=== PATIENT | female | born 1960 | race Caucasian/White ===

== ENCOUNTER → 2022-02-25 | Outpatient (CLI) | payer BC, OTHER, SELFPAY ==
[2022-02-25 15:12] LABS: Absolute Lymphocyte Count 2.38 X10^3/uL (0.83-4.51); Absolute Neutrophil Count 3.9 X10^3/uL (2.0-7.7); Basophil# 0.03 X10^3/uL; Basophil% 0.4 % (0-1); Eosinophil# 0.16 X10^3/uL; Eosinophils% 2.3 % (0-5); Hematocrit 43.4 % (37-47); Hemoglobin 14.1 g/dL (12.0-15.0); Lymphocyte # 2.38 X10^3/ul (0.83-4.51); Lymphocyte % 33.9 % (19-41); Mean Corp Hgb Conc 32.5 g/dL (32-36); Mean Corpuscular Hgb 29.4 pg (27.0-32.0); Mean Corpuscular Volume 90.6 fL (81-99); Mean Platelet Vol. 11.5 fl (6.2-12.0); Monocyte# 0.53 X10^3/uL; Monocyte% 7.5 % (0-10); NRBC Flagged by Analyzer 0 % (0-5); Neutrophil # 3.92 X10^3/uL (2.7-7.7); Neutrophil % 55.8 % (47-70); Platelet Count 231 K/mm3 (150-450); RBC Distribution Width CV 12.1 % (11.6-14.6); RBC Distribution Width SD 40.3 fl (35.1-43.9); Red Blood Count 4.79 M/mm3 (4.2-5.4)
[2022-02-25 16:02] LABS: AST(SGOT) 13 U/L (15-37); Alanine Aminotransfer ALT/SGPT 25 U/L (13-56); Albumin, Serum 3.8 g/dL (3.2-5.0); Alkaline Phosphatase 72 U/L (45-117); Anion Gap 4 (5-15); BUN 16 mg/dL (7-18); BUN/Creat Ratio 21.4 RATIO (10-20); Calcium,Total 9.4 mg/dL (8.5-10.1); Chloride 107 mmol/L (98-107); Cholesterol 254 mg/dL (200); Creatinine, Serum 0.75 mg/dL (0.55-1.02); EST Glomerular Filtration Rate 83 mL/min (>60); Est Glom Filt Rate - Afr Amer 101 mL/min (>60); Globulin 3.8 g/dL (2.2-4.2); Glucose 104 mg/dL (74-106); High Density Lipoprotein 54 mg/dL; Potassium 4.5 mmol/L (3.5-5.1); Protein, Total 7.6 g/dL (6.4-8.2); Sodium Level 138 mmol/L (136-145); Triglycerides 189 mg/dL; Very Low Density Lipoprotein 38 mg/dL (5-40)
== END | disposition home or self-care (01) ==
LOC: BIMLAB 12:13
PROVIDERS: PCP Internal Medicine; Referring Provider Internal Medicine; Visit Provider Internal Medicine
DX: E78.5 Hyperlipidemia, unspecified (principal)
CPT/HCPCS: 36415; 80053; 80061; 85025

== ENCOUNTER → 2022-04-12 | Outpatient (CLI) | payer OTHER, SELFPAY ==
[2022-04-12 12:52] LABS: ALB/GLOB Ratio 1.1 RATIO (0.9-2.4); AST(SGOT) 14 U/L (15-37); Alanine Aminotransfer ALT/SGPT 25 U/L (13-56); Alkaline Phosphatase 66 U/L (45-117); Anion Gap 4 (5-15); BUN 18 mg/dL (7-18); Calcium,Total 9.8 mg/dL (8.5-10.1); Chloride 109 mmol/L (98-107); Creatinine, Serum 0.72 mg/dL (0.55-1.02); EST Glomerular Filtration Rate 87 mL/min (>60); Est Glom Filt Rate - Afr Amer 105 mL/min (>60); Globulin 3.5 g/dL (2.2-4.2); Glucose 90 mg/dL (74-106); Potassium 4.1 mmol/L (3.5-5.1); Protein, Total 7.5 g/dL (6.4-8.2); Sodium Level 140 mmol/L (136-145)
== END | disposition home or self-care (01) ==
LOC: BIMLAB 11:20
PROVIDERS: PCP Internal Medicine; Referring Provider Internal Medicine; Visit Provider Internal Medicine
DX: E78.5 Hyperlipidemia, unspecified (principal); E66.9 Obesity, unspecified
CPT/HCPCS: 36415; 80053; 83036

== ENCOUNTER → 2022-07-12 | Outpatient (CLI) | payer OTHER, SELFPAY ==
[2022-07-12 12:37] LABS: ALB/GLOB Ratio 1.1 RATIO (0.9-2.4); AST(SGOT) 18 U/L (15-37); Alanine Aminotransfer ALT/SGPT 33 U/L (13-56); Alkaline Phosphatase 69 U/L (45-117); Anion Gap 7 (5-15); BUN 16 mg/dL (7-18); BUN/Creat Ratio 21.6 RATIO (10-20); CPK Total, Creatine Kinase 59 U/L (26-192); Calcium,Total 10.1 mg/dL (8.5-10.1); Chloride 109 mmol/L (98-107); Cholesterol 155 mg/dL (200); Creatinine, Serum 0.74 mg/dL (0.55-1.02); EST Glomerular Filtration Rate 84 mL/min (>60); Est Glom Filt Rate - Afr Amer 102 mL/min (>60); Globulin 3.6 g/dL (2.2-4.2); Glucose 100 mg/dL (74-106); High Density Lipoprotein 52 mg/dL; Potassium 4.4 mmol/L (3.5-5.1); Protein, Total 7.6 g/dL (6.4-8.2); Sodium Level 142 mmol/L (136-145); Triglycerides 101 mg/dL; Very Low Density Lipoprotein 20 mg/dL (5-40)
== END | disposition home or self-care (01) ==
LOC: BIMLAB 10:36
PROVIDERS: PCP Internal Medicine; Visit Provider Internal Medicine
DX: E78.5 Hyperlipidemia, unspecified (principal)
CPT/HCPCS: 36415; 80053; 80061; 82550

== ENCOUNTER → 2022-07-16 | Outpatient (CLI) | payer OTHER, SELFPAY ==
--- NOTE | 2022-07-16 14:27 | US_ITS ---
ACR Level 3 findings have been noted. An addendum which confirms receipt of the report will follow. INDICATION: Thyroid Nodule EXAMINATION: Ultrasound US Thyroid (eg thyroid, parathyroid, parotid) TECHNIQUE: Swanson scale and color doppler imaging was performed of the thyroid gland. COMPARISON: None. FINDINGS: RIGHT THYROID LOBE: 4.2 x 1.6 x 1.1 cm. Homogeneous echotexture with normal vascularity. 5 mm lower pole solid nodule with regular margins. LEFT THYROID LOBE: 4.8 x 1.9 x 1.3 cm. Homogeneous echotexture with normal vascularity. 2.2 x 1.5 x 1.6 cm heterogeneously hypoechoic solid nodule with regular margins. ISTHMUS: 4 mm. No thyroid nodules are present. US/Thyroid IMPRESSION: 2.2 cm left thyroid TI-RADS 4 nodule meets criteria for FNA. 5 mm right thyroid nodule does not meet criteria for follow-up. Electronically Signed: Sabas Yin MD at 16:46 EDT ,
== END | disposition home or self-care (01) ==
PROVIDERS: PCP Internal Medicine; Referring Provider Internal Medicine; Visit Provider Internal Medicine
DX: E04.1 Nontoxic single thyroid nodule (principal)
CPT/HCPCS: 10021; 76536

== ENCOUNTER → 2022-07-24 | Outpatient (CLI) | payer OTHER, SELFPAY ==
--- NOTE | 2022-07-24 13:10 | FLU_PTH ---
PATIENT: MONISHA MCMANUS LOC: [facility]#:[id number] AGE/SX: 61/F ROOM: RE07/24/[address]: Dr. Eduin Alvarez MD : 1960 BED: DIS: 07/24/2022 SPEC #: [id number] RECD: 07/24/22 15:11 STATUS: LANNY MIGNON #: [id number] HECTOR: 07/24/22 13:[address]: Eduin Alvarez DEPT: CYTOLOGY RECD BY: Kristen Thomas ENTERED: 07/25/22 10:39 SP TYPE: Fluid OTHR DR: Dr. Isaac Felix MD Tissues: A - Thyroid gland, NOS B - Thyroid gland, NOS Procedures: Special Stain Group II Surgery Specimen Level IV Cytospin Fluid Cytology Other HEADER OPERATION: Ultrasound-guided fine needle aspiration left thyroid PRE-OP DIAGNOSIS: Thyroid nodule TISSUE SUBMITTED: A ? Left thyroid nodule fluid, B - Left thyroid nodule x4 slides DIAGNOSIS CYTOLOGY A. Left thyroid nodule fluid, fine needle aspiration (cytospin and cell block): Consistent with benign follicular/colloid nodule ([place] Category II). Adequate for evaluation. See comment. B. Left thyroid nodule, fine needle aspiration (smears): Non-diagnostic specimen. ([place] Category I). Negative for malignant cells. See comment. SJ:rg 07/26/2022 COMMENT A. 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 B. The specimen is nondiagnostic due to lack of adequate number of follicular cells. Rare cluster of follicular cells are noted. Correlation with clinical, radiologic findings and appropriate follow up are necessary. Case has been reviewed in consultation with Dr. Miller who concurs with the above diagnosis. IDC:AM CYTOLOGY STUDY Slides are reviewed. CYTOLOGY GROSS A - Received is 40 ml of red cloudy fluid labeled with the patient's name and and designated per the requisition as left thyroid nodule. Submitted for cytology preparation including cell block. B - Received are four smears labeled with the patient's name and designated per the requisition as left thyroid nodule. Submitted for staining. / salvador 07/25/2022 TC:5 CPT: 95817 x2, 16091
[2022-07-24 14:41] LABS: Free T3 2.5 pg/mL (2.18-3.98); T4 Total, Thyroxin 10.6 ug/dL (4.8-13.9); Thyroid Stim Hormone (TSH) 1.75 uIU/mL (0.358-3.74)
== END | disposition home or self-care (01) ==
PROVIDERS: PCP Internal Medicine; Referring Provider Surgery; Visit Provider Surgery
DX: E04.1 Nontoxic single thyroid nodule (principal); E04.2 Nontoxic multinodular goiter
CPT/HCPCS: 36415; 84436; 84443; 84481; 88108; 88161; 88305; 88313

== ENCOUNTER → 2022-11-19 | Outpatient (CLI) | payer OTHER, SELFPAY ==
--- NOTE | 2022-11-19 12:22 | ECHOD_ITS ---
Reason For Study: Arrhythmia Procedure This was a 2D Doppler, Color Flow transthoracic echocardiogram. Exam performed in department. Left Ventricle Normal LV size. Left ventricular systolic function is normal. The estimated ejection fraction is 60 %. Diastolic function is indeterminate. No regional wall motion abnormalities noted. Right Ventricle Normal RV size. Normal systolic function. Atria The left atrium is moderately enlarged. Normal right atrium. Mitral Valve The mitral valve is structurally normal. No prolapse or stenosis seen. Trivial mitral valve insufficiency. Tricuspid Valve Normal tricuspid valve. Mild (1+) tricuspid valve insufficiency. Right ventricular systolic pressure estimated to be 34 mmHg. Aortic Valve Trisinus/trileaflet aortic valve. There is no aortic stenosis. Pulmonic Valve Normal pulmonic valve. Trivial pulmonic valve insufficiency. Great Vessels Normal aortic root. Pericardium/Pleural No pericardial effusion. MMode/2D Measurements & Calculations LVIDd: 4.9 cm IVSd: 1.0 cm Ao root diam: 3.2 cm LVIDs: 2.7 cm LVPWd: 0.66 cm LA dimension: 4.0 cm RVDd: 3.6 cm FS: 43.9 % LAV(MOD-bp): 43.9 ml LVAd ap4: 30.9 cm2 SV(MOD-sp4): 59.3 ml LAV(MOD-bp) Indexed: 21.4 ml/m2 LVLd ap4: 7.7 cm LAV(MOD-sp2): 41.0 ml EDV(MOD-sp4): 99.4 ml LAV(MOD-sp4): 41.4 ml EDV(sp4-el): 105.3 ml LVAs ap4: 17.3 cm2 LVLs ap4: 6.3 cm ESV(MOD-sp4): 40.1 ml ESV(sp4-el): 40.2 ml EF(MOD-sp4): 59.7 % EF(sp4-el): 61.8 % SV(sp4-el): 65.0 ml LA A4 area: 16.1 cm2 RA A4 area: 14.1 cm2 TAPSE: 1.8 cm Time Measurements MV dec time: 0.23 sec Doppler Measurements & Calculations MV E max masood: 78.5 cm/sec Lat Peak E' Masood: 11.8 cm/sec Med Peak E' Masood: 6.0 cm/sec MV A max masood: 84.3 cm/sec E/E' lat: 6.6 E/E' med: 13.0 MV E/A: 0.93 MV V2 max: 100.5 cm/sec MV P1/2t max masood: 87.7 cm/sec Ao V2 max: 177.5 cm/sec MV max P.0 mmHg MV P1/2t: 76.3 msec Ao max P.6 mmHg MV V2 mean: 52.2 cm/sec MV dec slope: 336.8 cm/sec2 Ao V2 mean: 117.9 cm/sec MV mean P.3 mmHg Ao mean P.4 mmHg MV V2 VTI: 30.2 cm MVA(P1/2t): 2.9 cm2 Ao V2 VTI: 39.0 cm AV (velocity ratio): 0.63 LV V1 max: 117.0 cm/sec PA V2 max: 151.8 cm/sec TR max masood: 303.2 cm/sec LV V1 max P.5 mmHg PA V2 mean: 100.9 cm/sec TR max P.9 mmHg LV V1 mean P.0 mmHg LV V1 mean: 79.8 cm/sec LV V1 VTI: 24.5 cm ECHO/Echo Complete Interpretation Summary The estimated ejection fraction is 60 %. Mild (1+) tricuspid valve insufficiency. Right ventricular systolic pressure estimated to be 34 mmHg. Diastolic function is indeterminate. The left atrium is moderately enlarged. Ordering Physician: Rasheed Putnam Referring Physician: Rasheed Putnam Performed By: Ammon Warner RCS
--- NOTE | 2022-11-19 17:06 | STRESSREP ---
Stress Test Report Exercise stress test. 51-year-old lady with a history of cardiac dysrhythmias Stress protocol: Resting EKG demonstrates sinus bradycardia with a rate of 48 bpm resting blood pressure is 148/84 mmHg. The patient exercised according to the regular Steve protocol for a total duration of 9 minutes and 37 seconds attaining a maximum heart rate of 153 bpm which was 97% of maximum predicted heart rate; the maximum workload was 12 metabolic equivalents. At rest there were no ST or T wave changes noted to suggest ischemia and at peak exercise upsloping ST changes only were noted which did not meet the criteria for ischemia. Upsloping ST changes only noted for approximately 1.2 mm. During recovery there was less than [address] depression noted which did not meet the criteria for ischemia. No clinical angina was noted the test was terminated due to the target heart rate being achieved/fatigue. The peak blood pressure was 190/84 mmHg. Rate-pressure product was 26,900. Conclusion: Exercise stress test with no definitive EKG criteria for ischemia at a high workload. Excellent functional aerobic capacity. No arrhythmias noted. No angina present. This is a low risk treadmill stress test.
== END | disposition home or self-care (01) ==
LOC: CVS 12:20
PROVIDERS: PCP Internal Medicine; Referring Provider Internal Medicine Cardiovascular Disease; Visit Provider Internal Medicine Cardiovascular Disease
DX: E78.5 Hyperlipidemia, unspecified (principal); R94.31 Abnormal electrocardiogram [ECG] [EKG]; E66.9 Obesity, unspecified
CPT/HCPCS: 93017; 93306

== ENCOUNTER → 2023-01-17 | Outpatient (CLI) | payer OTHER, SELFPAY ==
[2023-01-17 09:12] LABS: Mucous, Urine 0 SEEN /hpf (<or=2+)
[2023-01-17 12:20] LABS: Color, Urine Yellow (Yellow); Glucose, Dipstick Normal (Normal); Ketone-Dipstick 5 mg/dl (Negative); Leukocyte Esterase-Dipstick 500 /ul (Negative); Nitrite-Dipstick Negative (Negative); Occult Blood-Urine 250 /ul (Negative); Protein-Dipstick 30 mg/dl (Negative); Specific Gravity, Urine 1.025 (1.002-1.030); Urine Bilirubin Dipstick Negative (Negative); Urine Clarity Sl. Cloudy (Clear); Urine Urobilinogen 1 mg/dl (Normal)
[2023-01-17 12:40] LABS: Bacteria 1+ /hpf (None Seen); Calcium Oxalate Crystals Ur 1+ /hpf (<or=2+); Red Blood Cells-Urine 25-50 SEEN /hpf (0-5); Squamous Epithelial Cells - UA 0-5 SEEN /hpf (5-10); White Blood Cells 25-50 SEEN /hpf (0-5)
[2023-01-17 13:26] LABS: Hepatitis C Antibody Non-Reactive (Nonreactive)
== END | disposition home or self-care (01) ==
LOC: BIMLAB 09:03
PROVIDERS: PCP Internal Medicine; Referring Provider Internal Medicine; Visit Provider Internal Medicine
DX: R35.0 Frequency of micturition (principal); Z11.59 Encounter for screening for other viral diseases
CPT/HCPCS: 36415; 81001; 86803; 87086; 87088

== ENCOUNTER 2023-02-03 09:16 | Emergency (ER) | payer OTHER, SELFPAY ==
[2023-02-03 09:17] VITALS: BP 112/54; PULSE 56; RESP 18; TEMP 36.2; O2SAT 100; BMI 35.9
--- NOTE | 2023-02-03 09:27 | CT_ITS ---
STUDY: CTA CHEST WITH CONTRAST REASON FOR EXAM: Female, 62 years old. Syncope. RADIATION DOSAGE (If Supplied By Facility): CTDIvol = ( 13.23 ) mGy, DLP = ( 536.79 ) mGycm TECHNIQUE: Transaxial imaging was performed following intravenous administration of 100 ml of Isovue-370 contrast material. Coronal and sagittal reformatted images were created. 3D post processed images were created. Individualized dose optimization techniques were used for this CT. COMPARISON: No relevant prior comparison study available FINDINGS: LUNGS: There are no pulmonary infiltrates. There are no pulmonary nodules or masses. PLEURAL SPACE: There are no pleural effusions. There is no pneumothorax. MEDIASTINUM: The heart and pericardium are within normal limits. There is no pneumomediastinum. There is no thoracic lymphadenopathy. VESSELS There is no pulmonary embolus. The pulmonary artery is normal in caliber. There is no thoracic aortic aneurysm or dissection. UPPER ABDOMEN: Images through the upper abdomen demonstrate no significant abnormality. BONES: There are no destructive osseous lesions. SOFT TISSUES: The visualized soft tissues are unremarkable. CT/CTA Chest W/WO Contrast IMPRESSION: No pulmonary embolus. No thoracic aortic aneurysm or dissection. No pulmonary infiltrates or pleural effusions. Electronically Signed: Jonnie Hoskins MD at 11:11 EDT ,
--- NOTE | 2023-02-03 09:27 | EKG12_ITS ---
Test Reason : SYNCOPE Blood Pressure : / mmHG Vent. Rate : 052 BPM Atrial Rate : 052 BPM P-R Int : 148 ms QRS Dur : 084 ms QT Int : 422 ms P-R-T Axes : 052 -04 011 degrees QTc Int : 392 ms Sinus bradycardia Nonspecific ST abnormality Abnormal ECG Confirmed by TEE MORAN, ERICK ([id number]), social media editor NILES MA ([id number]) on 02/05/2023 10:40:13 AM Referred By: Confirmed By:ERICK OLIVEIRA MD
--- NOTE | 2023-02-03 09:29 | EX.ED.DYSGE1 ---
HPI History of Present Illness Chief Complaint: Syncope Narrative Narrative: Patient presents after syncopal episode. She had a total knee replacement last week, she was in physical therapy sitting down and had a brief loss of consciousness with rapid full recovery. She had another episode while she was at home 2 days ago. No fevers or chills. Patient is denying any chest pain palpitations or shortness of breath. No pleuritic component. No increased lower extremity edema. She does not have significant pain she did take pain medications this morning prior to her appointment. [facility] Medical History (Updated 02/03/23 @ 11:[address] Sabas Mcclure MD) Anemia Arrhythmia Arthritis Rooney cyst Borderline type 2 diabetes mellitus Chronic knee pain Family history of lung cancer Heart murmur History of blood clots HPV (human papilloma virus) anogenital infection Hyperlipemia Hyperlipidemia Hypertension Need for hepatitis C screening test Nonrheumatic tricuspid (valve) insufficiency Obesity (BMI 30-39.9) Obstructive sleep apnea Osteoarthritis Palpitations Postmenopausal Preoperative evaluation to rule out surgical contraindication Psoriasis Scoliosis Seasonal allergies Thyroid nodule Urinary frequency Home Medications biotin 5,000 mcg disintegrating tablet 10,000 mcg PO DAILY 11/05/21 [History Last Taken Unknown] calcium carbonate 600 mg calcium (1,500 mg) tablet (Calcium) 600 mg PO DAILY 11/05/21 [History Last Taken Unknown] cholecalciferol (vitamin D3) 25 mcg (1,000 unit) capsule 25 mcg PO DAILY 11/05/21 [History Last Taken Unknown] clobetasol 0.05 % topical cream 1 applic topical DAILY PRN 11/05/21 [History Last Taken Unknown] lactobacillus combination no.9 4 billion cell capsule (Adult 50 Plus Probiotic) 4,000 mmu cells PO DAILY 11/05/21 [History Last Taken Unknown] psyllium husk 0.4 gram capsule (Metamucil) 0.4 g PO DAILY 11/05/21 [History Last Taken Unknown] turmeric root extract 1,053 mg tablet 1,076 mg PO DAILY 11/05/21 [History Last Taken Unknown] magnesium oxide 400 mg PO DAILY PRN 04/12/22 [History Last Taken Unknown] rosuvastatin 10 mg tablet 10 mg PO DAILY #90 tabs 09/30/22 [Rx Last Taken Unknown] krill oil 500 mg capsule 500 mg PO DAILY 11/06/22 [History Last Taken Unknown] AMBREN PO DAILY NIGHT SWEATS 12/05/22 [History Last Taken Unknown] tirzepatide 10 mg/0.5 mL subcutaneous pen injector 10 mg (0.5 mL) subcut QWEEK 3 months #6.5 mL 12/05/22 [Rx Last Taken Unknown] cephalexin 500 mg tablet 500 mg PO TID #15 tabs 01/17/23 [Rx Last Taken Unknown] hydrocortisone 2.5 % topical solution 1 applic topical .TWICE WEEKLY 01/17/23 [History Last Taken Unknown] Allergy/AdvReac Type Severity Reaction Status Date / Time amoxicillin Allergy Mild Rash Verified 02/03/23 09:21 azithromycin Allergy Mild Rash Verified 02/03/23 09:21 chlorhexidine Allergy Mild Rash Verified 02/03/23 09:21 [From ChloraPrep Clear] iodine Allergy Mild Rash Verified 02/03/23 09:21 isopropyl alcohol Allergy Mild Rash Verified 02/03/23 09:21 [From ChloraPrep Clear] Penicillins Allergy Mild Rash Verified 02/03/23 09:21 nickel [chandra] Allergy Rash Verified 02/03/23 09:21 Family History Mother Cancer lung Arthritis Sister Arthritis Osteoporosis Brother Arthritis Heart disease Hypertension Hyperlipemia Father Diabetes Heart disease Hypertension Hyperlipemia Kidney disease CVA (cerebral vascular accident) Grandmother Pacemaker Other Family history of lung cancer Surgical History History of bunionectomy History of carpal tunnel release History of removal of cyst Social History Smoking Status: Never smoker alcohol intake: current alcohol intake frequency: a few times a week substance use type: does not use caffeine: Yes Type: coffee Number of servings: 2 what type of physical activity do you participate in: weight training and other details: cardio frequency: 1-2 times per week ROS ROS ED ROS Narrative Past medical history: Reviewed Medications: Reviewed Social history: Noncontributory Review of systems: All systems negative except as indicated General: No fever Eyes: No visual changes ENT: No upper airway congestion, normal voice Neck: No neck pain Cardiovascular: No chest pain syncope as in HPI Respiratory: No shortness of breath or cough Gastrointestinal: No abdominal pain, nausea vomiting or diarrhea Genitourinary: No dysuria Musculoskeletal: Status post knee replacement Skin: No rash Neurological: No memory loss, confusion or any focal weakness. No seizure-like activity Hematologic: No easy bleeding or easy bruising EXAM Physical Exam Narrative Exam Narrative: Physical exam General: Well nourished, Well developed, No Acute Distress Head: Normocephalic, Atraumatic Eyes: Conjunctiva not pale ENT: Moist mucous membranes Neck: Supple, Nontender, No lymphadenopathy Cardiovascular: Regular rate, Regular rhythm Respiratory: No distress, CTA bilaterally Abdomen: Soft, Nontender, Nondistended Back: Nontender, Normal Inspection. Negative for: CVA tenderness Extremities: No edema. Right knee shows a Band-Aid there is no erythema or calor or any signs of infection over the incision site. Skin: Normal color, No rash Neurological: Alert, Normal Strength, Normal Sensation Psychological: Normal affect Const Vital Signs: 02/03/23 09:17 02/03/23 09:21 Temperature 97.1 F L Temperature Source Oral Pulse Rate 56 L Respiratory Rate 18 Respiratory Pattern Normal Blood Pressure 112/54 L Blood Pressure Mean 73 Pulse Ox 100 Oxygen Delivery Method Room Air MDM MDM MDM Narrative Medical decision making narrative: EKG: Sinus rhythm with a rate of 52. Normal UT and QTc intervals. He had nonspecific ST changes. No acute ischemic changes. Interpreted by emergency doctor. MDM: Patient recently had stress test and echo which were unremarkable this was all prior to her knee surgery. Reviewed these results from October of this year read by Dr. Thurman, stress test is normal and echocardiogram is essentially unremarkable. I thought about pulmonary embolism especially with multiple syncope episodes after surgery, this is unfounded on testing. There is no evidence of cardiac etiology, this may be vasovagal or dehydration. She is given fluids. She appears well. I believe she can be safely discharged no further treatment is needed. She does not meet admission criteria at this time. Lab Data Labs: Laboratory Results - last 24 hr 02/03/23 09:42 WBC 10.8 RBC 3.98 L Hgb 11.9 L Hct 38.0 MCV 95.5 MCH 29.9 MCHC 31.3 L RDW Std Deviation 42.5 RDW Coeff of Alissa 12.1 Plt Count 252 MPV 11.2 Immature Gran % (Auto) 0.600 Neut % (Auto) 69.1 Lymph % (Auto) 21.1 Kaufman % (Auto) 6.6 Eos % (Auto) 2.3 Baso % (Auto) 0.3 Absolute Neuts (auto) 7.5 Absolute Lymphs (auto) 2.29 Nucleated RBC % 0 Sodium 137 Potassium 3.6 Chloride 105 Carbon Dioxide 25.0 Anion Gap 7 BUN 17 Creatinine 0.80 Estim Creat Clear Calc 64.77 Est GFR (MDRD) Af Amer 93 Est GFR (MDRD) Non-Af 77 BUN/Creatinine Ratio 21.2 H Glucose 171 H Calcium 9.6 Total Bilirubin 0.60 AST 25 ALT 51 Alkaline Phosphatase 63 Troponin I High Sens 4 Total Protein 6.8 Albumin 3.3 Globulin 3.5 Albumin/Globulin Ratio 0.9 Radiography Diagnostic Testing: Clinical Impression(s) from Imaging Studies Chest CTA 02/03/23 09:27 IMPRESSION: No pulmonary embolus. No thoracic aortic aneurysm or dissection. No pulmonary infiltrates or pleural effusions. Electronically Signed: Jonnie Hoskins MD at 11:11 EDT Reading Location ID and State: [facility] / [place] Tel , Service support , Discharge Plan Triage Chief Complaint: Syncope ED Provider: Sabas Mcclure Dx/Rx/DC Orders Clinical Impression: Syncope, Post-operative pain Instructions: Causes of Syncope Prescriptions: No Action biotin 5,000 mcg tablet,disintegrating 10,000 mcg PO DAILY psyllium husk [Metamucil] 0.4 gram capsule 0.4 g PO DAILY calcium carbonate [Calcium 600] 600 mg calcium (1,500 mg) tablet 600 mg PO DAILY turmeric root extract 1,053 mg tablet 1,076 mg PO DAILY cholecalciferol (vitamin D3) 25 mcg (1,000 unit) capsule 25 mcg PO DAILY Adult 50 Plus Probiotic 4 billion cell capsule 4,000 mmu cells PO DAILY Rx Instructions: administer with a meal clobetasol 0.05 % cream 1 applic topical DAILY PRN magnesium oxide 400 mg magnesium capsule 400 mg PO DAILY PRN krill oil 500 mg capsule 500 mg PO DAILY rosuvastatin 10 mg tablet 10 mg PO DAILY Qty: 90 2RF hydrocortisone 2.5 % solution 1 applic topical .TWICE WEEKLY AMBREN PO DAILY Rx Instructions: 2 CAPSULES DAILY tirzepatide 10 mg/0.5 mL pen injector 10 mg subcut QWEEK 90 Days Qty: 6.5 3RF cephalexin 500 mg tablet 500 mg PO TID Qty: 15 0RF Primary Care Provider: Isaac Felix Referrals: Isaac Felix MD [Primary Care Provider] - 3-5 Days
[2023-02-03] MEDS: 0.9% Normal Saline (1000mL) 1,000 ML 1000 ML IV (09:48)
[2023-02-03] MEDS: MethylPREDNISolone 125 MG/2 ML Vial IV (09:48)
[2023-02-03] MEDS: DiphenhydrAMINE 50 MG/ML Syringe 25 MG IV (09:49)
[2023-02-03] MEDS: Famotidine 200 MG/20 ML MDV 20 MG in 0.9% Normal Saline (Pres. free 8 ML 300 MG IV (09:49)
[2023-02-03 09:53] LABS: Absolute Lymphocyte Count 2.29 X10^3/uL (0.83-4.51); Absolute Neutrophil Count 7.5 X10^3/uL (2.0-7.7); Basophil# 0.03 X10^3/uL; Basophil% 0.3 % (0-1); Eosinophil# 0.25 X10^3/uL; Eosinophils% 2.3 % (0-5); Hemoglobin 11.9 g/dL (12.0-15.0); Lymphocyte # 2.29 X10^3/ul (0.83-4.51); Lymphocyte % 21.1 % (19-41); Mean Corp Hgb Conc 31.3 g/dL (32-36); Mean Corpuscular Hgb 29.9 pg (27.0-32.0); Mean Corpuscular Volume 95.5 fL (81-99); Mean Platelet Vol. 11.2 fl (6.2-12.0); Monocyte# 0.72 X10^3/uL; Monocyte% 6.6 % (0-10); NRBC Flagged by Analyzer 0 % (0-5); Neutrophil # 7.47 X10^3/uL (2.7-7.7); Neutrophil % 69.1 % (47-70); Platelet Count 252 K/mm3 (150-450); RBC Distribution Width CV 12.1 % (11.6-14.6); RBC Distribution Width SD 42.5 fl (35.1-43.9); Red Blood Count 3.98 M/mm3 (4.2-5.4); White Blood Count 10.8 K/mm3 (4.4-11.0)
[2023-02-03 10:18] LABS: ALB/GLOB Ratio 0.9 RATIO (0.9-2.4); AST(SGOT) 25 U/L (15-37); Alanine Aminotransfer ALT/SGPT 51 U/L (13-56); Albumin, Serum 3.3 g/dL (3.2-5.0); Alkaline Phosphatase 63 U/L (45-117); Anion Gap 7 (5-15); BUN 17 mg/dL (7-18); BUN/Creat Ratio 21.2 RATIO (10-20); Calcium,Total 9.6 mg/dL (8.5-10.1); Chloride 105 mmol/L (98-107); EST Glomerular Filtration Rate 77 mL/min (>60); Est Glom Filt Rate - Afr Amer 93 mL/min (>60); Estimated Creatinine Clearance 64.77 ml/min; Globulin 3.5 g/dL (2.2-4.2); Glucose 171 mg/dL (74-106); Potassium 3.6 mmol/L (3.5-5.1); Protein, Total 6.8 g/dL (6.4-8.2); Sodium Level 137 mmol/L (136-145); Troponin-I HS 4 pg/mL (3.0-54.0)
--- NOTE | 2023-02-03 10:58 | ED.RN ---
Patient up and ambulatory to bathroom with walker. Gait steady and denies dizziness, lightheadedness. Urine obtained and patient returned to bed.
[2023-02-03 11:27] VITALS: BP 123/61; PULSE 62; RESP 16; O2SAT 98
== END 2023-02-03 11:30 | disposition home or self-care (01) ==
LOC: ED 10:10
PROVIDERS: Emergency Provider Emergency Medicine; PCP Internal Medicine; Visit Provider Emergency Medicine
DX: R55 Syncope and collapse (principal); E78.5 Hyperlipidemia, unspecified; G89.18 Other acute postprocedural pain; I10 Essential (primary) hypertension; Z96.659 Presence of unspecified artificial knee joint; Z79.899 Other long term (current) drug therapy
CPT/HCPCS: 71275; 80053; 84484; 85025; 93005; 96365; 96366; 96375; 99284; J7030; Q9967; J3490

== ENCOUNTER → 2023-02-03 | Outpatient (CLI) | payer OTHER, SELFPAY | END | disposition home or self-care (01) | PROVIDERS: PCP Internal Medicine; Visit Provider Emergency Medicine | DX: R55 Syncope and collapse (principal) | CPT/HCPCS: 93225; 93226 ==

== ENCOUNTER 2023-04-25 10:30 | Outpatient (RCR) | payer OTHER, SELFPAY ==
--- NOTE | 2023-02-06 09:24 | HP.PTEVAL ---
Patient's Visit Information Visit Information Visit Information: MONISHA MCMANUS is a 62 year old F referred to Physical Therapy by VALENTINE VALDEZ with a diagnosis of Right TKR 01/29/23. Date of Evaluation: 02/03/23 Physical Therapist: Maria R Wiley DPT Visit Plan Frequency: 3x /Week Duration: 4 Weeks Plan: Right TKR 01/29/23 Focus on Functional Mobility, ROM, and LE strength/stabilization Pt taken to hospital on IE- due to passing out- followed up by PT same day- went home same day with heart monitor for 24 hours- will return to PT in 2 days. Subjective Subjective: Right TKR 01/29/[address] Charlton- she stayed overnight one night- then headed home- two story home but first floor set up- lives with her who can help as needed- two stairs to enter with a single hand rail on the right side no problems navigating. Fully I prior to surgery. 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 She is doing okay- this is the the stiffest she has been. She is still taking pain medication. Worst: 5/10 Agg: bending. Eases: pain medication, propping it up, ice. Best: 0/10. The pain is located in the knee- does not radiate. Describes the pain as stiff and more dull and achy. No N/T in the toes. Sleep: in the bed- side sleeper- back sleeper- not disturbed. Exercises: ankle ROM, gluts sets, quad sets, SLR. She is getting up every couple of hours. She has a bandage on so they want her to leave it on until they see MD on Friday. PMHx: no changes since saw MD Objective Objective: Posture: forward head, rounded shoulder- can correct with verbal cues but does not maintain Gait: FWW- slightly antalgic- decreased heel/toe pattern Stairs: asc- recip with 2 HR- desc non recip 2 HR HR/TR: able with UE A SLS: weight shift Observation: incision healing well no s/s of infection ROM: 0-80 degrees Strength: Hip: SLR: able without UE A, all other motions: 4/5 throughout, Knee: Flexion: 14.4 Extn: 10.3 Ankle: 5/5 Core:fair minus Girth: Patella: 46 cm Flex: HS: moderate, Gastroc: moderate Balance/Special Test Scores TUG Test Time Seconds: 20 WOMAC Total Score: 47 WOMAC Percentatge: 51.0500 Goals Goal 1:: Patient will report participation in home exercise program activities a minimum of 5 days per week, as adjunct to skilled physical therapy intervention in preparation for independent home management upon discharge. Goal Time Frame: 4-6 Weeks Goal 2:: Patient will report an increase of 9 points on the LEFS to show minimal clinical significant difference on patients functional outcome measure. Goal Time Frame: 4-6 Weeks Goal 3:: Patient will descend 4+ stairs reciprocally with a single handrail to demonstrate increased LE functional strength and ease community mobility Goal Time Frame: 4-6 Weeks Goal 4:: Patient will ambulate >300 feet with a normalized gait pattern without AD to ease ADL's. Goal Time Frame: 6-8 Weeks Rehabilitation Potential Physical Therapy Diagnosis: Patient presents with hypomobility s/p Right TKR 01/29/23- she has decreased ROM, LE and core strength/stabilization, proprioception, Rehabilitation Potential: Good Anticipated Interventions Patient/Client Instruction: Educate patient on: Benefits of Fitness Program Therapeutic Exercise to Include: Strength training, Endurance training, Balance training, Coordination, Agility training, Body mechanics, Postural training, Flexibilty training, Gait and locomotor training, Neuromotor development, In an aquatic setting , Dynamic Lumbar Stabilization and Scapular Strength/Stabilization Cryotherapy (ice pack, ice massage): Yes Thermo therapy (hot pack): Yes Text: Thank you for the opportunity to evaluate your patient. For Medicare and Medicare HMO plans, please review the plan of care and approve it. It will need to be FAXED BACK to us at [phone] for Medicare purposes. For Medicare only, by signing this I certify the plan of care. Please let me know if there are questions or concerns regarding this plan of care. Physician Signature: Date:
--- NOTE | 2023-04-25 10:58 | HP.PTDCSUM ---
Discharge Summary D/C summary: It has been my pleasure to treat MONISHA MCMANUS referred by VALENTINE VALDEZ, with the diagnosis of Right TKR 01/29/23 for a total of 32 visit(s). Discharge Date: Please see the following information for a summary of their discharge status. Subjective Subjective: Pt reports she feels really good at this time. Ready for discharge Pain R knee: Pain Intensity (Out of 10): 0 Overall Improvement % Improvement: 90 Objective Objective/Function: R knee pain ranges from 0-2/10 R knee MMT: flex= 31, ext= 67 #F R knee ROM: 0-122 degrees TU.75 sec Pt is able to negotiate 10 stairs without difficulty using 2 HR Goals Goal 1:: Patient will report participation in home exercise program activities a minimum of 5 days per week, as adjunct to skilled physical therapy intervention in preparation for independent home management upon discharge. Goal Progress: Goal Met Goal 2:: Patient will report an increase of 9 points on the LEFS to show minimal clinical significant difference on patients functional outcome measure. Goal Progress: Goal Met Goal 3:: Patient will descend 4+ stairs reciprocally with a single handrail to demonstrate increased LE functional strength and ease community mobility Goal Progress: Progressing Goal 4:: Patient will ambulate >300 feet with a normalized gait pattern without AD to ease ADL's. Goal Progress: Goal Met Goal 5:: Increase R knee strength x 5#F to aid with stair negotiatrion Goal Progress: New goal Plan Plan: Discharge to [facility] D/C Information d/c sentence: If there are questions or concerns regarding this patient's physical therapy, please feel free to call me at [phone]. Thank you for the referral of this patient. Sincerely, Mukesh Mcconnell, PT, ATC Balance/Gait/Functional tests Balance/Special Test Scores Lower Extremity Functional Score: 76 TUG Test Time Seconds: 20 Tug Test: 20-30sec.=variable mobility WOMAC Total Score: 47 WOMAC Percentage: 51.0500 Improvement % Improvement: 90
== END 2023-04-25 19:00 | disposition home or self-care (01) ==
LOC: PT 10:30
PROVIDERS: PCP Internal Medicine
DX: M17.11 Unilateral primary osteoarthritis, right knee (principal)
CPT/HCPCS: 97016; 97110; 97162; 97164

== ENCOUNTER → 2023-04-25 | Outpatient (CLI) | payer OTHER, SELFPAY ==
--- OUTSIDE RECORDS SUMMARY | 2023-04-25 09:27 | XMS RPT_ITS | CCD ---
Author Name Unknown Address [id number] [place] [address] Organization [facility] Care Team Providers Care Agricultural Equipment Test Engineer Name Role Phone Sakshi Castillo DO Unavailable [phone] Viki Mg LPN Unavailable Unavailable Unavailable Primary Care Provider Isaac De La Rosa MD Primary Care Provider ISAAC DEVI Primary Care Unavailable STEVE SIMEON Attending Unavailable Allergies Allergy Classification Reported Allergen(s) Allergy Type Date of Onset Reaction(s) Facility (5 sources) Azithromycin; Translations: [AZITHROMYCIN] Drug Allergy 09-21-2020 [facility] Work Phone: (5 sources) Chlorhexidine; Translations: [CHLORHEXIDINE] Drug Allergy 10-12-2020 [facility] (5 sources) nickel; Translations: [NICKEL] Drug Allergy 04-13-2001 [facility] Work Phone: (2 sources) Iodine; Translations: [IODINE] Drug Allergy 01-17-2023 [facility] (2 sources) Isopropyl Alcohol; Translations: [ISOPROPYL ALCOHOL] Drug Allergy 09-30-2022 [facility] (2 sources) oxyCODONE; Translations: [OXYCODONE] Drug Allergy 02-28-2023 Other: See Comments [facility] Medications Completed/Discontinued Medications Medication Drug Class(es) Dates Sig (Normalized) Sig (Original) Aspirin (4 sources) Platelet Aggregation Inhibitor, Nonsteroidal Anti-inflammatory Drug End: 03-13-2023 ASPIRIN (ASPIR-81 ORAL) Take by mouth. 0 03/13/2023 Discontinued (Course of therapy completed) Problems Active Problems Problem Classification Problem Date Documented Da te Episodic/Chronic Acquired foot deformities (4 sources) Bunion; Translations: [Bunion of unspecified foot] 02-22-2005 Episodic Administrative/social admission (6 sources) Patient encounter status; Translations: [Nutritional counseling] 01-02-2022 Episodic Disorders of lipid metabolism (4 sources) Hyperlipidemia; Translations: [Hyperlipidemia, unspecified] 08-22-2003 Chronic Essential hypertension (4 sources) Essential hypertension; Translations: [Essential (primary) hypertension] Onset: 03-04-2016 03-04-2016 Chronic Heart valve disorders (4 sources) Tricuspid incompetence, non-rheumatic ; Translations: [Nonrheumatic tricuspid (valve) insufficiency] Onset: 03-04-2016 03-04-2016 Chronic Other and unspecified benign neoplasm (6 sources) Polyp of colon; Translations: [Colon polyps] 01-02-2022 Episodic Past or Other Problems Problem Classification Problem Date Documented Da te Episodic/Chronic Heart valve disorders (4 sources) Heart murmur; Translations: [Cardiac murmur, unspecified] Onset: 04-04-2003 08-22-2003 Episodic Other connective tissue disease (4 sources) Partial thickness rotator cuff tear; Translations: [Incomplete rotator cuff tear or rupture of left shoulder, not specified as traumatic] Onset: 08-08-2015 08-08-2015 Episodic Other connective tissue disease (4 sources) Impingement syndrome of left shoulder region; Translations: [Impingement syndrome of left shoulder] Onset: 08-08-2015 08-08-2015 Episodic Unclassified (3 sources) Papilloma virus DNA assay; Translations: [HPV Comprehensive] 01-02-2022 Results Test Name Value Interpretation Reference Range Facil ity Vital Signs Date Time Vital Sign Value Performing Clinician Facility 03-13-2023 14:34-0500 Body height 167.6 cm Steve Simeon MD Work Phone: [facility] 03-13-2023 14:34-0500 Body weight 93.44 kg Steve Simeon MD Work Phone: [facility] 03-13-2023 14:34-0500 Diastolic blood pressure 81 mm[Hg] Steve Simeon MD Work Phone: [facility] 03-13-2023 14:34-0500 Heart rate 66 /min Steve Simeon MD Work Phone: [facility] 03-13-2023 14:34-0500 Systolic blood pressure 120 mm[Hg] Steve Simeon MD Work Phone: [facility] 01-02-2022 11:56-0400 Body height 167.64 cm Viki Mg LPN [facility] Work Phone: 01-02-2022 11:56-0400 Body mass index (BMI) [Ratio] 39.54 kg/m2 Viki Mg LPN [facility] Work Phone: 01-02-2022 11:56-0400 Body surface area Derived from formula 2.18 m2 Viki Mg LPN [facility] Work Phone: 01-02-2022 11:56-0400 Body temperature 97.1 [degF] Viki Mg LPN [facility] Work Phone: 01-02-2022 11:56-0400 Body weight 111.13 kg Viki Mg LPN [facility] Work Phone: 01-02-2022 11:56-0400 Diastolic blood pressure 86 mm[Hg] Viki Mg LPN [facility] Work Phone: Encounters Encounter Date Encounter Type Care Provider Facility Start: 03-13-2023 End: 03-13-2023 ambulatory ISAAC DEVI Facility:[facility] Start: 03-13-2023 End: 03-13-2023 Patient encounter procedure Steve Simeon MD Work Phone: [facility] [place] [facility] Procedures Date Procedure Procedure Detail Performing Clinician Start: 06-13-2022 Mammography Mammograph y Coordinator Start: 06-11-2021 Mammography Screen Bat h Start: 06-22-2020 Lipid 1995 panel - S fartun or Plasma Steve Simeon MD Work Phone: Start: 02-22-2005 Lipid 1996 panel - S fartun or Plasma Bone Bath Bunion L foot Viki Mg LPN Plan of Treatment Date Care Activity Detail Author Start: 06-22-2025 Lipid 1996 panel - Serum or Plasma Lipid Screening [facility] Start: 09-02-2023 Urine microalbumin profile [facility] Start: 06-22-2023 DIABETES SCREEN DIABETES SCREEN [facility] Start: 06-22-2023 Diabetes Screening Diabetes Screening [facility] Start: 06-13-2023 Mammography [facility] Start: 12-27-2022 Covid-19 Vaccine () Covid-19 Vaccine () [facility] Start: 12-27-2022 Influenza [facility] Start: 06-11-2022 Mammography MAMMOGRAM [facility] Start: 04-28-2022 DEPRESSION ASSESSMENT DEPRESSION ASSESSMENT [facility] Start: 01-02-2022 Procedure Education Eprescribed prescriptions (G8553) [facility] Work Phone: Start: 12-27-2021 Influenza vaccination INFLUENZA (#1) [facility] Start: 09-25-2020 COVID-19 VACCINE (3 - Booster for Moderna series) COVID-19 VACCINE (3 - Booster for Moderna series) [facility] Start: 09-25-2020 Covid-19 Vaccine (3 - Moderna series) Covid-19 Vaccine (3 - Moderna series) [facility] Start: 2019 RSV Vaccine (1 - 1-dose 60+ series) RSV Vaccine (1 - 1-dose 60+ series) [facility] Start: 02-22-2010 Lipid 1996 panel - Serum or Plasma Lipid Screening [facility] Start: 02-22-2010 LIPID SCREEN LIPID SCREEN [facility] Start: 04-13-2006 PAP TESTING PAP TESTING [facility] Start: 11-19-2004 COLOGUARD (FIT-DNA) COLOGUARD (FIT-DNA) [facility] Start: 11-19-2004 Colonoscopy COLONOSCOPY [facility] Start: 11-19-2004 COLORECTAL CANCER SCREENING COLORECTAL CANCER SCREENING [facility] Start: 11-19-[address] COLONOGRAPHY [facility] Start: 11-19-2004 FECAL OCCULT BLOOD FECAL OCCULT BLOOD [facility] Start: 11-19-2004 SIGMOIDOSCOPY SIGMOIDOSCOPY [facility] Start: 11-19-1989 HPV TESTING HPV TESTING [facility] Start: 11-19-1977 ANNUAL PCP TEAM CHRONIC DISEASE VISIT ANNUAL PCP TEAM CHRONIC DISEASE VISIT [facility] Start: 11-19-1977 BP CONTROLLED (<130/80) BP CONTROLLED (<130/80) [facility] Start: 11-19-1977 HEPATITIS C SCREENING HEPATITIS C SCREENING [facility] Start: 11-19-1977 HIV SCREENING HIV SCREENING [facility] Immunizations Immunization Date Immunization Notes Care Provider Tito kay 07-31-2020 COVID-19 original vaccine, full dose, monovalent (MODERNA) Screen [facility] 01-12-2020 influenza, injectabl e, quadrivalent, preservative free Screen [facility] 01-12-2020 influenza virus vaccine, unspecified formulation Bone [facility] 01-14-2019 influenza, injectabl e, quadrivalent, preservative free Screen [facility] 11-26-2018 zoster vaccine recombinant Screen [facility] 09-23-2018 zoster vaccine recombinant Screen [facility] 02-11-2018 Influenza, injectabl e, Madin Dalila Canine Kidney, preservative free, quadrivalent Screen [facility] 01-13-2017 influenza, injectabl e, quadrivalent, preservative free Screen [facility] 01-09-2016 influenza, injectabl e, quadrivalent, preservative free Screen [facility] 02-10-2015 influenza, injectabl e, quadrivalent, preservative free Screen [facility] 01-28-2014 influenza, seasonal, injectable, preservative free Screen [facility] 09-01-2013 tetanus toxoid, redu franko diphtheria toxoid, and acellular pertussis vaccine, adsorbed Screen [facility] 01-18-2013 influenza, seasonal, injectable, preservative free Screen [facility] 03-24-2012 influenza, seasonal, injectable, preservative free Screen [facility] 01-30-2011 influenza, seasonal, injectable, preservative free Screen [facility] 12-25-2007 hepatitis A and hepatitis B vaccine Screen [facility] 12-25-2007 typhoid capsular polysaccharide vaccine Screen [facility] 11-27-2007 hepatitis A and hepatitis B vaccine Sakshi Castillo DO Work Phone: [facility] Work Phone: 10-28-2007 typhoid capsular polysaccharide vaccine Screen [facility] 07-16-2007 hepatitis A and hepatitis B vaccine Screen [facility] 06-18-2007 hepatitis A and hepatitis B vaccine Screen [facility] 02-22-2005 influenza virus vaccine, unspecified formulation Screen [facility] Work Phone: 02-22-2005 tetanus and diphther ia toxoids, not adsorbed, for adult use Screen [facility] Work Phone: Payers Date Payer Category Payer Private Health Insurance [id number] 2022 Private Health Insurance [id number] Unknown Rachel KRUSE/BS Social History Date Type Detail Facility Alcohol Use: Alcohol Use: [facility] Work Phone: Start: 10-31-2020 End: 01-24-2023 Caffeine Use Caffeine Use [facility] Work Phone: Clinical Notes 09-21-2020 to 03-24-2023 Steve Simeon MD - 03/24/2023 5:10 PM ESTPatient Rain Coats, RT(R) - 01/24/2023 3:30 PM [facility] Coordinator - 06/14/2022 2:02 PM EST Note Date & Type Note Facility 03-24-2023 Note HNO ID: [id number] Author: Steve Simeon MD Service: ? Author Type: Physician Type: Progress Notes Filed: 03/24/2023 5:13 PM Note Text: [facility]: Shavon Schaeffer is a 62 year old, White, female who returns, I am here about my nose . The last 6 months she has a sore area inside the nose along the right septum. She tried Vaseline which did not help. Her ears are doing fine. SUBJECTIVE: I reviewed the allergies, medications, problem list, PMH/PSH, FmHx and SocHx as documented in Epic chart. PHYSICAL EXAM: VS: BP 120/81 Pulse 66 Ht 167.6 cm (5' 6 ) Wt 93.4 kg (206 lb) BMI 33.25 kg/m? H/F/N: The facial strength is normal. There are no palpable salivary gland, thyroid or neck masses. Ears: The external ears and canals are without lesions, there is slight cerumen in each canal. Each TM is intact and mobile on pneumatic otoscopy. Nose: The external nose is without lesions. Inside the right nostril, the inferior medial crura is prominent with some erythema of the skin over it. The erythema may be from rubbing along the skin area. The nasal mucosa appears healthy on nasal speculum exam. The septum has some deviation. The IT are not hypertrophic. ASSESSMENT AND PLAN: I counseled the patient about the differential diagnosis, natural course, treatment options and answered their questions for 1. Nasal vestibulitis - ICD9: 478.19, ICD10: J34.89 (primary diagnosis) 2. Ceruminosis, bilateral - ICD9: 380.4, ICD10: H61.23 She was counseled not to rub at the nasal area. A prescription for Kenalog 0.1% cream, 15 g, NRF was sent. She was counseled to use a small amount of this on the area twice a day without rubbing hard. She was given earwax patient instructions. She was counseled to do this monthly. Return if symptoms worsen or fail to improve. Steve Simeon MD 25 minutes Total time including preparation, obtaining/reviewing history, exam, interpreting results, ordering, counseling/education, referring/communicating and documentation. Created using voice recognition software, some errors may have occurred. Corrections may be performed at a later date. [facility] 03-24-2023 History of Presen t illness Narrative [facility]: Shavon cShaeffer is a 62 year old, White, female who returns, I am here about my nose . The last 6 months she has a sore area inside the nose along the right septum. She tried Vaseline which did not help. Her ears are doing fine. SUBJECTIVE: I reviewed the allergies, medications, problem list, PMH/PSH, FmHx and SocHx as documented in Epic chart. PHYSICAL EXAM: VS: BP 120/81 Pulse 66 Ht 167.6 cm (5' 6 ) Wt 93.4 kg (206 lb) BMI 33.25 kg/m H/F/N: The facial strength is normal. There are no palpable salivary gland, thyroid or neck masses. Ears: The external ears and canals are without lesions, there is slight cerumen in each canal. Each TM is intact and mobile on pneumatic otoscopy. Nose: The external nose is without lesions. Inside the right nostril, the inferior medial crura is prominent with some erythema of the skin over it. The erythema may be from rubbing along the skin area. The nasal mucosa appears healthy on nasal speculum exam. The septum has some deviation. The IT are not hypertrophic. ASSESSMENT & PLAN: I counseled the patient about the differential diagnosis, natural course, treatment options and answered their questions for 1. Nasal vestibulitis - ICD9: 478.19, ICD10: J34.89 (primary diagnosis) 2. Ceruminosis, bilateral - ICD9: 380.4, ICD10: H61.23 She was counseled not to rub at the nasal area. A prescription for Kenalog 0.1% cream, 15 g, NRF was sent. She was counseled to use a small amount of this on the area twice a day without rubbing hard. She was given earwax patient instructions. She was counseled to do this monthly. Return if symptoms worsen or fail to improve. Steve Simeon MD 25 minutes Total time including preparation, obtaining/reviewing history, exam, interpreting results, ordering, counseling/education, referring/communicating and documentation. Created using voice recognition software, some errors may have occurred. Corrections may be performed at a later date. documented in this encounter [facility] 03-13-2023 Instructions Steve Simeon MD - 03/13/2023 2:56 PM EST Use a small amount of the triamcinolone/Kenalog cream on the sore area twice a day. EARWAX Earwax, also called cerumen, is a natural product of small skin glands in the outer third of the ear canal. It serves to protect and moisturize the thin skin of the ear canal. Most of the time the ears are self cleaning, with the wax slowly moving to the outside where it dries and falls out. Most people do not need to clean their ears. For most patients, doing this monthly is often enough. Never put anything smaller than your elbow in your ear, is an old saying to help protect your ears. Small objects like cotton tip applicators, mone pins or twisted corners of tissues are likely to push the wax further in. They may also injure the skin of the ear canal or even puncture the eardrum, leading to hearing loss. CLEANING YOUR EARS You need to know that your eardrums (tympanic membranes) do not have a hole (perforation) before putting any eardrops in them. Your doctor can confirm this. Over the counter drops such as Debrox, Murine ear drops or carbamide peroxide (generic), and even Hydrogen Peroxide, may be used to clean out excess wax. Gentle flushing with a small bulb syringe or dropper is usually enough. Allow a few drops to bubble and foam for a minute with the ear turned upward, then let it run out. More difficult cases may respond to repeated gentle flushing with the head turned to the side. If you have had a problem with earwax buildup, try cleaning for several days and once the problem is resolved clean weekly for maintenance. If this does not work, use the drops for several days before you see the doctor to help soften the earwax. documented in this encounter [facility] 01-24-2023 Note HNO ID: [id number] Author: Rain Brewer RT(R) Service: ? Author Type: Room Service Waiter/Waitress Type: Progress Notes Filed: 01/24/2023 3:44 PM Note Text: Radiology Service Progress Note PATIENT NAME: Shavon Schaeffer DATE OF SERVICE: January 24, 2023 TIME: 3:44 PM PATIENT IDENTITY VERIFICATION COMPLETED USING TWO (2) IDENTIFIERS: Name and Date of confirmed by patient verbally. FALL SCREENING: Has the patient had 2 falls in the last year or 1 fall with injury or currently using an Ambulatory Assistive Device (Walker, Cane, Wheelchair, Crutches, etc.)? No PATIENT GENDER DATA: Female. status: : No status: NO. PATIENT RELEVANT IMPLANT DATA REVIEWED: Not Applicable RADIOLOGY DEPARTMENT: Bone Density PERIPHERAL IV DATA: Not applicable SIGNED BY: RT Thu(R) January 24, 2023 3:44 PM [facility] 01-24-2023 History of Presen t illness Narrative Radiology Service Progress Note PATIENT NAME: Shavon Schaeffer DATE OF SERVICE: January 24, 2023 TIME: 3:44 PM PATIENT IDENTITY VERIFICATION COMPLETED USING TWO (2) IDENTIFIERS: Name and Date of confirmed by patient verbally. FALL SCREENING: Has the patient had 2 falls in the last year or 1 fall with injury or currently using an Ambulatory Assistive Device (Walker, Cane, Wheelchair, Crutches, etc.)? No PATIENT GENDER DATA: Female. status: : No status: NO. PATIENT RELEVANT IMPLANT DATA REVIEWED: Not Applicable RADIOLOGY DEPARTMENT: Bone Density PERIPHERAL IV DATA: Not applicable SIGNED BY: RT Thu(R) January 24, 2023 3:44 PM documented in this encounter [facility] 06-14-2022 Miscellaneous Notes [facility] [address] [place] [address] June 14, 2022 PID: [id number] Shavon Schaeffer [address] [place] [address] Dear Ms. Schaeffer, We are pleased to inform you that the results of your recent breast imaging exam on 06/13/2022 are normal. Early detection of cancer is very important. We also understand recommendations regarding breast cancer screening are controversial. Please discuss with your primary care provider which strategy is best for you and whether a mammogram is right for you. Your imaging studies and report will be kept on file at [facility] as part of your permanent medical record and are available for your continuing care. Thank you for allowing us to help in meeting your health care needs. Sincerely, Dr. Westfall Interpreting Radiologist [facility] (Normal over 40) documented in this encounter [facility] 06-13-2022 Note HNO ID: [id number] Author: MINISTERIO Morgan) Service: ? Author Type: Technologist Type: Progress Notes Filed: 06/13/2022 9:42 AM Note Text: Radiology Service Progress Note PATIENT NAME: Shavon Schaeffer DATE OF SERVICE: June 13, 2022 TIME: 9:41 AM PATIENT IDENTITY VERIFICATION COMPLETED USING TWO (2) IDENTIFIERS: Name and Date of confirmed by patient verbally. FALL SCREENING: Has the patient had 2 falls in the last year or 1 fall with injury or currently using an Ambulatory Assistive Device (Walker, Cane, Wheelchair, Crutches, etc.)? No PATIENT GENDER DATA: Female. status: : No status: NO. PATIENT RELEVANT IMPLANT DATA REVIEWED: Yes RADIOLOGY DEPARTMENT: Mammography PERIPHERAL IV DATA: Not applicable SIGNED BY: RT Cathy(R) June 13, 2022 9:41 AM [facility] 06-13-2022 History of Presen t illness Narrative Radiology Service Progress Note PATIENT NAME: Shavon Schaeffer DATE OF SERVICE: June 13, 2022 TIME: 9:41 AM PATIENT IDENTITY VERIFICATION COMPLETED USING TWO (2) IDENTIFIERS: Name and Date of confirmed by patient verbally. FALL SCREENING: Has the patient had 2 falls in the last year or 1 fall with injury or currently using an Ambulatory Assistive Device (Walker, Cane, Wheelchair, Crutches, etc.)? No PATIENT GENDER DATA: Female. status: : No status: NO. PATIENT RELEVANT IMPLANT DATA REVIEWED: Yes RADIOLOGY DEPARTMENT: Mammography PERIPHERAL IV DATA: Not applicable SIGNED BY: RT Cathy(R) June 13, 2022 9:41 AM documented in this encounter [facility] 09-21-2020 Note HNO ID: [id number] Author: Concha Robledo MD Service: ? Author Type: Physician Type: Progress Notes Filed: 09/21/2020 3:40 PM Note Text: . Pulmonary Clinic CONSULT Note Patient Name: Shavon Schaeffer PRIMARY CARE PHYSICIAN: Janell Ventura MD Date of visit: September 21, 2020 Reason for consult: Family history of lung cancer COMMUNICATION WILL BE SENT VIA SHARED MEDICAL RECORDS OR US MAIL. HISTORY OF PRESENT ILLNESS: Shavon Schaeffer is a 59 year old female, both her mother and her maternal grandmother of carcinoid of the lung. Her mother was diagnosed age 61 yo. Both of them of carcinoid. She denies any cough. No unexpected weight loss. Denies any diarrhea. On very rare occasion she can feel chest pain/discomfort in her upper right chest when she is laying down. She did get a CT chest for coronary artery scoring to screen for CAD. She had that at [facility] [place]. She brought the report. Lung images mention mild left basilar atelectasis. I explained her what atelectasis was. I reassured her this is not a concerning finding representing possible malignancy based on the report. ROS: GENERAL: no c/o fevers, chills, night sweats, nausea/vomiting, change in appetite or weight changes. HEENT: no c/o headache, visual changes, runny nose, sore throat. NECK: no c/o swelling in neck noted RESPIRATORY: SEE HPI CARDIOVASCULAR: no c/o palpitations, orthopnea, PND, LE edema. GI: no diarrhea : No c/o dysuria, hematuria, frequency or incontinence MUSCULOSKELETAL: No c/o joint pain or swelling, back pain or muscle pain. SKIN: Negative for lesions, rash, and itching. HEMATOLOGY/LYMPHOLOGY No complaints ENDOCRINE: No complaints NEURO: No c/o lightheadedness, syncope, numbness/tingling inextremities, seizures or tremors PAST MEDICAL HISTORY Diagnosis Date - Bunion - Hirsutism - Other and unspecified hyperlipidemia - Plantar fasciitis - Undiagnosed cardiac murmurs 2002 trivial MR and TR by echo PAST SURGICAL HISTORY Procedure Laterality Date - 24 HR HOLTER 02/23/16 - ECHOCARDIOGRAM 02/23/16 LVEF 50-55% - NUCLEAR STRESS LEXISCAN (CARD) 02/15/11 - STRESS TEST (EXERCISE) TREADMILL 02/23/16 NORMAL Family History Problem Relation Age of Onset - Cancer Mother carcinoid of lung, age 61 - Cancer Maternal Grandmother carcinoid of lung - Stroke Father late 60s - Ischemic Heart Disease Father CABG age 72, age 73 of CHF - other (Gout [Other]) Father - other (Peptic ulcer disease [Other]) Father - other (Chronic bronchitis [Other]) Sister nonsmoker - Hypertension Brother - Lipids Brother - Diabetes Paternal Aunt and cousins - other (Glaucoma [Other]) Paternal Aunt Social History Tobacco Use - Smoking status: Never Smoker - Smokeless tobacco: Never Used Substance Use Topics - Alcohol use: Yes Alcohol/week: 6.7 standard drinks Comment: 1-2 x wk - Drug use: No Just retired from [employer]. She worked in [employer]. MEDICATIONS: BIPAP daily at bedtime. cholecalciferol (VITAMIN D) 1,000 unit tab tablet Take 1,000 Units by mouth once daily. cyanocobalamin (VITAMIN B-12) 1,000 mcg tab Take 1,000 mcg by mouth once daily. krill oil 500 mg cap Take 1 capsule by mouth once daily. turmeric root extract 500 mg cap Take 500 mg by mouth once daily. Chlorhexidine Gluconate (PERIDEX) 0.12 % solution Use 15 mL as instructed twice daily. ASPIRIN (ASPIR-81 ORAL) Take by mouth. CALCIUM CITRATE TABLET 200MG PO two tablets twice per day Allergies: Amoxicillin, Nickel, and Z-Hipolito [Azithromycin] PHYSICAL EXAM: BP 147/73 (BP Site: Left Arm, BP Position: Sitting, BP Cuff Size: Regular Adult) Pulse 71 Temp 36.5 ?C (97.7 ?F) (Temporal) Resp 18 Ht 167.6 cm (5' 6 ) Wt 116.4 kg (256 lb 11.2 oz) SpO2 97% BMI 41.43 kg/m? General- nad, comfortable. Pleasant spirits. Eyes- eomi, perrl ENT- mmm, oropharynx clear Neck- supple, no JVD CV- RRR Resp- clear to auscultation bilaterally, no wheezes or crackles, breathing nonlabored Abd- +bs, soft, nt, nd Ext- no clubbing, cyanosis, or edema Neuro- normal gait, no focal deficits Lymphatics - no supraclavicular or cervical lymphadenopathy Derm- no lesions/rashes Psych- appropriate mood and affect Labs / Imaging / Diagnostic Studies: Immunizations/Injections? COVID-19 vaccine (MODERNA)07/31/2020, 07/03/2020 Tdap (Age 7+)09/01/2013 ASSESSMENT/PLAN: 1. Family history of carcinoid tumor - ICD9: V16.9, ICD10: Z80.9 -Long talk with patient and explained to her there are no blood test, genetic tests, or radiographic tests to screen for carcinoid. Her primary care doctor did give her a requisition for chest x-ray. I told her chest x-ray is not a good screening tool but there is negligible risk of getting a chest x-ray. She is going to get a chest x-ray at the [facility]. I told her she should give me a MyChart messag (more content not included)... [facility] documented in this encounter [facility]* Name Dates Details Patient Instructions Indication:BMI 39.0-39.9,adult Start:02-Jan-2022 Instruction Type:Provider Instructions for Treatment How to Access Health Informa tion Online using Patient Portal and [employer] Apps Indication:BMI 39.0-39.9,adult Start:02-Jan-2022 Instruction Type:Patient Edu cation [facility]; [facility] Work Phone: Instructions* Name Dates Details Patient Instructions Indication:BMI 39.0-39.9,adult Start:02-Jan-2022 Instruction Type:Provider Instructions for Treatment How to Access Health Informa tion Online using Patient Portal and [employer] Apps Indication:BMI 39.0-39.9,adult Start:02-Jan-2022 Instruction Type:Patient Edu cation [facility]; [facility] Work Phone: Summary Purpose Family History No Family History Records FoundUnknown Family Member Name Dates Details Heart Disease Comments:Father. Brother. br others x 2 Status:Active Hypercholesterolemia Comments:Father. Brother. Status:Active Hypertension Comments:Father. Brother. Status:Active Lung Cancer Comments:Mother. Maternal Gr andmother. Status:Active Unknown Family Member Name Dates Details Heart Disease Comments:Father. Brother. br others x 2 Status:Active Hypercholesterolemia Comments:Father. Brother. Status:Active Hypertension Comments:Father. Brother. Status:Active Lung Cancer Comments:Mother. Maternal Gr andmother. Status:Active Advance Directives No Advanced Directives Records FoundNo Advanced Directives Records FoundNo Advanced Directives Records FoundNo Advanced Directives Records Found Additional Source Comments INFORMATION SOURCE (unrecogn ized section and content) DATE CREATED AUTHOR AUTHOR'S ORGANIZ ATION 11/07/2020 [facility] DATE CREATED AUTHOR AUTHOR'S ORGANIZ ATION 07/19/2021 [facility] DATE CREATED AUTHOR AUTHOR'S ORGANIZ ATION 03/26/2023 [facility] Source Comments (unrecognize d section and content) In the event this informatio n is protected by the Federal Confidentiality of Alcohol and Drug Abuse Patient Records regulations: The Federal rules restrict any use of the information to criminally investigate or prosecute any alcohol or drug abuse patient.[facility] the event this information is protected by the Federal Confidentiality of Alcohol and Drug Abuse Patient Records regulations: The Federal rules restrict any use of the information to criminally investigate or prosecute any alcohol or drug abuse patient.[facility] the event this information is protected by the Federal Confidentiality of Alcohol and Drug Abuse Patient Records regulations: The Federal rules restrict any use of the information to criminally investigate or prosecute any alcohol or drug abuse patient.[facility] the event this information is protected by the Federal Confidentiality of Alcohol and Drug Abuse Patient Records regulations: The Federal rules restrict any use of the information to criminally investigate or prosecute any alcohol or drug abuse patient.[facility] Reason for Visit (unrecogniz ed section and content) Reason Comments Mass Lump on right nasal. Care Teams (unrecognized sec tion and content) FOR RECORDS PERTAINING TO PATIENTS WHO ARE OR HAVE BEEN ENROLLED IN A CHEMICAL DEPENDENCY/SUBSTANCEABUSE PROGRAM, SOME INFORMATION MAY BE OMITTED. This clinical summary was aggregated from multiple sources. Caution should be exercised in using it in the provision of clinical care. This summary normalizes information from multiple sources, and as a consequence, information in this document may materially change the coding, format and clinical context of patient data. In addition, data may be omitted in some cases. CLINICAL DECISIONS SHOULD BE BASED ON THE PRIMARY CLINICAL RECORDS. [facility] [employer] [facility]. provides no warranty or guarantee of the accuracy or completeness of information in this document.
[2023-04-25 12:29] LABS: Absolute Lymphocyte Count 2.48 X10^3/uL (0.83-4.51); Absolute Neutrophil Count 3.9 X10^3/uL (2.0-7.7); Basophil# 0.04 X10^3/uL; Basophil% 0.6 % (0-1); Eosinophil# 0.23 X10^3/uL; Eosinophils% 3.2 % (0-5); Hematocrit 41.5 % (37-47); Hemoglobin 13.4 g/dL (12.0-15.0); Lymphocyte # 2.48 X10^3/ul (0.83-4.51); Lymphocyte % 34.4 % (19-41); Mean Corp Hgb Conc 32.3 g/dL (32-36); Mean Corpuscular Volume 89.8 fL (81-99); Mean Platelet Vol. 11.2 fl (6.2-12.0); Monocyte# 0.58 X10^3/uL; NRBC Flagged by Analyzer 0 % (0-5); Neutrophil # 3.86 X10^3/uL (2.7-7.7); Neutrophil % 53.5 % (47-70); Platelet Count 219 K/mm3 (150-450); RBC Distribution Width CV 12.3 % (11.6-14.6); RBC Distribution Width SD 40.5 fl (35.1-43.9); Red Blood Count 4.62 M/mm3 (4.2-5.4); White Blood Count 7.2 K/mm3 (4.4-11.0)
[2023-04-25 12:52] LABS: AST(SGOT) 16 U/L (15-37); Alanine Aminotransfer ALT/SGPT 28 U/L (13-56); Albumin, Serum 3.7 g/dL (3.2-5.0); Alkaline Phosphatase 76 U/L (45-117); Anion Gap 5 (5-15); BUN 15 mg/dL (7-18); BUN/Creat Ratio 20.9 RATIO (10-20); Calcium,Total 9.4 mg/dL (8.5-10.1); Chloride 110 mmol/L (98-107); Cholesterol 151 mg/dL (200); Creatinine, Serum 0.72 mg/dL (0.55-1.02); EST Glomerular Filtration Rate 87 mL/min (>60); Est Glom Filt Rate - Afr Amer 106 mL/min (>60); Globulin 3.6 g/dL (2.2-4.2); Glucose 102 mg/dL (74-106); High Density Lipoprotein 64 mg/dL; Potassium 4.5 mmol/L (3.5-5.1); Protein, Total 7.3 g/dL (6.4-8.2); Sodium Level 141 mmol/L (136-145); Triglycerides 68 mg/dL; Very Low Density Lipoprotein 14 mg/dL (5-40)
== END | disposition home or self-care (01) ==
LOC: BIMLAB 09:00
PROVIDERS: PCP Internal Medicine; Referring Provider Internal Medicine; Visit Provider Internal Medicine
DX: E78.5 Hyperlipidemia, unspecified (principal)
CPT/HCPCS: 36415; 80053; 80061; 85025

== ENCOUNTER → 2023-08-15 | Outpatient (CLI) | payer OTHER, SELFPAY ==
[2023-08-15 12:31] LABS: Hemoglobin A1c 5.4 % (3.8-5.6)
[2023-08-15 12:35] LABS: ALB/GLOB Ratio 1.1 RATIO (0.9-2.4); AST(SGOT) 16 U/L (15-37); Alanine Aminotransfer ALT/SGPT 29 U/L (13-56); Albumin, Serum 3.9 g/dL (3.2-5.0); Alkaline Phosphatase 67 U/L (45-117); Anion Gap 1 (5-15); BUN 17 mg/dL (7-18); BUN/Creat Ratio 24.4 RATIO (10-20); Calcium,Total 10.7 mg/dL (8.5-10.1); Chloride 111 mmol/L (98-107); EST Glomerular Filtration Rate 90 mL/min (>60); Est Glom Filt Rate - Afr Amer 109 mL/min (>60); Globulin 3.6 g/dL (2.2-4.2); Glucose 104 mg/dL (74-106); Potassium 5.1 mmol/L (3.5-5.1); Protein, Total 7.5 g/dL (6.4-8.2); Sodium Level 139 mmol/L (136-145)
[2023-08-15 13:41] LABS: PTHIN 119.4 pg/mL (18.4-80.1)
[2023-08-15 13:42] LABS: Vitamin D,25 Hydroxy 31.1 ng/mL
== END | disposition home or self-care (01) ==
LOC: BIMLAB 09:25
PROVIDERS: PCP Internal Medicine; Visit Provider Internal Medicine
DX: R73.03 Prediabetes (principal); E83.52 Hypercalcemia; I10 Essential (primary) hypertension
CPT/HCPCS: 36415; 80053; 82306; 83036; 83970

== ENCOUNTER → 2023-08-25 | Outpatient (CLI) | payer OTHER, SELFPAY ==
--- NOTE | 2023-08-25 12:53 | US_ITS ---
INDICATION: Thyroid Nodules EXAMINATION: Ultrasound US Thyroid (eg thyroid, parathyroid, parotid) TECHNIQUE: Swanson scale and color doppler imaging was performed of the thyroid gland. COMPARISON: No relevant prior comparison study available FINDINGS: RIGHT THYROID LOBE: 4.6 x 2 x 1.1 cm, volume 5 mL. Previously 4.2 x 1.1 x 1.6 cm, volume 3.8 mL. Parenchyma: The gland echotexture is homogenous. Thyroid vascularity is normal. LEFT THYROID LOBE: 4.8 x 1.8 x 1.8 cm, volume 8.3 mL. Previously 4.8 x 1.8 x 1.9 cm, volume 8.6 mL. Parenchyma: The gland echotexture is homogenous. Thyroid vascularity is normal. ISTHMUS: 0.2 cm in maximum AP dimension. Previously 0.4 cm. Estimated total number of nodules greater than equal to 1 cm: 1. [employer] nodules are described as follows: 1. Location: Left mid Size: 2.3 x 1.3 x 1.5 cm, volume 2.4 mL. Previously: 2.2 x 1.6 x 1.5 cm, volume 2.6 mL. Nodule characteristics: Composition: Solid or almost completely solid (2). Echogenicity: Hypoechoic (2). Shape: Wider than tall (0). Margins: Smooth (0). Echogenic Foci: None (0). ACR TI-RADS total points: 4. Previous 4. ACR TI-RADS category: 4. Previous 4 LYMPH NODES: No lymphadenopathy is seen in the tissue surrounding the thyroid gland. US/Thyroid IMPRESSION: The TI-RADS category 4 left thyroid lobe nodule is again noted, similar in appearance to prior. This would be appropriate for fine-needle aspiration if not performed previously. ACR TI-RADS RECOMMENDATION REFERENCE: Ultrasound-guided fine-needle aspiration, follow-up ultrasound, no further follow-up. *TR 1 (0 points) and TR 2 (2 points): No FNA or follow-up. *TR 3 (3 points): FNA if more than or equal to 2.5 cm in maximum dimension. Follow-up ultrasound in 1, 3, and 5 years if 1.5 to 2.4 cm in maximum dimension. *TR 4 (4-6 points): FNA if more than or equal to 1.5 cm in maximum dimension. Follow-up ultrasound in 1, 2, 3, and 5 years if 1 to 1.4 cm in maximum dimension. *TR 5 (more than or equal to 7 points): FNA if more than or equal to 1 cm in maximum dimension. Follow-up ultrasound every year for 5 years if 0.5 to 0.9 cm in maximum dimension. *TR 3, TR 4, or TR 5 nodules that are below the size threshold for follow-up receive no follow-up. Electronically Signed: Luciano Moore MD at 3:58 EDT ,
== END | disposition home or self-care (01) ==
PROVIDERS: PCP Internal Medicine; Referring Provider Internal Medicine; Visit Provider Internal Medicine
DX: E04.1 Nontoxic single thyroid nodule (principal)
CPT/HCPCS: 76536

== ENCOUNTER → 2023-09-12 | Outpatient (CLI) | payer OTHER, SELFPAY ==
[2023-09-12 12:19] LABS: Anion Gap 4 (5-15); BUN 16 mg/dL (7-18); BUN/Creat Ratio 22.3 RATIO (10-20); Calcium,Total 10.2 mg/dL (8.5-10.1); Chloride 109 mmol/L (98-107); Creatinine, Serum 0.72 mg/dL (0.55-1.02); EST Glomerular Filtration Rate 87 mL/min (>60); Est Glom Filt Rate - Afr Amer 106 mL/min (>60); Glucose 97 mg/dL (74-106); Potassium 3.8 mmol/L (3.5-5.1); Sodium Level 139 mmol/L (136-145)
[2023-09-12 12:21] LABS: Vitamin D,25 Hydroxy 31.4 ng/mL
[2023-09-12 12:28] LABS: PTHIN 154.8 pg/mL (18.4-80.1)
== END | disposition home or self-care (01) ==
LOC: BIMLAB 08:17
PROVIDERS: PCP Internal Medicine; Visit Provider Internal Medicine
DX: E83.52 Hypercalcemia (principal)
CPT/HCPCS: 36415; 80048; 82306; 83970

== ENCOUNTER → 2023-10-10 | Outpatient (CLI) | payer OTHER, SELFPAY ==
[2023-10-10 12:59] LABS: (24 HR) Urine Calcium 333.8 mg/24 HR (42.0-353.0); 24HR UR TOTAL VOLUME 1875 ml; Calcium Urine pH Range 1; Urine Calcium (Random) 17.8 (Not Estab.)
== END | disposition home or self-care (01) ==
LOC: LABSPEC 07:17
PROVIDERS: PCP Internal Medicine; Referring Provider Surgery; Visit Provider Surgery
DX: E21.3 Hyperparathyroidism, unspecified (principal); E83.52 Hypercalcemia
CPT/HCPCS: 81050; 82340

== ENCOUNTER → 2023-12-31 | Outpatient (CLI) | payer OTHER, SELFPAY ==
[2023-12-31 12:44] LABS: Anion Gap 4 (5-15); BUN 17 mg/dL (7-18); BUN/Creat Ratio 26.1 RATIO (10-20); Calcium,Total 10.2 mg/dL (8.5-10.1); Chloride 111 mmol/L (98-107); Creatinine, Serum 0.65 mg/dL (0.55-1.02); EST Glomerular Filtration Rate 97 mL/min (>60); Est Glom Filt Rate - Afr Amer 118 mL/min (>60); Glucose 100 mg/dL (74-106); Potassium 4.1 mmol/L (3.5-5.1); Sodium Level 139 mmol/L (136-145)
[2023-12-31 12:55] LABS: PTHIN 163.2 pg/mL (18.4-80.1)
[2023-12-31 12:57] LABS: Vitamin D,25 Hydroxy 25.7 ng/mL
== END | disposition home or self-care (01) ==
LOC: BIMLAB 09:39
PROVIDERS: PCP Internal Medicine; Visit Provider Internal Medicine
DX: E21.3 Hyperparathyroidism, unspecified (principal)
CPT/HCPCS: 36415; 80048; 82306; 83970

== ENCOUNTER 2024-02-04 12:52 | Outpatient (RCR) | payer OTHER, SELFPAY | END 2024-02-26 23:59 | LOC: NS 12:52 | PROVIDERS: PCP Internal Medicine; Referring Provider Internal Medicine; Visit Provider Internal Medicine | DX: Z71.3 Dietary counseling and surveillance (principal); E66.09 Other obesity due to excess calories; Z68.34 Body mass index [BMI] 34.0-34.9, adult | CPT/HCPCS: 97802 ==

== ENCOUNTER 2024-03-10 14:59 | Outpatient (RCR) | payer OTHER, SELFPAY | END 2024-03-27 23:59 | LOC: NS 14:59 | PROVIDERS: PCP Internal Medicine; Referring Provider Internal Medicine; Visit Provider Internal Medicine | DX: Z71.3 Dietary counseling and surveillance (principal); E66.09 Other obesity due to excess calories; Z68.34 Body mass index [BMI] 34.0-34.9, adult | CPT/HCPCS: 97803 ==

== ENCOUNTER → 2024-04-12 | Outpatient (CLI) | payer OTHER, SELFPAY ==
[2024-04-12 17:03] LABS: ALB/GLOB Ratio 1.1 RATIO (0.9-2.4); AST(SGOT) 23 U/L (15-37); Alanine Aminotransfer ALT/SGPT 43 U/L (13-56); Alkaline Phosphatase 71 U/L (45-117); Anion Gap 3 (5-15); BUN 21 mg/dL (7-18); BUN/Creat Ratio 28.5 RATIO (10-20); Calcium,Total 10.7 mg/dL (8.5-10.1); Chloride 109 mmol/L (98-107); Cholesterol 154 mg/dL (200); Creatinine, Serum 0.74 mg/dL (0.55-1.02); EST Glomerular Filtration Rate 84 mL/min (>60); Est Glom Filt Rate - Afr Amer 102 mL/min (>60); Globulin 3.7 g/dL (2.2-4.2); Glucose 118 mg/dL (74-106); High Density Lipoprotein 69 mg/dL; Potassium 4.3 mmol/L (3.5-5.1); Protein, Total 7.7 g/dL (6.4-8.2); Sodium Level 139 mmol/L (136-145); Triglycerides 88 mg/dL; Very Low Density Lipoprotein 18 mg/dL (5-40)
[2024-04-12 18:54] LABS: Hemoglobin A1c 5.3 % (3.8-5.6)
[2024-04-13 09:29] LABS: Vitamin D,25 Hydroxy 28.9 ng/mL
== END | disposition home or self-care (01) ==
LOC: BIMLAB 15:46
PROVIDERS: PCP Internal Medicine; Referring Provider Internal Medicine; Visit Provider Internal Medicine
DX: E78.5 Hyperlipidemia, unspecified (principal); R73.03 Prediabetes; E83.52 Hypercalcemia; E21.3 Hyperparathyroidism, unspecified
CPT/HCPCS: 36415; 80053; 80061; 82306; 83036

== ENCOUNTER 2024-04-14 13:43 | Outpatient (RCR) | payer OTHER, SELFPAY | END 2024-04-27 23:59 | LOC: NS 13:43 | PROVIDERS: PCP Internal Medicine; Referring Provider Internal Medicine; Visit Provider Internal Medicine | DX: Z71.3 Dietary counseling and surveillance (principal); E66.09 Other obesity due to excess calories; Z68.34 Body mass index [BMI] 34.0-34.9, adult | CPT/HCPCS: 97803 ==

== ENCOUNTER → 2024-06-14 | Outpatient (CLI) | payer OTHER, SELFPAY ==
[2024-06-14 12:36] LABS: Anion Gap 6 (5-15); BUN 19 mg/dL (7-18); BUN/Creat Ratio 25.1 RATIO (10-20); Calcium,Total 9.7 mg/dL (8.5-10.1); Chloride 106 mmol/L (98-107); Creatinine, Serum 0.76 mg/dL (0.55-1.02); EST Glomerular Filtration Rate 82 mL/min (>60); Est Glom Filt Rate - Afr Amer 99 mL/min (>60); Glucose 85 mg/dL (74-106); Potassium 3.9 mmol/L (3.5-5.1); Sodium Level 138 mmol/L (136-145)
== END | disposition home or self-care (01) ==
LOC: BIMLAB 11:16
PROVIDERS: PCP Internal Medicine; Referring Provider Internal Medicine; Visit Provider Internal Medicine
DX: E21.3 Hyperparathyroidism, unspecified (principal)
CPT/HCPCS: 36415; 80048; 82306

== ENCOUNTER 2024-06-16 14:38 | Outpatient (RCR) | payer OTHER, SELFPAY | END 2024-06-25 23:59 | LOC: NS 14:38 | PROVIDERS: PCP Internal Medicine; Referring Provider Internal Medicine; Visit Provider Internal Medicine | DX: E66.09 Other obesity due to excess calories (principal); Z68.34 Body mass index [BMI] 34.0-34.9, adult | CPT/HCPCS: 97803 ==

== ENCOUNTER → 2024-07-20 | Outpatient (CLI) | payer SELFPAY | END | disposition home or self-care (01) | PROVIDERS: PCP Internal Medicine; Referring Provider Internal Medicine; Visit Provider Internal Medicine | DX: E88.810 Metabolic syndrome (principal); E66.9 Obesity, unspecified | CPT/HCPCS: 76499 ==

== ENCOUNTER 2024-07-21 14:23 | Outpatient (RCR) | payer OTHER, SELFPAY | END 2024-07-26 23:59 | LOC: NS 14:23 | PROVIDERS: PCP Internal Medicine; Referring Provider Internal Medicine; Visit Provider Internal Medicine | DX: Z71.3 Dietary counseling and surveillance (principal); E66.09 Other obesity due to excess calories; Z68.34 Body mass index [BMI] 34.0-34.9, adult | CPT/HCPCS: 97803 ==

== ENCOUNTER 2024-08-25 14:20 | Outpatient (RCR) | payer OTHER, SELFPAY | END 2024-08-25 23:59 | LOC: NS 14:20 | PROVIDERS: PCP Internal Medicine; Referring Provider Internal Medicine; Visit Provider Internal Medicine | DX: Z71.3 Dietary counseling and surveillance (principal); E66.09 Other obesity due to excess calories; Z68.34 Body mass index [BMI] 34.0-34.9, adult | CPT/HCPCS: 97803 ==

== ENCOUNTER → 2024-10-11 | Outpatient (CLI) | payer OTHER, SELFPAY ==
[2024-10-11 12:25] LABS: Absolute Lymphocyte Count 2.23 X10^3/uL (0.83-4.51); Absolute Neutrophil Count 3.1 X10^3/uL (2.0-7.7); Basophil# 0.04 X10^3/uL; Basophil% 0.7 % (0-1); Eosinophil# 0.19 X10^3/uL; Eosinophils% 3.2 % (0-5); Hematocrit 39.5 % (37-47); Lymphocyte # 2.23 X10^3/ul (0.83-4.51); Mean Corp Hgb Conc 32.9 g/dL (32-36); Mean Corpuscular Hgb 29.9 pg (27.0-32.0); Mean Corpuscular Volume 90.8 fL (81-99); Mean Platelet Vol. 10.9 fl (6.2-12.0); Monocyte# 0.46 X10^3/uL; Monocyte% 7.6 % (0-10); NRBC Flagged by Analyzer 0 % (0-5); Neutrophil # 3.09 X10^3/uL (2.7-7.7); Neutrophil % 51.3 % (47-70); Platelet Count 219 K/mm3 (150-450); RBC Distribution Width CV 12.4 % (11.6-14.6); RBC Distribution Width SD 40.6 fl (35.1-43.9); Red Blood Count 4.35 M/mm3 (4.2-5.4)
[2024-10-11 12:45] LABS: PTHIN 110 pg/mL (11-61)
[2024-10-11 12:48] LABS: Hemoglobin A1c 5.7 % (<=5.6)
[2024-10-12 15:52] LABS: ALB/GLOB Ratio 1.6 RATIO (0.9-2.4); AST(SGOT) 23 U/L (<=31); Alanine Aminotransfer ALT/SGPT 36 U/L (<=34); Albumin, Serum 4.2 g/dL (3.4-4.8); Alkaline Phosphatase 74 U/L (35-104); Anion Gap 9 (5-15); BUN 14 mg/dL (4-19); BUN/Creat Ratio 20.2 RATIO (10-20); Calcium,Total 10.2 mg/dL (7.6-11.0); Carbon Dioxide 23.7 mmol/L (21.0-32.0); Chloride 105 mmol/L (98-108); Cholesterol 153 mg/dL (<=200); Creatinine, Serum 0.68 mg/dL (0.70-1.20); EST Glomerular Filtration Rate 97 (>60); Globulin 2.7 g/dL (2.2-4.2); Glucose 90 mg/dL (70-99); High Density Lipoprotein 54 mg/dL; Low Density Lipoprotein Calc. 81 mg/dL; Potassium 4.5 mmol/L (3.3-5.1); Protein, Total 6.9 g/dL (5.9-8.4); Sodium Level 137 mmol/L (133-145); Total Bilirubin 0.41 mg/dL (0.00-1.30); Triglycerides 89 mg/dL; Very Low Density Lipoprotein 18 mg/dL (5-40); cholesterol:hdl ratio screen 2.83
[2024-10-12 15:58] LABS: Vitamin D,25 Hydroxy 52.4 ng/mL (30-100)
== END | disposition home or self-care (01) ==
LOC: BIMLAB 11:08
PROVIDERS: PCP Internal Medicine; Referring Provider Internal Medicine; Visit Provider Internal Medicine
DX: E78.5 Hyperlipidemia, unspecified (principal); R73.03 Prediabetes; E21.3 Hyperparathyroidism, unspecified
CPT/HCPCS: 36415; 80053; 80061; 82306; 83036; 83970; 85025

== ENCOUNTER 2024-11-03 08:37 | Outpatient (RCR) | payer OTHER, SELFPAY | END 2024-11-25 23:59 | LOC: NS 08:37 | PROVIDERS: PCP Internal Medicine; Referring Provider Internal Medicine; Visit Provider Internal Medicine | DX: Z71.3 Dietary counseling and surveillance (principal); E66.09 Other obesity due to excess calories; Z68.34 Body mass index [BMI] 34.0-34.9, adult | CPT/HCPCS: 97803 ==

== ENCOUNTER 2024-12-22 08:25 | Outpatient (RCR) | payer OTHER, SELFPAY | END 2024-12-26 23:59 | LOC: NS 08:25 | PROVIDERS: PCP Internal Medicine; Referring Provider Internal Medicine; Visit Provider Internal Medicine | DX: Z71.3 Dietary counseling and surveillance (principal); E66.09 Other obesity due to excess calories; Z68.34 Body mass index [BMI] 34.0-34.9, adult | CPT/HCPCS: 97803 ==

== ENCOUNTER 2025-02-11 06:54 | Emergency (ER) | payer OTHER, SELFPAY ==
[2025-02-11 06:54] VITALS: BP 144/66; PULSE 65; RESP 16; TEMP 36.5; O2SAT 100; BMI 31.6
--- NOTE | 2025-02-11 07:23 | CT_ITS ---
PROCEDURE: ABDOMEN/PELVIS WITHOUT CONT 02/11/2025 REASON FOR EXAM: LEFT FLANK PAIN TECHNIQUE: Procedure Code: [id number] Modality: CT Procedure: ABDOMEN/PELVIS WITHOUT CONT Noncontrast technique limits evaluation of the abdominal and pelvic viscera. Coronal and Sagittal reconstruction series were provided. One or more dose reduction techniques were used (e.g., Automated exposure control, adjustment of the mA and/or kV according to patient size, use of iterative reconstruction technique). RADIATION DOSE SUMMARY: CTDlvol: 11 mGy DLP: 570 mGycm COMPARISON: None FINDINGS: Lung bases: Clear Liver: Normal Gallbladder: Sludge is present within the gallbladder lumen versus artifact from the adjacent stomach. Favor artifact. No calculi seen. Spleen: Normal Pancreas: Normal Adrenals: Normal Kidneys: No collecting system dilation, calculus or large solid mass. Bladder: Normal Reproductive Organs: Uterus and ovaries are normal. Bowel: Stomach is normal. Small bowel is normal. Colonic diverticulosis is seen without diverticulitis. Appendix: Normal Lymph nodes: None appear enlarged Vasculature: Moderate atherosclerotic plaque without aneurysm. Peritoneum / Retroperitoneum: No free air, free fluid or mass Bones: Disc space narrowing throughout the lumbar spine and lower thoracic spine. Grade 1 anterolisthesis L5 on S1 related to pars defects. Lower lumbar facet hypertrophy. CT/Abdomen/Pelvis without Cont IMPRESSION: 1. No renal calculus or collecting system dilation. 2. Diverticulosis without evidence of diverticulitis. 3. Normal appendix Reading Location: [id number]
[2025-02-11 07:35] LABS: Hematocrit 40.8 % (37-47); Hemoglobin 13.6 g/dL (12.0-15.0); Immature Granulocytes Count 0.010 X10^3/uL (0.0-0.0); Mean Corp Hgb Conc 33.3 g/dL (32-36); Mean Corpuscular Volume 90.3 fL (81-99); Mean Platelet Vol. 9.9 fl (6.2-12.0); NRBC Flagged by Analyzer 0 % (0-5); Platelet Count 205 K/mm3 (150-450); RBC Distribution Width CV 11.6 % (11.6-14.6); RBC Distribution Width SD 38.1 fl (35.1-43.9); Red Blood Count 4.52 M/mm3 (4.2-5.4); White Blood Count 6.1 K/mm3 (4.4-11.0)
[2025-02-11] MEDS: 0.9% Normal Saline (1000mL) 1,000 ML 999 ML IV (07:43)
[2025-02-11] MEDS: Orphenadrine 100 MG Tablet PO (07:43)
[2025-02-11 07:51] LABS: Anion Gap 9 (5-15); BUN 15 mg/dL (4-19); BUN/Creat Ratio 21.4 RATIO (10-20); Calcium,Total 9.9 mg/dL (7.6-11.0); Carbon Dioxide 23.0 mmol/L (21.0-32.0); Chloride 102 mmol/L (98-108); Estimated Creatinine Clearance 76.01 ml/min (50-250); Glucose 103 mg/dL (70-99); Potassium 4.0 mmol/L (3.3-5.1)
--- OUTSIDE RECORDS SUMMARY | 2025-02-11 08:08 | XMS RPT_ITS | CCD ---
Author Organization [facility] Care Team Providers Care Delivery Director Name Role Phone Sakshi Castillo DO Unavailable Saurav BLENDING SUPERVISORViki Unavailable Unavailable Dr. Denise Felix Attending Provider [phone] Dr. Denise Felix Primary Care Provider [phone] Dr. Denise Felix Referring Provider [phone] Dr. Denise Felix Primary Care Provider [phone] Dr. Denise Felix Attending Provider [phone] Dr. Denise Felix Referring Provider [phone] MD Denise Felix Attending Provider Unavaila ble Unavailable Primary Care Provider UnavailDr. Denise Aguirre Primary Care Provider [phone] Dr. Denise Felix Attending Provider [phone] Dr. Denise Felix Referring Provider [phone] Dr. Ez Belcher Attending Provider Dr. Denise Felix Primary Care Provider [phone] Dr. Denise Felix Referring Provider [phone])2 Dr. Rasheed Putnam Attending Provider [phone] [place], Dr. Iqbal Referring Provider [place], Dr. Iqbal Other Provider Dr. Luis Thurman Attending Provider Roof AVIONICS MANAGER, AVIONICS MANAGER-C Mateo Wiggins Attending Provider Dr. Denise Felix Attending Provider [phone] Denise Felix MD Primary Care Provider [phone] Elvira, Dr. Gray Primary Care Provider [phone] Elvira, Dr. Gray Attending Provider [phone] Elvira, Dr. Gray Referring Provider [phone])2 Dr. Julian Leonard Attending Provider Elvira, Dr. Gray Primary Care Provider 1(33 0) Elvira, Dr. Gray Attending Provider [phone] Elvira, Dr. Gray Referring Provider [phone])2 Elvira, Dr. Gray Primary Care Provider 1(33 0) Elvira, Dr. Gray Attending Provider [phone])2 Elvira, Dr. rGay Referring Provider [phone])2 Denise Felix MD Primary Care Provider 1(3 30) PRISCILLA RODGERS Referring Unavailable DENISE FELIX Primary Care Unavailable Elvira MORAN, Dr. Gray Primary Care Provider Dr. Denise Felix MD Attending Provider 1(33 0) Dr. Denise Felix MD Referring Provider 1(33 0) Elvira MORAN, Dr. Gray Primary Care Provider Dr. Denise Felix MD Attending Provider 1(33 0) Dr. Denise Felix MD Referring Provider 1(33 0) Elvira MORAN, Dr. Gray Primary Care Provider Elvira MORAN, Dr. Gray Attending Provider 1(33 0) Elvira MORAN, Dr. Gray Referring Provider 1(33 0) Elvira MORAN, Dr. Gray Primary Care Provider Elvira MORAN, Dr. Gray Attending Provider 1(33 0) Elvira MORAN, Dr. Gray Referring Provider 1(33 0) Elvira MORAN, Dr. Gray Primary Care Provider Elvira MORAN, Dr. Gray Attending Provider 1(33 0) Elvira MORAN, Dr. Gray Referring Provider 1(33 0) JOVANNIGHE, EFEWONGBE B Primary Care Unavailable BRUEMMER, GATO Referring Unavailable BRUEMMER, GATO Referring Unavailable OLEGHE, EFEWONGBE B Primary Care Unavailable BRUEMMER, GATO Attending Unavailable BRUEMMER, GATO Referring Unavailable OLEGHE, EFEWONGBE B Primary Care Unavailable Elvira MORAN, Dr. Gray Primary Care Physician Elvira MORAN, Dr. Gray Attending Physician 1(3 30) Oleghe, Efewongbe Referring Unavailable Oleghe, Efewongbe Primary Care Unavailable Oleghe, Efewongbe Attending Unavailable Oleghe, Efewongbe Referring Unavailable Oleghe, Efewongbe Attending Unavailable Oleghe, Efewongbe Primary Care Unavailable Oleghe, Efewongbe Attending Unavailable Oleghe, Efewongbe Referring Unavailable Oleghe, Efewongbe Primary Care Unavailable Oleghe, Efewongbe Referring Unavailable Oleghe, Efewongbe Attending Unavailable Oleghe, Efewongbe Primary Care Unavailable Oleghe, Efewongbe Referring Unavailable Oleghe, Efewongbe Attending Unavailable Oleghe, Efewongbe Primary Care Unavailable Oleghe, Efewongbe Referring Unavailable Oleghe, Efewongbe Attending Unavailable Oleghe, Efewongbe Primary Care Unavailable Oleghe, Efewongbe Attending Unavailable Oleghe, Efewongbe Referring Unavailable Oleghe, Efewongbe Primary Care Unavailable Oleghe, Efewongbe Attending Unavailable Oleghe, Efewongbe Referring Unavailable Oleghe, Efewongbe Primary Care Unavailable Oleghe, Efewongbe Attending Unavailable Oleghe, Efewongbe Referring Unavailable Oleghe, Efewongbe Primary Care Unavailable Oleghe, Efewongbe Attending Unavailable Oleghe, Efewongbe Referring Unavailable Oleghe, Efewongbe Primary Care Unavailable Oleghe, Efewongbe Primary Care Unavailable Oleghe, Efewongbe Referring Unavailable Oleghe, Efewongbe Attending Unavailable Oleghe, Efewongbe Primary Care Unavailable Oleghe, Efewongbe Referring Unavailable Oleghe, Efewongbe Attending Unavailable Oleghe, Efewongbe Primary Care Unavailable Oleghe, Efewongbe Referring Unavailable Oleghe, Efewongbe Attending Unavailable Oleghe, Efewongbe Attending Unavailable Oleghe, Efewongbe Referring Unavailable Oleghe, Efewongbe Primary Care Unavailable Oleghe, Efewongbe Attending Unavailable Oleghe, Efewongbe Primary Care Unavailable Oleghe, Efewongbe Referring Unavailable Oleghe, Efewongbe Referring Unavailable Oleghe, Efewongbe Primary Care Unavailable Oleghe, Efewongbe Attending Unavailable Allergies Allergy Classification Reported Allergen(s) Allergy Type Date of Onset Reaction(s) Facility (8 sources) Amoxicillin Drug Allergy 2 [facility] (20 sources) Azithromycin; Translations: [AZITHROMYCIN] Drug Allergy 1 [facility] Work Phone: (8 sources) Penicillins Allergy to substance 2 [facility] (3 sources) chandra Allergy to substance 2 [facility] (3 sources) chlorohexidine Allergy to substance 2 [facility] (20 sources) Chlorhexidine; Translations: [CHLORHEXIDINE] Drug Allergy 1 [facility] (20 sources) nickel; Translations: [NICKEL] Drug Allergy 1 [facility] Work Phone: (20 sources) Iodine; Translations: [IODINE] Drug Allergy 3 [facility] (18 sources) Isopropyl Alcohol; Translations: [ISOPROPYL ALCOHOL] Drug Allergy 3 [facility] (20 sources) oxyCODONE; Translations: [OXYCODONE] Drug Allergy 3 Other: See Comments [facility] Comment on above: causes low heart rat e and fainting (1 source) Azithromycin Drug Allergy 5 [facility] (1 source) Chlorhexidine Drug Allergy 5 [facility] (1 source) Iodine Drug Allergy 5 [facility] (1 source) Isopropyl Alcohol Drug Allergy 4 [facility] (1 source) nickel Drug Allergy 5 [facility] (1 source) oxyCODONE Drug Allergy 5 [facility] Medications Current Medications Medication Drug Class(es) Dates Sig (Normalized) Sig (Original) BIPAP (14 sources) BIPAP daily at b edtime. Active BIPAP daily at b edtime. 0 Active Comment on above: daily at bedtime. cholecalciferol 1.25 mg oral capsule (20 sources) Vitamin D Start: 04-13-20 24 take 1 capsule by mouth every week Cholecalciferol (Vitamin D3) 1,250 mcg (50,000 unit) capsule Active 1250 ug PO EVERY WEEK 20 April 13, 2024 1:00am Complies with drug therapy Start: 12-31-2023 take [address] [facility] once daily Cholecalciferol (Vitamin D3) 25 mcg (1,000 unit) capsule Active 2000 U PO DAILY December 31, 2023 8:48am Complies with drug therapy Start: 11-05-2021 End: 12-31-2023 take 1 capsule by mouth once daily Cholecalciferol (Vitamin D3) 25 mcg (1,000 unit) capsule Discontinued 25 ug PO DAILY November 05, 2021 12:00am December 31, 2023 8:49am take 1 tablet by jody once daily cholecalciferol (VITAMIN D) 1,000 unit tab tablet Take 1,000 Units by mouth once daily. Active Comment on above: Take 1,000 Units by mouth once daily. clobetasol propionate 0.5 mg/ml topical cream (15 sources) Corticosteroid Start: 022 Clobetasol 0.05 % cream Active 1 NMA TOPICAL DAILY as needed November 05, 2021 12:00am Complies with drug therapy ergocalciferol 1.25 mg oral capsule (1 source) Provitamin D2 Compound take 1 capsule by mouth every week ergocalciferol 50,000 unit capsule (VITAMIN D2, DRISDOL) Take 50,000 Units by mouth one time a week. Active hydrocortisone 25 mg/ml topical solution (12 sources) Corticosteroid Start: Hydrocortisone 2.5 % solution Active 1 NMA TOPICAL .TWICE WEEKLY January 17, 2023 12:00am Complies with drug therapy krill oil 500 mg oral capsule (20 sources) Start: 022 End: 023 take 1 capsule by mouth once daily Krill Oil 500 mg capsule Active 500 mg PO DAILY November 06, 2022 7:23pm Complies with drug therapy Start: 11-05-2021 End: 11-06-2022 Krill Oil Discontinued MG PO November 05, 2021 12:00am November 06, 2022 7:24pm Comment on above: Take 1 capsule by mo uth once daily. lactobacillus acidophilus [id number] unt oral capsule (1 source) Lactobacillus acidophilus (PROBIOTIC) 10 billion cell cap Take by mouth once daily. Active Lactobacillus Combination No.9 (Adult 50 Plus Probiotic) 4 billion cell capsule (15 sources) Start: take 4 capsules by mouth once daily Lactobacillus Combination No.9 (Adult 50 Plus Probiotic) 4 billion cell capsule Active 4000 NMA PO DAILY November 05, 2021 12:00am administer with a meal Complies with drug therapy Start: 11-05-2021 take 4 capsules by m outh once daily Lactobacillus Combination No.9 (Adult 50 Plus Probiotic) 4 billion cell capsule Active 4000 NMA PO DAILY November 05, 2021 12:00am administer with a meal Start: 11-05-2021 take 4 capsules by m outh once daily Lactobacillus Combination No.9 (Adult 50 Plus Probiotic) 4 billion cell capsule Active 4000 MMU CELLS PO DAILY November 04, 2021 11:00pm administer with a meal Start: 11-05-2021 take 4 capsules by m outh once daily Lactobacillus Combination No.9 (Adult 50 Plus Probiotic) 4 billion cell capsule Active 4000 MMU CELLS PO DAILY November 05, 2021 12:00am administer with a meal magnesium oxide 400 mg oral capsule (20 sources) Start: 11-05-2021 End: 04-12-2022 take 1 capsule by mouth once daily as needed Magnesium Oxide 400 mg magnesium capsule Active 400 mg PO DAILY as needed April 12, 2022 11:46am Complies with drug therapy mecobalamin (6 sources) Start: 04-12-2024 Mecobalamin (V itamin B12) 500 mcg tablet,chewable Active ug PO April 12, 2024 1:00am psyllium 400 mg oral capsule (15 sources) Start: 11-05-2021 Psyllium Husk (Metamucil) 0.4 gram capsule Active 0.4 g PO DAILY November 05, 2021 12:00am Complies with drug therapy psyllium seed, with dextrose, (FIBER ORAL) (14 sources) psyllium seed, w ith dextrose, (FIBER ORAL) Take by mouth. Active psyllium seed, w ith dextrose, (FIBER ORAL) Take by mouth. 0 Active Comment on above: Take by mouth. Tirzepatide (Weight Loss) (1 source) Start: 01-14-2025 End: 01-19-2025 Tirzepatide (Weight Loss) 12.5 mg/0.5 mL pen injector Discontinued 12.5 mg SC EVERY WEEK 6.5 90 3 January 14, 2025 9:18am January 19, 2025 3:39pm Tirzepatide (Weight Loss) (1 source) Start: 01-19-2025 Turmeric Root Extract (8 sources) Start: 11-05-2021 take 1076 mg by mouth once daily Turmeric Root Extract Active 1076 MG PO DAILY November 04, 2021 11:00pm Start: 11-05-2021 take 1076 mg by mouth once july ly Turmeric Root Extract Active 1076 MG PO DAILY November 05, 2021 12:00am Turmeric Root Extract 1,053 mg tablet (7 sources) Start: 11-05-2021 take 1 tablet by mouth once daily Turmeric Root Extract 1,053 mg tablet Active 1076 mg PO DAILY November 05, 2021 12:00am Complies with drug therapy Start: 11-05-2021 take 1 tablet by mouth once da cosme Turmeric Root Extract 1,053 mg tablet Active 1076 mg PO DAILY November 05, 2021 12:00am Vitamin B Complex (14 sources) vitamin B comple x (B COMPLEX ORAL) Take by mouth. Active vitamin B comple x (B COMPLEX ORAL) Take by mouth. 0 Active Comment on above: Take by mouth. vitamin b12 0.5 mg chewable tablet (15 sources) Vitamin B12 Start: 04-12-2024 Mecobalamin (Vitamin B12) 500 mcg tablet,chewable Active ug PO April 12, 2024 1:00am Complies with drug therapy End: 01-12-2025 take 1 tablet by mouth once daily cyanocobalamin (VITAMIN B-12) 1,000 mcg tab Take 1,000 mcg by mouth once daily. 01/12/2025 Discontinued (Course of therapy completed) Comment on above: Take 1,000 mcg by [facility] once daily. Completed/Discontinued Medications Medication Drug Class(es) Dates Sig (Normalized) Sig (Original) AMBREN (12 sources) Start: 12-05-2022 End: 02-28-2023 take 2 capsules by mouth once daily AMBREN Discontinued PO DAILY December 05, 2022 12:00am February 28, 2023 8:30am NIGHT SWEATS 2 CAPSULES DAILY Start: 12-05-2022 End: 02-28-2023 take 2 capsules by mouth once daily AMBREN Discontinued PO DAILY December 05, 2022 12:00am February 28, 2023 8:30am 2 CAPSULES DAILY Start: 12-05-2022 End: 02-28-2023 take 2 capsules by mouth once daily AMBREN Discontinued PO DAILY December 04, 2022 11:00pm February 28, 2023 7:30am 2 CAPSULES DAILY Start: 12-05-2022 take 2 capsules by out once daily AMBREN Active PO DAILY December 05, 2022 12:00am 2 CAPSULES DAILY Aspirin (4 sources) Platelet Aggregation Inhibitor, Nonsteroidal Anti-inflammatory Drug End: 03-13-2023 ASPIRIN (ASPIR-81 ORAL) Take by mouth. 0 03/13/2023 Discontinued (Course of therapy completed) ASPIRIN (ASPIR-8 1 ORAL) Take by mouth. 0 Active Comment on above: Take by mouth. B Complex 100 TR Oral Tablet Extended Release (3 sources) B Complex 100 TR Oral Tablet Extended Release daily Active bacillus coagulans [id number] unt / inulin 250 mg oral capsule (3 sources) Probiotic 1-250 BILLION-MG Oral Capsule daily (1-250 BILLION-MG) Active biotin 5 mg disintegrating oral tablet (18 sources) Start: End: take 2 tablets by mouth once daily Biotin 5,000 mcg tablet,disintegrating Discontinued 94948 ug PO DAILY November 05, 2021 12:00am December 31, 2023 8:48am Start: 11-05-2021 take 23671 ug by mouth once da cosme Biotin Active 61894 MCG PO DAILY November 05, 2021 12:00am take 1 mg by mouth once daily Bi otin 5 MG Oral Capsule daily (5 MG) Active calcium carbonate 1500 mg oral tablet (15 sources) Start: 11-05-2021 End: 12-31-2023 take 1 tablet by mouth once daily Calcium Carbonate (Calcium 600) 600 mg calcium (1,500 mg) tablet Discontinued 600 mg PO DAILY November 05, 2021 12:00am December 31, 2023 8:48am Calcium Citrate (14 sources) Start: 04-13-2001 End: 01-12-2025 take 2 tablets by mouth twice daily CALCIUM CITRATE TABLET 200MG PO two tablets twice per day 0 04/13/2001 01/12/2025 Discontinued (Course of therapy completed) Start: 04-13-2001 take [address] [facility] twice daily CALCIUM CITRATE TABLET 200MG PO two tablets twice per day 0 04/13/2001 Active Comment on above: two tablets twice pe r day Calcium-Vitamin D 500 MG Oral Capsule (3 sources) take 1 mg by mouth once daily Calcium-Vitamin D 500 MG Oral Capsule daily (500 MG) Active Carboxymethylcellu lose-Citric (Plenity) 0.75 gram capsule (15 sources) Start: 11-05-2021 End: 04-12-2022 take 1 capsule by mouth twice daily before lunch Carboxymethylcellulose -Citric (Plenity) 0.75 gram capsule Discontinued 3 NMA PO TWICE A DAY 540 90 1 November 05, 2021 12:00am April 12, 2022 11:46am administer before lunch and evening meal/dinner Start: 11-05-2021 End: 04-12-2022 take 1 capsule by mouth twice daily before lunch Carboxymethylcellulose-Citric (Plenity) 0.75 gram capsule Discontinued 3 NMA PO TWICE A DAY 540 90 November 05, 2021 12:00am April 12, 2022 11:46am administer before lunch and evening meal/dinner Start: 11-05-2021 End: 04-12-2022 Carboxymethylcellulose-Citri c (Plenity) 0.75 gram capsule Discontinued 3 CAP PO TWICE A DAY 540 90 November 05, 2021 12:00am April 12, 2022 11:46am administer before lunch and evening meal/dinner Start: 11-05-2021 End: 04-12-2022 Carboxymethylcellulose-Citri c (Plenity) 0.75 gram capsule Discontinued 3 CAP PO TWICE A DAY 540 90 November 04, 2021 11:00pm April 12, 2022 10:46am administer before lunch and evening meal/dinner Start: 11-05-2021 Carboxymethylc ellulose-Citric (Plenity) 0.75 gram capsule Active 3 CAP PO TWICE A DAY 540 90 November 05, 2021 12:00am administer before lunch and evening meal/dinner cephalexin 500 mg oral tablet (12 sources) Cephalosporin Antibacterial Start: 01-17-2023 End: 02-28-2023 take 1 tablet by mouth three times daily Cephalexin 500 mg tablet Discontinued 500 mg PO THREE TIMES A DAY 15 0 January 17, 2023 12:00am February 28, 2023 8:31am chlorhexidine gluconate 1.2 mg/ml mouthwash (14 sources) Start: 04-26-2015 End: 01-12-2025 Chlorhexidine Gluconate (PERIDEX) 0.12 % solution Use 15 mL as instructed twice daily. 04/26/2015 01/12/2025 Discontinued (Course of therapy completed) Comment on above: Use 15 mL as instruc arnoldo twice daily. Durand 3 340 MG Oral Capsule Delayed Release (3 sources) take 1 capsule by mouth once daily Durand 3 340 MG Oral Capsule Delayed Release daily (340 MG) Active QC Tumeric Complex 500 MG Oral Capsule (3 sources) take 1 mg by mouth once daily QC Tumeric Complex 500 MG Oral Capsule daily (500 MG) Active rosuvastatin calcium 10 mg oral tablet (20 sources) HMG-CoA Reductase Inhibitor Start: 04-15-2022 End: 09-29-2024 take 1 tablet by mouth once daily Rosuvastatin 10 mg tablet Discontinued 10 mg PO DAILY 90 2 July 14, 2023 5:51pm December 31, 2023 12:20pm Start: 03-01-2022 End: 04-15-2022 take 1 tablet by mouth once daily Rosuvastatin 20 mg tablet Discontinued 20 mg PO DAILY 30 April 11, 2022 9:48am April 12, 2022 12:14pm Tirzepatide (20 sources) Start: 12-05-2022 End: 02-28-2023 Tirzepatide Discontinued 10 MG SC EVERY WEEK 6.5 December 05, 2022 3:10pm February 28, 2023 8:31am Start: 12-05-2022 End: 02-28-2023 Tirzepatide Discontinued 10 MG SC EVERY WEEK 6.5 December 05, 2022 2:10pm February 28, 2023 7:31am Start: 12-05-2022 Tirzepatide Ac tive 10 MG SC EVERY WEEK 6.5 December 05, 2022 3:10pm Start: 09-30-2022 End: 12-05-2022 Tirzepatide Discontinued 7.5 MG SC EVERY WEEK 6.5 September 30, 2022 8:22am December 05, 2022 2:11pm Start: 09-30-2022 End: 12-05-2022 Tirzepatide Discontinued 7.5 MG SC EVERY WEEK 6.5 September 30, 2022 9:22am December 05, 2022 3:11pm Start: 07-12-2022 End: 09-30-2022 Tirzepatide Discontinued 7.5 MG SC EVERY WEEK 6.5 July 12, 2022 9:18am September 30, 2022 8:23am Start: 07-12-2022 End: 09-30-2022 Tirzepatide Discontinued 7.5 MG SC EVERY WEEK 6.5 July 12, 2022 10:18am September 30, 2022 9:23am Start: 07-12-2022 Tirzepatide Ac tive 7.5 MG SC EVERY WEEK 6.5 July 12, 2022 10:18am Start: 04-12-2022 End: 07-12-2022 Tirzepatide Discontinued 5 M G SC EVERY WEEK 6.5 April 12, 2022 11:06am July 12, 2022 9:19am Start: 04-12-2022 End: 07-12-2022 Tirzepatide Discontinued 5 M G SC EVERY WEEK 6.5 90 April 12, 2022 12:06pm July 12, 2022 10:19am Start: 04-12-2022 Tirzepatide Ac tive 5 MG SC EVERY WEEK 6.5 90 April 12, 2022 11:06am Tirzepatide (3 sources) Start: 03-05-2022 End: 03-25-2022 Tirzepatide (Mounjaro) 2.5 m g/0.5 mL pen injector Discontinued 2.5 mg SC EVERY WEEK 2 28 0 March 05, 2022 11:01am April 01, 2022 1:00am March 25, 2022 2:02pm Start: 03-04-2022 End: 03-05-2022 Tirzepatide (Mounjaro) 2.5 m g/0.5 mL pen injector Discontinued 2.5 mg SC EVERY WEEK 2 28 0 March 04, 2022 6:05pm March 31, 2022 1:00am March 05, 2022 11:01am Start: 03-01-2022 End: 03-04-2022 Tirzepatide (Mounjaro) 2.5 m g/0.5 mL pen injector Discontinued 2.5 mg SC EVERY WEEK 2 28 0 March 01, 2022 12:00am March 28, 2022 1:00am March 04, 2022 6:05pm Tirzepatide (2 sources) Start: 04-12-2022 End: 07-12-2022 Tirzepatide 5 mg/0.5 mL pen injector Discontinued 5 mg SC EVERY WEEK 6.5 90 April 12, 2022 12:06pm July 12, 2022 10:19am Start: 03-25-2022 End: 04-12-2022 Tirzepatide (Mounjaro) 5 mg/ 0.5 mL pen injector Discontinued 5 mg SC EVERY WEEK 2 28 0 March 25, 2022 2:02pm April 21, 2022 1:00am April 12, 2022 12:06pm Tirzepatide (2 sources) Start: 09-30-2022 End: 12-05-2022 Tirzepatide 7.5 mg/0.5 mL pe n injector Discontinued 7.5 mg SC EVERY WEEK 6.5 90 3 September 30, 2022 9:22am December 05, 2022 3:11pm Start: 07-12-2022 End: 09-30-2022 Tirzepatide 7.5 mg/0.5 mL pe n injector Discontinued 7.5 mg SC EVERY WEEK 6.5 90 3 July 12, 2022 10:18am September 30, 2022 9:23am Tirzepatide (2 sources) Start: 10-16-2023 End: 12-31-2023 Tirzepatide (Mounjaro) 10 mg /0.5 mL pen injector Discontinued 10 mg SC EVERY WEEK 2 October 16, 2023 12:00am December 31, 2023 8:49am Start: 12-05-2022 End: 02-28-2023 Tirzepatide 10 mg/0.5 mL pen injector Discontinued 10 mg SC EVERY WEEK 6.5 90 3 December 05, 2022 3:10pm February 28, 2023 8:31am Tirzepatide (Mounjaro) 10 mg/0.5 mL pen injector (6 sources) Start: 10-16-2023 End: 12-31-2023 Tirzepatide (Mounjaro) 10 mg /0.5 mL pen injector Discontinued 10 mg SC EVERY WEEK 2 October 16, 2023 12:00am December 31, 2023 8:49am Start: 10-16-2023 End: 12-31-2023 Tirzepatide (Mounjaro) 10 mg /0.5 mL pen injector Discontinued 10 mg SC EVERY WEEK October 16, 2023 12:00am December 31, 2023 8:49am Tirzepatide (Mounjaro) 2.5 mg/0.5 mL pen injector (20 sources) Start: 03-05-2022 End: 03-25-2022 Tirzepatide (Mounjaro) 2.5 mg/0.5 mL pen injector Discontinued 2.5 mg SC EVERY WEEK March 05, 2022 11:01am April 01, 2022 1:00am March 25, 2022 2:02pm Start: 03-05-2022 End: 03-25-2022 Tirzepatide (Mounjaro) 2.5 m g/0.5 mL pen injector Discontinued 2.5 mg SC EVERY WEEK 2 March 05, 2022 11:01am April 01, 2022 1:00am March 25, 2022 2:02pm Start: 03-05-2022 End: 03-25-2022 Tirzepatide (Mounjaro) 2.5 m g/0.5 mL pen injector Discontinued 2.5 MG SC EVERY WEEK 2 March 05, 2022 11:01am March 25, 2022 2:02pm Start: 03-05-2022 End: 03-25-2022 Tirzepatide (Mounjaro) 2.5 m g/0.5 mL pen injector Discontinued 2.5 MG SC EVERY WEEK 2 March 05, 2022 10:01March 25, 2022 1:02pm Start: 03-04-2022 End: 03-05-2022 Tirzepatide (Mounjaro) 2.5 m g/0.5 mL pen injector Discontinued 2.5 mg SC EVERY WEEK 2 March 04, 2022 6:05pm March 31, 2022 1:00am March 05, 2022 11:01am Start: 03-04-2022 End: 03-05-2022 Tirzepatide (Mounjaro) 2.5 m g/0.5 mL pen injector Discontinued 2.5 mg SC EVERY WEEK 2 March 04, 2022 6:05pm March 31, 2022 1:00am March 05, 2022 11:01am Start: 03-04-2022 End: 03-05-2022 Tirzepatide (Mounjaro) 2.5 m g/0.5 mL pen injector Discontinued 2.5 MG SC EVERY WEEK 2 March 04, 2022 6:05pm March 05, 2022 11:01am Start: 03-04-2022 End: 03-05-2022 Tirzepatide (Mounjaro) 2.5 m g/0.5 mL pen injector Discontinued 2.5 MG SC EVERY WEEK 2 March 04, 2022 5:05pm March 05, 2022 10:01am Start: 03-01-2022 End: 03-04-2022 Tirzepatide (Mounjaro) 2.5 m g/0.5 mL pen injector Discontinued 2.5 mg SC EVERY WEEK March 01, 2022 12:00am March 28, 2022 1:00am March 04, 2022 6:05pm Start: 03-01-2022 End: 03-04-2022 Tirzepatide (Mounjaro) 2.5 m g/0.5 mL pen injector Discontinued 2.5 mg SC EVERY WEEK 2 March 01, 2022 12:00am March 28, 2022 1:00am March 04, 2022 6:05pm Start: 03-01-2022 End: 03-04-2022 Tirzepatide (Mounjaro) 2.5 m g/0.5 mL pen injector Discontinued 2.5 MG SC EVERY WEEK 2 March 01, 2022 12:00am March 04, 2022 6:05pm Start: 03-01-2022 End: 03-04-2022 Tirzepatide (Mounjaro) 2.5 m g/0.5 mL pen injector Discontinued 2.5 MG SC EVERY WEEK 2 February 28, 2022 11:00pm March 04, 2022 5:05pm Tirzepatide (Mounjaro) 5 mg/ 0.5 mL pen injector (13 sources) Start: 03-25-2022 End: 04-12-2022 Tirzepatide (Mounjaro) 5 mg/ 0.5 mL pen injector Discontinued 5 mg SC EVERY WEEK March 25, 2022 2:02pm April 21, 2022 1:00am April 12, 2022 12:06pm Start: 03-25-2022 End: 04-12-2022 Tirzepatide (Mounjaro) 5 mg/ 0.5 mL pen injector Discontinued 5 mg SC EVERY WEEK 2 March 25, 2022 2:02pm April 21, 2022 1:00am April 12, 2022 12:06pm Start: 03-25-2022 End: 04-12-2022 Tirzepatide (Mounjaro) 5 mg/ 0.5 mL pen injector Discontinued 5 MG SC EVERY WEEK 2 March 25, 2022 2:02pm April 12, 2022 12:06pm Start: 03-25-2022 End: 04-12-2022 Tirzepatide (Mounjaro) 5 mg/ 0.5 mL pen injector Discontinued 5 MG SC EVERY WEEK 2 March 25, 2022 1:02pm April 12, 2022 11:06am Tirzepatide (Weight Loss) (20 sources) Start: 06-02-2023 End: 06-23-2023 Tirzepatide (Weight Loss) (Z epbound) 7.5 mg/0.5 mL pen injector Discontinued 7.5 mg SC EVERY WEEK 2 3 June 02, 2023 10:43am June 23, 2023 10:40am Start: 06-02-2023 End: 06-23-2023 Tirzepatide (Weight Loss) (Z epbound) 7.5 mg/0.5 mL pen injector Discontinued 7.5 mg SC EVERY WEEK 2 June 02, 2023 10:43am June 23, 2023 10:40am Start: 06-02-2023 End: 06-23-2023 Tirzepatide (Weight Loss) (Z epbound) 7.5 mg/0.5 mL pen injector Discontinued 7.5 MG SC EVERY WEEK 2 June 02, 2023 10:43am June 23, 2023 10:40am Start: 04-25-2023 End: 06-02-2023 Tirzepatide (Weight Loss) (Z epbound) 7.5 mg/0.5 mL pen injector Discontinued 7.5 mg SC EVERY WEEK 2 April 25, 2023 1:00am June 02, 2023 10:43am Start: 04-25-2023 End: 06-02-2023 Tirzepatide (Weight Loss) (Z epbound) 7.5 mg/0.5 mL pen injector Discontinued 7.5 mg SC EVERY WEEK 2 April 25, 2023 1:00am June 02, 2023 10:43am Start: 04-25-2023 End: 06-02-2023 Tirzepatide (Weight Loss) (Z epbound) 7.5 mg/0.5 mL pen injector Discontinued 7.5 MG SC EVERY WEEK 2 April 25, 2023 1:00am June 02, 2023 10:43am Start: 04-25-2023 Tirzepatide (W eight Loss) (Zepbound) 7.5 mg/0.5 mL pen injector Active 7.5 MG SC EVERY WEEK 2 April 25, 2023 12:00am Tirzepatide (Weight Loss) (20 sources) Start: 09-14-2024 End: 01-14-2025 Tirzepatide (Weight Loss) (Z epbound) 10 mg/0.5 mL pen injector Discontinued 10 mg SC EVERY WEEK 2 3 September 14, 2024 9:07pm January 14, 2025 9:31am Start: 09-14-2024 Tirzepatide (W eight Loss) (Zepbound) 10 mg/0.5 mL pen injector Active 10 mg SC EVERY WEEK 2 3 September 14, 2024 9:07pm Start: 09-14-2024 Tirzepatide (W eight Loss) (Zepbound) 10 mg/0.5 mL pen injector Active 10 mg SC EVERY WEEK 2 September 14, 2024 9:07pm Start: 04-12-2024 End: 09-14-2024 Tirzepatide (Weight Loss) (Z epbound) 10 mg/0.5 mL pen injector Discontinued 10 mg SC EVERY WEEK 2 3 April 12, 2024 4:37pm September 14, 2024 9:08pm Start: 04-12-2024 End: 09-14-2024 Tirzepatide (Weight Loss) (Z epbound) 10 mg/0.5 mL pen injector Discontinued 10 mg SC EVERY WEEK 2 April 12, 2024 4:37pm September 14, 2024 9:08pm Start: 04-12-2024 Tirzepatide (W eight Loss) (Zepbound) 10 mg/0.5 mL pen injector Active 10 mg SC EVERY WEEK 2 April 12, 2024 4:37pm Start: 12-31-2023 End: 04-12-2024 Tirzepatide (Weight Loss) (Z epbound) 10 mg/0.5 mL pen injector Discontinued 10 mg SC EVERY WEEK 2 3 December 31, 2023 12:20pm April 12, 2024 4:38pm Start: 12-31-2023 End: 04-12-2024 Tirzepatide (Weight Loss) (Z epbound) 10 mg/0.5 mL pen injector Discontinued 10 mg SC EVERY WEEK 2 December 31, 2023 12:20pm April 12, 2024 4:38pm Start: 10-07-2023 End: 12-31-2023 Tirzepatide (Weight Loss) (Z epbound) 10 mg/0.5 mL pen injector Discontinued 10 mg SC EVERY WEEK 2 3 October 07, 2023 1:30pm December 31, 2023 12:20pm Start: 10-07-2023 End: 12-31-2023 Tirzepatide (Weight Loss) (Z epbound) 10 mg/0.5 mL pen injector Discontinued 10 mg SC EVERY WEEK 2 October 07, 2023 1:30pm December 31, 2023 12:20pm Start: 09-24-2023 End: 10-07-2023 Tirzepatide (Weight Loss) 10 mg/0.5 mL pen injector Discontinued 10 mg SC EVERY WEEK 2 3 September 24, 2023 1:04pm October 07, 2023 1:30pm Start: 09-24-2023 End: 10-07-2023 Tirzepatide (Weight Loss) 10 mg/0.5 mL pen injector Discontinued 10 mg SC EVERY WEEK 2 September 24, 2023 1:04pm October 07, 2023 1:30pm Start: 06-23-2023 End: 09-24-2023 Tirzepatide (Weight Loss) 10 mg/0.5 mL pen injector Discontinued 10 mg SC EVERY WEEK 2 3 June 23, 2023 10:39am September 24, 2023 1:05pm Start: 06-23-2023 End: 09-24-2023 Tirzepatide (Weight Loss) 10 mg/0.5 mL pen injector Discontinued 10 mg SC EVERY WEEK 2 June 23, 2023 10:39am September 24, 2023 1:05pm Start: 06-23-2023 Tirzepatide (W eight Loss) (Zepbound) 10 mg/0.5 mL pen injector Active 10 MG SC EVERY WEEK 2 June 23, 2023 10:39am Tirzepatide 10 mg/0.5 mL pen injector (6 sources) Start: 12-05-2022 End: 02-28-2023 Tirzepatide 10 mg/0.5 mL pen injector Discontinued 10 mg SC EVERY WEEK 6.5 90 December 05, 2022 3:10pm February 28, 2023 8:31am Start: 12-05-2022 End: 02-28-2023 Tirzepatide 10 mg/0.5 mL pen injector Discontinued 10 mg SC EVERY WEEK 6.5 90 December 05, 2022 3:10pm February 28, 2023 8:31am Tirzepatide 5 mg/0.5 mL pen injector (6 sources) Start: 04-12-2022 End: 07-12-2022 Tirzepatide 5 mg/0.5 mL pen injector Discontinued 5 mg SC EVERY WEEK 6.5 90 April 12, 2022 12:06pm July 12, 2022 10:19am Start: 04-12-2022 End: 07-12-2022 Tirzepatide 5 mg/0.5 mL pen injector Discontinued 5 mg SC EVERY WEEK 6.5 90 April 12, 2022 12:06pm July 12, 2022 10:19am Tirzepatide 7.5 mg/0.5 mL pe n injector (12 sources) Start: 09-30-2022 End: 12-05-2022 Tirzepatide 7.5 mg/0.5 mL pe n injector Discontinued 7.5 mg SC EVERY WEEK 6.5 90 September 30, 2022 9:22am December 05, 2022 3:11pm Start: 09-30-2022 End: 12-05-2022 Tirzepatide 7.5 mg/0.5 mL pe n injector Discontinued 7.5 mg SC EVERY WEEK 6.5 90 September 30, 2022 9:22am December 05, 2022 3:11pm Start: 07-12-2022 End: 09-30-2022 Tirzepatide 7.5 mg/0.5 mL pe n injector Discontinued 7.5 mg SC EVERY WEEK 6.5 90 July 12, 2022 10:18am September 30, 2022 9:23am Start: 07-12-2022 End: 09-30-2022 Tirzepatide 7.5 mg/0.5 mL pe n injector Discontinued 7.5 mg SC EVERY WEEK 6.5 90 July 12, 2022 10:18am September 30, 2022 9:23am triamcinolone acetonide 1 mg/ml topical cream (11 sources) Corticosteroid Start: 03-13-2023 End: 01-12-2025 triamcinolone acetonide (KENALOG) 0.1 % cream Apply 1 application to affected area once daily. 15 g 03/13/2023 01/12/2025 Discontinued (Course of therapy completed) Comment on above: Apply 1 application to affected area once daily. turmeric root extract 500 mg cap (14 sources) End: 01-12-2025 take 1 capsule by mouth once daily turmeric root extract 500 mg cap Take 500 mg by mouth once daily. 01/12/2025 Discontinued (Course of therapy completed) take 1 capsule by mouth once july ly turmeric root extract 500 mg cap Take 500 mg by mouth once daily. Active take 1 capsule by mouth once july ly turmeric root extract 500 mg cap Take 500 mg by mouth once daily. 0 Active Comment on above: Take 500 mg by mouth once daily. Problems Active Problems Problem Classification Problem Date Documented Da te Episodic/Chronic Acquired foot deformities (14 sources) Bunion; Translations: [Bunion of unspecified foot] 02-22-2005 Episodic Administrative/social admission (6 sources) Patient encounter status; Translations: [Nutritional counseling] 01-02-2022 Episodic Cardiac dysrhythmias (15 sources) Cardiac arrhythmia; Translations: [Cardiac arrhythmia, unspecified] 07-12-2022 Chronic Cardiac dysrhythmias (4 sources) Sinus bradycardia; Translations: [Bradycardia, unspecified] 08-08-2023 Episodic Coronary atherosclerosis and other heart disease (4 sources) Calcification of coronary artery; Translations: [Atherosclerotic heart disease of [place] coronary artery without angina pectoris] Onset: 01-12-2025 12-09-2023 Chronic Deficiency and other anemia (15 sources) Anemia; Translations: [Anemia, unspecified] 11-05-2021 Episodic Disorders of lipid metabolism (20 sources) Hyperlipidemia; Translations: [Hyperlipidemia, unspecified] Onset: 10-14-2024 Chronic Essential hypertension (20 sources) Hypertensive disorder; Translations: [Essential (primary) hypertension] Onset: 03-04-2016 Chronic Genitourinary symptoms and ill-defined conditions (15 sources) Increased frequency of urination; Translations: [Frequency of micturition] 01-17-2023 Episodic Heart valve disorders (16 sources) Tricuspid incompetence, non-rheumatic ; Translations: [Nonrheumatic tricuspid (valve) insufficiency] Onset: 03-04-2016 03-04-2016 Chronic Heart valve disorders (20 sources) Heart murmur; Translations: [Cardiac murmur, unspecified] Onset: 04-04-2003 08-22-2003 Episodic Immunizations and screening for infectious disease (12 sources) Viral screening status; Translations: [Encounter for screening for other viral diseases] 01-17-2023 Episodic Osteoarthritis (20 sources) Arthritis; Translations: [Unspecified osteoarthritis, unspecified site] 11-05-2021 Chronic Other acquired deformities (15 sources) Scoliosis deformity of spine; Translations: [Scoliosis, unspecified] 11-05-2021 Chronic Other and unspecified benign neoplasm (6 sources) Polyp of colon; Translations: [Colon polyps] 01-02-2022 Episodic Comment on above: last colonosocpy 201 9- repeat in 5yr Other connective tissue disease (8 sources) Synovial cyst of knee; Translations: [Synovial cyst of popliteal space [Rooney], unspecified knee] 11-05-2021 Episodic Other connective tissue disease (14 sources) Plantar fascial fibromatosis; Translations: [Plantar fascial fibromatosis] 02-22-2005 Episodic Other connective tissue disease (7 sources) Synovial cyst of popliteal space [Rooney], unspecified knee; Translations: [Synovial cyst of popliteal space] 11-06-2022 Episodic Other ear and sense organ disorders (1 source) Excessive cerumen in ear canal ; Translations: [Impacted cerumen, bilateral] 03-13-2023 Episodic Other endocrine disorders (17 sources) Hyperparathyroidism; Translations: [Hyperparathyroidism , unspecified] 12-31-2023 Chronic Other endocrine disorders (1 source) Hyperparathyroidism, unspecified; Translations: [Hyperparathyroidism , unspecified] Onset: 06-27-2024 Chronic Other eye disorders (6 sources) Corneal ulcer; Translations: [Unspecified corneal ulcer, unspecified eye] 10-15-2024 Episodic Other inflammatory condition of skin (12 sources) Psoriasis; Translations: [Psoriasis, unspecified] 01-17-2023 Chronic Other nervous system disorders (12 sources) Postoperative pain ; Translations: [Other acute postprocedural pain] 02-03-2023 Episodic Other non-traumatic joint disorders (20 sources) Pain in right knee; Translations: [Chronic pain of both knees] 01-02-2022 Episodic Comment on above: had recent z-rays shraa diaz 2020-- interested in stem cells -- gave literature adn names of surgeon to investigate Other non-traumatic joint disorders (2 sources) Pain in unspecified knee; Translations: [Pain in joint, lower leg] Episodic Other nutritional; endocrine; and metabolic disorders (20 sources) Body mass index 30+ - obesity; Translations: [BMI 39.0-39.9,adult] 01-02-2022 Chronic Other nutritional; endocrine; and metabolic disorders (11 sources) Obesity, unspecified; Translations: [Obesity, unspecified] Onset: 07-09-2024 Chronic Other nutritional; endocrine; and metabolic disorders (20 sources) Obesity; Translations: [Obesity, unspecified] 08-22-2003 Chronic Other nutritional; endocrine; and metabolic disorders (20 sources) Metabolic syndrome X; Translations: [Metabolic syndrome] 04-25-2023 Chronic Other nutritional; endocrine; and metabolic disorders (10 sources) Hypercalcemia; Translations: [Hypercalcemia] 08-15-2023 Chronic Other nutritional; endocrine; and metabolic disorders (1 source) Obesity caused by energy imbalance; Translations: [Class 1 obesity due to excess calories with serious comorbidity and body mass index (BMI) of 30.0 to 30.9 in adult] 01-12-2025 Chronic Other nutritional; endocrine; and metabolic disorders (2 sources) Hypercalcemia; Translations: [Hypercalcemia] Onset: 04-12-2024 Chronic Other nutritional; endocrine; and metabolic disorders (3 sources) Other obesity due to excess calories; Translations: [Class 1 obesity due to excess calories with serious comorbidity and body mass index (BMI) of 30.0 to 30.9 in adult] Onset: 04-13-2001 Chronic Other nutritional; endocrine; and metabolic disorders (1 source) Body mass index (BMI) 30.0-30.9, adult; Translations: [Class 1 obesity due to excess calories with serious comorbidity and body mass index (BMI) of 30.0 to 30.9 in adult] Onset: 04-13-2001 Chronic Other nutritional; endocrine; and metabolic disorders (1 source) Metabolic syndrome; Translations: [Metabolic syndrome] Onset: 07-25-2024 Chronic Other nutritional; endocrine; and metabolic disorders (1 source) Body mass index 25-29 - overweight; Translations: [Overweight] 12-09-2023 Episodic Other screening for suspected conditions (not mental disorders or infectious disease) (1 source) Encounter for screening mammogram for malignant neoplasm of breast; Translations: [Encounter for screening mammogram for malignant neoplasm of breast] Onset: 06-18-2024 Episodic Other skin disorders (14 sources) Hirsutism; Translations: [Hirsutism] 08-22-2003 Episodic Other upper respiratory disease (15 sources) Seasonal allergy; Translations: [Other seasonal allergic rhinitis] 11-05-2021 Chronic Other upper respiratory disease (1 source) Nasal vestibulitis; Translations: [Other specified disorders of nose and nasal sinuses] 03-13-2023 Episodic Phlebitis; thrombophlebitis and thromboembolism (15 sources) H/O: thrombosis; Translations: [Personal history of other venous thrombosis and embolism] 11-05-2021 Episodic Residual codes; unclassified (6 sources) Sleep apnea; Translations: [Sleep Apnea] 01-02-2022 Chronic Comment on above: B-pap Residual codes; unclassified (20 sources) Obstructive sleep apnea syndrome; Translations: [Obstructive sleep apnea (adult) (pediatric)] 11-05-2021 Chronic Residual codes; unclassified (4 sources) Obstructive sleep apnea (adult) (pediatric); Translations: [Obstructive sleep apnea (adult)(pediatric)] Chronic Residual codes; unclassified (6 sources) Non-smoker; Translations: [Non-smoker] 01-02-2022 Episodic Residual codes; unclassified (15 sources) History of operative procedure on foot; Translations: [Other specified postprocedural states] 11-05-2021 Episodic Residual codes; unclassified (15 sources) Family history of malignant neoplasm of lung; Translations: [Family history of malignant neoplasm of trachea, bronchus and lung] 11-05-2021 Episodic Residual codes; unclassified (1 source) Family history of malignant neoplasm of trachea, bronchus and lung; Translations: [Family history of malignant neoplasm of trachea, bronchus, and lung] Episodic Residual codes; unclassified (12 sources) Postmenopausal state; Translations: [Asymptomatic menopausal state] 12-05-2022 Episodic Residual codes; unclassified (1 source) Asymptomatic menopausal state; Translations: [Asymptomatic postmenopausal status (age-related) (natural)] 12-05-2022 Episodic Syncope (13 sources) Syncope; Translations: [Syncope and collapse] 02-03-2023 Episodic Thyroid disorders (20 sources) Thyroid nodule; Translations: [Nontoxic single thyroid nodule] 07-12-2022 Chronic Unclassified (3 sources) Unclassified (1 source) Class 1 obesity due to excess calories with serious comorbidity and body mass index (BMI) of 30.0 to 30.9 in adult; Translations: [Class 1 obesity due to excess calories with serious comorbidity and body mass index (BMI) of 30.0 to 30.9 in adult] Onset: 04-13-2001 Viral infection (15 sources) Anogenital human papillomavirus infection; Translations: [Anogenital (venereal) warts] 11-05-2021 Episodic Past or Other Problems Problem Classification Problem Date Documented Da te Episodic/Chronic Diabetes mellitus without complication (20 sources) Prediabetes; Translations: [Prediabetes] Onset: 04-12-2024 Episodic Other connective tissue disease (14 sources) Partial thickness rotator cuff tear; Translations: [Incomplete rotator cuff tear or rupture of left shoulder, not specified as traumatic] Onset: 08-08-2015 08-08-2015 Episodic Other connective tissue disease (14 sources) Impingement syndrome of left shoulder region; Translations: [Impingement syndrome of left shoulder] Onset: 08-08-2015 08-08-2015 Episodic Unclassified (3 sources) Papilloma virus DNA assay; Translations: [HPV Comprehensive] 01-02-2022 Comment on above: 2019 Unclassified (3 sources) Pregnancies (); Translations: [Pregnancies ()] 01-02-2022 Comment on above: 0. Results Test Name Value Interpretation Reference Range Facility Internal Medicine Office Vis ito 01-14-2025 Internal Medicine Office Visit [facility] [address] [place] [address] [place], [place] [address] OFFICE VISIT Date of Service: 01/14/25 MR#: [id number] Acct: [id number] Name: SHAVON SCHAEFFER Rep #: [id number] : 1960 Provider: Dr. 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 Accompanied by: Self Is patient in pain?: No Allergies azithromycin Allergy (Mild, Verified 01/14/25 08:41) Rash chlorhexidine (From ChloraPrep Clear) Allergy (Mild, Verified 01/14/25 08:41) Rash iodine Allergy (Mild, Verified 01/14/25 08:41) Rash nickel (chandra) Allergy (Verified 01/14/25 08:41) Rash oxycodone (From OxyContin) Adverse Reaction (Severe, Verified 01/14/25 08:41) Other Medications ???Medication ???Instructions ???Recorded ???Confirmed ???Type clobetasol 0.05 % topical cream 1 applic topical DAILY PRN 2 01/14/25 History lactobacillus combination no.9 4 4,000 mmu cells PO DAILY 11/05/21 01/14/25 History billion cell capsule (Adult 50 Plus Probiotic) psyllium husk 0.4 gram capsule 0.4 g PO DAILY 11/05/21 01/14/25 H istory (Metamucil) turmeric root extract 1,053 mg 1,076 mg PO DAILY 11/05/21 5 History tablet magnesium oxide 400 mg PO DAILY PRN 04/12/2201/14 History krill oil 500 mg capsule 500 mg PO DAILY 11/06/22 01/14/25 History hydrocortisone 2.5 % topical 1 applic topical .TWICE WEEKLY 01/14/25 History solution cholecalciferol (vitamin D3) 25 2,000 unit PO DAILY 12/31/2301/14 History mcg (1,000 unit) capsule mecobalamin (vitamin B12) 500 mcg mcg PO 04/12/24 01/14/25 History chewable tablet cholecalciferol (vitamin D3) 1,250 1,250 mcg PO QWEEK #20 caps 03/2801/14/25 Rx mcg (50,000 unit) capsule rosuvastatin 10 mg tablet 10 mg PO DAILY #90 tabs 09/29/24 0 01/14/25 Rx pen needle, diabetic 29 gauge x #100 ea 01/14/25 01/14/25 Rx 1/2 (Ultra-Thin II Insulin Pen [place]) tirzepatide (weight loss) 12.5 12.5 mg (0.5 mL) subcut QWEEK 3 01/14/25 Rx mg/0.5 mL subcutaneous pen injector months #6.5 mL Have you fallen in the past year?: No Nurse's Note: follow up has blood work from [facility] Medical History Corneal ulcer (including herpetic) Encounter for screening colonoscopy Health care maintenance Hyperparathyroidism Hypercalcemia Metabolic syndrome Preoperative evaluation to rule out surgical contraindication Need for hepatitis C screening test Urinary frequency Psoriasis Postmenopausal Obesity Dyslipidemia ECG abnormal Palpitations Nonrheumatic tricuspid (valve) insufficiency Arrhythmia Thyroid nodule Borderline type 2 diabetes mellitus Family history of lung cancer Obstructive sleep apnea Hyperlipidemia Hypertension Obesity (BMI 30-39.9) History of blood clots Rooney cyst Chronic knee pain Hyperlipemia HPV (human papilloma virus) anogenital infection Scoliosis Heart murmur Osteoarthritis Arthritis Anemia Seasonal allergies Surgical History History of right knee joint replacement History of removal of cyst History of carpal tunnel release History of bunionectomy Family History Mother Cancer lung Arthritis Sister Arthritis Osteoporosis Brother Arthritis Heart disease Hypertension Hyperlipemia Father Diabetes Heart disease Hypertension Hyperlipemia Kidney disease CVA (cerebral vascular accident) Grandmother Pacemaker Other Family history of lung cancer Social History Smoking Status: Never smoker alcohol intake: current alcohol intake frequency: a few times a week substance use type: does not use caffeine: Yes Type: coffee Number of servings: 2 what type of physical activity do you participate in: weight training and other details: cardio frequency: 1-2 times per week HPI HPI Chief Complaint: Follow-up Details: SHAVON SCHAEFFER, is a 64-year-old female presenting for follow-up of her chronic conditions. Has a few questions/concerns. The patient reported previous laboratory findings from November showing elevated calcium, with levels normalizing in subsequent tests. The PTH level was noted to be (more content not included)... Normal [facility] 25([place])D3 [facility] 25-hydroxyvitamin D3 [Mass/Vol] 64.2 ng/mL Normal 31.0-80.0 [facility] Comment on above: Order Comment: Speci men Type: BLOOD SPECIMEN Ordering Facility: [facility] Address: [address] [place] [address] Result Comment: Clas sification of 25 [place] Vitamin D status: Deficiency/Insufficiency: < or = 30 ng/ml. Sufficiency/Optimal Levels: 31-80 ng/mL Toxicity: > 100 ng/mL. Test performed by chemiluminescent immunoassay. Performed By: #### 1 [id number] #### [facility] CLIA [id number] [address] [place] [address] [place] CNOVon 01-12-2025 CNOV Office Visit (CARD P ) SHAVON SCHAEFFER ([id number]) 1960 F EXC Date Time Provider Department 01/12/25 8:45 AM GATO BARRIOS During your visit today, we recorded the following information about you: Pulse Blood pressure Weight Height 56/minute 126/57 84.6 kg 1.664 m Gato Barrios MD 01/12/2025 9:15 AM [facility] [place] Department of Cardiovascular Medicine SECTION OF PREVENTIVE CARDIOLOGY Date: 01/12/2025 Patient: Shavon Schaeffer : 1960 CHIEF COMPLAINT: Routine follow-up. HISTORY OF PRESENT CARDIOVASCULAR ILLNESS: I had the pleasure of seeing Shavon Schaeffer today in the Preventive Cardiology Clinic for a routine follow-up. A copy of this consultation note will be provided to the requesting physician by way of shared Medical record or letter to requesting physician via US mail. She is a very pleasant 64-year-old female patient with past medical history of coronary artery calcification, obesity class II, hypercholesterolemia, palpitations, hypercalcemia, vitamin D deficiency. The patient reports feeling well overall and denies experiencing chest pain, dyspnea, edema, palpitations, or syncope. She continues to struggle with weight loss. She has a history of hypercholesterolemia and is currently taking rosuvastatin 10 mg daily. A coronary artery calcium score in 2020 was 9. Recent labs showed an LDL of 86 mg/dL on 11/2024. She previously attempted a higher dose of rosuvastatin 20 mg but experienced myalgias, leading to a reduction to 10 mg. She has a history of hypercalcemia, with a recent calcium level of 10.6 mg/dL. She was advised to discontinue calcium supplements. She is currently taking vitamin D 50,000 IU once weekly and 2,000 IU daily. She reports a history of a thyroid nodule with Hurthle cells noted on biopsy. She is not currently under the care of an manager nc. She has a history of obesity and has been taking Zepbound 10 mg for over a year and a half, resulting in a weight loss from 247 lbs to 180 lbs. However, she has not lost additional weight in the past year and a half and desires to lose an additional 25 lbs. She stopped taking Zepbound for the past two months due to insurance coverage issues. She has a history of sleep apnea. She is followed by an radio electronics technician at [facility]. CARDIAC RISK FACTORS: Not specified Exercise: Three to five times per week Family History of CAD: Negative STATIN INTOLERANCE: Adverse Effect History of Statin Intolerance:: No Current Statin Freq: None USE OF PCSK9 INHIBITORS: CARDIOVASCULAR DISEASE HISTORY: Calcium score <100: Yes Valve Disease: Arrhythmias: Heart Failure/Cardiomyopathy : Related Disease History: PAST MEDICAL HISTORY: PAST MEDICAL HISTORY Diagnosis Date Bunion Hirsutism Other and unspecified hyperlipidemia Plantar fasciitis Undiagnosed cardiac murmurs 2002 trivial MR and TR by echo PAST SURGICAL HISTORY: PAST SURGICAL HISTORY Procedure Laterality Date 24 HR HOLTER 02/23/16 BUNIONECTOMY, LAPIDUS-TYPE Left 2018 ECHOCARDIOGRAM 02/23/16 LVEF 50-55% NUCLEAR STRESS LEXISCAN (CARD) 02/15/11 PAST SURGICAL HISTORY OF Right 2020 STRESS TEST (EXERCISE) TREADMILL 02/23/16 NORMAL FAMILY HISTORY FAMILY HISTORY Problem Relation Age of Onset Cancer Mother carcinoid of lung, age 61 Stroke Father late 60s Ischemic Heart Disease Father CABG age 72, age 73 of CHF other (Gout) Father other (Peptic ulcer disease) Father Cancer Maternal Grandmother carcinoid of lung other (Chronic bronchitis) Sister nonsmoker Hypertension Brother Lipids Brother Diabetes Paternal Aunt and cousins other (Glaucoma) Paternal Aunt SOCIAL HISTORY Employer And Job Title: [employer] (No job title specified) Years Of Education Completed: Not specified Marital Status: with no children Tobacco use in the last year: No Alcohol Use: Yes (1-2 x wk) CURRENT MEDS: Current Outpatient Medications Medication Sig ergocalciferol 50,000 unit capsule (VITAMIN D2, DRISDOL) Take 50,000 Units by mouth one time a week. Lactobacillus acidophilus (PROBIOTIC) 10 billion cell cap Take by mouth once daily. cholecalciferol (VITAMIN D) 1,000 unit tab tablet Take 1,000 Units by mouth once daily. (Patient taking differently: Take 1,000 Units by mouth once daily. Take 2 capsules once daily) vitamin B complex (B COMPLEX ORAL) Take by mouth. psyllium seed, with dextrose, (FIBER ORAL) Take by mouth. BIPAP daily at bedtime. krill oil 500 mg cap Take 1 capsule by mouth once daily. No current facility-administered medications for this visit. ALLERGIES: ALLERGIES Allergen Reactions Oxycodone Other: See Comments Nickel rash Z-Hipolito [Azithromycin] Rash Not hives. Chlorhexidine Rash Iodin (more content not included)... Normal [facility] Comprehensive metabolic 2000 panelon 01-12-2025 Albumin [Mass/Vol] 4.7 g/dL Normal 3.9-4.9 [facility] Comment on above: Order Comment: Speci men Type: BLOOD SPECIMEN Ordering Facility: [facility] Address: [address] [place] [address] [place] [id number] Performed By: #### 2 3298-8, 2730-11 #### [facility] CLIA [id number] [address] [place], [place] [id number] [place] ALP [Catalytic activity/Vol] 86 U/L Normal 34-123 [facility] Comment on above: Order Comment: Speci men Type: BLOOD SPECIMEN Ordering Facility: [facility] Address: [address] [place] [address] Performed By: #### 2 4323-8, 2730-11 #### [facility] CLIA [id number] [address] [place], [place] [id number] [place] ALT [Catalytic activity/Vol] 42 U/L High 7-38 [facility] Comment on above: Order Comment: Speci men Type: BLOOD SPECIMEN Ordering Facility: [facility] Address: [address] [place] [address] Performed By: #### 2 4323-8, 2730-11 #### [facility] CLIA [id number] [address] [place], [place] [address] [place] Anion gap [Moles/Vol] 12 mmol/L Normal 8-15 [facility] Comment on above: Order Comment: Speci men Type: BLOOD SPECIMEN Ordering Facility: [facility] Address: [address] [place] [address] Performed By: #### 2 4323-8, 2730-11 #### [facility] CLIA [id number] [address] [place], [place] [address] [place] AST [Catalytic activity/Vol] 23 U/L Normal 13-35 [facility] Comment on above: Order Comment: Speci men Type: BLOOD SPECIMEN Ordering Facility: [facility] Address: [address] [place] [address] Performed By: #### 2 4323-8, 2730-11 #### [facility] CLIA [id number] [address] [place], [place] [address] [place] Bilirubin [Mass/Vol] 0.5 mg/dL Normal 0.2-1.3 [facility] Comment on above: Order Comment: Speci men Type: BLOOD SPECIMEN Ordering Facility: [facility] Address: [address] [place] [address] Performed By: #### 2 432-8, 2730-11 #### [facility] CLIA [id number] [address] [place] [address] [place] Calcium [Mass/Vol] 10.7 mg/dL High 8.5-10.2 [facility] Comment on above: Order Comment: Speci men Type: BLOOD SPECIMEN Ordering Facility: [facility] Address: [address] [place] [address] Performed By: #### 2 432-8, 2730-11 #### [facility] CLIA [id number] [address] [place] [address] [place] Chloride [Moles/Vol] 105 mmol/L Normal 98-107 [facility] Comment on above: Order Comment: Speci men Type: BLOOD SPECIMEN Ordering Facility: [facility] Address: [address] [place] [address] Performed By: #### 2 432-8, 2730-11 #### [facility] CLIA [id number] [address] [place] [address] [place] CO2 [Moles/Vol] 23 mmol/L Normal 22-30 [facility] Comment on above: Order Comment: Speci men Type: BLOOD SPECIMEN Ordering Facility: [facility] Address: [address] [place] [address] Performed By: #### 2 4323-8, 2730-11 #### [facility] CLIA [id number] [address] [place], [place] [address] [place] Creatinine [Mass/Vol] 0.72 mg/dL Normal 0.58-0.96 [facility] Comment on above: Order Comment: Speci men Type: BLOOD SPECIMEN Ordering Facility: [facility] Address: [address] [place] [address] Performed By: #### 2 4323-8, 8 #### [facility] CLIA [id number] [address] [place] [address] [place] eGFRcr SerPlBld CKD-EPI 2020 93 mL/min/1.73m??? Normal >=60 [facility] Comment on above: Order Comment: Ruben manzo Type: BLOOD SPECIMEN Ordering Facility: [facility] Address: [address] [place] [address] Result Comment: Tiana mated Glomerular Filtration Rate (eGFR) is calculated using the 2020 CKD-EPI creatinine equation. This equation utilizes serum creatinine, sex, and age as parameters. The creatinine assay has traceable calibration to isotope dilution-mass spectrometry. Refer to KDIGO guidelines for clinical interpretation. In patients with unstable renal function, e.g. those with acute kidney injury, the eGFR may not accurately reflect actual GFR. Performed By: #### 2 4323-8, 8 #### [facility] CLIA [id number] [address] [place] [address] [place] Glucose [Mass/Vol] 101 mg/dL High 74-99 [facility] Comment on above: Order Comment: Ruben manzo Type: BLOOD SPECIMEN Ordering Facility: [facility] Address: [address] [place] [address] Result Comment: The [place] Diabetes Association (ADA) provides guidance for cutoff values for fasting glucose and random glucose. The ADA defines fasting as no caloric intake for at least 8 hours. Fasting plasma glucose results between 100 to 125 mg/dL indicate increased risk for diabetes (prediabetes). Fasting plasma glucose results greater than or equal to 126 mg/dL meet the criteria for diagnosis of diabetes. In the absence of unequivocal hyperglycemia, results should be confirmed by repeat testing. In a patient with classic symptoms of hyperglycemia or hyperglycemic crisis, random plasma glucose results greater than or equal to 200 mg/dL meet the criteria for diagnosis of diabetes. Reference: Standards of Medical Care in Diabetes 2016, [place] [employer] Association. Diabetes Care. 2016.39(Suppl 1). Performed By: #### 2 432-8, 2730-11 #### [facility] CLIA [id number] [address] [place] [address] [place] Potassium [Moles/Vol] 5.0 mmol/L Normal 3.7-5.1 [facility] Comment on above: Order Comment: Speci men Type: BLOOD SPECIMEN Ordering Facility: [facility] Address: [address] [place] [address] Performed By: #### 2 432-8, 2730-11 #### [facility] CLIA [id number] [address] [place] [address] [place] Protein [Mass/Vol] 7.0 g/dL Normal 6.3-8.0 [facility] Comment on above: Order Comment: Speci men Type: BLOOD SPECIMEN Ordering Facility: [facility] Address: [address] [place] [address] Performed By: #### 2 432-8, 2730-11 #### [facility] CLIA [id number] [address] [place] [address] [place] Sodium [Moles/Vol] 140 mmol/L Normal 136-144 [facility] Comment on above: Order Comment: Speci men Type: BLOOD SPECIMEN Ordering Facility: [facility] Address: [address] [place] [address] Performed By: #### 2 432-8, 2730-11 #### [facility] CLIA [id number] [address] [place], [place] [address] [place] Urea nitrogen [Mass/Vol] 17 mg/dL Normal 7-21 [facility] Comment on above: Order Comment: Speci men Type: BLOOD SPECIMEN Ordering Facility: [facility] Address: [address] [place] [address] Performed By: #### 2 4323-8, 2730-11 #### [facility] CLIA [id number] [address] [place] [address] [place] PTH-Intact SerPl-mCncon - Parathyrin.intact [Mass/Vol] 104 pg/mL High 15-65 [facility] Comment on above: Order Comment: Speci men Type: BLOOD SPECIMEN Ordering Facility: [facility] Address: [address] [place] [address] Performed By: #### 2 4323-8, 2731-8 #### [facility] CLIA [id number] [address] [place] [address] [place] CNCOon 12-02-2024 CNCO Letter Text Normal [facility] Internal Medicine Office Vis iton 10-15-2024 Internal Medicine Office Visit [facility] [address] [place] [address] [place] [address] OFFICE VISIT Date of Service: 10/15/24 MR#: [id number] Acct: [id number] Name: SHAVON SCHAEFFER Rep #: [id number] 20 : 1960 Provider: Dr. 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 Accompanied by: Self Is patient in pain?: No Allergies azithromycin Allergy (Mild, Verified 10/15/24 09:25) Rash chlorhexidine (From ChloraPrep Clear) Allergy (Mild, Verified 10/15/24 09:25) Rash iodine Allergy (Mild, Verified 10/15/24 09:25) Rash nickel (chandra) Allergy (Verified 10/15/24 09:25) Rash oxycodone (From OxyContin) Adverse Reaction (Severe, Verified 10/15/24 09:25) Other Medications ???Medication ???Instructions ???Recorded ???Confirmed ???Type clobetasol 0.05 % topical cream 1 applic topical DAILY PRN 2 10/15/24 History lactobacillus combination no.9 4 4,000 mmu cells PO DAILY 11/05/21 10/15/24 History billion cell capsule (Adult 50 Plus Probiotic) psyllium husk 0.4 gram capsule 0.4 g PO DAILY 11/05/21 10/15/24 H istory (Metamucil) turmeric root extract 1,053 mg 1,076 mg PO DAILY 11/05/21 5 History tablet magnesium oxide 400 mg PO DAILY PRN 04/12/2210/15 History krill oil 500 mg capsule 500 mg PO DAILY 11/06/22 10/15/24 History hydrocortisone 2.5 % topical 1 applic topical .TWICE WEEKLY 10/15/24 History solution cholecalciferol (vitamin D3) 25 2,000 unit PO DAILY 12/31/2310/15 History mcg (1,000 unit) capsule mecobalamin (vitamin B12) 500 mcg mcg PO 04/12/24 10/15/24 History chewable tablet cholecalciferol (vitamin D3) 1,250 1,250 mcg PO QWEEK #20 caps 03/2810/15/24 Rx mcg (50,000 unit) capsule tirzepatide (weight loss) 10 10 mg (0.5 mL) subcut QWEEK #2 mL 09/14/24 10/15/24 Rx mg/0.5 mL subcutaneous pen injector (Zepbound) rosuvastatin 10 mg tablet 10 mg PO DAILY #90 tabs 09/29/24 0 10/15/24 Rx PFSH Medical History (Updated 10/15/24 @ 12:[address] Denise Felix MD) Corneal ulcer (including herpetic) Encounter for screening colonoscopy Health care maintenance Hyperparathyroidism Hypercalcemia Metabolic syndrome Preoperative evaluation to rule out surgical contraindication Need for hepatitis C screening test Urinary frequency Psoriasis Postmenopausal Obesity Dyslipidemia ECG abnormal Palpitations Nonrheumatic tricuspid (valve) insufficiency Arrhythmia Thyroid nodule Borderline type 2 diabetes mellitus Family history of lung cancer Obstructive sleep apnea Hyperlipidemia Hypertension Obesity (BMI 30-39.9) History of blood clots Rooney cyst Chronic knee pain Hyperlipemia HPV (human papilloma virus) anogenital infection Scoliosis Heart murmur Osteoarthritis Arthritis Anemia Seasonal allergies Surgical History History of right knee joint replacement History of removal of cyst History of carpal tunnel release History of bunionectomy Family History Mother Cancer lung Arthritis Sister Arthritis Osteoporosis Brother Arthritis Heart disease Hypertension Hyperlipemia Father Diabetes Heart disease Hypertension Hyperlipemia Kidney disease CVA (cerebral vascular accident) Grandmother Pacemaker Other Family history of lung cancer Social History Smoking Status: Never smoker alcohol intake: current alcohol intake frequency: a few times a week substance use type: does not use caffeine: Yes Type: coffee Number of servings: 2 what type of physical activity do you participate in: weight training and other details: cardio frequency: 1-2 times per week HPI HPI Chief Complaint: Follow-up Details: Shavon Schaeffer is a 63-year-old female presenting for a follow-up on multiple chronic conditions including elevated Hemoglobin A1c, vitamin D deficiency, and hyperlipidemia. 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 Lipscomb and Dr. Henderson at [facility]. She has a history of cold sores but has not experienced them in over ten years. The patient's Hemoglobin A1c has increased to 5.7 from a previous 5.3, with a history of reaching (more content not included)... Normal [facility] Comprehensive Metabolic Prof chandrakant 10-12-2024 Albumin [Mass/Vol] 4.2 g/dL Normal 3.4-4.8 [facility] Comment on above: Performed By: #### L 100.0100, L501.9985, L500.4100, L509.1000, L506.1001, L500.4050 ####[facility] [address] [place], [place], [id number] Albumin/Globulin [Mass ratio] 1.6 {ratio} Normal 0.9-2.4 [facility] Comment on above: Performed By: #### L 100.0100, L501.9985, L500.4100, L509.1000, L506.1001, L500.4050 ####[facility] [address] [place], [address] ALK PHOS 74 U/L Normal 35-104 [facility] Comment on above: Performed By: #### L 100.0100, L501.9985, L500.4100, L509.1000, L506.1001, L500.4050 ####[facility] [address] [place], [address] ALT [Catalytic activity/Vol] 36 U/L High <=34 [facility] Comment on above: Performed By: #### L 100.0100, L501.9985, L500.4100, L509.1000, L506.1001, L500.4050 ####[facility] [address] [place], [address] AST [Catalytic activity/Vol] 23 U/L Normal <=31 [facility] Comment on above: Performed By: #### L 100.0100, L501.9985, L500.4100, L509.1000, L506.1001, L500.4050 ####[facility] [address] [place], [address] Bilirubin [Mass/Vol] 0.41 mg/dL Normal 0.00-1.30 [facility] Comment on above: Performed By: #### L 100.0100, L501.9985, L500.4100, L509.1000, L506.1001, L500.4050 ####[facility] [address] [place], [address] BUN/CRE 20.2 RATIO High 10-20 [facility] Comment on above: Performed By: #### L 100.0100, L501.9985, L500.4100, L509.1000, L506.1001, L500.4050 ####[facility] [address] [place], [address] Calcium [Mass/Vol] 10.2 mg/dL Normal 7.6-11.0 [facility] Comment on above: Performed By: #### L 100.0100, L501.9985, L500.4100, L509.1000, L506.1001, L500.4050 ####[facility] [address] [place], [address] Chloride [Moles/Vol] 105 mmol/L Normal 98-108 [facility] Comment on above: Performed By: #### L 100.0100, L501.9985, L500.4100, L509.1000, L506.1001, L500.4050 ####[facility] [address] [place], [address] CO2 [Moles/Vol] 23.7 mmol/L Normal 21.0-32.0 [facility] Comment on above: Performed By: #### L 100.0100, L501.9985, L500.4100, L509.1000, L506.1001, L500.4050 ####[facility] [address] [place], [address] Creatinine [Mass/Vol] 0.68 mg/dL Low 0.70-1.20 [facility] Comment on above: Performed By: #### L 100.0100, L501.9985, L500.4100, L509.1000, L506.1001, L500.4050 ####[facility] [address] [place], [address] GAP 9 Normal 5-15 [facility] Comment on above: Performed By: #### L 100.0100, L501.9985, L500.4100, L509.1000, L506.1001, L500.4050 ####[facility] [address] [place], [address] GFR/1.73 sq M.predicted among non-blacks MDRD (S/P/Bld) [Vol rate/Area] 97 mL/min/{1.73_m2} Normal >60 [facility] Comment on above: Result Comment: mL/m in/1.73m2 CKD-EPI Creatinine Equation (2020) Performed By: #### L 100.0100, L501.9985, L500.4100, L509.1000, L506.1001, L500.4050 ####[facility] [address] [place], [address] Globulin (S) [Mass/Vol] 2.7 g/dL Normal 2.2-4.2 [facility] Comment on above: Performed By: #### L 100.0100, L501.9985, L500.4100, L509.1000, L506.1001, L500.4050 ####[facility] [address] [place], [address] Glucose [Mass/Vol] 90 mg/dL Normal 70-99 [facility] Comment on above: Performed By: #### L 100.0100, L501.9985, L500.4100, L509.1000, L506.1001, L500.4050 ####[facility] [address] [place], [address] Potassium [Moles/Vol] 4.5 mmol/L Normal 3.3-5.1 [facility] Comment on above: Performed By: #### L 100.0100, L501.9985, L500.4100, L509.1000, L506.1001, L500.4050 ####[facility] [address] [place], [address] Sodium [Moles/Vol] 137 mmol/L Normal 133-145 [facility] Comment on above: Performed By: #### L 100.0100, L501.9985, L500.4100, L509.1000, L506.1001, L500.4050 ####[facility] [address] [place], [address] T PROT 6.9 g/dL Normal 5.9-8.4 [facility] Comment on above: Performed By: #### L 100.0100, L501.9985, L500.4100, L509.1000, L506.1001, L500.4050 ####[facility] [address] [place], [address] Urea nitrogen [Mass/Vol] 14 mg/dL Normal 4-19 [facility] Comment on above: Performed By: #### L 100.0100, L501.9985, L500.4100, L509.1000, L506.1001, L500.4050 ####[facility] [address] [place], [address] Lipid Profileon 10-12-2024 CHOL:HDL 2.83 Normal [facility] Comment on above: Performed By: #### L 100.0100, L501.9985, L500.4100, L509.1000, L506.1001, L500.4050 ####[facility] [address] [place], [address] Cholesterol [Mass/Vol] 153 mg/dL Normal <=200 [facility] Comment on above: Result Comment: Chol esterol level, Desirable <200 mg/dL Borderline high cholesterol 200-239 mg/dL High cholesterol >=240 mg/dL Recommendations of the NCEP Adult Treatment Panel for the following risk-cutoff thresholds for the [place] population. Performed By: #### L 100.0100, L501.9985, L500.4100, L509.1000, L506.1001, L500.4050 ####[facility] [address] [place], [address] Cholesterol in HDL [Mass/Vol] 54 mg/dL Normal [facility] Comment on above: Result Comment: Nicolle onal Cholesterol Education Program (NCEP) guidelines: <40 mg/dL: Low HDL-cholesterol (major risk factor for CHD) >= 60 mg/dL: High HDL-cholesterol (negative risk factor for CHD) HDL-cholesterol is affected by a number of factors, e.g. smoking, exercise, hormones, sex and age. Performed By: #### L 100.0100, L501.9985, L500.4100, L509.1000, L506.1001, L500.4050 ####[facility] [address] [place], [address] Cholesterol in LDL [Mass/Vol] 81 mg/dL Normal [facility] Comment on above: Result Comment: Bord nhoyjk=679-951 mg/dL Higher Tfqv=388 mg/dL or greater Performed By: #### L 100.0100, L501.9985, L500.4100, L509.1000, L506.1001, L500.4050 ####[facility] [address] [place], [address] Cholesterol in VLDL [Mass/Vol] 18 mg/dL Normal 5-40 [facility] Comment on above: Performed By: #### L 100.0100, L501.9985, L500.4100, L509.1000, L506.1001, L500.4050 ####[facility] [address] [place], [address] Triglyceride [Mass/Vol] 89 mg/dL Normal [facility] Comment on above: Result Comment: The drugs N-Acetylcysteine and Metamizole may falsely depress this assay. Normal range: <150 mg/dL Borderline High: 150-199 mg/dL High: 200-499 mg/dL Very High: >500 mg/dL Performed By: #### L 100.0100, L501.9985, L500.4100, L509.1000, L506.1001, L500.4050 ####[facility] [address] [place], [address] Vitamin D,25 Hydroxyon 10-12 Vitamin D 25-OH 52.4 ng/mL Normal 30-100 [facility] Comment on above: Result Comment: Malena min D Status Deficiency: <20 ng/mL (50nmol/L) Insufficiency: 20-30 ng/mL (50-75 nmol/L) Sufficiency: 30-100 ng/mL (75-250 nmol/L) Toxicity: >100 ng/mL (>250 nmol/L) Performed By: #### L 100.0100, L501.9985, L500.4100, L509.1000, L506.1001, L500.4050 ####[facility] [address] [place], [address] Absolute lymphocyte countOrd ered By: Denise Felix on 10-11-2024 Lymphocytes Auto (Unsp spec) [#/Vol] 2.23 10*3/uL 0.83-4.51 [facility] Absolute neutrophil countOrd ered By: Denise Felix on 10-11-2024 Neutrophils (Bld) [#/Vol] 3.1 10*3/uL 2.0-7.7 [facility] Anion gap in Serum or Plasma Ordered By: Denise Felix on 10-11-2024 Anion gap [Moles/Vol] 9 mmol/L 5-15 [facility] Automated lymphocyte count a s percentage of total leukocytesOrdered By: Denise Felix on 10-11-2024 Lymphocytes/100 WBC Auto (Unsp spec) 37.0 % 19-41 [facility] BUN/creatinine ratioOrdered By: Denise Felix on 10-11-2024 Urea nitrogen/Creatinine [Mass ratio] 20.2 mg/mg High 10-20 [facility] Basophil percentageOrdered B y: Denise Felix on 10-11-2024 Basophils/100 WBC (Bld) 0.7 % 0-1 [facility] Bilirubin, totalOrdered By: Denise Felix on 10-11-2024 Bilirubin [Mass/Vol] 0.41 mg/dL 0.00-1.30 [facility] CBC W/Diff, Automatedon 09-26 Absolute Lymph 2.23 X10 3/uL Normal 0.83-4.51 [facility] Comment on above: Performed By: #### L 100.0100, L501.9985, L500.4100, L509.1000, L506.1001, L500.4050 #### [facility] [address] [place], [address] Absolute Neut 3.1 X10 3/uL Normal 2.0-7.7 [facility] Comment on above: Performed By: #### L 100.0100, L501.9985, L500.4100, L509.1000, L506.1001, L500.4050 #### [facility] [address] [place], [address] Basophils/100 WBC (Bld) 0.7 % Normal 0-1 [facility] Comment on above: Performed By: #### L 100.0100, L501.9985, L500.4100, L509.1000, L506.1001, L500.4050 #### [facility] [address] [place], [address] Eosinophils/100 WBC (Bld) 3.2 % Normal 0-5 [facility] Comment on above: Performed By: #### L 100.0100, L501.9985, L500.4100, L509.1000, L506.1001, L500.4050 #### [facility] [address] [place], [address] Erythrocyte distribution width (RBC) [Ratio] 12.4 % Normal 11.6-14.6 [facility] Comment on above: Performed By: #### L 100.0100, L501.9985, L500.4100, L509.1000, L506.1001, L500.4050 #### [facility] [address] [place], [address] Hematocrit (Bld) [Volume fraction] 39.5 % Normal 37-47 [facility] Comment on above: Performed By: #### L 100.0100, L501.9985, L500.4100, L509.1000, L506.1001, L500.4050 #### [facility] [address] [place], [address] Hemoglobin (Bld) [Mass/Vol] 13.0 g/dL Normal 12.0-15.0 [facility] Comment on above: Performed By: #### L 100.0100, L501.9985, L500.4100, L509.1000, L506.1001, L500.4050 #### [facility] [address] [place], [address] IG% 0.200 Normal 0.0-0.9 [facility] Comment on above: Result Comment: IG% - Immature Granulocytes (promyelocytes, myelocytes and metamyelocytes) > 1% indicates that a LEFT SHIFT is Present. Performed By: #### L 100.0100, L501.9985, L500.4100, L509.1000, L506.1001, L500.4050 #### [facility] [address] [place], [address] Lymphocytes/100 WBC (Bld) 37.0 % Normal 19-41 [facility] Comment on above: Performed By: #### L 100.0100, L501.9985, L500.4100, L509.1000, L506.1001, L500.4050 #### [facility] [address] [place], [address] MCH (RBC) [Entitic mass] 29.9 pg Normal 27.0-32.0 [facility] Comment on above: Performed By: #### L 100.0100, L501.9985, L500.4100, L509.1000, L506.1001, L500.4050 #### [facility] [address] [place], [address] MCHC (RBC) [Mass/Vol] 32.9 g/dL Normal 32-36 [facility] Comment on above: Performed By: #### L 100.0100, L501.9985, L500.4100, L509.1000, L506.1001, L500.4050 #### [facility] [address] [place], [address] MCV (RBC) [Entitic vol] 90.8 fL Normal 81-99 [facility] Comment on above: Performed By: #### L 100.0100, L501.9985, L500.4100, L509.1000, L506.1001, L500.4050 #### [facility] [address] [place], [address] Monocytes/100 WBC (Bld) 7.6 % Normal 0-10 [facility] Comment on above: Performed By: #### L 100.0100, L501.9985, L500.4100, L509.1000, L506.1001, L500.4050 #### [facility] [address] [place], [address] Neutrophils/100 WBC (Bld) 51.3 % Normal 47-70 [facility] Comment on above: Performed By: #### L 100.0100, L501.9985, L500.4100, L509.1000, L506.1001, L500.4050 #### [facility] [address] [place], [address] Nucleated RBC (Bld) [#/Vol] 0 10*3/uL Normal 0-5 [facility] Comment on above: Performed By: #### L 100.0100, L501.9985, L500.4100, L509.1000, L506.1001, L500.4050 #### [facility] [address] [place], [address] Platelet mean volume (Bld) [Entitic vol] 10.9 fL Normal 6.2-12.0 [facility] Comment on above: Performed By: #### L 100.0100, L501.9985, L500.4100, L509.1000, L506.1001, L500.4050 #### [facility] [address] [place], [address] Platelets (Bld) [#/Vol] 219 10*3/uL Normal 150-450 [facility] Comment on above: Performed By: #### L 100.0100, L501.9985, L500.4100, L509.1000, L506.1001, L500.4050 #### [facility] [address] [place], [address] RBC (Bld) [#/Vol] 4.35 10*6/uL Normal 4.2-5.4 [facility] Comment on above: Performed By: #### L 100.0100, L501.9985, L500.4100, L509.1000, L506.1001, L500.4050 #### [facility] [address] [place], [address] RDW SD 40.6 fl Normal 35.1-43.9 [facility] Comment on above: Performed By: #### L 100.0100, L501.9985, L500.4100, L509.1000, L506.1001, L500.4050 #### [facility] [address] [place], [address] WBC (Bld) [#/Vol] 6.0 10*3/uL Normal 4.4-11.0 [facility] Comment on above: Performed By: #### L 100.0100, L501.9985, L500.4100, L509.1000, L506.1001, L500.4050 #### [facility] [address] [place], [address] Calculated very low density lipoprotein (VLDL) cholesterol measurementOrdered By: Denise Felix on 10-11-2024 Calculated very low density lipoprotein (VLDL) cholesterol measurement 18 mg/dL 5-40 [facility] Carbon dioxide, total [Moles /volume] in Central venous bloodOrdered By: [facility] Felix on 10-11-2024 CO2 [Moles/Vol] 23.7 mmol/L 21.0-32.0 [facility] Chloride assayOrdered By: Herminio [facility] Felix on 10-11-2024 Chloride [Moles/Vol] 105 mmol/L 98-108 [facility] Eosinophil percentageOrdered By: [facility] Elvira on 10-11-2024 Eosinophils/100 WBC (Bld) 3.2 % 0-5 [facility] Erythrocyte distribution wid th ratioOrdered By: [facility] Jovannijacky on 10-11-2024 Erythrocyte distribution width (RBC) [Ratio] 12.4 % 11.6-14.6 [facility] Erythrocyte distribution wid th standard deviationOrdered By: [facility] Jovannijacky on 10-11-2024 Erythrocyte distribution width (RBC) [Ratio] 40.6 fl 35.1-43.9 [facility] Glomerular filtration rate ( GFR) estimation/1.73 sq m using serum, plasma, or whole bOrdered By: angélicarodeorekha Felix on 10-11-2024 GFR/1.73 sq M.predicted among non-blacks MDRD (S/P/Bld) [Vol rate/Area] 97 mL/min/{1.73_m2} >60 [facility] Comment on above: mL/min/1.73m2 CKD-EP I Creatinine Equation (2020) Hematocrit Auto (Bld) [Volum e fraction]Ordered By: Dionrodeorekha Felix on 10-11-2024 Hematocrit (Bld) [Volume fraction] 39.5 % 37-47 [facility] Hemoglobin A1con 10-11-2024 HbA1c (Bld) [Mass fraction] 5.7 % Normal <=5.6 [facility] Comment on above: Result Comment: Norm al < 5.7 % Prediabetic 5.7 - 6.4 % Diabetic >or= 6.5 % Please note range changes. Performed By: #### L 100.0100, L501.9985, L500.4100, L509.1000, L506.1001, L500.4050 ####[facility] [address] [place], [address] Hemoglobin A1c percentageOrd ered By: Denise Felix on 10-11-2024 HbA1c (Bld) [Mass fraction] 5.7 % <5.7 [facility] Comment on above: Normal < 5.7 % Predi abetic 5.7 - 6.4 % Diabetic >or= 6.5 % Please note range changes. Hemoglobin measurementOrdere d By: Denise Felix on 10-11-2024 Hemoglobin (Bld) [Mass/Vol] 13.0 g/dL 12.0-15.0 [facility] Immature granulocytes/100 WB C Auto (Bld)Ordered By: Denise Felix on 10-11-2024 Immature granulocytes/100 WBC (Bld) 0.200 % 0.0-0.9 [facility] Comment on above: IG% - Immature Granu locytes (promyelocytes, myelocytes and metamyelocytes) > 1% indicates that a LEFT SHIFT is Present. LDL calc ser/plasOrdered By: Denise Felix on 10-11-2024 Cholesterol in LDL [Mass/Vol] 81 mg/dL [facility] Comment on above: Qkjpwxvjmx=489-694 m g/dL & Higher Ekfr=366 mg/dL or greater Laboratory - Chemistry and C hemistry - challengeOrdered By: Denise Felix on 10-11-2024 AST [Catalytic activity/Vol] 23 U/L <32 [facility] MCV (mean corpuscular volume ) determinationOrdered By: Denise Felix on 10-11-2024 MCV (RBC) [Entitic vol] 90.8 fL 81-99 [facility] Mean corpuscular hemoglobin (MCH) determinationOrdered By: Denise Felix on 10-11-2024 MCH (RBC) [Entitic mass] 29.9 pg 27.0-32.0 [facility] Mean corpuscular hemoglobin concentration (MCHC) determinationOrdered By: Denise Felix on 10-11-2024 MCHC (RBC) [Mass/Vol] 32.9 g/dL 32-36 [facility] Mean platelet volume determi nationOrdered By: Denise Felix on 10-11-2024 Platelet mean volume (Bld) [Entitic vol] 10.9 fL 6.2-12.0 [facility] Monocyte percentageOrdered B y: Denise Felix on 10-11-2024 Monocytes/100 WBC (Bld) 7.6 % 0-10 [facility] Neutrophil percentageOrdered By: angélicarodeorekha Felix on 10-11-2024 Neutrophils/100 WBC (Bld) 51.3 % 47-70 [facility] Nucleated red blood cell per centageOrdered By: angélicarodeorekha Felix on 10-11-2024 Nucleated RBC/100 WBC (Bld) [Ratio] 0 % 0-5 [facility] PTHINon 10-11-2024 PTH 110 pg/mL High 11-61 [facility] Comment on above: Performed By: #### L 100.0100, L501.9985, L500.4100, L509.1000, L506.1001, L500.4050 ####[facility] [id number] [place], [address] Platelet countOrdered By: Herminio Felix on 10-11-2024 Platelets (Bld) [#/Vol] 219 10*3/uL 150-450 [facility] Potassium measurement (mass/ volume)Ordered By: Denise Felix on 10-11-2024 Potassium (Unsp spec) [Mass/Vol] 4.5 mmol/L 3.3-5.1 [facility] RBC Auto (Bld) [#/Vol]Ordere d By: Denise Felix on 10-11-2024 RBC (Bld) [#/Vol] 4.35 10*6/uL 4.2-5.4 [facility] Screening total cholesterol/ high density lipoprotein (HDL) cholesterol ratioOrdered By: Denise Felix on 10-11-2024 Cholesterol.total/Chol esterol in HDL [Mass ratio] 2.83 {ratio} [facility] Serum creatinine measurement (mass/volume)Ordered By: Denise Felix on 10-11-2024 Creatinine [Mass/Vol] 0.68 mg/dL Low 0.70-1.20 [facility] Serum globulin measurementOr dered By: Denise Felix on 10-11-2024 Globulin (S) [Mass/Vol] 2.7 g/dL 2.2-4.2 [facility] Serum glucose measurement (m ass/volume)Ordered By: Denise Felix on 10-11-2024 Glucose [Mass/Vol] 90 mg/dL 70-99 [facility] Serum or plasma alanine plunkett otransferase (ALT) measurementOrdered By: Denise Felix on 10-11-2024 ALT [Catalytic activity/Vol] 36 U/L High <35 [facility] Serum or plasma albumin alexandra urement (mass/volume)Ordered By: Denise Felix on 10-11-2024 Albumin [Mass/Vol] 4.2 g/dL 3.4-4.8 [facility] Serum or plasma albumin/glob ulin mass ratioOrdered By: Denise Felix on 10-11-2024 Albumin/Globulin [Mass ratio] 1.6 {ratio} 0.9-2.4 [facility] Serum or plasma alkaline lacho sphatase measurementOrdered By: Denise Felix 10-11-2024 ALP [Catalytic activity/Vol] 74 U/L 35-104 [facility] Serum or plasma calcium alexandra urement (mass/volume)Ordered By: Denise Felix on 10-11-2024 Calcium [Mass/Vol] 10.2 mg/dL 7.6-11.0 [facility] Serum or plasma cholesterol in HDL measurement (mass/volume)Ordered By: Denise Felix on 10-11-2024 Cholesterol in HDL [Mass/Vol] 54 mg/dL >40 [facility] Comment on above: National Cholesterol Education Program (NCEP) guidelines:<40 mg/dL: Low HDL-cholesterol (major risk factor for CHD)>= 60 mg/dL: High HDL-cholesterol (negative risk factor for CHD)HDL-cholesterol is affected by a number of factors, e.g. smoking, exercise, hormones, sex and age. Serum or plasma cholesterol measurement (mass/volume)Ordered By: Denise Felix on 10-11-2024 Cholesterol [Mass/Vol] 153 mg/dL <201 [facility] Comment on above: Cholesterol level, D esirable <200 mg/dLBorderline high cholesterol 200-239 mg/dLHigh cholesterol >=240 mg/dLRecommendations of the NCEP Adult Treatment Panel for the following risk-cutoff thresholds for the [place] population. Serum or plasma urea nitroge n measurement (mass/volume)Ordered By: Denise Felix on 10-11-2024 Urea nitrogen [Mass/Vol] 14 mg/dL 4-19 [facility] Sodium levelOrdered By: Dion billingsleybilly Elvira on 10-11-2024 Sodium [Moles/Vol] 137 mmol/L 133-145 [facility] Total proteinOrdered By: William Felix on 10-11-2024 Protein [Mass/Vol] 6.9 g/dL 5.9-8.4 [facility] Triglycerides measurementOrd ered By: Denise Felix on 10-11-2024 Triglyceride [Mass/Vol] 89 mg/dL <199 [facility] Comment on above: The drugs N-Acetylcy steine and Metamizole may falsely depress this assay. Normal range: <150 mg/dLBorderline High: 150-199 mg/dLHigh: 200-499 mg/dLVery High: >500 mg/dL White blood cell (WBC) count Ordered By: Denise Felix on 10-11-2024 WBC (Bld) [#/Vol] 6.0 10*3/uL 4.4-11.0 [facility] Internal Medicine Office Vis alejandro 07-09-2024 Internal Medicine Office Visit [facility] [address] [place] [address] [place] [address] OFFICE VISIT Date of Service: 07/09/24 MR#: [id number] Acct: [id number] Name: SHAVON SCHAEFFER Rep #: [id number] : 1960 Provider: Dr. 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 Accompanied by: Self Is patient in pain?: No Allergies azithromycin Allergy (Mild, Verified 07/09/24 08:25) Rash chlorhexidine (From ChloraPrep Clear) Allergy (Mild, Verified 07/09/24 08:25) Rash iodine Allergy (Mild, Verified 07/09/24 08:25) Rash nickel (chandra) Allergy (Verified 07/09/24 08:25) Rash oxycodone (From OxyContin) Adverse Reaction (Severe, Verified 07/09/24 08:25) Other Medications ???Medication ???Instructions ???Recorded ???Confirmed ???Type clobetasol 0.05 % topical cream 1 applic topical DAILY PRN 2 07/09/24 History lactobacillus combination no.9 4 4,000 mmu cells PO DAILY 11/05/21 07/09/24 History billion cell capsule (Adult 50 Plus Probiotic) psyllium husk 0.4 gram capsule 0.4 g PO DAILY 11/05/21 07/09/24 H istory (Metamucil) turmeric root extract 1,053 mg 1,076 mg PO DAILY 11/05/21 5 History tablet magnesium oxide 400 mg PO DAILY PRN 04/12/2207/09 History krill oil 500 mg capsule 500 mg PO DAILY 11/06/22 07/09/24 History hydrocortisone 2.5 % topical 1 applic topical .TWICE WEEKLY 07/09/24 History solution cholecalciferol (vitamin D3) 25 2,000 unit PO DAILY 12/31/2307/09 History mcg (1,000 unit) capsule rosuvastatin 10 mg tablet 10 mg PO DAILY #90 tabs 12/31/23 0 07/09/24 Rx mecobalamin (vitamin B12) 500 mcg mcg PO 04/12/24 07/09/24 History chewable tablet tirzepatide (weight loss) 10 10 mg (0.5 mL) subcut QWEEK #2 mL 04/12/24 07/09/24 Rx mg/0.5 mL subcutaneous pen injector (Zepbound) cholecalciferol (vitamin D3) 1,250 1,250 mcg PO QWEEK #20 caps 03/2807/09/24 Rx mcg (50,000 unit) capsule Have you fallen in the past year?: No Nurse's Note: questions about rsv shot and pneumonia? [facility] Medical History Encounter for screening colonoscopy Health care maintenance Hyperparathyroidism Hypercalcemia Metabolic syndrome Preoperative evaluation to rule out surgical contraindication Need for hepatitis C screening test Urinary frequency Psoriasis Postmenopausal Obesity Dyslipidemia ECG abnormal Palpitations Nonrheumatic tricuspid (valve) insufficiency Arrhythmia Thyroid nodule Borderline type 2 diabetes mellitus Family history of lung cancer Obstructive sleep apnea Hyperlipidemia Hypertension Obesity (BMI 30-39.9) History of blood clots Rooney cyst Chronic knee pain Hyperlipemia HPV (human papilloma virus) anogenital infection Scoliosis Heart murmur Osteoarthritis Arthritis Anemia Seasonal allergies Surgical History History of right knee joint replacement History of removal of cyst History of carpal tunnel release History of bunionectomy Family History Mother Cancer lung Arthritis Sister Arthritis Osteoporosis Brother Arthritis Heart disease Hypertension Hyperlipemia Father Diabetes Heart disease Hypertension Hyperlipemia Kidney disease CVA (cerebral vascular accident) Grandmother Pacemaker Other Family history of lung cancer Social History Smoking Status: Never smoker alcohol intake: current alcohol intake frequency: a few times a week substance use type: does not use caffeine: Yes Type: coffee Number of servings: 2 what type of physical activity do you participate in: weight training and other details: cardio frequency: 1-2 times per week HPI HPI Chief Complaint: Follow-up Details: SHAVON SCHAEFFER, is a 63 F who presents to the office today for follow-up of her chronic conditions. No acute concerns at this time. Labs done recently did show an improvement in her vitamin D level. Has been taking 50,000 units weekly and 2000 units daily. Calcium now also within range, stopped calcium supplements but has been paying attention to her dietary calcium intake. History of borderline diabetes and metabolic syndrome. Cur (more content not included)... Normal [facility] CONSTANTIN SCREENING W TOMOon 06-18 [facility] SCREENING W MORGAN * * *Final Report* * * DATE OF EXAM: Jun 18 2024 9:47AM AWW [id number] - [facility] SCREENING W MORGAN / PROCEDURE REASON: screening * * * * Physician Interpretation * * * * [facility] [address] [place] [address] #[id number] - [facility] SCREENING W MORGAN HISTORY: 63 year-old patient seen for screening and is asymptomatic in both breasts. Patient states no personal history of breast cancer. COMPARISON STUDIES: The present examination has been compared to prior imaging studies dated 02/12/2019 (mammogram), 04/01/2020 (mammogram), 06/11/2021 (mammogram), 06/13/2022 (mammogram) and 06/16/2023 (mammogram). MAMMOGRAM TECHNIQUE: The study was acquired using full field digital technology and interpreted from soft copy. Digital Breast Tomosynthesis (DBT) images were obtained and used to assist in the interpretation of this examination. MAMMOGRAM FINDINGS: There are scattered areas of fibroglandular density. No suspicious masses, calcifications or other abnormalities are seen in either breast. There are no significant interval changes. IMPRESSION: There is no mammographic evidence of malignancy in either breast. Routine screening mammogram is recommended. Annual mammogram will be due in 1 year. BI-RADS Category 1: Negative RISK: Based on the Tyrer-Cuzick (TC) risk assessment model, this patient has a 5.3% lifetime risk of developing breast cancer, meaning they are at average risk for developing breast cancer. However, this is only an estimate based on available history provided on the patient's questionnaire. We encourage all patients to talk with their providers about these results, further recommendations for managing breast health, and appropriate supplemental screening options if the patient has dense breast tissue. Interpreting Radiologist: Clark Zapata M.D. Electronically signed on: 06/21/2024 Resp Therapist: KEATON [employer] Date/Time: Jun 18 2024 9:34A Dictated by : CLARK ZAPATA MD This examination was interpreted and the report reviewed and electronically signed by: CLARK ZAPATA MD on Jun 21 2024 8:58PM EST [id number] Normal [facility] 74-UV-Yvhetce DOrdered By: Jakcy Felix on 06-14-2024 Vitamin D 25-Hydroxy 54.0 ng/mL [facility] Comment on above: Vitamin D 25(OH) Sta tus Range Deficiency <20 ng/mL (50nmol/L) Insufficiency 20 - 30 ng/mL (50 - 75 nmol/L) Sufficiency 30 - 100 ng/mL (75 - 250 nmol/L) Toxicity >100 ng/mL (>250 nmol/L) Basic Metabolic Profile (BMP )on 06-14-2024 BUN/CRE 25.1 RATIO High 10-20 [facility] Comment on above: Performed By: #### L 500.2500, L506.1000 #### [facility] [address] [place], [address] CA,Total 9.7 mg/dL Normal 8.5-10.1 [facility] Comment on above: Performed By: #### L 500.2500, L506.1000 #### [facility] [address] [place], [address] Chloride [Moles/Vol] 106 mmol/L Normal 98-107 [facility] Comment on above: Performed By: #### L 500.2500, L506.1000 #### [facility] [address] [place], [address] CO2 [Moles/Vol] 26.0 mmol/L Normal 21.0-32.0 [facility] Comment on above: Performed By: #### L 500.2500, L506.1000 #### [facility] [address] [place], [address] Creatinine [Mass/Vol] 0.76 mg/dL Normal 0.55-1.02 [facility] Comment on above: Result Comment: The validity of the calculated GFR GFRAA in patients over 70 years has not been determined. Clinical correlation is essential. Performed By: #### L 500.2500, L506.1000 #### [facility] [address] [place], [address] EST GFR - AA 99 mL/min Normal >60 [facility] Comment on above: Result Comment: Afri can Qat[place] GFR Calc Performed By: #### L 500.2500, L506.1000 #### [facility] [address] [place], [address] GAP 6 Normal 5-15 [facility] Comment on above: Performed By: #### L 500.2500, L506.1000 #### [facility] [address] [place], [address] GFR/1.73 sq M.predicted among non-blacks MDRD (S/P/Bld) [Vol rate/Area] 82 mL/min/{1.73_m2} Normal >60 [facility] Comment on above: Result Comment: Non- GFR Calc Performed By: #### L 500.2500, L506.1000 #### [facility] [address] [place], [address] Glucose [Mass/Vol] 85 mg/dL Normal 74-106 [facility] Comment on above: Performed By: #### L 500.2500, L506.1000 #### [facility] [address] [place], [address] Potassium [Moles/Vol] 3.9 mmol/L Normal 3.5-5.1 [facility] Comment on above: Performed By: #### L 500.2500, L506.1000 #### [facility] [address] [place], [address] Sodium [Moles/Vol] 138 mmol/L Normal 136-145 [facility] Comment on above: Performed By: #### L 500.2500, L506.1000 #### [facility] [address] [place], [address] Urea nitrogen [Mass/Vol] 19 mg/dL High 7-18 [facility] Comment on above: Performed By: #### L 500.2500, L506.1000 #### [facility] [address] [place], [address] Blood urea nitrogen (BUN)/cr eatinine ratioOrdered By: Denise Felix on 06-14-2024 Urea nitrogen/Creatinine [Mass ratio] 25.1 mg/mg High 10-20 [facility] Carbon dioxide measurementOr dered By: Denise Felix on 06-14-2024 CO2 [Moles/Vol] 26.0 mmol/L 21.0-32.0 [facility] Chloride measurementOrdered By: Denise Felix on 06-14-2024 Chloride [Moles/Vol] 106 mmol/L 98-107 [facility] Estimated glomerular filtrat ion rate (GFR) AmericanOrdered By: Denise Felix on 06-14-2024 Estimated GFR (MDRD) Amer 99 mL/min >60 [facility] Comment on above: GFR Calc Glomerular filtration rate ( GFR) estimationOrdered By: Denise Felix on 06-14-2024 Estimated GFR (MDRD) Non-Af Amer 82 mL/min >60 [facility] Comment on above: Non- GFR Calc Glucose measurementOrdered B y: Denise Feilx on 06-14-2024 Glucose [Mass/Vol] 85 mg/dL 74-106 [facility] Potassium measurementOrdered By: Herminiomichael Baigtatyanajacky on 06-14-2024 Potassium [Moles/Vol] 3.9 mmol/L 3.5-5.1 [facility] Serum anion gap measurementO rdered By: Herminiomichael Baigcandido on 06-14-2024 Anion gap [Moles/Vol] 6 mmol/L 5-15 [facility] Serum or plasma calcium alexandra urement (mass/volume)Ordered By: Denise Felix on 06-14-2024 Calcium [Mass/Vol] 9.7 mg/dL 8.5-10.1 [facility] Serum or plasma creatinine m easurement (mass/volume)Ordered By: Herminiomichael Baigtatyanajacky on 06-14-2024 Creatinine [Mass/Vol] 0.76 mg/dL 0.55-1.02 [facility] Comment on above: The validity of the calculated GFR & GFRAA in patients over 70 years has not been determined. Clinical correlation is essential. Serum or plasma urea nitroge n measurement (mass/volume)Ordered By: Denise Felix on 06-14-2024 Urea nitrogen [Mass/Vol] 19 mg/dL High 7-18 [facility] Sodium levelOrdered By: Dion maldonado Jovannitatyanajacky on 06-14-2024 Sodium [Moles/Vol] 138 mmol/L 136-145 [facility] Vitamin D,25 Hydroxyon 06-14 Vitamin D 25-OH 54.0 ng/mL Normal [facility] Comment on above: Result Comment: Malena min D 25(OH) Status Range Deficiency <20 ng/mL (50nmol/L) Insufficiency 20 - 30 ng/mL (50 - 75 nmol/L) Sufficiency 30 - 100 ng/mL (75 - 250 nmol/L) Toxicity >100 ng/mL (>250 nmol/L) Performed By: #### L 500.2500, L506.1000 #### [facility] [address] [place], [place] [address], [address] Vitamin D,25 Hydroxyon 04-13 Vitamin D 25-OH 28.9 ng/mL Normal [facility] Comment on above: Result Comment: Malena min D 25(OH) Status Range Deficiency <20 ng/mL (50nmol/L) Insufficiency 20 - 30 ng/mL (50 - 75 nmol/L) Sufficiency 30 - 100 ng/mL (75 - 250 nmol/L) Toxicity >100 ng/mL (>250 nmol/L) Performed By: #### L 500.4100, L501.9985, L506.1000, L500.4050 #### [facility] [facility] [address] [place], [address] [id number] DOrdered By: Jacky Felix on 04-12-2024 Vitamin D 25-Hydroxy 28.9 ng/mL [facility] Comment on above: Vitamin D 25(OH) Sta tus Range Deficiency <20 ng/mL (50nmol/L) Insufficiency 20 - 30 ng/mL (50 - 75 nmol/L) Sufficiency 30 - 100 ng/mL (75 - 250 nmol/L) Toxicity >100 ng/mL (>250 nmol/L) Albumin to globulin ratioOrd ered By: Denise Felix on 04-12-2024 Albumin/Globulin [Mass ratio] 1.1 {ratio} 0.9-2.4 [facility] Bilirubin, totalOrdered By: Denise Felix on 04-12-2024 Bilirubin [Mass/Vol] 0.80 mg/dL 0.20-1.00 [facility] Comment on above: For patients on eltr ombopag therapy, use of Dimension [place] TBIL is not recommended. Blood urea nitrogen (BUN)/cr eatinine ratioOrdered By: Denise Felix on 04-12-2024 Urea nitrogen/Creatinine [Mass ratio] 28.5 mg/mg High 10-20 [facility] Carbon dioxide measurementOr dered By: Denise Felix on 04-12-2024 CO2 [Moles/Vol] 27.0 mmol/L 21.0-32.0 [facility] Chloride measurementOrdered By: Denise Felix on 04-12-2024 Chloride [Moles/Vol] 109 mmol/L High 98-107 [facility] Comprehensive Metabolic Prof ilon 04-12-2024 Albumin [Mass/Vol] 4.0 g/dL Normal 3.2-5.0 [facility] Comment on above: Performed By: #### L 500.4100, L501.9985, L506.1000, L500.4050 #### [facility] [address] [place], [address] Albumin/Globulin [Mass ratio] 1.1 {ratio} Normal 0.9-2.4 [facility] Comment on above: Performed By: #### L 500.4100, L501.9985, L506.1000, L500.4050 #### [facility] [address] [place], [address] ALK P 71 U/L Normal 45-117 [facility] Comment on above: Performed By: #### L 500.4100, L501.9985, L506.1000, L500.4050 #### [facility] [address] [place], [address] ALT [Catalytic activity/Vol] 43 U/L Normal 13-56 [facility] Comment on above: Performed By: #### L 500.4100, L501.9985, L506.1000, L500.4050 #### [facility] [address] [place], [address] AST [Catalytic activity/Vol] 23 U/L Normal 15-37 [facility] Comment on above: Performed By: #### L 500.4100, L501.9985, L506.1000, L500.4050 #### [facility] [address] [place], [address] Bilirubin [Mass/Vol] 0.80 mg/dL Normal 0.20-1.00 [facility] Comment on above: Result Comment: For patients on eltrombopag therapy, use of Dimension [place] TBIL is not recommended. Performed By: #### L 500.4100, L501.9985, L506.1000, L500.4050 #### [facility] [address] [place], [address] BUN/CRE 28.5 RATIO High 10-20 [facility] Comment on above: Performed By: #### L 500.4100, L501.9985, L506.1000, L500.4050 #### [facility] [address] [place], [address] CA,Total 10.7 mg/dL High 8.5-10.1 [facility] Comment on above: Performed By: #### L 500.4100, L501.9985, L506.1000, L500.4050 #### [facility] [address] [place], [address] Chloride [Moles/Vol] 109 mmol/L High 98-107 [facility] Comment on above: Performed By: #### L 500.4100, L501.9985, L506.1000, L500.4050 #### [facility] [address] [place], [address] CO2 [Moles/Vol] 27.0 mmol/L Normal 21.0-32.0 [facility] Comment on above: Performed By: #### L 500.4100, L501.9985, L506.1000, L500.4050 #### [facility] [address] [place], [address] Creatinine [Mass/Vol] 0.74 mg/dL Normal 0.55-1.02 [facility] Comment on above: Result Comment: The validity of the calculated GFR GFRAA in patients over 70 years has not been determined. Clinical correlation is essential. Performed By: #### L 500.4100, L501.9985, L506.1000, L500.4050 #### [facility] [address] [place], [address] EST GFR - AA 102 mL/min Normal >60 [facility] Comment on above: Result Comment: Afri can Qatari GFR Calc Performed By: #### L 500.4100, L501.9985, L506.1000, L500.4050 #### [facility] [address] [place], [address] GAP 3 Low 5-15 [facility] Comment on above: Performed By: #### L 500.4100, L501.9985, L506.1000, L500.4050 #### [facility] [address] [place], [address] GFR/1.73 sq M.predicted among non-blacks MDRD (S/P/Bld) [Vol rate/Area] 84 mL/min/{1.73_m2} Normal >60 [facility] Comment on above: Result Comment: Non- GFR Calc Performed By: #### L 500.4100, L501.9985, L506.1000, L500.4050 #### [facility] [address] [place], [address] Globulin (S) [Mass/Vol] 3.7 g/dL Normal 2.2-4.2 [facility] Comment on above: Performed By: #### L 500.4100, L501.9985, L506.1000, L500.4050 #### [facility] [address] [place], [address] Glucose [Mass/Vol] 118 mg/dL High 74-106 [facility] Comment on above: Result Comment: Fast ing Glucose result from 100 to 125 mg/dL suggests IMPAIRED HOMEOSTASIS per A.D.A. criteria. Performed By: #### L 500.4100, L501.9985, L506.1000, L500.4050 #### [facility] [address] [place], [address] Potassium [Moles/Vol] 4.3 mmol/L Normal 3.5-5.1 [facility] Comment on above: Performed By: #### L 500.4100, L501.9985, L506.1000, L500.4050 #### [facility] [address] [place], [address] Sodium [Moles/Vol] 139 mmol/L Normal 136-145 [facility] Comment on above: Performed By: #### L 500.4100, L501.9985, L506.1000, L500.4050 #### [facility] [address] [place], [address] T PROT 7.7 g/dL Normal 6.4-8.2 [facility] Comment on above: Performed By: #### L 500.4100, L501.9985, L506.1000, L500.4050 #### [facility] [address] [place], [address] Urea nitrogen [Mass/Vol] 21 mg/dL High 7-18 [facility] Comment on above: Performed By: #### L 500.4100, L501.9985, L506.1000, L500.4050 #### [facility] [address] [place], [address] Estimated glomerular filtrat ion rate (GFR) AmericanOrdered By: Denise Felix on 04-12-2024 Estimated GFR (MDRD) Amer 102 mL/min >60 [facility] Comment on above: GFR Calc Glomerular filtration rate ( GFR) estimationOrdered By: Denise Felix on 04-12-2024 Estimated GFR (MDRD) Non-Af Amer 84 mL/min >60 [facility] Comment on above: Non- GFR Calc Glucose measurementOrdered B y: Denise Felix on 04-12-2024 Glucose [Mass/Vol] 118 mg/dL High 74-106 [facility] Comment on above: Fasting Glucose resu lt from 100 to 125 mg/dL suggests IMPAIRED HOMEOSTASIS per A.D.A. criteria. Hemoglobin A1con 04-12-2024 HbA1c (Bld) [Mass fraction] 5.3 % Normal 3.8-5.6 [facility] Comment on above: Result Comment: Norm al < 5.7 % Prediabetic 5.7 - 6.4 % Diabetic >or= 6.5 % Please note range changes. Performed By: #### L 500.4100, L501.9985, L506.1000, L500.4050 #### [facility] [address] [place], [address] Hemoglobin A1c percentageOrd ered By: Denise Felix on 04-12-2024 HbA1c (Bld) [Mass fraction] 5.3 % 3.8-5.6 [facility] Comment on above: Normal < 5.7 % Predi abetic 5.7 - 6.4 % Diabetic >or= 6.5 % Please note range changes. High density lipoprotein (HD L) measurementOrdered By: Denise Felix on 04-12-2024 Cholesterol in HDL [Mass/Vol] 69 mg/dL >40 [facility] Comment on above: The drugs N-Acetylcy steine and Metamizole may falsely depress this assay. Reference Range HDL <40 mg/dL Low HDL Cholesterol HDL >or= 60 mg/dL High HDL Cholesterol Internal Medicine Office Vis iton 04-12-2024 Internal Medicine Office Visit [facility] [address] [place] [address] [place] [address] OFFICE VISIT Date of Service: 04/12/24 MR#: [id number] Acct: [id number] Name: SHAVON SCHAEFFER Rep #: [id number] : 1960 Provider: Dr. 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 Is patient in pain?: No Allergies azithromycin Allergy (Mild, Verified 04/12/24 15:06) Rash chlorhexidine (From ChloraPrep Clear) Allergy (Mild, Verified 04/12/24 15:06) Rash iodine Allergy (Mild, Verified 04/12/24 15:06) Rash nickel (chandra) Allergy (Verified 04/12/24 15:06) Rash oxycodone (From OxyContin) Adverse Reaction (Severe, Verified 04/12/24 15:06) Other Medications ???Medication ???Instructions ???Recorded ???Confirmed ???Type clobetasol 0.05 % topical cream 1 applic topical DAILY PRN 11/05/21 04/12/24 History lactobacillus combination no.9 4 4,000 mmu cells PO DAILY 11/05/21 04/12/24 History billion cell capsule (Adult 50 Plus Probiotic) psyllium husk 0.4 gram capsule 0.4 g PO DAILY 11/05/21 04/12/24 History (Metamucil) turmeric root extract 1,053 mg 1,076 mg PO DAILY 11/05/21 04/12/24 History tablet magnesium oxide 400 mg PO DAILY PRN 04/12/22 04/12/24 History krill oil 500 mg capsule 500 mg PO DAILY 11/06/22 04/12/24 History hydrocortisone 2.5 % topical 1 applic topical .TWICE WEEKLY 01/17/23 04/12/24 History solution cholecalciferol (vitamin D3) 25 2,000 unit PO DAILY 12/31/23 04/12/24 History mcg (1,000 unit) capsule rosuvastatin 10 mg tablet 10 mg PO DAILY #90 tabs 12/31/23 04/12/24 Rx mecobalamin (vitamin B12) 500 mcg mcg PO 04/12/24 04/12/24 History chewable tablet tirzepatide (weight loss) 10 10 mg (0.5 mL) subcut QWEEK #2 mL 04/12/24 04/12/24 Rx mg/0.5 mL subcutaneous pen injector (Zepbound) Nurse's Note: Needs Compliance filled out for bipap. Is feeling rested and getting between 6-9 hours of sleep per night. Has no sx's. Needs faxed to nate bojorquez F:[phone]. Good supply. needs zepbound refilled. [facility] Medical History (Updated 04/12/24 @ 15:15 by Nicole Woodall MA) Encounter for screening colonoscopy Health care maintenance Hyperparathyroidism Hypercalcemia Metabolic syndrome Preoperative evaluation to rule out surgical contraindication Need for hepatitis C screening test Urinary frequency Psoriasis Postmenopausal Obesity Dyslipidemia ECG abnormal Palpitations Nonrheumatic tricuspid (valve) insufficiency Arrhythmia Thyroid nodule Borderline type 2 diabetes mellitus Family history of lung cancer Obstructive sleep apnea Hyperlipidemia Hypertension Obesity (BMI 30-39.9) History of blood clots Rooney cyst Chronic knee pain Hyperlipemia HPV (human papilloma virus) anogenital infection Scoliosis Heart murmur Osteoarthritis Arthritis Anemia Seasonal allergies Surgical History History of right knee joint replacement History of removal of cyst History of carpal tunnel release History of bunionectomy Family History Mother Cancer lung Arthritis Sister Arthritis Osteoporosis Brother Arthritis Heart disease Hypertension Hyperlipemia Father Diabetes Heart disease Hypertension Hyperlipemia Kidney disease CVA (cerebral vascular accident) Grandmother Pacemaker Other Family history of lung cancer Social History Smoking Status: Never smoker alcohol intake: current alcohol intake frequency: a few times a week substance use type: does not use caffeine: Yes Type: coffee Number of servings: 2 what type of physical activity do you participate in: weight training and other details: cardio frequency: 1-2 times per week HPI HPI Chief Complaint: Follow-up chronic conditions Details: SHAVON SCHAEFFER, is a 63 F who presents to the office today for follow-up of her chronic conditions. No acute concerns at this time. History of hyperparathyroidism. Labs done at her last visit with insufficient vitamin D despite vitamin D supplements. She states that she increased her vitamin D to 5000 units daily. Asymptomatic. Currently on Zepbound due to metabolic syndrome/obesity. Continues (more content not included)... Normal [facility] - Chemistry and C hemistry - challengeOrdered By: Denise Felix on 04-12-2024 AST [Catalytic activity/Vol] 23 U/L 15-37 [facility] Lipid Profileon 04-12-2024 Cholesterol [Mass/Vol] 154 mg/dL Normal 200 [facility] Comment on above: Result Comment: <200 mg/dL Desirable 200-240 mg/dL Borderline >240 mg/dL High Risk Performed By: #### L 500.4100, L501.9985, L506.1000, L500.4050 #### [facility] [address] [place], [address] Cholesterol in HDL [Mass/Vol] 69 mg/dL Normal [facility] Comment on above: Result Comment: The drugs N-Acetylcysteine and Metamizole may falsely depress this assay. Reference Range HDL <40 mg/dL Low HDL Cholesterol HDL >or= 60 mg/dL High HDL Cholesterol Performed By: #### L 500.4100, L501.9985, L506.1000, L500.4050 #### [facility] [address] [place], [address] Cholesterol in LDL [Mass/Vol] 67 mg/dL Normal 0-130 [facility] Comment on above: Performed By: #### L 500.4100, L501.9985, L506.1000, L500.4050 #### [facility] [address] [place], [address] Cholesterol in VLDL [Mass/Vol] 18 mg/dL Normal 5-40 [facility] Comment on above: Performed By: #### L 500.4100, L501.9985, L506.1000, L500.4050 #### [facility] [address] [place], [address] Triglyceride [Mass/Vol] 88 mg/dL Normal [facility] Comment on above: Result Comment: The drugs N-Acetylcysteine and Metamizole may falsely depress this assay. Serum Triglycerides Reference Interval Normal <150 mg/dL Borderline high 150 - 199 mg/dL High 200 - 499 mg/dL Very High > or = 500 mg/dL Performed By: #### L 500.4100, L501.9985, L506.1000, L500.4050 #### [facility] [place], [address] Low density lipoprotein (LDL ) cholesterol measurementOrdered By: Denise Felix on 04-12-2024 Cholesterol in LDL [Mass/Vol] 67 mg/dL 0-130 [facility] Potassium measurementOrdered By: Denise Felix on 04-12-2024 Potassium [Moles/Vol] 4.3 mmol/L 3.5-5.1 [facility] Serum anion gap measurementO rdered By: Denise Felix on 04-12-2024 Anion gap [Moles/Vol] 3 mmol/L Low 5-15 [facility] Serum globulin measurementOr dered By: Denise Felix on 04-12-2024 Globulin (S) [Mass/Vol] 3.7 g/dL 2.2-4.2 [facility] Serum or plasma alanine plunkett otransferase (ALT) measurementOrdered By: Denise Felix on 04-12-2024 ALT [Catalytic activity/Vol] 43 U/L 13-56 [facility] Serum or plasma albumin alexandra urement (mass/volume)Ordered By: Denise Felix on 04-12-2024 Albumin [Mass/Vol] 4.0 g/dL 3.2-5.0 [facility] Serum or plasma alkaline lacho sphatase measurementOrdered By: Denise Felix 04-12-2024 ALP [Catalytic activity/Vol] 71 U/L 45-117 [facility] Serum or plasma calcium alexandra urement (mass/volume)Ordered By: Denise Felix on 04-12-2024 Calcium [Mass/Vol] 10.7 mg/dL High 8.5-10.1 [facility] Serum or plasma cholesterol measurement (mass/volume)Ordered By: Denise Felix on 04-12-2024 Cholesterol [Mass/Vol] 154 mg/dL <200 [facility] Comment on above: <200 mg/dL Desirable 200-240 mg/dL Borderline >240 mg/dL High Risk Serum or plasma creatinine m easurement (mass/volume)Ordered By: Denise Jovannitatyanajacky on 04-12-2024 Creatinine [Mass/Vol] 0.74 mg/dL 0.55-1.02 [facility] Comment on above: The validity of the calculated GFR & GFRAA in patients over 70 years has not been determined. Clinical correlation is essential. Serum or plasma urea nitroge n measurement (mass/volume)Ordered By: Denise Felix on 04-12-2024 Urea nitrogen [Mass/Vol] 21 mg/dL High 7-18 [facility] Sodium levelOrdered By: Dion erica Elvira on 04-12-2024 Sodium [Moles/Vol] 139 mmol/L 136-145 [facility] Total proteinOrdered By: William ramakrishnarekha Felix on 04-12-2024 Protein [Mass/Vol] 7.7 g/dL 6.4-8.2 [facility] Triglycerides measurementOrd ered By: Herminioangélicasidarrekha Baigtatyanajacky on 04-12-2024 Triglyceride [Mass/Vol] 88 mg/dL <199 [facility] Comment on above: The drugs N-Acetylcy steine and Metamizole may falsely depress this assay.Serum Triglycerides Reference Interval Normal <150 mg/dL Borderline high 150 - 199 mg/dL High 200 - 499 mg/dL Very High > or = 500 mg/dL Very low density lipoprotein (VLDL) cholesterol measurementOrdered By: Denise Felix on 04-12-2024 VLDL Cholesterol 18 mg/dL 5-40 [facility] Basophil percentageOrdered B y: Dionsidrarekha Felix on 08-15-2023 Bilirubin [Mass/Vol] 0.50 mg/dL 0.20-1.00 [facility] Comment on above: For patients on eltr ombopag therapy, use of Dimension [place] TBIL is not recommended. Chloride [Moles/Vol] 111 mmol/L 98-107 [facility] Glucose [Mass/Vol] 104 mg/dL 74-106 [facility] Comment on above: Fasting Glucose resu lt from 100 to 125 mg/dL suggests IMPAIRED HOMEOSTASIS per A.D.A. criteria. Potassium [Moles/Vol] 5.1 mmol/L 3.5-5.1 [facility] Protein [Mass/Vol] 7.5 g/dL 6.4-8.2 [facility] Sodium [Moles/Vol] 139 mmol/L 136-145 [facility] - Chemistry and C hemistry - challengeOrdered By: Denise Felix on 08-15-2023 Albumin/Globulin [Mass ratio] 1.1 {ratio} 0.9-2.4 [facility] ALP [Catalytic activity/Vol] 67 U/L 45-117 [facility] ALT [Catalytic activity/Vol] 29 U/L 13-56 [facility] CO2 [Moles/Vol] 27.0 mmol/L 21.0-32.0 [facility] Globulin (S) [Mass/Vol] 3.6 g/dL 2.2-4.2 [facility] Urea nitrogen/Creatinine [Mass ratio] 24.4 mg/mg 10-20 [facility] No Panel InformationOrdered By: Denise Felix on 08-15-2023 Estimated GFR (MDRD) Amer 109 mL/min >60 [facility] Comment on above: GFR Calc Estimated GFR (MDRD) Non-Af Amer 90 mL/min >60 [facility] Comment on above: Non- GFR Calc Parathyroid Hormone (Intact) 119.4 pg/mL 18.4-80.1 [facility] Vitamin D 25-Hydroxy 31.1 ng/mL [facility] Comment on above: Vitamin D 25(OH) Sta tus Range Deficiency <20 ng/mL (50nmol/L) Insufficiency 20 - 30 ng/mL (50 - 75 nmol/L) Sufficiency 30 - 100 ng/mL (75 - 250 nmol/L) Toxicity >100 ng/mL (>250 nmol/L) Serum or plasma calcium alexandra urement (mass/volume)Ordered By: Denise Felix on 08-15-2023 Calcium [Mass/Vol] 10.7 mg/dL 8.5-10.1 [facility] Serum or plasma creatinine m easurement (mass/volume)Ordered By: Denise Felix on 08-15-2023 Creatinine [Mass/Vol] 0.70 mg/dL 0.55-1.02 [facility] Comment on above: The validity of the calculated GFR & GFRAA in patients over 70 years has not been determined. Clinical correlation is essential. Serum or plasma urea nitroge n measurement (mass/volume)Ordered By: Denise Felix on 08-15-2023 Urea nitrogen [Mass/Vol] 17 mg/dL 7-18 [facility] Thin prep Papanicolaou smear with manual screeningOrdered By: michael Felix on 08-15-2023 Thin prep Papanicolaou smear with manual screening 3.9 g/dL 3.2-5.0 [facility] Thin prep Papanicolaou smear with manual screening 16 U/L 15-37 [facility] Thin prep Papanicolaou smear with manual screening 1 5-15 [facility] Whole blood hemoglobin A1c/t otal hemoglobin ratio (mass fraction)Ordered By: Denise Felix on 08-15-2023 HbA1c (Bld) [Mass fraction] 5.4 % 3.8-5.6 [facility] Comment on above: Normal < 5.7 % Predi abetic 5.7 - 6.4 % Diabetic >or= 6.5 % Please note range changes. DBT Breast - bilateral scree ningon 06-16-2023 [facility] Absolute lymphocyte countOrd ered By: Denise Felix on 04-25-2023 Lymphocytes Auto (Unsp spec) [#/Vol] 2.48 10*3/uL 0.83-4.51 [facility] Basophil percentageOrdered B y: Denise Felix on 04-25-2023 Basophils/100 WBC (Bld) 0.6 % 0-1 [facility] Bilirubin [Mass/Vol] 0.40 mg/dL 0.20-1.00 [facility] Comment on above: For patients on eltr ombopag therapy, use of Dimension [place] TBIL is not recommended. Chloride [Moles/Vol] 110 mmol/L 98-107 [facility] Cholesterol [Mass/Vol] 151 mg/dL <200 [facility] Comment on above: <200 mg/dL Desirable 200-240 mg/dL Borderline >240 mg/dL High Risk Eosinophils/100 WBC (Bld) 3.2 % 0-5 [facility] Glucose [Mass/Vol] 102 mg/dL 74-106 [facility] Comment on above: Fasting Glucose resu lt from 100 to 125 mg/dL suggests IMPAIRED HOMEOSTASIS per A.D.A. criteria. Neutrophils (Bld) [#/Vol] 3.9 10*3/uL 2.0-7.7 [facility] Neutrophils/100 WBC (Bld) 53.5 % 47-70 [facility] Potassium [Moles/Vol] 4.5 mmol/L 3.5-5.1 [facility] Protein [Mass/Vol] 7.3 g/dL 6.4-8.2 [facility] Sodium [Moles/Vol] 141 mmol/L 136-145 [facility] Triglyceride [Mass/Vol] 68 mg/dL <199 [facility] Comment on above: The drugs N-Acetylcy steine and Metamizole may falsely depress this assay.Serum Triglycerides Reference Interval Normal <150 mg/dL Borderline high 150 - 199 mg/dL High 200 - 499 mg/dL Very High > or = 500 mg/dL WBC (Bld) [#/Vol] 7.2 10*3/uL 4.4-11.0 [facility] Blood erythrocytes count (nu mber/volume)Ordered By: Denise Felix on 04-25-2023 RBC (Bld) [#/Vol] 4.62 10*6/uL 4.2-5.4 [facility] Blood hemoglobin measurement (mass/volume)Ordered By: Denise Felix on 04-25-2023 Hemoglobin (Bld) [Mass/Vol] 13.4 g/dL 12.0-15.0 [facility] Blood lymphocytes/100 leukoc ytesOrdered By: Denise Felix on 04-25-2023 Lymphocytes/100 WBC (Bld) 34.4 % 19-41 [facility] Blood monocytes/100 leukocyt esOrdered By: Denise Felix on 04-25-2023 Monocytes/100 WBC (Bld) 8.0 % 0-10 [facility] Blood platelet mean volumeOr dered By: Denise Felix on 04-25-2023 Platelet mean volume (Bld) [Entitic vol] 11.2 fL 6.2-12.0 [facility] Determination of erythrocyte mean corpuscular volume (MCV)Ordered By: michael Felix on 04-25-2023 MCV (RBC) [Entitic vol] 89.8 fL 81-99 [facility] Hematocrit Auto (Bld) [Volum e fraction]Ordered By: [facility] on 04-25-2023 Hematocrit (Bld) [Volume fraction] 41.5 % 37-47 [facility] Laboratory - Chemistry and C hemistry - challengeOrdered By: michael Felix on 04-25-2023 ALP [Catalytic activity/Vol] 76 U/L 45-117 [facility] ALT [Catalytic activity/Vol] 28 U/L 13-56 [facility] CO2 [Moles/Vol] 26.0 mmol/L 21.0-32.0 [facility] Globulin (S) [Mass/Vol] 3.6 g/dL 2.2-4.2 [facility] Urea nitrogen/Creatinine [Mass ratio] 20.9 mg/mg 10-20 [facility] Laboratory - Hematology and Cell countsOrdered By: Dionrodeorekha Felix on 04-25-2023 Erythrocyte distribution width (RBC) [Entitic vol] 40.5 fL 35.1-43.9 [facility] Erythrocyte distribution width (RBC) [Ratio] 12.3 % 11.6-14.6 [facility] Immature granulocytes/100 WBC (Bld) 0.300 % 0.0-0.9 [facility] Comment on above: IG% - Immature Granu locytes (promyelocytes, myelocytes and metamyelocytes) > 1% indicates that a LEFT SHIFT is Present. MCH (RBC) [Entitic mass] 29.0 pg 27.0-32.0 [facility] Nucleated RBC/100 WBC (Bld) [Ratio] 0 % 0-5 [facility] Laboratory - Hematology and Cell countson 04-25-2023 HbA1c (Bld) [Mass fraction] 5.6 % 4[facility]6.[facility] [Mass/Vol]Or dered By: Denise Felix on 04-25-2023 MCHC (RBC) [Mass/Vol] 32.3 g/dL 32-36 [facility] No Panel InformationOrdered By: Denise Felix on 04-25-2023 Estimated GFR (MDRD) Amer 106 mL/min >60 [facility] Comment on above: GFR Calc Estimated GFR (MDRD) Non-Af Amer 87 mL/min >60 [facility] Comment on above: Non- GFR Calc Platelets bldOrdered By: William Felix on 04-25-2023 Platelets (Bld) [#/Vol] 219 10*3/uL 150-450 [facility] Serum or plasma albumin alexandra urement (mass/volume)Ordered By: Denise Felix on 04-25-2023 Albumin [Mass/Vol] 3.7 g/dL 3.2-5.0 [facility] Serum or plasma albumin/glob ulin mass ratioOrdered By: Denise Felix on 04-25-2023 Albumin/Globulin [Mass ratio] 1.0 {ratio} 0.9-2.4 [facility] Serum or plasma calcium alexandra urement (mass/volume)Ordered By: Denise Felix on 04-25-2023 Calcium [Mass/Vol] 9.4 mg/dL 8.5-10.1 [facility] Serum or plasma cholesterol in HDL measurement (mass/volume)Ordered By: Denise Felix on 04-25-2023 Cholesterol in HDL [Mass/Vol] 64 mg/dL >40 [facility] Comment on above: The drugs N-Acetylcy steine and Metamizole may falsely depress this assay. Reference Range HDL <40 mg/dL Low HDL Cholesterol HDL >or= 60 mg/dL High HDL Cholesterol Serum or plasma cholesterol in VLDL measurement (mass/volume)Ordered By: Denise Felix on 04-25-2023 Cholesterol in VLDL [Mass/Vol] 14 mg/dL 5-40 [facility] Serum or plasma creatinine m easurement (mass/volume)Ordered By: Denise Felix on 04-25-2023 Creatinine [Mass/Vol] 0.72 mg/dL 0.55-1.02 [facility] Comment on above: The validity of the calculated GFR & GFRAA in patients over 70 years has not been determined. Clinical correlation is essential. Serum or plasma low density lipoprotein (LDL) cholesterol measurement (mass/volume)Ordered By: angélicarodeorekha Felix on 04-25-2023 Cholesterol in LDL [Mass/Vol] 73 mg/dL 0-130 [facility] Serum or plasma urea nitroge n measurement (mass/volume)Ordered By: angélicarodeorekha Felix on 04-25-2023 Urea nitrogen [Mass/Vol] 15 mg/dL 7-18 [facility] Thin prep Papanicolaou smear with manual screeningOrdered By: [facility] on 04-25-2023 Thin prep Papanicolaou smear with manual screening 16 U/L 15-37 [facility] Thin prep Papanicolaou smear with manual screening 5 5-15 [facility] Absolute lymphocyte countOrd ered By: Sabas Mcclure on 02-03-2023 Lymphocytes Auto (Unsp spec) [#/Vol] 2.29 10*3/uL 0.83-4.51 [facility] Basophil percentageOrdered B y: Sabas Mcclure on 02-03-2023 Basophils/100 WBC (Bld) 0.3 % 0-1 [facility] Bilirubin [Mass/Vol] 0.60 mg/dL 0.20-1.00 [facility] Comment on above: For patients on eltr ombopag therapy, use of Dimension [place] TBIL is not recommended. Chloride [Moles/Vol] 105 mmol/L 98-107 [facility] Eosinophils/100 WBC (Bld) 2.3 % 0-5 [facility] Glucose [Mass/Vol] 171 mg/dL 74-106 [facility] Comment on above: Fasting Glucose resu lt greater than or equal to 126 mg/dL suggests DIABETES MELLITUS per A.D.A. criteria. Neutrophils (Bld) [#/Vol] 7.5 10*3/uL 2.0-7.7 [facility] Neutrophils/100 WBC (Bld) 69.1 % 47-70 [facility] Potassium [Moles/Vol] 3.6 mmol/L 3.5-5.1 [facility] Protein [Mass/Vol] 6.8 g/dL 6.4-8.2 [facility] Sodium [Moles/Vol] 137 mmol/L 136-145 [facility] WBC (Bld) [#/Vol] 10.8 10*3/uL 4.4-11.0 [facility] Blood erythrocytes count (nu mber/volume)Ordered By: Sabas Mcclure on 02-03-2023 RBC (Bld) [#/Vol] 3.98 10*6/uL 4.2-5.4 [facility] Blood hemoglobin measurement (mass/volume)Ordered By: Sabas Mcclure on 02-03-2023 Hemoglobin (Bld) [Mass/Vol] 11.9 g/dL 12.0-15.0 [facility] Blood lymphocytes/100 leukoc ytesOrdered By: Sabas Mcclure on 02-03-2023 Lymphocytes/100 WBC (Bld) 21.1 % 19-41 [facility] Blood monocytes/100 leukocyt esOrdered By: Sabas Mcclure on 02-03-2023 Monocytes/100 WBC (Bld) 6.6 % 0-10 [facility] Blood platelet mean volumeOr dered By: Sabas Mcclure on 02-03-2023 Platelet mean volume (Bld) [Entitic vol] 11.2 fL 6.2-12.0 [facility] Determination of erythrocyte mean corpuscular volume (MCV)Ordered By: Sabas Mcclure on 02-03-2023 MCV (RBC) [Entitic vol] 95.5 fL 81-99 [facility] Hematocrit Auto (Bld) [Volum e fraction]Ordered By: Sabas Mcclure on 02-03-2023 Hematocrit (Bld) [Volume fraction] 38.0 % 37-47 [facility] Laboratory - Chemistry and C hemistry - challengeOrdered By: Sabas Mcclure on 02-03-2023 ALP [Catalytic activity/Vol] 63 U/L 45-117 [facility] ALT [Catalytic activity/Vol] 51 U/L 13-56 [facility] CO2 [Moles/Vol] 25.0 mmol/L 21.0-32.0 [facility] Globulin (S) [Mass/Vol] 3.5 g/dL 2.2-4.2 [facility] Urea nitrogen/Creatinine [Mass ratio] 21.2 mg/mg 10-20 [facility] Laboratory - Hematology and Cell countsOrdered By: Sabas Mcclure on 02-03-2023 Erythrocyte distribution width (RBC) [Entitic vol] 42.5 fL 35.1-43.9 [facility] Erythrocyte distribution width (RBC) [Ratio] 12.1 % 11.6-14.6 [facility] Immature granulocytes/100 WBC (Bld) 0.600 % 0.0-0.9 [facility] Comment on above: IG% - Immature Granu locytes (promyelocytes, myelocytes and metamyelocytes) > 1% indicates that a LEFT SHIFT is Present. MCH (RBC) [Entitic mass] 29.9 pg 27.0-32.0 [facility] Nucleated RBC/100 WBC (Bld) [Ratio] 0 % 0-5 [facility] MCHC Auto (RBC) [Mass/Vol]Or dered By: Sabas Mcclure on 02-03-2023 MCHC (RBC) [Mass/Vol] 31.3 g/dL 32-36 [facility] No Panel InformationOrdered By: Sabas Mcclure on 02-03-2023 Estimated Creatinine Clearance Calc 64.77 ml/min [facility] Estimated GFR (MDRD) Amer 93 mL/min >60 [facility] Comment on above: GFR Calc Estimated GFR (MDRD) Non-Af Amer 77 mL/min >60 [facility] Comment on above: Non- GFR Calc Troponin I High Sensitivity 4 pg/mL 3.0-54.0 [facility] Comment on above: Please Note: [place] t Units and Gender Specific Reference Ranges. For more information see Policy Stat Procedure [place] High Sensitivity Troponin (TNIH) and attachments. Platelets bldOrdered By: Nereida Mcclure on 02-03-2023 Platelets (Bld) [#/Vol] 252 10*3/uL 150-450 [facility] Serum or plasma albumin alexandra urement (mass/volume)Ordered By: Sabas Mcclure on 02-03-2023 Albumin [Mass/Vol] 3.3 g/dL 3.2-5.0 [facility] Serum or plasma albumin/glob ulin mass ratioOrdered By: Sabas Mcclure on 02-03-2023 Albumin/Globulin [Mass ratio] 0.9 {ratio} 0.9-2.4 [facility] Serum or plasma calcium alexandra urement (mass/volume)Ordered By: Sabas Mcclure on 02-03-2023 Calcium [Mass/Vol] 9.6 mg/dL 8.5-10.1 [facility] Serum or plasma creatinine m easurement (mass/volume)Ordered By: Sabas Mcclure on 02-03-2023 Creatinine [Mass/Vol] 0.80 mg/dL 0.55-1.02 [facility] Comment on above: The validity of the calculated GFR & GFRAA in patients over 70 years has not been determined. Clinical correlation is essential. Serum or plasma urea nitroge n measurement (mass/volume)Ordered By: Sabas Mcclure on 02-03-2023 Urea nitrogen [Mass/Vol] 17 mg/dL 7-18 [facility] Thin prep Papanicolaou smear with manual screeningOrdered By: Sabas Mcclure on 02-03-2023 Thin prep Papanicolaou smear with manual screening 25 U/L 15-37 [facility] Thin prep Papanicolaou smear with manual screening 7 5-15 [facility] Basophil percentageOrdered B y: Denise Felix on 01-17-2023 Basophil percentage 25-50 SEEN /hpf 0-5 [facility] Bilirubin Test strip Ql (U)O rdered By: Denise Felix on 01-17-2023 Bilirubin Ql (U) Negative Negative [facility] Calcium oxalate crystals det ection in urine sediment by light microscopyOrdered By: Denise Felix on 01-17-2023 Calcium oxalate crystals LM Ql (Urine sed) 1+ /hpf [facility] Culture, urineOrdered By: Herminio Felix on 01-17-2023 Bacteria identified Cx Nom (U) Mixed Gram Pos & Gram Neg Org [facility] Bacteria identified Cx Nom (U) Mixed Gram Pos & Gram Neg Org [facility] Ketones Test strip Ql (U)Ord ered By: Denise Felix on 01-17-2023 Ketones Ql (U) 5 mg/dl Negative [facility] Mucus LM Ql (Urine sed)Order ed By: Denise Felix on 01-17-2023 Mucus Ql (Urine sed) 0 SEEN /hpf [facility] Nitrite Test strip Ql (U)Ord ered By: Denise Felix on 01-17-2023 Nitrite Ql (U) Negative Negative [facility] No Panel InformationOrdered By: Denise Felix on 01-17-2023 Hepatitis C Antibody Non-Reactive Nonreactive [facility] Comment on above: Non Reactive: < 0.8 Equivocal: >/= 0.8 to < 1.0 Reactive: >/= 1.0The CDC recommends that a reactive/equivocal HCV antibody result be followed up by the HCV Nucleic Acid Amplificationtest (757040) Protein Test strip Ql (U)Ord ered By: Denise Felix on 01-17-2023 Protein Ql (U) 30 mg/dl Negative [facility] Squamous epithelial cells de tection in urine sediment by light microscopyOrdered By: Denise Felix on 01-17-2023 Epithelial cells.squamous LM Ql (Urine sed) 0-5 SEEN /hpf 5-10 [facility] Urine blood detectionOrdered By: Denise Felix on 01-17-2023 RBC Ql (U) 250 /ul Negative [facility] RBC Ql (U) 25-50 SEEN /hpf 0-5 [facility] Urine clarityOrdered By: William Felix on 01-17-2023 Clarity (U) Sl. Cloudy Clear [facility] Urine color determinationOrd ered By: Denise Felix on 01-17-2023 Color (U) Yellow Yellow [facility] Urine glucose detectionOrder ed By: Denise Felix on 01-17-2023 Glucose Ql (U) Normal mg/dl Normal [facility] Urine leukocyte esterase det ection by dipstickOrdered By: Denise Felix on 01-17-2023 Leukocyte esterase Test strip Ql (U) 500 /ul Negative [facility] Urine pHOrdered By: Janeen Felix on 01-17-2023 pH (U) 6.0 [pH] 5.0 - 8.0 [facility] Urine sediment bacteria coun t by microscopy (number/high power field)Ordered By: Denise Felix on 01-17-2023 Bacteria LM.HPF (Urine sed) [#/Area] 1 /[HPF] None Seen [facility] Urine specific gravity measu rementOrdered By: Denise Felix on 01-17-2023 Specific gravity (U) [Rel density] 1.025 1.002-1.030 [facility] Urobilinogen Auto test strip Ql (U)Ordered By: Denise Felix on 01-17-2023 Urobilinogen Ql (U) 1 mg/dl Normal [facility] Basophil percentageOrdered B y: Dr. Felix on 07-12-2022 Bilirubin [Mass/Vol] 0.50 mg/dL 0.20-1.00 [facility] [place] Comment on above: For patients on eltr ombopag therapy, use of Dimension [place] TBIL is not recommended. Chloride [Moles/Vol] 109 mmol/L 98-107 [facility] Cholesterol [Mass/Vol] 155 mg/dL <200 [facility] Comment on above: <200 mg/dL Desirable 200-240 mg/dL Borderline >240 mg/dL High Risk Glucose [Mass/Vol] 100 mg/dL 74-106 [facility] Comment on above: Fasting Glucose resu lt from 100 to 125 mg/dL suggests IMPAIRED HOMEOSTASIS per A.D.A. criteria. Potassium [Moles/Vol] 4.4 mmol/L 3.5-5.1 [facility] Protein [Mass/Vol] 7.6 g/dL 6.4-8.2 [facility] Sodium [Moles/Vol] 142 mmol/L 136-145 [facility] Triglyceride [Mass/Vol] 101 mg/dL <199 [facility] Comment on above: The drugs N-Acetylcy steine and Metamizole may falsely depress this assay.Serum Triglycerides Reference Interval Normal <150 mg/dL Borderline high 150 - 199 mg/dL High 200 - 499 mg/dL Very High > or = 500 mg/dL Laboratory - Chemistry and C hemistry - challengeOrdered By: Dr. Felix on 07-12-2022 ALP [Catalytic activity/Vol] 69 U/L 45-117 [facility] ALT [Catalytic activity/Vol] 33 U/L 13-56 [facility] CK [Catalytic activity/Vol] 59 U/L 26-192 [facility] CO2 [Moles/Vol] 26.0 mmol/L 21.0-32.0 [facility] Globulin (S) [Mass/Vol] 3.6 g/dL 2.2-4.2 [facility] Urea nitrogen/Creatinine [Mass ratio] 21.6 mg/mg 10-20 [facility] Laboratory - Hematology and Cell countson 07-12-2022 HbA1c (Bld) [Mass fraction] 5.5 % 4.2-6.3 [facility] No Panel InformationOrdered By: Dr. Felix on 07-12-2022 Estimated GFR (MDRD) Amer 102 mL/min >60 [facility] Comment on above: GFR Calc Estimated GFR (MDRD) Non-Af Amer 84 mL/min >60 [facility] Comment on above: Non- GFR Calc Serum or plasma albumin alexandra urement (mass/volume)Ordered By: Dr. Felix on 07-12-2022 Albumin [Mass/Vol] 4.0 g/dL 3.2-5.0 [facility] Serum or plasma albumin/glob ulin mass ratioOrdered By: Dr. Felix on 07-12-2022 Albumin/Globulin [Mass ratio] 1.1 {ratio} 0.9-2.4 [facility] Serum or plasma calcium alexandra urement (mass/volume)Ordered By: Dr. Felix on 07-12-2022 Calcium [Mass/Vol] 10.1 mg/dL 8.5-10.1 [facility] Serum or plasma cholesterol in HDL measurement (mass/volume)Ordered By: Dr. Felix on 07-12-2022 Cholesterol in HDL [Mass/Vol] 52 mg/dL >40 [facility] Comment on above: The drugs N-Acetylcy steine and Metamizole may falsely depress this assay. Reference Range HDL <40 mg/dL Low HDL Cholesterol HDL >or= 60 mg/dL High HDL Cholesterol Serum or plasma cholesterol in VLDL measurement (mass/volume)Ordered By: Dr. Felix on 07-12-2022 Cholesterol in VLDL [Mass/Vol] 20 mg/dL 5-40 [facility] Serum or plasma creatinine m easurement (mass/volume)Ordered By: Dr. Felix on 07-12-2022 Creatinine [Mass/Vol] 0.74 mg/dL 0.55-1.02 [facility] Comment on above: The validity of the calculated GFR & GFRAA in patients over 70 years has not been determined. Clinical correlation is essential. Serum or plasma low density lipoprotein (LDL) cholesterol measurement (mass/volume)Ordered By: Dr. Felix on 07-12-2022 Cholesterol in LDL [Mass/Vol] 83 mg/dL 0-130 [facility] Serum or plasma urea nitroge n measurement (mass/volume)Ordered By: Dr. Felix on 07-12-2022 Urea nitrogen [Mass/Vol] 16 mg/dL 7-18 [facility] Thin prep Papanicolaou smear with manual screeningOrdered By: Dr. Felix on 07-12-2022 Thin prep Papanicolaou smear with manual screening 18 U/L 15-37 [facility] Thin prep Papanicolaou smear with manual screening 7 5-15 [facility] Basophil percentageOrdered B y: Dr. Felix on 04-12-2022 Bilirubin [Mass/Vol] 0.60 mg/dL 0.20-1.00 [facility] [place] Comment on above: For patients on eltr ombopag therapy, use of Dimension [place] TBIL is not recommended. Chloride [Moles/Vol] 109 mmol/L 98-107 [facility] Glucose [Mass/Vol] 90 mg/dL 74-106 [facility] Potassium [Moles/Vol] 4.1 mmol/L 3.5-5.1 [facility] Protein [Mass/Vol] 7.5 g/dL 6.4-8.2 [facility] Sodium [Moles/Vol] 140 mmol/L 136-145 [facility] Laboratory - Chemistry and C hemistry - challengeOrdered By: Dr. Felix on 04-12-2022 ALP [Catalytic activity/Vol] 66 U/L 45-117 [facility] ALT [Catalytic activity/Vol] 25 U/L 13-56 [facility] CO2 [Moles/Vol] 27.0 mmol/L 21.0-32.0 [facility] Globulin (S) [Mass/Vol] 3.5 g/dL 2.2-4.2 [facility] Urea nitrogen/Creatinine [Mass ratio] 25.0 mg/mg 10-20 [facility] No Panel InformationOrdered By: Dr. Felix on 04-12-2022 Estimated GFR (MDRD) Amer 105 mL/min >60 [facility] Comment on above: GFR Calc Estimated GFR (MDRD) Non-Af Amer 87 mL/min >60 [facility] Comment on above: Non- GFR Calc Serum or plasma albumin alexandra urement (mass/volume)Ordered By: Dr. Felix on 04-12-2022 Albumin [Mass/Vol] 4.0 g/dL 3.2-5.0 [facility] Serum or plasma albumin/glob ulin mass ratioOrdered By: Dr. Felix on 04-12-2022 Albumin/Globulin [Mass ratio] 1.1 {ratio} 0.9-2.4 [facility] Serum or plasma calcium alexandra urement (mass/volume)Ordered By: Dr. Felix on 04-12-2022 Calcium [Mass/Vol] 9.8 mg/dL 8.5-10.1 [facility] Serum or plasma creatinine m easurement (mass/volume)Ordered By: Dr. Felix on 04-12-2022 Creatinine [Mass/Vol] 0.72 mg/dL 0.55-1.02 [facility] Comment on above: The validity of the calculated GFR & GFRAA in patients over 70 years has not been determined. Clinical correlation is essential. Serum or plasma urea nitroge n measurement (mass/volume)Ordered By: Dr. Felix on 04-12-2022 Urea nitrogen [Mass/Vol] 18 mg/dL 7-18 [facility] Thin prep Papanicolaou smear with manual screeningOrdered By: Dr. Felix on 04-12-2022 Thin prep Papanicolaou smear with manual screening 14 U/L 15-37 [facility] Thin prep Papanicolaou smear with manual screening 4 5-15 [facility] Whole blood hemoglobin A1c/t otal hemoglobin ratio (mass fraction)Ordered By: Dr. Felix on 04-12-2022 HbA1c (Bld) [Mass fraction] 6.0 % 3.8-5.6 [facility] Comment on above: Normal < 5.7 % Predi abetic 5.7 - 6.4 % Diabetic >or= 6.5 % Please note range changes. Laboratory - Hematology and Cell countson 03-01-2022 HbA1c (Bld) [Mass fraction] 5.7 % 4.2-6.3 [facility] Work Phone: Absolute lymphocyte counton 02-25-2022 Lymphocytes Auto (Unsp spec) [#/Vol] 2.38 10*3/uL 0.83-4.51 [facility] Work Phone: Basophil percentageon 2021 Basophils/100 WBC (Bld) 0.4 % 0-1 [facility] Work Phone: Bilirubin [Mass/Vol] 0.40 mg/dL 0.20-1.00 [facility] [place] Work Phone: Comment on above: For patients on eltr ombopag therapy, use of Dimension [place] TBIL is not recommended. Chloride [Moles/Vol] 107 mmol/L 98-107 [facility] [place] Work Phone: Cholesterol [Mass/Vol] 254 mg/dL <200 [facility] Work Phone: Comment on above: <200 mg/dL Desirable 200-240 mg/dL Borderline >240 mg/dL High Risk Eosinophils/100 WBC (Bld) 2.3 % 0-5 [facility] Work Phone: Glucose [Mass/Vol] 104 mg/dL 74-106 [facility] Work Phone: Comment on above: Fasting Glucose resu lt from 100 to 125 mg/dL suggests IMPAIRED HOMEOSTASIS per A.D.A. criteria. Neutrophils (Bld) [#/Vol] 3.9 10*3/uL 2.0-7.7 [facility] Work Phone: Neutrophils/100 WBC (Bld) 55.8 % 47-70 [facility] Work Phone: Potassium [Moles/Vol] 4.5 mmol/L 3.5-5.1 [facility] Work Phone: Protein [Mass/Vol] 7.6 g/dL 6.4-8.2 [facility] Work Phone: Sodium [Moles/Vol] 138 mmol/L 136-145 [facility] Work Phone: Triglyceride [Mass/Vol] 189 mg/dL <199 [facility] Work Phone: Comment on above: The drugs N-Acetylcy steine and Metamizole may falsely depress this assay.Serum Triglycerides Reference Interval Normal <150 mg/dL Borderline high 150 - 199 mg/dL High 200 - 499 mg/dL Very High > or = 500 mg/dL WBC (Bld) [#/Vol] 7.0 10*3/uL 4.4-11.0 [facility] Work Phone: Blood erythrocytes count (nu mber/volume)on 02-25-2022 RBC (Bld) [#/Vol] 4.79 10*6/uL 4.2-5.4 [facility] Work Phone: Blood hemoglobin measurement (mass/volume)on 02-25-2022 Hemoglobin (Bld) [Mass/Vol] 14.1 g/dL 12.0-15.0 [facility] Work Phone: Blood lymphocytes/100 leukoc yteson 02-25-2022 Lymphocytes/100 WBC (Bld) 33.9 % 19-41 [facility] Work Phone: Blood monocytes/100 leukocyt eson 02-25-2022 Monocytes/100 WBC (Bld) 7.5 % 0-10 [facility] Work Phone: Blood platelet mean volumeon 02-25-2022 Platelet mean volume (Bld) [Entitic vol] 11.5 fL 6.2-12.0 [facility] Work Phone: Determination of erythrocyte mean corpuscular volume (MCV)on 02-25-2022 MCV (RBC) [Entitic vol] 90.6 fL 81-99 [facility] Work Phone: Hematocrit Auto (Bld) [Volum e fraction]on 02-25-2022 Hematocrit (Bld) [Volume fraction] 43.4 % 37-47 [facility] Work Phone: Laboratory - Chemistry and C hemistry - challengeon 02-25-2022 ALP [Catalytic activity/Vol] 72 U/L 45-117 [facility] Work Phone: ALT [Catalytic activity/Vol] 25 U/L 13-56 [facility] Work Phone: CO2 [Moles/Vol] 27.0 mmol/L 21.0-32.0 [facility] Work Phone: Globulin (S) [Mass/Vol] 3.8 g/dL 2.2-4.2 [facility] Work Phone: Urea nitrogen/Creatinine [Mass ratio] 21.4 mg/mg 10-20 [facility] Work Phone: Laboratory - Hematology and Cell countson 02-25-2022 Erythrocyte distribution width (RBC) [Entitic vol] 40.3 fL 35.1-43.9 [facility] Work Phone: Erythrocyte distribution width (RBC) [Ratio] 12.1 % 11.6-14.6 [facility] Work Phone: Immature granulocytes/100 WBC (Bld) 0.100 % 0.0-0.9 [facility] Work Phone: Comment on above: IG% - Immature Granu locytes (promyelocytes, myelocytes and metamyelocytes) > 1% indicates that a LEFT SHIFT is Present. MCH (RBC) [Entitic mass] 29.4 pg 27.0-32.0 [facility] Work Phone: Nucleated RBC/100 WBC (Bld) [Ratio] 0 % 0-5 [facility] Work Phone: MCHC Auto (RBC) [Mass/Vol]on 02-25-2022 MCHC (RBC) [Mass/Vol] 32.5 g/dL 32-36 [facility] Work Phone: No Panel Informationon 02-25 Estimated GFR (MDRD) Amer 101 mL/min >60 [facility] Work Phone: Comment on above: GFR Calc Estimated GFR (MDRD) Non-Af Amer 83 mL/min >60 [facility] Work Phone: Comment on above: Non- GFR Calc Platelets bldon 02-25-2022 Platelets (Bld) [#/Vol] 231 10*3/uL 150-450 [facility] Work Phone: Serum or plasma albumin alexandra urement (mass/volume)on 02-25-2022 Albumin [Mass/Vol] 3.8 g/dL 3.2-5.0 [facility] Work Phone: Serum or plasma albumin/glob ulin mass ratioon 02-25-2022 Albumin/Globulin [Mass ratio] 1.0 {ratio} 0.9-2.4 [facility] Work Phone: Serum or plasma calcium alexandra urement (mass/volume)on 02-25-2022 Calcium [Mass/Vol] 9.4 mg/dL 8.5-10.1 [facility] Work Phone: Serum or plasma cholesterol in HDL measurement (mass/volume)on 02-25-2022 Cholesterol in HDL [Mass/Vol] 54 mg/dL >40 [facility] Work Phone: Comment on above: The drugs N-Acetylcy steine and Metamizole may falsely depress this assay. Reference Range HDL <40 mg/dL Low HDL Cholesterol HDL >or= 60 mg/dL High HDL Cholesterol Serum or plasma cholesterol in VLDL measurement (mass/volume)on 02-25-2022 Cholesterol in VLDL [Mass/Vol] 38 mg/dL 5-40 [facility] Work Phone: Serum or plasma creatinine m easurement (mass/volume)on 02-25-2022 Creatinine [Mass/Vol] 0.75 mg/dL 0.55-1.02 [facility] Work Phone: Comment on above: The validity of the calculated GFR & GFRAA in patients over 70 years has not been determined. Clinical correlation is essential. Serum or plasma low density lipoprotein (LDL) cholesterol measurement (mass/volume)on 02-25-2022 Cholesterol in LDL [Mass/Vol] 162 mg/dL 0-130 [facility] Work Phone: Serum or plasma urea nitroge n measurement (mass/volume)on 02-25-2022 Urea nitrogen [Mass/Vol] 16 mg/dL 7-18 [facility] Work Phone: Thin prep Papanicolaou smear with manual screeningon 02-25-2022 Thin prep Papanicolaou smear with manual screening 13 U/L 15-37 [facility] Work Phone: Thin prep Papanicolaou smear with manual screening 4 5-15 [facility] Work Phone: HGB A1C ([id number])Ordered By: S ystem Traffic Operator on 01-02-2022 HbA1c (Bld) [Mass fraction] 6.2 % Abnormal 4.8-5.6 [facility]; [facility] Work Phone: Comment on above: . Prediabetes: 5.7 - 6.4 Diabetes: >6.4 Glycemic control for adults with diabetes: <7.0 PATIENT WAS FASTINGP ERFORMED BY: IRWIN [id number] zuuka![facility] [id number] LIPID PANEL ([id number])Ordered B y: Medical Malpractice Paralegal on 01-02-2022 Cholesterol [Mass/Vol] 266 mg/dL Abnormal 100-199 [facility]; [facility] Work Phone: Comment on above: PATIENT WAS FASTINGP ERFORMED BY: IRWIN [id number] [place] [place] [id number] Cholesterol in HDL [Mass/Vol] 51 mg/dL Normal [facility]; [facility] Work Phone: Comment on above: PATIENT WAS FASTINGP ERFORMED BY: IRWIN [facility] [id number] [facility] [id number] Triglyceride [Mass/Vol] 168 mg/dL Abnormal 0-149 [facility]; [facility] Work Phone: Comment on above: PATIENT WAS FASTINGP ERFORMED BY: [facility] [id number] [facility] [id number] LIPID PANEL ([id number]) 31 mg/dL [facility] 5[facility]40 [facility] Work Phone: Comment on above: PATIENT WAS FASTINGP ERFORMED BY: [facility] [id number] [facility] [place] [id number] LIPID PANEL ([id number]) 184 mg/dL Abnormal 0-99 [facility] Work Phone: Comment on above: PATIENT WAS FASTINGP ERFORMED BY: [facility] [id number] [facility] [id number] LIPID PANEL ([id number]) 3.6 {ratio} Abnormal 0.0-3.2 [facility]; [facility] Work Phone: Comment on above: LDL/HDL Ratio Men Wo men 1/2 Avg.Risk 1.0 1.5 Avg.Risk 3.6 3.2 2X Avg.Risk 6.2 5.0 3X Avg.Risk 8.0 6.1 PATIENT WAS FASTINGP ERFORMED BY: [facility] [id number] [facility] [id number] CT CARDIAC SCORINGon 06-27 CT CARDIAC SCORING Patient Name: SHAVON SCHAEFFER STUDY: CT CARDIAC SCORING; 07/20/2020 8:15 am INDICATION: Essential (primary) hypertension. COMPARISON: None. ACCESSION NUMBER(S): [id number] ORDERING CLINICIAN: MARCELINO VILLATORO TECHNIQUE: Using prospective ECG gating, CT scan of the coronary arteries was performed without intravenous contrast. Coronary calcium scoring was performed according to the method of Agatston. FINDINGS: The score and distribution of calcium in the coronary arteries is as follows: LM 0, LAD 9.32, LCx 0, RCA 0, Total 9.32. The visualized mid/lower ascending thoracic aorta measures 3.2 cm in diameter. The heart is normal in size. No pericardial effusion is present. No gross evidence of mediastinal or hilar lymphadenopathy or masses is identified. The visualized segments of the lungs demonstrate minimal left basilar atelectasis.. The visualized subdiaphragmatic structures appear intact. IMPRESSION: 1. Coronary artery calcium score of 9.32.*. *Coronary artery calcium scoring may be helpful in predicting the risk for future coronary heart disease events. According to the [employer] Clinical Expert Consensus Task Force, such testing provides important prognostic information in patients with more than one coronary heart disease risk factor. The coronary artery calcium score correlates with the annual risk of a non-fatal myocardial infarction or coronary heart disease . Coronary artery score Annual Risk 0-99 0.4% 100-399 1.3% >400 2.4% These three breakpoints correspond to lower, intermediate and high risk states for future coronary events. Such information should be used, along with appropriate clinical judgment, to make decisions regarding the intensity of risk factor management strategies to treat blood lipids and to modify other non-lipid coronary risk factors. Reference: Bankston P et al. Circulation. 2007; 115:402-426 Electronically signed by: Halle KEYES MD [facility] SCREENING W TOMOon 04-01 CONSTANTIN SCREENING W MORGAN Final Report DATE OF EXAM: Apr 01 2020 8:40AM [id number] - CONSTANTIN SCREENING W MORGAN / PROCEDURE REASON: Screeing Physician Interpretation #[id number] - CONSTANTIN SCREENING W MORGAN BILATERAL DIGITAL SCREENING MAMMOGRAM TOMOSYNTHESIS WITH CAD: 04/01/2020 HISTORY: Screeing Routine screening mammogram. Patient reports no breast problems. RESULT: TECHNIQUE: The study was acquired using full field digital technology and interpreted from soft copy. Digital Breast Tomosynthesis (DBT) images were obtained and used to assist in the interpretation of this examination. Current study was also evaluated with a Computer Aided Detection (CAD). Comparison is made to exams dated: 02/12/2019 mammogram, 02/10/2018 mammogram - [facility], 11/29/2016 mammogram, 11/09/2015 mammogram, and 10/11/2014 mammogram - [facility]. There are scattered fibroglandular elements in both breasts. No significant masses, calcifications, or other findings are seen in either breast. There has been no significant interval change. IMPRESSION: NEGATIVE There is no mammographic evidence of malignancy. A 1 year screening mammogram is recommended. [place] kenny/franky:04/03/2020 07:17:50 Eligibility Worker(s): Renny Cardenas(Halle)(M), [facility] letter sent: Normal over 40 Mammogram BI-RADS: 1 Negative Multiple national specialty organizations have released breast cancer screening guidelines for women at average risk for developing breast cancer - guidelines that are based on both evidence and opinion, yet differ on when to start and how often to screen for breast cancer. With representation from Breast Imaging, Internal Medicine, Women's Health, Family Medicine, and Medical/Surgical Oncology, the [facility] has carefully reviewed the data and reached the following consensus: 1) All women should engage in shared decision-making with their providers to decide when to start and how often to screen; 2) All women should have the opportunity to start screening mammography at age 40; 3) For women ages 45-55, we recommend annual screening mammograms; 4) For women ages 55 and over, we support both the transition from an annual to a biennial interval if this aligns more with patient's values and preferences, or continuation with annual screening; 5) All women should discuss with their providers when to stop screening mammograms. Resp Therapist: Franky Transcribe Date/Time: Apr 01 2020 8:28A Dictated by : CHICO ARAGON MD This examination was interpreted and the report reviewed and electronically signed by: CHICO ARAGON MD on Apr 03 2020 7:17AM EST Normal [facility][1] System Vital Signs Date Time Vital Sign Value Performing Clinician Facility 01-14-2025 08:48-0400 Body height 167.[address] Denise Felix MD Work Phone: [facility] 01-14-2025 08:48-0400 Body mass index (BMI) [Ratio] 29.5 kg/m2 Dr. Denise Felix MD Work Phone: [facility] 01-14-2025 08:48-0400 Body temperature 97.1 [degF] Dr. Denise Felix MD Work Phone: [facility] 01-14-2025 08:48-0400 Body weight 83.[address] Denise Felix MD Work Phone: [facility] 01-14-2025 08:48-0400 Diastolic blood pressure 64 mm[Hg] Dr. Denise Felix MD Work Phone: [facility] 01-14-2025 08:48-0400 Heart rate 51 /min Dr. Denise Felix MD Work Phone: [facility] 01-14-2025 08:48-0400 Respiratory rate 16 /min Dr. Denise Felix MD Work Phone: [facility] 01-14-2025 08:48-0400 SaO2% (BldA) [Mass fraction] 100 % Dr. Denise Felix MD Work Phone: [facility] 01-14-2025 08:48-0400 Systolic blood pressure 122 mm[Hg] Dr. Denise Felix MD Work Phone: [facility] 01-12-2025 08:40-0400 Body height 166.4 cm Gato Barrios MD Work Phone: [facility] 01-12-2025 08:40-0400 Body mass index (BMI) [Ratio] 30.55 kg/m2 Gato Barrios MD Work Phone: [facility] 01-12-2025 08:40-0400 Body weight 84.55 kg Gato Barrios MD Work Phone: [facility] 01-12-2025 08:40-0400 Diastolic blood pressure 57 mm[Hg] Gato Barrios MD Work Phone: [facility] 01-12-2025 08:40-0400 Heart rate 56 /min Gato Barrios MD Work Phone: [facility] 01-12-2025 08:40-0400 SaO2% (BldA) [Mass fraction] 100 % Gato Barrios MD Work Phone: [facility] 01-12-2025 08:40-0400 Systolic blood pressure 126 mm[Hg] Gato Barrios MD Work Phone: [facility] 12-22-2024 09:14-0400 Body height 167.[address] Denise Felix MD Work Phone: [facility] 12-22-2024 09:14-0400 Body weight 83.[address] Denise Felix MD Work Phone: [facility] 11-03-2024 08:40-0400 Body height 167.[address] Denise Felix MD Work Phone: [facility] 11-03-2024 08:40-0400 Body weight 83.[address] Denise Felix MD Work Phone: [facility] 10-15-2024 09:29-0400 Body height 167.[address] Denise Felix MD Work Phone: [facility] 10-15-2024 09:29-0400 Body mass index (BMI) [Ratio] 29.7 kg/m2 Dr. Denise Felix MD Work Phone: [facility] 10-15-2024 09:29-0400 Body temperature 97.9 [degF] Dr. Denise Felix MD Work Phone: [facility] 10-15-2024 09:29-0400 Body weight 83.[address] Denise Felix MD Work Phone: [facility] 10-15-2024 09:29-0400 Diastolic blood pressure 68 mm[Hg] Dr. Denise Felix MD Work Phone: [facility] 10-15-2024 09:29-0400 Heart rate 58 /min Dr. Denise Felix MD Work Phone: [facility] 10-15-2024 09:29-0400 Respiratory rate 16 /min Dr. Denise Felix MD Work Phone: [facility] 10-15-2024 09:29-0400 SaO2% (BldA) [Mass fraction] 98 % Dr. Denise Felix MD Work Phone: [facility] 10-15-2024 09:29-0400 Systolic blood pressure 128 mm[Hg] Dr. Denise Felix MD Work Phone: [facility] 08-25-2024 14:30-0400 Body height 167.[address] Denise Felix MD Work Phone: [facility] 08-25-2024 14:30-0400 Body weight 84.[address] Denise Felix MD Work Phone: [facility] 07-21-2024 14:30-0400 Body height 167.[address] Denise Felix MD Work Phone: [facility] 07-21-2024 14:30-0400 Body weight 86.[address] Denise Felix MD Work Phone: [facility] 07-09-2024 08:28-0400 Body mass index (BMI) [Ratio] 30 kg/m2 Dr. Denise Felix MD Work Phone: [facility] 07-09-2024 08:28-0400 Body temperature 97.3 [degF] Dr. Denise Felix MD Work Phone: [facility] 07-09-2024 08:28-0400 Body weight 84.[address] Denise Felix MD Work Phone: [facility] 07-09-2024 08:28-0400 Diastolic blood pressure 78 mm[Hg] Dr. Denise Felix MD Work Phone: [facility] 07-09-2024 08:28-0400 Heart rate 94 /min Dr. Denise Felix MD Work Phone: [facility] 07-09-2024 08:28-0400 Respiratory rate 16 /min Dr. Denise Felix MD Work Phone: [facility] 07-09-2024 08:28-0400 SaO2% (BldA) [Mass fraction] 95 % Dr. Denise Felix MD Work Phone: [facility] 07-09-2024 08:28-0400 Systolic blood pressure 134 mm[Hg] Dr. Denise Felix MD Work Phone: [facility] 06-16-2024 15:00-0500 Body weight 86.[address] Denise Felix MD Work Phone: [facility] 04-14-2024 13:56-0500 Body weight 85.[address] Denise Felix MD Work Phone: [facility] 04-12-2024 15:16-0500 Body mass index (BMI) [Ratio] 29.4 kg/m2 Dr. Denise Felix MD Work Phone: [facility] 04-12-2024 15:16-0500 Body temperature 98.8 [degF] Dr. Denise Felix MD Work Phone: [facility] 04-12-2024 15:16-0500 Body weight 83.[address] Denise Felix MD Work Phone: [facility] 04-12-2024 15:16-0500 Diastolic blood pressure 76 mm[Hg] Dr. Denise Felix MD Work Phone: [facility] 04-12-2024 15:16-0500 Heart rate 69 /min Dr. Denise Felix MD Work Phone: [facility] 04-12-2024 15:16-0500 Respiratory rate 16 /min Dr. Denise Felix MD Work Phone: [facility] 04-12-2024 15:16-0500 SaO2% (BldA) [Mass fraction] 98 % Dr. Denise Felix MD Work Phone: [facility] 04-12-2024 15:16-0500 Systolic blood pressure 110 mm[Hg] Dr. Denise Felix MD Work Phone: [facility] 12-09-2023 07:26-0400 Diastolic blood pressure 67 mm[Hg] Gato Barrios MD Work Phone: [facility] 12-09-2023 07:26-0400 Heart rate 62 /min Gato Barrios MD Work Phone: [facility] 12-09-2023 07:26-0400 Systolic blood pressure 124 mm[Hg] Gato Barrios MD Work Phone: [facility] 12-09-2023 07:22-0400 Body height 168.9 cm Gato Barrios MD Work Phone: [facility] 12-09-2023 07:22-0400 Body mass index (BMI) [Ratio] 29.91 kg/m2 Gato Barrios MD Work Phone: [facility] 12-09-2023 07:22-0400 Body weight 85.32 kg Gato Barrios MD Work Phone: [facility] 08-15-2023 08:13-0400 Body height 166.[address] Denise Felix Work Phone: [facility] 08-15-2023 08:13-0400 Body mass index (BMI) [Ratio] 32.1 kg/m2 Dr. Denise Felix Work Phone: [facility] 08-15-2023 08:13-0400 Body temperature 97.6 [degF] Dr. Denise Felix Work Phone: [facility] 08-15-2023 08:13-0400 Body weight 88.[address] Denise Felix Work Phone: [facility] 08-15-2023 08:13-0400 Diastolic blood pressure 60 mm[Hg] Dr. Denise Felix Work Phone: [facility] 08-15-2023 08:13-0400 Heart rate 76 /min Dr. Denise Felix Work Phone: [facility] 08-15-2023 08:13-0400 Respiratory rate 16 /min Dr. Denise Felix Work Phone: [facility] 08-15-2023 08:13-0400 SaO2% (BldA) [Mass fraction] 99 % Dr. Denise Felix Work Phone: [facility] 08-15-2023 08:13-0400 Systolic blood pressure 120 mm[Hg] Dr. Denise Felix Work Phone: [facility] 04-25-2023 08:28-0500 Body height 166.[address] Denise Felix Work Phone: [facility] 04-25-2023 08:28-0500 Body mass index (BMI) [Ratio] 33.8 kg/m2 Dr. Denise Felix Work Phone: [facility] 04-25-2023 08:28-0500 Body temperature 97.6 [degF] Dr. Denise Felix Work Phone: [facility] 04-25-2023 08:28-0500 Body weight 93.[address] Denise Felix Work Phone: [facility] 04-25-2023 08:28-0500 Diastolic blood pressure 68 mm[Hg] Dr. Denise Felix Work Phone: [facility] 04-25-2023 08:28-0500 Heart rate 68 /min Dr. Denise Felix Work Phone: [facility] 04-25-2023 08:28-0500 Respiratory rate 16 /min Dr. Denise Felix Work Phone: [facility] 04-25-2023 08:28-0500 SaO2% (BldA) [Mass fraction] 99 % Dr. Denise Felix Work Phone: [facility] 04-25-2023 08:28-0500 Systolic blood pressure 122 mm[Hg] Dr. Denise Felix Work Phone: [facility] 03-13-2023 14:34-0500 Body height 167.6 cm Steve Simeon MD Work Phone: [facility] 03-13-2023 14:34-0500 Body weight 93.44 kg Steve Simeon MD Work Phone: [facility] 03-13-2023 14:34-0500 Diastolic blood pressure 81 mm[Hg] Steve Simeon MD Work Phone: [facility] 03-13-2023 14:34-0500 Heart rate 66 /min Steve Simeon MD Work Phone: [facility] 03-13-2023 14:34-0500 Systolic blood pressure 120 mm[Hg] Steve Simeon MD Work Phone: [facility] 02-28-2023 08:47-0400 Body mass index (BMI) [Ratio] 34.9 kg/m2 Dr. Denise Felix Work Phone: [facility] 02-28-2023 08:47-0400 Diastolic blood pressure 84 mm[Hg] Dr. Denise Felix Work Phone: [facility] 02-28-2023 08:47-0400 Systolic blood pressure 142 mm[Hg] Dr. Denise Felix Work Phone: [facility] 02-28-2023 08:29-0400 Body temperature 98.1 [degF] Dr. Denise Felix Work Phone: [facility] 02-28-2023 08:29-0400 Body weight 96.[address] Denise Felix Work Phone: [facility] 02-28-2023 08:29-0400 Heart rate 58 /min Dr. Denise Felix Work Phone: [facility] 02-28-2023 08:29-0400 Respiratory rate 16 /min Dr. Denise Felix Work Phone: [facility] 02-28-2023 08:29-0400 SaO2% (BldA) [Mass fraction] 97 % Dr. Denise Felix Work Phone: [facility] 02-03-2023 11:27-0400 Diastolic blood pressure 61 mm[Hg] Dr. Denise Felix Work Phone: [facility] 02-03-2023 11:27-0400 Heart rate 62 /min Dr. Denise Felix Work Phone: [facility] 02-03-2023 11:27-0400 Respiratory rate 16 /min Dr. Denise Felix Work Phone: [facility] 02-03-2023 11:27-0400 SaO2% (BldA) [Mass fraction] 98 % Dr. Denise Felix Work Phone: [facility] 02-03-2023 11:27-0400 Systolic blood pressure 123 mm[Hg] Dr. Denise Felix Work Phone: [facility] 02-03-2023 09:17-0400 Body height 166.[address] Denise Felix Work Phone: [facility] 02-03-2023 09:17-0400 Body mass index (BMI) [Ratio] 35.9 kg/m2 Dr. Denise Felix Work Phone: [facility] 02-03-2023 09:17-0400 Body temperature 97.1 [degF] Dr. Denise Felix Work Phone: [facility] 02-03-2023 09:17-0400 Body weight 99.[address] Denise Felix Work Phone: [facility] 01-17-2023 08:25-0400 Body mass index (BMI) [Ratio] 33 kg/m2 Dr. Denise Felix Work Phone: [facility] 01-17-2023 08:25-0400 Body temperature 98.1 [degF] Dr. Denise Felix Work Phone: [facility] 01-17-2023 08:25-0400 Body weight 92.[address] Denise Felix Work Phone: [facility] 01-17-2023 08:25-0400 Diastolic blood pressure 78 mm[Hg] Dr. Denise Felix Work Phone: [facility] 01-17-2023 08:25-0400 Heart rate 56 /min Dr. Denise Felix Work Phone: [facility] 01-17-2023 08:25-0400 Respiratory rate 16 /min Dr. Denise Felix Work Phone: [facility] 01-17-2023 08:25-0400 SaO2% (BldA) [Mass fraction] 99 % Dr. Denise Felix Work Phone: [facility] 01-17-2023 08:25-0400 Systolic blood pressure 120 mm[Hg] Dr. Denise Felix Work Phone: [facility] 12-05-2022 14:28-0400 Body mass index (BMI) [Ratio] 33.9 kg/m2 Dr. Denise Felix Work Phone: [facility] 12-05-2022 14:28-0400 Body temperature 98.4 [degF] Dr. Denise Felix Work Phone: [facility] 12-05-2022 14:28-0400 Body weight 95.[address] Denise Felix Work Phone: [facility] 12-05-2022 14:28-0400 Diastolic blood pressure 70 mm[Hg] Dr. Denise Felix Work Phone: [facility] 12-05-2022 14:28-0400 Heart rate 69 /min Dr. Denise Felix Work Phone: [facility] 12-05-2022 14:28-0400 Respiratory rate 16 /min Dr. Denise Felix Work Phone: [facility] 12-05-2022 14:28-0400 SaO2% (BldA) [Mass fraction] 98 % Dr. Denise Felix Work Phone: [facility] 12-05-2022 14:28-0400 Systolic blood pressure 122 mm[Hg] Dr. Denise Felix Work Phone: [facility] 11-07-2022 09:56-0400 Body mass index (BMI) [Ratio] 34 kg/m2 Dr. Denise Felix Work Phone: [facility] 11-07-2022 09:56-0400 Body weight 95.[address] Denise Felix Work Phone: [facility] 11-07-2022 09:56-0400 Diastolic blood pressure 83 mm[Hg] Dr. Denise Felix Work Phone: [facility] 11-07-2022 09:56-0400 Heart rate 56 /min Dr. Denise Felix Work Phone: [facility] 11-07-2022 09:56-0400 Respiratory rate 16 /min Dr. Denise Felix Work Phone: [facility] 11-07-2022 09:56-0400 Systolic blood pressure 147 mm[Hg] Dr. Denise Felix Work Phone: [facility] 07-12-2022 09:53-0400 Body height 167.[address] Denise Felix Work Phone: [facility] 07-12-2022 09:53-0400 Body mass index (BMI) [Ratio] 35.7 kg/m2 Dr. Denise Felix Work Phone: [facility] 07-12-2022 09:53-0400 Body temperature 96.7 [degF] Dr. Denise Felix Work Phone: [facility] 07-12-2022 09:53-0400 Body weight 100.[address] Denise Felix Work Phone: [facility] 07-12-2022 09:53-0400 Diastolic blood pressure 72 mm[Hg] Dr. Denise Felix Work Phone: [facility] 07-12-2022 09:53-0400 Heart rate 61 /min Dr. Denise Felix Work Phone: [facility] 07-12-2022 09:53-0400 Respiratory rate 16 /min Dr. Denise Felix Work Phone: [facility] 07-12-2022 09:53-0400 SaO2% (BldA) [Mass fraction] 99 % Dr. Denise Felix Work Phone: [facility] 07-12-2022 09:53-0400 Systolic blood pressure 118 mm[Hg] Dr. Denise Felix Work Phone: [facility] 04-12-2022 10:47-0500 Body height 167.[address] Denise Felix Work Phone: [facility] Work Phone: 04-12-2022 10:47-0500 Body mass index (BMI) [Ratio] 38.2 kg/m2 Dr. Denise Felix Work Phone: [facility] 04-12-2022 10:47-0500 Body temperature 96.8 [degF] Dr. Denise Felix Work Phone: [facility] 04-12-2022 10:47-0500 Body weight 107.[address] Denise Felix Work Phone: [facility] 04-12-2022 10:47-0500 Diastolic blood pressure 80 mm[Hg] Dr. Denise Felix Work Phone: [facility] 04-12-2022 10:47-0500 Heart rate 59 /min Dr. Denise Felix Work Phone: [facility] 04-12-2022 10:47-0500 Respiratory rate 16 /min Dr. Denise Felix Work Phone: [facility] 04-12-2022 10:47-0500 SaO2% (BldA) [Mass fraction] 99 % Dr. Denise Felix Work Phone: [facility] 04-12-2022 10:47-0500 Systolic blood pressure 122 mm[Hg] Dr. Denise Felix Work Phone: [facility] 03-11-2022 08:27-0500 Body mass index (BMI) [Ratio] 39.4 kg/m2 Dr. Denise Felix Work Phone: [facility] Work Phone: 03-11-2022 08:27-0500 Body weight 110.[address] Denise Felix Work Phone: [facility] Work Phone: 03-01-2022 09:01-0400 Body height 167.[address] Denise Felix Work Phone: [facility] Work Phone: 03-01-2022 09:01-0400 Body mass index (BMI) [Ratio] 39.4 kg/m2 Dr. Denies Felix Work Phone: [facility] Work Phone: 03-01-2022 09:01-0400 Body temperature 97.2 [degF] Dr. Denise Felix Work Phone: [facility] Work Phone: 03-01-2022 09:01-0400 Body weight 110.[address] Denise Felix Work Phone: [facility] Work Phone: 03-01-2022 09:01-0400 Diastolic blood pressure 88 mm[Hg] Dr. Denies Felix Work Phone: [facility] Work Phone: 03-01-2022 09:01-0400 Heart rate 71 /min Dr. Denise Felix Work Phone: [facility] Work Phone: 03-01-2022 09:01-0400 Respiratory rate 16 /min Dr. Denise Felix Work Phone: [facility] Work Phone: 03-01-2022 09:01-0400 SaO2% (BldA) [Mass fraction] 98 % Dr. Denise Felix Work Phone: [facility] Work Phone: 03-01-2022 09:01-0400 Systolic blood pressure 128 mm[Hg] Dr. Denise Felix Work Phone: [facility] Work Phone: 01-02-2022 11:56-0400 Body height 167.64 cm Viki [...] [facility]; [facility] Work Phone: Comment on above: Patient Position: Sitting; Cuff Location : Left Arm; Cuff Size: Standard 01-02-2022 11:56-0400 Heart rate 61 /min Viki Mg LPN [facility]; [facility] Work Phone: Comment on above: Pattern: Regular 01-02-2022 11:56-0400 Respiratory rate 16 /min Vkii Mg LPN [facility]; [facility] Work Phone: Comment on above: Pattern: Unlabored 01-02-2022 11:56-0400 SaO2% (BldA) [Mass fraction] 97 % Viki Mg LPN [facility]; [facility] Work Phone: Comment on above: Room air 01-02-2022 11:56-0400 Systolic blood pressure 130 mm[Hg] Viki Mg LPN [facility]; [facility] Work Phone: Comment on above: Patient Position: Sitting; Cuff Location : Left Arm; Cuff Size: Standard 11-05-2021 14:28-0400 Body mass index (BMI) [Ratio] 39.6 kg/m2 Dr. Denise Felix Work Phone: [facility] Work Phone: 11-05-2021 14:28-0400 Body temperature 98.6 [degF] Dr. Denise Felix Work Phone: [facility] Work Phone: 11-05-2021 14:28-0400 Body weight 111.[address] Denise Felix Work Phone: [facility] Work Phone: 11-05-2021 14:28-0400 Diastolic blood pressure 76 mm[Hg] Dr. Denise Felix Work Phone: [facility] Work Phone: 11-05-2021 14:28-0400 Heart rate 68 /min Dr. Denise Felix Work Phone: [facility] Work Phone: 11-05-2021 14:28-0400 Respiratory rate 18 /min Dr. Denise Felix Work Phone: [facility] Work Phone: 11-05-2021 14:28-0400 SaO2% (BldA) [Mass fraction] 96 % Dr. Denise Felix Work Phone: [facility] Work Phone: 11-05-2021 14:28-0400 Systolic blood pressure 124 mm[Hg] Dr. Denise Felix Work Phone: [facility] Work Phone: Encounters Encounter Date Encounter Type Care Provider Facility Start: 01-14-2025 End: 01-14-[address] Denise Felix MD -[facility] Work Phone: Start: 01-14-2025 End: 01-14-[address] Denise Felix MD [facility] Start: 01-14-2025 End: 01-14-[address] Denise Felix MD Work Phone: -[facility] Start: 01-12-2025 End: 01-12-2025 ambulatory GATO BARRIOS Facility:[facility] Start: 01-12-2025 End: 01-12-2025 Office outpatient visit 25 minutes Gato Barrios MD Work Phone: [facility] Comment on above: Coronary artery calc ification (Primary Dx); Hypercalcemia; Class 1 obesity due to excess calories with serious comorbidity and body mass index (BMI) of 30.0 to 30.9 in adult; Pure hypercholesterolemia Start: 01-12-2025 End: 01-12-2025 ambulatory GATO TAGRACIELA Facility:[facility] Start: 12-22-2024 End: 12-26-[address] Denise Felix MD Work Phone: -[facility] Start: 12-22-2024 End: 12-26-[address] Denise Felix MD -[facility] Work Phone: Start: 11-03-2024 End: 11-25-[address] Denise Felix MD -[facility] Services Work Phone: Start: 11-03-2024 End: 11-25-[address] Denise Felix MD Work Phone: -N[facility]al Services Start: 10-15-2024 End: 10-15-[address] Denise Felix MD -[facility] Work Phone: Start: 10-15-2024 End: 10-15-[address] Denise Felix MD Work Phone: [facility] Work Phone: Start: 10-11-2024 End: 10-11-[address] Denise Felix MD Work Phone: [facility] Work Phone: Start: 10-11-2024 End: 10-11-[address] Denise Felix MD -[facility] Start: 10-11-2024 End: 10-11-2024 ambulatory [facility] Facility:[facility] Start: 08-25-2024 End: 08-25-[address] Denise Felix MD -Nutritional Services Work Phone: Start: 08-25-2024 End: 08-25-2024 ambulatory [facility] Facility:[facility] Start: 07-21-2024 End: 07-26-[address] Denise Felix MD -N[facility]al Services Work Phone: Start: 07-21-[address] Mel Felix MD -Nutritional Services Work Phone: Start: 07-21-2024 End: 07-26-[address] Denise Felix MD Work Phone: [facility] Work Phone: Start: 07-20-2024 End: 07-20-[address] Denise Felix MD Work Phone: [facility] Work Phone: Start: 07-20-2024 End: 07-20-[address] Denise Felix MD -Outpatient Bone Densitometry Work Phone: Start: 07-20-2024 End: 07-20-2024 ambulatory [facility] Facility:[facility] Start: 07-09-2024 End: 07-09-[address] Denise Felix MD -[facility] Work Phone: Start: 07-09-2024 End: 07-09-[address] Denise Felix MD [facility] Start: 07-09-2024 End: 07-09-2024 ambulatory [facility] Facility:[facility] Start: 06-28-2024 End: 06-28-2024 Orders Only Gato Barrios MD Work Phone: [facility] Comment on above: Primary hypertension (Primary Dx) Start: 06-18-2024 ambulatory PRISCILLA RODGERS Fac ility:[facility] Start: 06-18-2024 End: 06-18-2024 Subsequent hospital visit by physician Screen Mammo [place] [facility] MAMMO REFLECTIONS [facility] Comment on above: Encounter for screen ing mammogram for malignant neoplasm of breast [Z12.31] Start: 06-16-2024 End: 06-25-[address] Denise Felix MD -Nutritional Services Work Phone: Start: 06-16-2024 End: 06-25-2024 ambulatory [facility] Facility:[facility] Start: 06-14-2024 End: 06-14-[address] Denise Felix MD -Laboratory, [place] Start: 06-14-2024 End: 06-14-2024 ambulatory [facility] Facility:[facility] Start: 04-14-2024 End: 04-27-[address] Denise Felix MD -Nutritional Services Work Phone: Start: 04-14-2024 End: 04-27-2024 ambulatory [facility] Facility:[facility] Start: 04-12-2024 End: 04-12-[address] Denise Felix MD -[facility] Work Phone: Start: 04-12-2024 End: 04-12-2024 ambulatory [facility] Facility:[facility] Start: 04-12-2024 End: 04-12-2024 ambulatory [facility] Facility:[facility] Start: 03-10-2024 End: 03-27-2024 ambulatory Denise Felix Facility:[facility] Start: 12-31-[address] Jacky Felix MD Work Phone: [facility] Start: 12-09-2023 End: 12-09-2023 Orders Only Gato Barrios MD Work Phone: [facility] Comment on above: Sinus bradycardia (P rimary Dx) Event (Zio patch ) Start: 12-09-2023 End: 12-09-2023 Office outpatient new 45 minutes Gato Barrios MD Work Phone: [facility] Comment on above: Sinus bradycardia (P rimary Dx); Prediabetes; Pure hypercholesterolemia; Overweight (BMI 25.0-29.9); Coronary artery calcification Start: 08-25-2023 End: 08-25-[address] Denise Felix Work Phone: [facility] Work Phone: Start: 08-25-2023 End: 08-25-[address] Denise Felix Work Phone: [facility] Work Phone: Start: 08-15-2023 End: 08-15-[address] Denise Felix Work Phone: [facility] Work Phone: Start: 08-15-2023 End: 08-15-[address] Denise Felix Work Phone: [facility]-Laboratory, [place] Start: 08-15-2023 End: 08-15-[address] Denise Felix Work Phone: [facility] Internal Medicine Work Phone: Start: 08-08-2023 Orders Only Gato bernal MD Work Phone: [facility] Comment on above: Undiagnosed cardiac murmurs (Primary Dx); Essential hypertension; Non-rheumatic tricuspid valve insufficiency; Syncope, unspecified syncope type; Sinus bradycardia Start: 06-25-2023 Orders Only García johnson MD Work Phone: Cardiology Comment on above: Aortic valve disease (Primary Dx) Start: 06-16-2023 Documentation procedure Mammog gerber Coordinator [facility] Start: 06-16-2023 Letter encounter Mammography Coordinator [place] [facility] NOT LISTED Start: 06-16-2023 End: 06-16-2023 Subsequent hospital visit by physician Screen Mammo [place] [facility] MAMMO REFLECTIONS [facility] Comment on above: SCREENING Start: 04-25-2023 End: 04-25-[address] Denise Felix Work Phone: [facility] Work Phone: Start: 04-25-2023 End: 04-25-[address] [facility] Start: 04-25-2023 End: 04-25-[address] Denise Felix Work Phone: [facility] Work Phone: Start: 04-25-2023 End: 04-25-[address] Denise Felix Work Phone: [facility] Internal Medicine Work Phone: Start: 03-13-2023 End: 03-13-2023 Patient encounter procedure Steve Simeon MD Work Phone: [facility] (ENT) Comment on above: Nasal vestibulitis ( Primary Dx); Ceruminosis, bilateral Start: 02-28-2023 End: 02-28-[address] Denise Felix Work Phone: [facility] Endocrinology Work Phone: Start: 02-06-[address] Mel Felix Work Phone: [facility]-Physical Therapy Work Phone: Start: 02-03-2023 End: 02-03-[address] Denise Felix Work Phone: [facility] Work Phone: Start: 02-03-2023 End: 02-03-[address] Denise Felix Work Phone: [facility]-Pulmonary Services/Neurology Work Phone: Start: 02-03-2023 End: 02-03-2023 Emergency department patient visit Dr. Denise Felix Work Phone: [facility]-Emergency Department Work Phone: Start: 01-24-2023 End: 01-24-2023 Subsequent hospital visit by physician Bone Density [place] RADIO BONE DENSITY [facility] Comment on above: Encounter for screen ing for osteoporosis [Z13.820] Start: 01-17-[address] Jacky Felix Work Phone: [facility] Start: 01-17-2023 End: 01-17-2023 Emergency department patient visit Dr. Denise Felix Work Phone: [facility] Start: 01-17-2023 End: 01-17-[address] Denise Felix Work Phone: [facility] Internal Medicine Work Phone: Start: 12-06-2022 Non-patient / Non-visit Dr. Herminio Felix Work Phone: [facility] Work Phone: Start: 12-05-2022 End: 12-05-[address] Denise Felix Work Phone: [facility] Internal Medicine Work Phone: Start: 11-21-2022 Non-patient / Non-visit Dr. Herminio Felix Work Phone: [facility] Work Phone: Start: 11-19-2022 Non-patient / Non-visit Dr. Herminio Felix Work Phone: [facility] Start: 11-19-2022 Non-patient / Non-visit Dr. Herminio Felix Work Phone: [facility] Start: 11-19-2022 End: 11-19-[address] Denise Felix Work Phone: [facility]-Cardiovascul ar Services Work Phone: Start: 11-07-2022 End: 11-07-2022 Admission to same day surgery center Dr. Denise Felix Work Phone: [facility] Start: 11-07-2022 End: 11-07-[address] Denise Felix Work Phone: [facility] Work Phone: Start: 07-16-2022 End: 07-16-[address] Denise Felix Work Phone: [facility] Work Phone: Start: 07-16-2022 End: 07-16-[address] Denise Felix Work Phone: [facility] Start: 07-12-2022 End: 07-12-[address] Denise Felix Work Phone: [facility] Internal Medicine Start: 06-14-2022 Documentation procedure Mammog gerber Coordinator [facility] Start: 06-14-2022 Letter encounter Mammography Coordinator [place] [facility] NOT LISTED Start: 06-14-2022 Non-patient / Non-visit Dr. Herminio Felix Work Phone: [facility] Start: 06-14-[address] Gabby Felix Work Phone: [facility]-Cardiovascul ar Services Start: 06-13-2022 End: 06-13-2022 Subsequent hospital visit by physician Screen Mammo [place] [facility] MAMMO REFLECTIONS [facility] Comment on above: screening Start: 04-12-2022 End: 04-12-[address] Denise Felix Work Phone: [facility] Work Phone: Start: 04-12-2022 End: 04-12-[address] Denise Felix Work Phone: [facility] Internal Medicine Start: 03-11-2022 End: 03-11-[address] Denise Felix Work Phone: [facility] Internal Medicine Start: 03-01-2022 End: 03-01-[address] Denise Felix Work Phone: [facility] Internal Medicine Start: 02-25-2022 End: 02-25-[address] Denise Felix Work Phone: [facility] Work Phone: Start: 02-25-2022 End: 02-25-[address] Denise Felix Work Phone: [facility]-Laboratory, [facility] Start: 01-29-2022 Review Sakshi monzon DO Work Phone: [facility] Start: 01-02-2022 End: 01-02-2022 Office outpatient visit 15 minutes Sakshi Castillo DO Work Phone: [facility] Start: 01-02-2022 End: 01-02-2022 Patient encounter status Sakshi Castillo DO Work Phone: [facility] Start: 11-05-2021 End: 11-05-[address] Denise Felix Work Phone: [facility] Internal Medicine Patient encounter status Ernesto Castillo DO Work Phone: [facility]; [facility] Work Phone: Procedures Date Procedure Procedure Detail Performing Clinician Start: 10-11-[address] Denise Felix MD Work Phone: Start: 10-11-2024 Vitamin D, 25-hydrox y measurement Dr. Denise Felix MD Work Phone: Comment on above: Vitamin D StatusDefi ciency: <20 ng/mL (50nmol/L)Insufficiency: 20-30 ng/mL (50-75 nmol/L)Sufficiency: 30-100 ng/mL (75-250 nmol/L)Toxicity: >100 ng/mL (>250 nmol/L) Start: 07-20-2024 Body Composition - Initial Dr. Denise Felix MD Work Phone: Start: 08-25-2023 US scan of thyroid Dr. Denise Felix Work Phone: Start: 06-16-2023 Screening digital br east tomosynthesis bi Jeannie Felipe SENIOR FORMULATION SCIENTIST Work Phone: Start: 02-03-2023 CT angiography of ch est with contrast Dr. Denise Felix Work Phone: Start: 01-17-[address] Mel Felix Work Phone: Start: 07-16-2022 US scan of thyroid Dr. Denise Felix Work Phone: Start: 06-13-2022 Mammography Mammograph y Coordinator Start: 06-11-2021 Mammography Screen Bat h Start: 06-22-2020 Lipid 1996 panel - S fartun or Plasma Steve Simeon MD Work Phone: Start: 02-22-2005 Lipid 1996 panel - S fartun or Plasma Bone Bath Bunion L foot Viki Mg LPN Comment on above: Left. 2019 carpal tunnel Viki Mg LPN Comment on above: Right. right wrist, 2020 H/O: surgery History of remov al of cyst Dr. Denise Felix Work Phone: History of decompres mark of median nerve History of carpal tunnel release Dr. Denise Felix Work Phone: Plan of Treatment Date Care Activity Detail Author Start: 11-19-2034 RSV Vaccine (1 - 1-dose 75+ series) RSV Vaccine (1 - 1-dose 75+ series) [facility] Start: 07-19-2025 End: 07-19-2025 Patient encounter procedure 07/19/2025 12:30 PM EDT Office Visit [facility] [address] [id number] Gato Barrios MD [address] [place] [address] 6MN FU [facility] Comment on above: 6MN FU Start: 07-12-2025 End: 10-11-2025 Comprehensive metabolic 2000 panel - Serum or Plasma COMPREHENSIVE METABOLIC PANEL Lab Routine Coronary artery calcification Expected: 07/12/2025, Expires: 10/11/2025 [facility] Comment on above: Expected: 07/12/2025, Expires: Start: 07-12-2025 End: 10-11-2025 Lipid 1996 panel - Serum or Plasma LIPID PANEL, FASTING Lab Routine Coronary artery calcification Expected: 07/12/2025, Expires: 10/11/2025 [facility] Comment on above: Expected: 07/12/2025, Expires: Start: 06-22-2025 Lipid 1996 panel - Serum or Plasma Lipid Screening [facility] Start: 06-22-2025 Lipid panel Lipid Screening [facility] Start: 06-18-2025 Screening for malignant neoplasm of breast Mammogram Screening [facility] Start: 03-09-2025 ambulatory Ambulatory Facility:[facility] Start: 02-11-2025 End: 05-13-2025 Comprehensive metabolic 2000 panel - Serum or Plasma COMPREHENSIVE METABOLIC PANEL Lab Routine Hypercalcemia Expected: 02/11/2025, Expires: 05/13/2025 [facility] Comment on above: Expected: 02/11/2025, Expires: Start: 01-13-2025 End: 01-13-2025 Patient encounter procedure Cardiology Comment on above: Est Prevent Start: 01-12-2025 End: 04-13-2025 25-hydroxyvitamin D3 [Mass/volume] in Serum or Plasma [facility] Work Phone: Comment on above: Expected: 01/12/2025, Expires: Start: 01-12-2025 End: 04-13-2025 Parathyrin.intact [Mass/volume] in Serum or Plasma [facility] Comment on above: Expected: 01/12/2025, Expires: Start: 12-27-2024 Influenza vaccination Influ[facility] (#[facility]) [facility] Start: 12-08-2024 BP Controlled (<130/80) BP Controlled (<130/80) [facility] Start: 11-19-2024 Advance Directive Discussion Advance Directive Discussion [facility] Start: 06-16-2024 Screening for malignant neoplasm of breast Mammogram Screening [facility] Start: 01-01-2024 End: 01-01-2024 Patient encounter procedure 01/01/2024 2:30 PM EDT Office Visit Cardiology [address] [place] [address] Sinus bradycardia [R00.1] Cardiology Comment on above: Sinus bradycardia [R00.1] Start: 12-28-2023 Covid-19 Vaccine () Covid-19 Vaccine () [facility] Start: 12-28-2023 Influenza vaccination [facility] Start: 12-09-2023 End: 12-08-2024 Echocardiography ECHO Cardiology Routine Sinus bradycardia Expected: 12/09/2023, Expires: 12/08/[address] [facility] Work Phone: Comment on above: Expected: 12/09/2023, Expires: Start: 09-02-2023 Urine microalbumin profile [facility] Start: 06-22-2023 DIABETES SCREEN DIABETES SCREEN [facility] Start: 06-22-2023 Diabetes Screening Diabetes Screening [facility] Start: 06-13-2023 Mammography [facility] Start: 06-13-2023 Screening for malignant neoplasm of breast Mammogram Screening [facility] Start: 04-28-2023 Behavioral Health Screening Behavioral Health Screening [facility] Start: 04-28-2023 Depression Assessment Depression Assessment [facility] Start: 02-03-2023 [facility] Start: 12-27-2022 Covid-19 Vaccine () Covid-19 Vaccine () [facility] Start: 12-27-2022 Influenza vaccination Influenza Vaccine (#1) [facility] Start: 07-16-2022 Fine needle aspiration bx w/o img gdn 1st lesion FNA BX W/O IMG GDN 1ST LES [facility] Start: 06-11-2022 Mammography MAMMOGRAM [facility] Start: 04-28-2022 DEPRESSION ASSESSMENT DEPRESSION ASSESSMENT [facility] Start: 01-02-2022 Procedure Education Eprescribed prescriptions (G8553) [facility]; [facility] Work Phone: Start: 12-27-2021 Influenza vaccination INFLUENZA (#1) [facility] Start: 06-22-2021 Hepatitis B surface antibody level LDL Cholesterol [facility] Start: 09-25-2020 COVID-19 VACCINE (3 - Booster for Moderna series) COVID-19 VACCINE (3 - Booster for Moderna series) [facility] Start: 09-25-2020 Covid-19 Vaccine (3 - Moderna series) Covid-19 Vaccine (3 - Moderna series) [facility] Start: 2019 RSV Vaccine (1 - 1-dose 60+ series) RSV Vaccine (1 - 1-dose 60+ series) [facility] Start: 02-22-2010 Lipid 1996 panel - Serum or Plasma Lipid Screening [facility] Start: 02-22-2010 LIPID SCREEN LIPID SCREEN [facility] Start: 11-19-2009 Pneumococcal Vaccine: 50+ (1 of 1 - PCV) Pneumococcal Vaccine: 50+ (1 of 1 - PCV) [facility] Start: 04-13-2006 PAP TESTING PAP TESTING [facility] Start: 04-13-2006 Screening for malignant neoplasm of cervix Pap Testing [facility] Start: 11-19-2004 COLOGUARD (FIT-DNA) COLOGUARD (FIT-DNA) [facility] Start: 11-19-2004 Colonoscopy COLONOSCOPY [facility] Start: 11-19-2004 COLORECTAL CANCER SCREENING COLORECTAL CANCER SCREENING [facility] Start: 11-19-[address] COLONOGRAPHY [facility] Start: 11-19-2004 FECAL OCCULT BLOOD FECAL OCCULT BLOOD [facility] Start: 11-19-2004 Screening for malignant neoplasm of colon [facility] Start: 11-19-2004 SIGMOIDOSCOPY SIGMOIDOSCOPY [facility] Start: 04-13-2004 Screening for malignant neoplasm of cervix Cervical Cancer Screening [facility] Start: 11-19-1989 HPV TESTING HPV TESTING [facility] Start: 11-19-1989 Screening for malignant neoplasm of cervix HPV Testing [facility] Start: 11-19-1977 ANNUAL PCP TEAM CHRONIC DISEASE VISIT ANNUAL PCP TEAM CHRONIC DISEASE VISIT [facility] Start: 11-19-1977 Anxiety Screening Anxiety Screening [facility] Start: 11-19-1977 BP CONTROLLED (<130/80) BP CONTROLLED (<130/80) [facility] Start: 11-19-1977 Depression Screening Depression Screening [facility] Start: 11-19-1977 HEPATITIS C SCREENING HEPATITIS C SCREENING [facility] Start: 11-19-1977 HIV SCREENING HIV SCREENING [facility] Start: 11-19-1977 HIV screening HIV Screening [facility] Cardiac event recording [facility] CBC W Auto Different ial panel - Blood [facility] Comprehensive metabo lic 1999 panel - Serum or Plasma [facility] Comprehensive metabo lic 1999 panel - Serum or Plasma COMPREHENSIVE METABOLIC PANEL Lab Routine Hypercalcemia 01/12/2025 9:30 AM EDT [facility] DXA Bone [Mass/Area] Bone density [facility] End: 06-25-2024 ECG COMPLETE ECG COMPLETE ECG Routine Aortic valve disease 1 Occurrences starting 06/25/2023 until 06/25/[address] [facility] Work Phone: Comment on above: 1 Occurrences starting 06/25/2023 until 06/25/2024 End: 08-07-2024 ECG COMPLETE ECG COMPLETE ECG Routine Undiagnosed cardiac murmurs Essential hypertension Non-rheumatic tricuspid valve insufficiency Syncope, unspecified syncope type Sinus bradycardia 1 Occurrences starting 08/08/2023 until 08/07/[address] [facility] Work Phone: Comment on above: 1 Occurrences starting 08/08/2023 until 08/07/2024 End: 06-28-2025 ECG COMPLETE ECG COMPLETE ECG Routine Primary hypertension 1 Occurrences starting 06/28/2024 until 06/28/[address] [facility] Work Phone: Comment on above: 1 Occurrences starting 06/28/2024 until 06/28/2025 End: 06-25-2024 Echocardiography ECHO Cardiology Routine Aortic valve disease 1 Occurrences starting 06/25/2023 until 06/25/[address] [facility] Work Phone: Comment on above: 1 Occurrences starting 06/25/2023 until 06/25/2024 Hemoglobin A1c/Hemoglobin.total in Blood [facility] Work Phone: Hemoglobin A1c/Hemoglobin.total in Blood [facility] Lipid 1996 panel - S fartun or Plasma [facility] OUTSIDE VENDOR CARDI AC OUTPATIENT EXTENDED RHYTHM RECORDING (WITHOUT TELEMETRY) OUTSIDE VENDOR CARDIAC OUTPATIENT EXTENDED RHYTHM RECORDING (WITHOUT TELEMETRY) Holter Routine Sinus bradycardia Ordered: 12/09/[address] [facility] Work Phone: Comment on above: Ordered: 12/09/2023 Parathyroid hormone measurement [facility] Patient Education Causes of Syncope [facility] Work Phone: Patient referral [facility] Work Phone: US Thyroid gland [facility] Vitamin D, 25-hydrox y measurement [facility] Immunizations Immunization Date Immunization Notes Care Provider Fa eliza 03-04-2024 Covid (Spikevax) Dr. Betty Felix MD Work Phone: [facility] 01-19-2024 influenza, injectabl e, quadrivalent, preservative free Dr. Denise Felix MD Work Phone: [facility] 07-31-2020 COVID-19 original vaccine, full dose, monovalent (MODERNA) Screen [facility] 01-12-2020 influenza, injectabl e, quadrivalent, preservative free Screen [facility] 01-12-2020 influenza virus vaccine, unspecified formulation Bone [facility] 01-14-2019 influenza, injectabl e, quadrivalent, preservative free Screen [facility] 11-26-2018 zoster vaccine recombinant Screen [facility] 09-23-2018 zoster vaccine recombinant Screen [facility] 02-11-2018 Influenza, injectabl e, Madin Dalila Canine Kidney, preservative free, quadrivalent Screen [facility] 01-13-2017 influenza, injectabl e, quadrivalent, preservative free [facility] 01-09-2016 influenza, injectabl e, quadrivalent, preservative free [facility] 02-10-2015 influenza, injectabl e, quadrivalent, preservative free [facility] 01-28-2014 influenza, seasonal, injectable, preservative free [facility] 09-01-2013 tetanus toxoid, redu franko diphtheria toxoid, and acellular pertussis vaccine, adsorbed [facility] 01-18-2013 influenza, seasonal, injectable, preservative free [facility] 03-24-2012 influenza, seasonal, injectable, preservative free [facility] 01-30-2011 influenza, seasonal, injectable, preservative free [facility] 12-25-2007 hepatitis A and hepatitis B vaccine [facility] 12-25-2007 typhoid capsular polysaccharide vaccine [facility] 11-27-2007 hepatitis A and hepatitis B vaccine Sakshi Castillo DO Work Phone: [facility] Work Phone: 10-28-2007 typhoid capsular polysaccharide vaccine [facility] 07-16-2007 hepatitis A and hepatitis B vaccine [facility] 06-18-2007 hepatitis A and hepatitis B vaccine [facility] 02-22-2005 influenza virus vaccine, unspecified formulation [facility] Work Phone: 02-22-2005 tetanus and diphther ia toxoids, not adsorbed, for adult use [facility] Work Phone: Payers Date Payer Category Payer Unknown [id number] 2024 Self-pay [id number] 2022 Private Health Insurance [id number] 2022 Private Health Insurance [id number] Unknown [employer] BC/BS Unknown ANTHEM [id number] Unknown [id number] Unknown [id number] Unknown [id number] Unknown [id number] Unknown [id number] Unknown [id number] Unknown [id number] Unknown [id number] Unknown [id number] Unknown [id number] Unknown [id number] Unknown [id number] Unknown [id number] Unknown [id number] Unknown [id number] Unknown [id number] Social History Date Type Detail Facility Alcohol Use: Alcohol Use: [facility] Work Phone: Start: 10-31-2020 End: 01-24-2023 Caffeine Use Caffeine Use [facility] Work Phone: Comment on above: 2-3 cups coffee lacy y Exercise History: Exercise History: [facility]; [facility] Work Phone: Comment on above: 2-3 times wk Tobacco Use: Tobacco Use: [facility] Work Phone: Start: 03-01-2022 End: 04-25-2023 Tobacco smoking status OHIS Unknown if ever smoked [facility] Start: 1960 Sex Assigned At Female [facility] Start: 08-08-2015 End: 04-25-2023 Tobacco smoking status OHIS Never smoked tobacco [facility] Start: 08-08-2015 Tobacco use and exposure Smokeless tobacco non-user [facility] Start: 10-31-2020 End: 01-12-2025 Alcohol intake Current drinker of alcohol (finding) [facility] Start: 03-11-2016 Alcohol Comment 1-2 x wk [facility] Start: 10-31-2020 End: 01-24-2023 Tobacco use panel [facility] Start: 03-29-2012 National Score (1-100), lower number is lower risk 70 [facility] Start: 07-01-2020 Gender identity Identifies as female gender (finding) [facility] Start: 07-25-2024 End: 07-27-2024 Sex Female (finding) [facility] Medical Equipment Procedure Code Equipment Code Equipment Origin al Text Equipment Identifier Dates Pen Needle, Diab etic (Ultra-Thin Ii Ins Pen [place]) 29 gauge x 1/2 needle Start: 01-14-2025 Goals Date Patient Goal Desired Activity /State Personal health goal Mental Status Date Assessment Result Facility 02-03-2023 Cognitive function Level Of Cons ciousness Awake;Alert;Appropriate [facility] Work Phone: Clinical Notes 06-13-2022 to 01-14-2025 Patient InstructionsGato Barrios MD - 01/12/2025 8:49 AM EDT Note Date & Type Note Facility 01-14-2025 Progress note [facility] 01-12-2025 Instructions Gato Barrios MD - 01/12/2025 9:12 AM EDT We discussed your coronary artery calcification and cholesterol management: - Your coronary calcium score of 9 is slightly elevated but not high enough to require additional testing. This test does not need to be repeated. - Continue taking rosuvastatin 10 mg daily to manage your cholesterol. Your LDL cholesterol was 86 mg/dL, which is slightly higher than the target. - We discussed the option of adding ezetimibe 10 mg daily to further lower your LDL cholesterol if needed in the future. For now, we will continue monitoring your levels. We discussed your elevated calcium levels and history of hyperparathyroidism: - Your calcium level was 10.6 (slightly above the normal range of 10.3). - We will check your vitamin D level, parathyroid hormone level, and repeat a comprehensive metabolic panel to further evaluate this. - You can have these blood tests done today or at your convenience. - Once we have the results, we will determine if a referral to endocrinology is necessary. For now, there is no urgency to see a specialist. We discussed your weight management: - You have successfully lost weight on Zepbound (Tirzepatide) in the past but have not been taking it for the last two months due to insurance coverage issues. - If you decide to restart Zepbound, you would need to begin at the starting dose of 2.5 mg and gradually increase as per the standard protocol. This is required for safety reasons. - We discussed the [employer] program, which offers Zepbound at a self-pay cost of $499 per month for the 12.5 mg dose (administered via vial and syringe). You may consider this option if interested. - We do not recommend compounded medications due to safety concerns. - Continue focusing on healthy eating and increasing physical activity to support your weight loss goals. Follow-up: - Please return in 6 months for repeat lipid testing and follow-up on your cholesterol management. - If you experience any new symptoms or have concerns before your next visit, please contact our office. documented in this encounter [facility] 01-12-2025 Note HNO ID: [id number] Author: GATO BARRIOS MD Service: ? Author Type: Physician Type: Progress Notes Filed: 01/12/2025 09:15 Note Text: [facility] Department of Cardiovascular Medicine SECTION OF PREVENTIVE CARDIOLOGY Date: 01/12/2025 Patient: Shavon Schaeffer : 1960 CHIEF COMPLAINT: Routine follow-up. HISTORY OF PRESENT CARDIOVASCULAR ILLNESS: I had the pleasure of seeing Shavon Schaeffer today in the [facility] for a routine follow-up. A copy of this consultation note will be provided to the requesting physician by way of shared Medical record or letter to requesting physician via US mail. She is a very pleasant 64-year-old female patient with past medical history of coronary artery calcification, obesity class II, hypercholesterolemia, palpitations, hypercalcemia, vitamin D deficiency. The patient reports feeling well overall and denies experiencing chest pain, dyspnea, edema, palpitations, or syncope. She continues to struggle with weight loss. She has a history of hypercholesterolemia and is currently taking rosuvastatin 10 mg daily. A coronary artery calcium score in 2020 was 9. Recent labs showed an LDL of 86 mg/dL on 11/2024. She previously attempted a higher dose of rosuvastatin 20 mg but experienced myalgias, leading to a reduction to 10 mg. She has a history of hypercalcemia, with a recent calcium level of 10.6 mg/dL. She was advised to discontinue calcium supplements. She is currently taking vitamin D 50,000 IU once weekly and 2,000 IU daily. She reports a history of a thyroid nodule with Hurthle cells noted on biopsy. She is not currently under the care of an manager nc. She has a history of obesity and has been taking Zepbound 10 mg for over a year and a half, resulting in a weight loss from 247 lbs to 180 lbs. However, she has not lost additional weight in the past year and a half and desires to lose an additional 25 lbs. She stopped taking Zepbound for the past two months due to insurance coverage issues. She has a history of sleep apnea. She is followed by an radio electronics technician at [facility]. CARDIAC RISK FACTORS: Not specified Exercise: Three to five times per week Family History of CAD: Negative STATIN INTOLERANCE: Adverse Effect History of Statin Intolerance:: No Current Statin Freq: None USE OF PCSK9 INHIBITORS: CARDIOVASCULAR DISEASE HISTORY: Calcium score <100: Yes Valve Disease: Arrhythmias: Heart Failure/Cardiomyopathy: Related Disease History: PAST MEDICAL HISTORY: PAST MEDICAL HISTORY Diagnosis Date Bunion Hirsutism Other and unspecified hyperlipidemia Plantar fasciitis Undiagnosed cardiac murmurs 2002 trivial MR and TR by echo PAST SURGICAL HISTORY: PAST SURGICAL HISTORY Procedure Laterality Date 24 HR HOLTER 02/23/16 BUNIONECTOMY, LAPIDUS-TYPE Left 2018 ECHOCARDIOGRAM 02/23/16 LVEF 50-55% NUCLEAR STRESS LEXISCAN (CARD) 02/15/11 PAST SURGICAL HISTORY OF Right 2020 STRESS TEST (EXERCISE) TREADMILL 02/23/16 NORMAL FAMILY HISTORY FAMILY HISTORY Problem Relation Age of Onset Cancer Mother carcinoid of lung, age 61 Stroke Father late 60s Ischemic Heart Disease Father CABG age 72, age 73 of CHF other (Gout) Father other (Peptic ulcer disease) Father Cancer Maternal Grandmother carcinoid of lung other (Chronic bronchitis) Sister nonsmoker Hypertension Brother Lipids Brother Diabetes Paternal Aunt and cousins other (Glaucoma) Paternal Aunt SOCIAL HISTORY Employer And Job Title: [employer] (No job title specified) Years Of Education Completed: Not specified Marital Status: with no children Tobacco use in the last year: No Alcohol Use: Yes (1-2 x wk) CURRENT MEDS: Current Outpatient Medications Medication Sig ergocalciferol 50,000 unit capsule (VITAMIN D2, DRISDOL) Take 50,000 Units by mouth one time a week. Lactobacillus acidophilus (PROBIOTIC) 10 billion cell cap Take by mouth once daily. cholecalciferol (VITAMIN D) 1,000 unit tab tablet Take 1,000 Units by mouth once daily. (Patient taking differently: Take 1,000 Units by mouth once daily. Take 2 capsules once daily) vitamin B complex (B COMPLEX ORAL) Take by mouth. psyllium seed, with dextrose, (FIBER ORAL) Take by mouth. BIPAP daily at bedtime. krill oil 500 mg cap Take 1 capsule by mouth once daily. No current facility-administered medications for this visit. ALLERGIES: ALLERGIES Allergen Reactions Oxycodone Other: See Comments Nickel rash Z-Hipolito [Azithromycin] Rash Not hives. Chlorhexidine Rash Iodine Rash Isopropyl Alcohol Rash REVIEW OF SYSTEMS: CONSTITUTIONAL: No weight loss, malaise or fevers. HEENT: Negative for frequent or significant headaches, No changes in hearing or vision, no nose bleeds or other nasal problems. RESPIRATORY: Negative for cough, (more content not included)... [facility] 01-12-2025 History of Present illness Narrative Images from the original note were not included. [facility] Department of Cardiovascular Medicine SECTION OF PREVENTIVE CARDIOLOGY Date: 01/12/2025 Patient: Shavon Schaeffer : 1960 CHIEF COMPLAINT: Routine follow-up. HISTORY OF PRESENT CARDIOVASCULAR ILLNESS: I had the pleasure of seeing Shavon Schaeffer today in the [facility] for a routine follow-up. A copy of this consultation note will be provided to the requesting physician by way of shared Medical record or letter to requesting physician via US mail. She is a very pleasant 64-year-old female patient with past medical history of coronary artery calcification, obesity class II, hypercholesterolemia, palpitations, hypercalcemia, vitamin D deficiency. The patient reports feeling well overall and denies experiencing chest pain, dyspnea, edema, palpitations, or syncope. She continues to struggle with weight loss. She has a history of hypercholesterolemia and is currently taking rosuvastatin 10 mg daily. A coronary artery calcium score in 2020 was 9. Recent labs showed an LDL of 86 mg/dL on 11/2024. She previously attempted a higher dose of rosuvastatin 20 mg but experienced myalgias, leading to a reduction to 10 mg. She has a history of hypercalcemia, with a recent calcium level of 10.6 mg/dL. She was advised to discontinue calcium supplements. She is currently taking vitamin D 50,000 IU once weekly and 2,000 IU daily. She reports a history of a thyroid nodule with Hurthle cells noted on biopsy. She is not currently under the care of an manager nc. She has a history of obesity and has been taking Zepbound 10 mg for over a year and a half, resulting in a weight loss from 247 lbs to 180 lbs. However, she has not lost additional weight in the past year and a half and desires to lose an additional 25 lbs. She stopped taking Zepbound for the past two months due to insurance coverage issues. She has a history of sleep apnea. She is followed by an radio electronics technician at [facility]. CARDIAC RISK FACTORS: Not specified Exercise: Three to five times per week Family History of CAD: Negative STATIN INTOLERANCE: Adverse Effect History of Statin Intolerance:: No Current Statin Freq: None USE OF PCSK9 INHIBITORS: CARDIOVASCULAR DISEASE HISTORY: Calcium score <100: Yes Valve Disease: Arrhythmias: Heart Failure/Cardiomyopathy: Related Disease History: PAST MEDICAL HISTORY: PAST MEDICAL HISTORY Diagnosis Date Bunion Hirsutism Other and unspecified hyperlipidemia Plantar fasciitis Undiagnosed cardiac murmurs 2002 trivial MR and TR by echo PAST SURGICAL HISTORY: PAST SURGICAL HISTORY Procedure Laterality Date 24 HR HOLTER 02/23/16 BUNIONECTOMY, LAPIDUS-TYPE Left 2018 ECHOCARDIOGRAM 02/23/16 LVEF 50-55% NUCLEAR STRESS LEXISCAN (CARD) 02/15/11 PAST SURGICAL HISTORY OF Right 2020 STRESS TEST (EXERCISE) TREADMILL 02/23/16 NORMAL FAMILY HISTORY FAMILY HISTORY Problem Relation Age of Onset Cancer Mother carcinoid of lung, age 61 Stroke Father late 60s Ischemic Heart Disease Father CABG age 72, age 73 of CHF other (Gout) Father other (Peptic ulcer disease) Father Cancer Maternal Grandmother carcinoid of lung other (Chronic bronchitis) Sister nonsmoker Hypertension Brother Lipids Brother Diabetes Paternal Aunt and cousins other (Glaucoma) Paternal Aunt SOCIAL HISTORY Employer And Job Title: [employer] (No job title specified) Years Of Education Completed: Not specified Marital Status: with no children Tobacco use in the last year: No Alcohol Use: Yes (1-2 x wk) CURRENT MEDS: Current Outpatient Medications Medication Sig ergocalciferol 50,000 unit capsule (VITAMIN D2, DRISDOL) Take 50,000 Units by mouth one time a week. Lactobacillus acidophilus (PROBIOTIC) 10 billion cell cap Take by mouth once daily. cholecalciferol (VITAMIN D) 1,000 unit tab tablet Take 1,000 Units by mouth once daily. (Patient taking differently: Take 1,000 Units by mouth once daily. Take 2 capsules once daily) vitamin B complex (B COMPLEX ORAL) Take by mouth. psyllium seed, with dextrose, (FIBER ORAL) Take by mouth. BIPAP daily at bedtime. krill oil 500 mg cap Take 1 capsule by mouth once daily. No current facility-administered medications for this visit. ALLERGIES: ALLERGIES Allergen Reactions Oxycodone Other: See Comments Nickel rash Z-Hipolito [Azithromycin] Rash Not hives. Chlorhexidine Rash Iodine Rash Isopropyl Alcohol Rash REVIEW OF SYSTEMS: CONSTITUTIONAL: No weight loss, malaise or fevers. HEENT: Negative for frequent or significant headaches, No changes in hearing or vision, no nose bleeds or other nasal problems. RESPIRATORY: Negative for cough, wheezing, or shortness of breath CARDIOVASCULAR: Negative for chest pain, leg swelling or palpitations GI: Negative for abdominal discomfort, blood in stools or black stools or change in bowel habits. : No history of dysuria, frequency, or incontinence and No difficulty urination, nocturia >1 times per night or hematuria. MUSCULOSKELETAL: Negative for joint pain or swelling, back pain or muscle pain. ENDOCRINE: Negative for cold or heat intolerance, polyuria, polydipsia and goiter HEMATOLOGIC/LYMPHATIC: Negative for prolonged bleeding, bruising easily or swollen nodes. NEUROLOGIC: No history or headaches, syncope, paralysis, seizures or tremors. INTEGUMENTARY: Negative for lesions, rash, and itching. PHYSICAL EXAMINATION: BP 126/57 (BP Site: Right Arm, BP Position: Sitting, BP Cuff Size: Regular Adult) Pulse (!) 56 Ht 166.4 cm (5' 5.5) Wt 84.6 kg (186 lb 6.4 oz) SpO2 100% BMI 30.55 kg/m GENERAL: Oobese, well-appearing, in no acute distress. SKIN: No rashes, no clubbing, no cyanosis. EYES: Extra ocular movements intact. OROPHARYNX: Oropharynx not examined. NECK: Non-tender, no lymphadenopathy, thyroid with normal size, no nodules appreciate, no jugular venous distention, no carotid bruits, carotids have a normal upstroke. LUNGS: Clear to auscultation bilaterally, no wheezing or rhonchi. HEART: Regular rhythm, PMI not displaced, S1, S2 normal, no S3, no S4, no murmur. ABDOMEN: Soft, nontender, bowel sounds normal, no palpable organomegaly, no bruits. EXTREMITIES: No peripheral edema. Regular distal pulses bilaterally. NEURO: Oriented to person, place and time, alert, cooperative, gait coordinated. CLINICAL TESTING RESULTS: I have personally reviewed the following: LABS: Glucose (mg/dL) Date Value 02/22/2005 93 BUN (mg/dL) Date Value 02/22/2005 21 Creatinine (mg/dL) Date Value 02/22/2005 0.7 Sodium (mmol/L) Date Value 02/22/2005 137 Potassium (mmol/L) Date Value 02/22/2005 4.6 Chloride (mmol/L) Date Value 02/22/2005 104 CO2 (mmol/L) Date Value 02/22/2005 20 (A) Protein, Total (g/dL) Date Value 02/22/2005 7.1 Albumin (g/dL) Date Value 02/22/2005 4.2 Calcium (mg/dL) Date Value 02/22/2005 8.7 Alkaline Phosphatase (U/L) Date Value 02/22/2005 61 Bilirubin, Total (mg/dL) Date Value 02/22/2005 0.2 AST (U/L) Date Value 02/22/2005 18 ALT (U/L) Date Value 02/22/2005 12 WBC (k/uL) Date Value 02/22/2005 7.58 RBC (M/uL) Date Value 02/22/2005 4.63 Hemoglobin (g/dL) Date Value 02/22/2005 13.7 Hematocrit (%) Date Value 02/22/2005 41.7 MCV (fL) Date Value 02/22/2005 90.1 MCH (pG) Date Value 02/22/2005 29.6 MCHC (%) Date Value 02/22/2005 32.9 RDW-CV (%) Date Value 02/22/2005 12.4 Platelet Count (K/uL) Date Value 02/22/2005 240 MPV (fL) Date Value 02/22/2005 11.9 (A) No results found for: INR Cholesterol, Total Date Value Ref Range Status 02/22/2005 192 100 - 199 mg/dL Final HDL Cholesterol Date Value Ref Range Status 02/22/2005 57 >55 mg/dL Final LDL Cholesterol, Calculated Date Value Ref Range Status 02/22/2005 119 60 - 129 mg/dL Final Triglyceride Date Value Ref Range Status 02/22/2005 81 30 - 149 mg/dL Final TSH Date Value Ref Range Status 02/22/2005 2.120 0.400 - 5.500 uU/mL Final Lab Results Component Value Date HBA1C 5.3 02/22/2005 HBA1C 5.7 04/04/2003 The ASCVD Risk score (Jazmyn DK, et al., 2019) failed to calculate for the following reasons: Cannot find a previous HDL lab Cannot find a previous total cholesterol lab ECG 01/12/2025: Last EKG Result Conclusion ECG COMPLETE Collected: 01/12/2025 8:15 AM (Preliminary result) Impression: SINUS BRADYCARDIA Septal Infarct , AGE UNDETERMINED INFERIOR MYOCARDIAL INFARCTION , AGE UNDETERMINED ABNORMAL ECG Last ECHO Result Conclusion ECHO Collected: 12/26/2023 9:43 AM (Final result) Impression: CONCLUSIONS: - Exam indication: Abnormal ECG - The left ventricle is normal in size. Left ventricular systolic function is normal. EF = 57 5% (2D biplane) Indeterminate left ventricular diastolic function. - The right ventricle is normal in size. Right ventricular systolic function is normal. - The left atrial cavity is mildly dilated. - There are no significant valvular abnormalities. - The patient has not had a prior CC echocardiographic exam for comparison. * * * Final * * * Zio patch 12/30/2023: Patient Name: Shavon Schaeffer : 1960 Ordering Provider: GATO BARRIOS Indication: R00.1 Bradycardia, unspecified Type of Monitor: Extended Monitoring-Zio Patch Enrollment Dates: 12/09/2023-12/23/2023 IRHYTHM FINDINGS: Patient had a min HR of 37 bpm, max HR of 151 bpm, and avg HR of 62 bpm. Predominant underlying rhythm was Sinus Rhythm. Isolated SVEs were rare (<1.0%), SVE Couplets were rare (<1.0%), and SVE Triplets were rare (<1.0%). Isolated VEs were rare (<1.0%), VE Couplets were rare (<1.0%), and no VE Triplets were present. Ventricular Trigeminy was present. ZioPatch monitoring rhythm strips and any patient triggered events reviewed with findings summarized above. Devin Hutchins MD CT calcium scoring 07/20/2020: Patient Name: SHAVON SCHAEFFER STUDY: CT CARDIAC SCORING; 07/20/2020 8:15 am INDICATION: Essential (primary) hypertension. COMPARISON: None. ACCESSION NUMBER(S): [id number] ORDERING CLINICIAN: MARCELINO VILLATORO TECHNIQUE: Using prospective ECG gating, CT scan of the coronary arteries was performed without intravenous contrast. Coronary calcium scoring was performed according to the method of Agatston. FINDINGS: The score and distribution of calcium in the coronary arteries is as follows: LM 0, LAD 9.32, LCx 0, RCA 0, Total 9.32. The visualized mid/lower ascending thoracic aorta measures 3.2 cm in diameter. The heart is normal in size. No pericardial effusion is present. No gross evidence of mediastinal or hilar lymphadenopathy or masses is identified. The visualized segments of the lungs demonstrate minimal left basilar atelectasis.. The visualized subdiaphragmatic structures appear intact. IMPRESSION: 1. Coronary artery calcium score of 9.32.*. *Coronary artery calcium scoring may be helpful in predicting the risk for future coronary heart disease events. According to the [employer] Clinical Expert Consensus Task Force, such testing provides important prognostic information in patients with more than one coronary heart disease risk factor. The coronary artery calcium score correlates with the annual risk of a non-fatal myocardial infarction or coronary heart disease . Coronary artery score Annual Risk 0-99 0.4% 100-399 1.3% >400 2.4% These three breakpoints correspond to lower, intermediate and high risk states for future coronary events. Such information should be used, along with appropriate clinical judgment, to make decisions regarding the intensity of risk factor management strategies to treat blood lipids and to modify other non-lipid coronary risk factors. Reference: Carlee P et al. Circulation. 2007; 115:402-426 Exam End: 07/20/20 8:15 AM Last Resulted: 07/20/20 3:55 PM Received From: [facility] Result Received: 06/16/23 8:40 AM PATIENT ENTERED QUESTIONNAIRE SCORES 12/09/2023 PHQ-9 PHQ-2 Score 0 12/09/2023 KIARA - 2/7 SCORES KIARA-2 Score 0 12/09/2023 PROMIS Global Health - (T-Scores - the mean of general population = 50. Five points is a clinically meaningful difference.) Physical T-Score 54.1 Mental T-Score 53.3 ASSESSMENT AND PLAN: In addition to the above history and physical exam, the results of prior labs and testing, were reviewed. The following plans and goals have been established to address current medical problems and optimize control of cardiovascular risk factors to reduce the risk of future heart disease: 1. Coronary artery calcification (I25.10) 2. Pure hypercholesterolemia (E78.00) Coronary calcium score of 9 (2020) indicates mild but non-zero atherosclerotic burden. Most recent LDL 86 mg/dL (11/2024) is above target. Patient is currently on rosuvastatin 10 mg daily; higher doses previously caused myalgias. - Continue rosuvastatin 10 mg daily. - Discussed addition of ezetimibe 10 mg daily as next step if LDL remains above target; patient prefers to defer at this time. - Advised discontinuation of krill oil and fish oil supplements. - Repeat lipid panel in 6 months. - Follow-up in 6 months to reassess lipid levels and treatment plan. 3. Hypercalcemia (E83.52) Serum calcium slightly elevated at 10.6 mg/dL (reference upper limit 10.3 mg/dL). Patient is on high-dose vitamin D supplementation (50,000 IU weekly plus 2,000 IU daily) for previously documented deficiency, managed by an radio electronics technician. No current evidence of primary hyperparathyroidism. - Order repeat comprehensive metabolic panel, serum vitamin D, and parathyroid hormone levels. - Advised patient to discontinue calcium supplements. - Referral to endocrinology deferred pending lab results. 4. Class 1 obesity due to excess calories with serious comorbidity and body mass index (BMI) of 30.0 to 30.9 in adult (E66.811) Patient has lost significant weight (from 247 lbs to 180 lbs) with Zepbound, but has plateaued and discontinued medication for 2 months due to insurance denial. - Discussed [employer] program for Zepbound at $499/month; advised patient to restart at 2.5 mg due to 2-month interruption. - Advised against use of compounded medications due to safety concerns. - Discussed importance of healthy diet and regular exercise. FOLLOW UP: I have discussed with Shavon Schaeffer that I recommend a follow-up visit with me in 6 months. An appointment has been scheduled accordingly. Gato Barrios MD, PhD band splitter, [facility], [facility], Section of Preventive Cardiology Heart, Vascular, and Thor[facility] [place], Department of Cardiovascular Medicine [place] [address] Office Appointments: [phone] Recording using ambient AI software for draft documentation of the visit was discussed with the patient/authorized medical service representative; all questions welcomed and answered. Patient/authorized medical service representative agreed to proceed Voice recognition software was used in the creation of this document. There may be unintended errors in spelling, grammar, syntax or punctuation present. documented in this encounter [facility] 10-15-2024 Evaluation note Diagnosis Onset Date Resolution Corneal ulcer (including herpetic) acute October 15, 2024 9:25am Borderline type 2 diabetes mellitus chronic October 15, 2024 9:25am Hyperlipidemia chronic October 15, 2024 9:25am Hyperparathyroidism chronic October 15, 2024 9:25am Hypertension chronic October 15 025 9:25am Metabolic syndrome chronic September 272024 9:25am Obstructive sleep apnea chronic J [facility] 2024 9:25am [facility] Work Phone: 1(662) 791-328506-20-2025 Evaluation note* Diagnosis Onset Date Resolution Status Admit Date Corneal ulcer (including herpetic) acute October 15, 2024 9:25am Borderline type 2 diabetes mellitus chronic October 15, 2024 9:25am Hyperlipidemia chronic October 15, 2024 9:25am Hyperparathyroidism chronic October 15, 2024 9:25am Hypertension chronic October 15, 025 9:25am Metabolic syndrome chronic September 272024 9:25am Obstructive sleep apnea chronic J une 2024 9:25am Health care maintenance [facility] 2024 8:41am Borderline type 2 diabetes mellitus chronic January 14, 2025 8:41am Dyslipidemia chronic January 142024 8:41am Hyperparathyroidism chronic Septe mber 2024 8:41am Hypertension chronic January 142024 8:41am Metabolic syndrome chronic Septem sammi 2024 8:41am Obstructive sleep apnea chronic S eptember 2024 8:41am Thyroid nodule chronic January 14, 2025 8:41am [facility] Work Phone: 1(733) 508-231503-14-2025 Evaluation note* Diagnosis Onset Date Resolution Status Admit Date Health care maintenance acute M arch 2024 8:23am Borderline type 2 diabetes mellitus chronic July 09, 2024 8:23am Hyperlipidemia chronic June 8:23am Hyperparathyroidism chronic July 09, 2024 8:23am Hypertension chronic July 09, 2024 8:23am Metabolic syndrome chronic July 09, 2024 8:23am Obesity (BMI 30-39.9) chronic Jun 8:23am [facility] Work Phone: 1(626) 328-885002-21-2025 History of Present illness Narrative* Kellie Lim RT(R) - 06/18/2024 9:20 AM EST Radiology Service Progress Note PATIENT NAME: Shavon Schaeffer DATE OF SERVICE: June 18, 2024 TIME: 9:31 AM PATIENT IDENTITY VERIFICATION COMPLETED USING TWO (2) IDENTIFIERS: Name and Date of confirmedby patient verbally. FALL SCREENING: Has the patient had 2 falls in the last year or 1 fall with injury or currently using an Ambulatory Assistive Device (Walker, Cane, Wheelchair, Crutches, etc.)? No PATIENT GENDER DATA: Assigned female at . status: : No status:NO. PATIENT RELEVANT IMPLANT DATA REVIEWED: Yes PATIENT PRESENTS WITH AN IMPLANTABLE OR ATTACHED SHEARER PRINTED CIRCUIT BOARDS: No RADIOLOGY DEPARTMENT: Mammography PERIPHERAL IV DATA: Not applicable SIGNED BY: RT Kwame(R) June 18, 2024 9:31 AM documented in this encounterAdena Health System02-21-2025 NoteHNO ID: [id number] Author: KELLIE LIM RT(R) Service: ? Author Type: Technologist Type: Progress Notes Filed: 06/18/2024 09:31 Note Text: Radiology Service Progress Note PATIENT NAME: Shavon Schaeffer DATE OF SERVICE: June 18, 2024 TIME: 9:31 AM PATIENT IDENTITY VERIFICATION COMPLETED USING TWO (2) IDENTIFIERS: Name and Date of confirmed by patient verbally. FALL SCREENING: Has the patient had 2 falls in the last year or 1 fall with injury or currently using an Ambulatory Assistive Device (Walker, Cane, Wheelchair, Crutches, etc.)? No PATIENT GENDER DATA: Assigned female at . status: : No status: NO. PATIENT RELEVANT IMPLANT DATA REVIEWED: Yes PATIENT PRESENTS WITH AN IMPLANTABLE OR ATTACHED SHEARER PRINTED CIRCUIT BOARDS: No RADIOLOGY DEPARTMENT: Mammography PERIPHERAL IV DATA: Not applicable SIGNED BY: RT Kwame(R) June 18, 2024 9:31 [facility]12-16-2024 Evaluation note * Diagnosis Onset Date Resolution Status Admit Date Borderline type 2 diabetes mellitus chronic April 12, 2 024 3:01pm Hyperlipidemia chronic March 282023 3:01pm Hyperparathyroidism chronic Decem sammi 2023 3:01pm Hypertension chronic March 3:01pm Metabolic syndrome chronic Decemb er 2023 3:01pm Obesity chronic April 12, 2024 3:01pm Obstructive sleep apnea chronic D ecember 2023 3:01pm Health care maintenance acute M arch 2024 8:23am Borderline type 2 diabetes mellitus chronic July 09, 2024 8:23am Hyperlipidemia chronic June 8:23am Hyperparathyroidism chronic July 09, 2024 8:23am Hypertension chronic July 09, 2024 8:23am Metabolic syndrome chronic July 09, 2024 8:23am Obesity (BMI 30-39.9) chronic Mar 2024 8:23am [facility] Work Phone: 1(447) 558-332508-13-2024 History of Present illness Narrative* Nicole Palencia - 12/09/2023 9:37 AM EDT EVENT MONITOR DISPOSABLE PATCH INSTRUCTIONS Patient Name: Shavon Schaeffer Clinic Number: [id number] Skin prepped and cleansed with alcohol Patch secured to prepped area Monitor Activated Serial #: [id number] Patient Instructed: Prescribed order timeframe Bathing guidelines Usage of event button and diary documentation Return of monitor at the end of prescribed order Call with problems [phone] or [phone] ext. [phone] Patient expresses a good understanding of instructions Nicole Wills documented in this encounterAdena Health System08-13-2024 Instructions* Patient Instructions* Gato Barrios MD - 12/09/2023 8:22 AM EDT Please schedule a ZioPatch and echocardiogram. documented in this encounterAdena Health System08-13-2024 History of Present illness Narrative* Gato Barrios MD - 12/09/2023 7:30 AM EDT Images from the original note were not included. Heart and Vascular [place] Department of Cardiovascular Medicine SECTION OF PREVENTIVE CARDIOLOGY Date: 12/09/2023 Patient: Shavon Schaeffer : 1960 CHIEF COMPLAINT: New patient visit HISTORY OF PRESENT CARDIOVASCULAR ILLNESS: I had the pleasure of seeing Shavon Schaeffer today in the Preventive Cardiology Clinic for a cardiac evaluation. She is a 63 year old female patient with a past medical history of obesity class II, prediabetes, hypercholesterolemia, palpitations, hyperparathyroidism She had a local Holter monitor for completed in July 2022, which revealed sinus rhythm without high degree sustained arrhythmia. An exercise stress test was done in October 2022 and was negative for 12METS and considered low risk. She presents today for management of cardiovascular risk. She is currently on Zepbound 10 mg every 10 days, which she has been tolerating well, she initiallyhas some nausea which has been been dissipating. She has lost 59 lbs. She exercises 3 days per week with personal banker. Her only symptoms is that she gets tired after her work-out, needs to take 2 h nap. She has no chest pain. She is taking rosuvastatin 10 mg, which is tolerating well. She has know sinus bradycardia, during exercise her heart rate increases to 140 bpm, may sometimes go up to spike up to 200 bpm. She has no palpitations and only had a syncope twice, both times aftertaking oxycodone. PAST MEDICAL HISTORY: PAST MEDICAL HISTORY No date: Bunion No date: Hirsutism No date: Other and unspecified hyperlipidemia No date: Plantar fasciitis 2003: Undiagnosed cardiac murmurs Comment: trivial MR and TR by echo PAST SURGICAL HISTORY: PAST SURGICAL HISTORY 02/23/16: 24 HR HOLTER 2019: BUNIONECTOMY, LAPIDUS-TYPE; Left 02/23/16: ECHOCARDIOGRAM Comment: LVEF 50-55% 02/15/11: NUCLEAR STRESS LEXISCAN (CARD) 2020: PAST SURGICAL HISTORY OF; Right 02/23/16: STRESS TEST (EXERCISE) TREADMILL Comment: NORMAL FAMILY HISTORY FAMILY HISTORY Problem Relation Age of Onset Cancer Mother carcinoid of lung, age 61 Stroke Father late 60s Ischemic Heart Disease Father CABG age 72, age 73 of CHF other (Gout) Father other (Peptic ulcer disease) Father Cancer Maternal Grandmother carcinoid of lung other (Chronic bronchitis) Sister nonsmoker Hypertension Brother Lipids Brother Diabetes Paternal Aunt and cousins other (Glaucoma) Paternal Aunt SOCIAL HISTORY Employer And Job Title: [employer] (No job title specified) Years Of Education Completed: Not specified Marital Status: with no children Alcohol Use: Yes (1-2 x wk) CURRENT MEDS: Current Outpatient Medications Medication Sig triamcinolone acetonide (KENALOG) 0.1 % cream Apply 1 application to affected area once daily. vitamin B complex (B COMPLEX ORAL) Take by mouth. psyllium seed, with dextrose, (FIBER ORAL) Take by mouth. BIPAP daily at bedtime. cholecalciferol (VITAMIN D) [...] Use 15 mL as instructed twice daily. CALCIUM CITRATE TABLET 200MG PO two tablets twice per day No current facility-administered medications for this visit. ALLERGIES: ALLERGIES Allergen Reactions Oxycodone Other: See Comments Nickel rash Z-Hipolito [Azithromycin] Rash Not hives. Chlorhexidine Rash Iodine Rash Isopropyl Alcohol Rash REVIEW OF SYSTEMS: CONSTITUTIONAL: Fatigue and tiredness HEENT: Negative for frequent or significant headaches, No changes in hearing or vision, no nose bleeds or other nasal problems. RESPIRATORY: Negative for cough, wheezing, or shortness of breath CARDIOVASCULAR: Negative for chest pain, leg swelling or palpitations GI: Negative for abdominal discomfort, blood in stools or black stools or change in bowel habits. : No history of dysuria, frequency, or incontinence and No difficulty urination, nocturia >1 times per night or hematuria. MUSCULOSKELETAL: Negative for joint pain or swelling, back pain or muscle pain. ENDOCRINE: Negative for cold or heat intolerance, polyuria, polydipsia and goiter HEMATOLOGIC/LYMPHATIC: Negative for prolonged bleeding, bruising easily or swollen nodes. NEUROLOGIC: No history or headaches, syncope, paralysis, seizures or tremors. INTEGUMENTARY: Negative for lesions, rash, and itching. PHYSICAL EXAMINATION: BP 124/67 (BP Site: Right Arm, BP Position: Sitting, BP Cuff Size: Regular Adult) Pulse 62 Ht 168.9 cm (5' 6.5) Wt 85.3 kg (188 lb 1.6 oz) BMI 29.91 kg/m GENERAL: Well, overweight. SKIN: No rashes, no clubbing, no cyanosis. EYES: Extra ocular movements intact. OROPHARYNX: Ears normal, pharynx not examined. NECK: Non-tender, no lymphadenopathy, thyroid with normal size, no nodules appreciate, no jugular venous distention, no carotid bruits, carotids have a normal upstroke. LUNGS: Clear to auscultation bilaterally, no wheezing or rhonchi. HEART: Regular rhythm, S1, S2 normal, no S3, no S4, no heaves, no rub and no murmur. ABDOMEN: Soft, nontender, bowel sounds normal, no palpable organomegaly, no bruits. EXTREMITIES: No peripheral edema. Regular distal pulses bilaterally. NEURO: Non-focal, movement intact PSYCHIATRY: Oriented to person, place and time, alert, cooperative. CLINICAL TESTING RESULTS: I have personally reviewed the following: Electrocardiogram 8/?24: NSR, HR 49 bpm, normal ECG Artery calcium scan 07/20/2020: Patient Name: SHAVON SCHAEFFER STUDY: CT CARDIAC SCORING; 07/20/2020 8:15 am INDICATION: Essential (primary) hypertension. COMPARISON: None. ACCESSION NUMBER(S): [id number] ORDERING CLINICIAN: MARCELINO VILLATORO TECHNIQUE: Using prospective ECG gating, CT scan of the coronary arteries was performed without intravenous contrast. Coronary calcium scoring was performed according to the method of Agatston. FINDINGS: The score and distribution of calcium in the coronary arteries is as follows: LM 0, LAD 9.32, LCx 0, RCA 0, Total 9.32. The visualized mid/lower ascending thoracic aorta measures 3.2 cm in diameter. The heart is normal in size. No pericardial effusion is present. No gross evidence of mediastinal or hilar lymphadenopathy or masses is identified. The visualized segments of the lungs demonstrate minimal left basilar atelectasis.. The visualized subdiaphragmatic structures appear intact. IMPRESSION: 1. Coronary artery calcium score of 9.32.*. *Coronary artery calcium scoring may be helpful in predicting the risk for future coronary heart disease events. According to the [employer] Clinical Expert Consensus Task Force, such testing provides important prognostic information in patients with more than one coronary heart disease risk factor. The coronary artery calcium score correlates with the annual risk of a non-fatal myocardial infarction or coronary heart disease . Coronary artery score Annual Risk 0-99 0.4% 100-399 1.3% >400 2.4% These three breakpoints correspond to lower, intermediate and high risk states for future coronary events. Such information should be used, along with appropriate clinical judgment, to make decisions regarding the intensity of risk factor management strategies to treat blood lipids and to modify other non-lipid coronary risk factors. Reference: Bankston P et al. Circulation. 2007; 115:402-426 LABS: Glucose (mg/dL) Date Value 02/22/2005 93 BUN (mg/dL) Date Value 02/22/2005 21 Creatinine (mg/dL) Date Value 02/22/2005 0.7 Sodium (mmol/L) Date Value 02/22/2005 137 Potassium (mmol/L) Date Value 02/22/2005 4.6 Chloride (mmol/L) Date Value 02/22/2005 104 CO2 (mmol/L) Date Value 02/22/2005 20 (A) Protein, Total (g/dL) Date Value 02/22/2005 7.1 Albumin (g/dL) Date Value 02/22/2005 4.2 Calcium (mg/dL) Date Value 02/22/2005 8.7 Alkaline Phosphatase (U/L) Date Value 02/22/2005 61 Bilirubin, Total (mg/dL) Date Value 02/22/2005 0.2 AST (U/L) Date Value 02/22/2005 18 ALT (U/L) Date Value 02/22/2005 12 WBC (k/uL) Date Value 02/22/2005 7.58 RBC (M/uL) Date Value 02/22/2005 4.63 Hemoglobin (g/dL) Date Value 02/22/2005 13.7 Hematocrit (%) Date Value 02/22/2005 41.7 MCV (fL) Date Value 02/22/2005 90.1 MCH (pG) Date Value 02/22/2005 29.6 MCHC (%) Date Value 02/22/2005 32.9 RDW-CV (%) Date Value 02/22/2005 12.4 Platelet Count (K/uL) Date Value 02/22/2005 240 MPV (fL) Date Value 02/22/2005 11.9 (A) No results found for: INR Cholesterol, Total Date Value Ref Range Status 02/22/2005 192 100 - 199 mg/dL Final HDL Cholesterol Date Value Ref Range Status 02/22/2005 57 >55 mg/dL Final LDL Cholesterol Date Value Ref Range Status 02/22/2005 119 60 - 129 mg/dL Final Triglyceride Date Value Ref Range Status 02/22/2005 81 30 - 149 mg/dL Final TSH Date Value Ref Range Status 02/22/2005 2.120 0.400 - 5.500 uU/mL Final Lab Results Component Value Date HBA1C 5.3 02/22/2005 HBA1C 5.7 04/04/2003 ASSESSMENT AND PLAN: In addition to the above history and physical exam, the results of prior labs and testing, were reviewed. The following plans and goals have been established to address current medical problems and optimize control of cardiovascular risk factors to reduce the risk of future heart disease: 1. Bradycardia: I do not suspect that this causes her any symptoms, she seem to have excellent functional capacity with appropriate heart rate response. : I have recommended to repeat an echocardiogram and a Zio patch. 2. Hypercholesterolemia: Her last LDL cholesterol was 73 mg/dl. She will continue her rosuvastatin 10 mg. 3. History of overweight and prediabetes: The last hemoglobin A1c 5.3%. 4. Coronary artery calcification: Her CAC score is 9, we will continue preventive care. FOLLOW UP: I have discussed with Shavon Schaeffer that I recommend a follow-up visit with me one year. Gato Barrios MD, PhD Section of Preventive Cardiology [place] Department of Cardiovascular Medicine [facility] [place] [address] Office Appointments: [phone] Voice recognition software was used in the creation of this document. There may be unintended errors in spelling, grammar, syntax or punctuation present. documented in this encounterAdena Health System02-19-2024 Miscellaneous Notes* Letter - Coordinator, Mammography - 06/16/2023 3:21 PM EST [facility] [address] [place] [address] June 16, 2023 PID: [id number] Shavon Schaeffer [address] [place] [address] Dear Ms. Schaeffer, We are pleased to inform you that the results of your recent breast imaging exam on 06/16/2023 are normal. Early detection of cancer is very important. We also understand recommendations regarding breast cancer screening are controversial. Please discuss with your primary care provider which strategy is best for you and whether a mammogram is right for you. Your imaging studies and report will be kept [facility] as part of your permanent medical record and are available for your continuing care. Thank you for allowing us to help in meeting your health care needs. Sincerely, Dr. Aragon Interpreting Radiologist [facility] (Normal over 40) documented in this encounterAdena Health System02-19-2024 History of Present illness Narrative* Monica Orozco RT(R) - 06/16/2023 8:40 AM EST Radiology Service Progress Note PATIENT NAME: Shavon Schaeffer DATE OF SERVICE: June 16, 2023 TIME: 8:46 AM PATIENT IDENTITY VERIFICATION COMPLETED USING TWO (2) IDENTIFIERS: Name and Date of confirmedby patient verbally. FALL SCREENING: Has the patient had 2 falls in the last year or 1 fall with injury or currently using an Ambulatory Assistive Device (Walker, Cane, Wheelchair, Crutches, etc.)? No PATIENT GENDER DATA: Female. status: : No status: NO. PATIENT RELEVANT IMPLANT DATA REVIEWED: Yes PATIENT PRESENTS WITH AN IMPLANTABLE OR ATTACHED SHEARER PRINTED CIRCUIT BOARDS: No RADIOLOGY DEPARTMENT: Mammography PERIPHERAL IV DATA: Not applicable SIGNED BY: RT Cathy(R) June 16, 2023 8:46 AM documented in this encounterAdena Health System12-29-2023 Discharge summary Author Mukesh Mcconnell [facility] April 25, 2023 10:58am Note Date/Time April 25, 2023 10:58am [facility] Physical Therapy [facility] [address] [place] [address] [address] [place] [id number] / REHABILITATION SERVICES DISCHARGE SUMMARY MR#: [id number] Acct: [id number] Name: SHAVON SCHAEFFER Rep #: [id number] : 1960 62 From: Mukesh Mcconnell PT, ATC Referring : Status: REG RCR Insurance: [employer] SELF [employer]Y INSURANCE Discharge Summary D/C summary: It has been my pleasure to treat SHAVON SCHAEFFER referred by VALENTINE VALDEZ, with the diagnosis of Right TKR 01/29/23 for a total of 32 visit(s). Discharge Date: Please see the following information for a summary of their discharge status. Subjective Subjective: Pt reports she feels really good at this time. Ready for discharge Pain R knee: Pain Intensity (Out of 10): 0 Overall Improvement % Improvement: 90 Objective Objective/Function: R knee pain ranges from 0-2/10 R knee MMT: flex= 31, ext= 67 #F R knee ROM: 0-122 degrees TU.75 sec Pt is able to negotiate 10 stairs without difficulty using 2 HR Goals Goal 1:: Patient will report participation in home exercise program activities aminimum of 5 days per week, as adjunct to skilled physical therapy intervention in preparation for independent home management upon discharge. Goal Progress: Goal Met Goal 2:: Patient will report an increase of 9 points on the LEFS to show minimalclinical significant difference on patients functional outcome measure. Goal Progress: Goal Met Goal 3:: Patient will descend 4+ stairs reciprocally with a single handrail to demonstrate increased LE functional strength and ease community mobility Goal Progress: Progressing Goal 4:: Patient will ambulate >300 feet with a normalized gait pattern without AD to ease ADL's. Goal Progress: Goal Met Goal 5:: Increase R knee strength x 5#F to aid with stair negotiatrion Goal Progress: New goal Plan Plan: Discharge to [facility] D/C Information d/c sentence: If there are questions or concerns regarding this patient's physical therapy, please feel free to call me at [phone]. Thank you for the referral of thispatient. Sincerely, Mukesh Mccnonell, PT, ATC Balance/Gait/Functional tests Balance/Special Test Scores Lower Extremity Functional Score: 76 TUG Test Time Seconds: 20 Tug Test: 20-30sec.=variable mobility WOMAC Total Score: 47 WOMAC Percentage: 51.0500 Improvement % Improvement: 90 <Electronically signed by Mukesh Mcconnell PT, ATC> 04/25/23 1058 CC: Dr. Denise Felix MD; VALENTINE VALDEZ ~ [facility] Signed [facility] Work Phone: 1(250) 957-704511-27-2023 History of Present illness Narrative* Steve Simeon MD - 03/24/2023 5:10 PM EST [place]: Shavon Schaeffer is a 62 year old, White, female who returns, I am here about my nose. The last 6 months she has a sore area inside the nose along the right septum. She tried Vaseline which did not help. Her ears are doing fine. SUBJECTIVE: I reviewed the allergies, medications, problem list, PMH/PSH, FmHx and SocHx as documented in Epic chart. PHYSICAL EXAM: VS: BP 120/81 Pulse 66 Ht 167.6 cm (5' 6) Wt 93.4 kg (206 lb) BMI 33.25 kg/m H/F/N: The facial strength is normal. There are no palpable salivary gland, thyroid or neck masses. Ears: The external ears and canals are without lesions, there is slight cerumen in each canal. EachTM is intact and mobile on pneumatic otoscopy. [...] at a later date. documented in this encounterAdena Health System11-16-2023 Instructions* Patient Instructions* Steve Simeon MD - 03/13/2023 2:56 PM [...] an old saying to help protect your ears.Small objects like cotton tip applicators, mone pins or twisted corners of tissues are likely to push the wax further in. They may also injure the skin of the ear canal or even puncture the eardrum,leading to hearing loss. CLEANING YOUR EARS You [...] help soften the earwax. documented in this encounterAdena Health System09-29-2023 History of Present illness Narrative* Rain Brewer RT(R) - 01/24/2023 3:30 PM EDT Radiology Service Progress Note PATIENT NAME: Shavon Schaeffer DATE OF SERVICE: January 24, 2023 TIME: 3:44 PM PATIENT IDENTITY VERIFICATION COMPLETED USING TWO (2) IDENTIFIERS: Name and Date of confirmedby patient verbally. FALL SCREENING: Has the patient [...] 24, 2023 3:44 PM documented in this encounterAdena Health System02-17-2023 Miscellaneous Notes* Letter - Mammography Coordinator - 06/14/2022 2:02 PM EST [facility] [address] [place] [address] June 14, 2022 PID: [id number] Shavon Schaeffer [address] [place] [address] Dear Ms. Schaeffer, We are pleased to [...] report will be kept on file at [facility] as part of your permanent medical record and are available for your continuing care. Thank you for allowing us to help in meeting your health care needs. Sincerely, Dr. Westfall Interpreting Radiologist [facility] (Normal over 40) documented [facility] History of Present illness Narrative* Monica Orozco, RT(R) - 06/13/2022 8:20 AM EST Radiology Service Progress Note PATIENT NAME: Shavon Schaeffer DATE OF SERVICE: June 13, 2022 TIME: 9:41 AM PATIENT IDENTITY VERIFICATION COMPLETED USING TWO (2) IDENTIFIERS: Name and Date of confirmedby patient verbally. FALL SCREENING: Has the patient [...] 13, 2022 9:41 AM documented in this encounterA[facility] SystemEvaluation [facility]* Diagnosis Onset Date Resolution Status Family history of lung cancer acute Hyperlipidemia chronic Hypertension chronic Obesity (BMI 30-39.9) chroni c Obstructive sleep apnea [facility] Work Phone: Evaluation note* Diagnosis Onset Date Resolution Status Borderline type 2 diabetes mellitus acute Hyperlipidemia chronic Hypertension chronic Obesity (BMI 30-39.9) chroni c Borderline type 2 diabetes mellitus acute Obesity (BMI 30-39.9) chroni c Borderline type 2 diabetes mellitus acute Chronic knee pain chronic Obesity (BMI 30-39.9) [facility] Work Phone: Evaluation note* Diagnosis Onset Date Resolution Status Borderline type 2 diabetes mellitus chronic Chronic knee pain chronic Obesity (BMI 30-39.9) chroni c Thyroid nodule acute Arrhythmia chronic Borderline type 2 diabetes mellitus chronic Hyperlipidemia chronic Obesity (BMI 30-39.9) [facility] Obstructive sleep apnea [facility] Work Phone: Evaluation note* Diagnosis Onset Date Resolution Status Borderline type 2 diabetes mellitus chronic Dyslipidemia chronic Hypertension chronic Obesity chronic Preoperative cardiovascular examination noneactive Postmenopausal acute Arrhythmia chronic Borderline type 2 diabetes mellitus chronic Obesity chronic Preoperative evaluation to r ule out surgical contraindication acute Urinary frequency acute Borderline type 2 diabetes mellitus chronic Hyperlipidemia chronic Hypertension [facility] Work Phone: Evaluation note* Diagnosis Nasal vestibulitis- Primary Other diseases of nasal cavity and sinuses Ceruminosis, bilateral [facility] Diagnosis Onset Date Resolution Status Preoperative evaluation to r sakshie out surgical contraindication acute Urinary frequency acute Borderline type 2 diabetes mellitus chronic Hyperlipidemia chronic Hypertension chronic Borderline type 2 diabetes mellitus chronic Obesity chronic Thyroid nodule chronic Borderline type 2 diabetes mellitus chronic Hyperlipidemia chronic Metabolic syndrome chronic Osteoarthritis chronic Thyroid nodule [facility] Work Phone: evaluation note* Diagnosis Aortic valve disease- Primary Aortic valve disorders [facility] this [facility]* Diagnosis Undiagnosed cardiac murmurs- Primary Essential hypertension Unspecified essential hypertension Non-rheumatic tricuspid valve insufficiency Tricuspid valve disorders, specified as nonrheumatic Syncope, unspecified syncope type Sinus bradycardia Other specified cardiac dysrhythmias documented in this encounter [facility]* Diagnosis Onset Date Resolution Status Borderline type 2 diabetes mellitus chronic Hyperlipidemia chronic Metabolic syndrome chronic Osteoarthritis chronic Thyroid nodule chronic Borderline type 2 diabetes mellitus chronic Hyperlipidemia chronic Hypertension chronic Metabolic syndrome chronic Obstructive sleep apnea produce runner venessa Thyroid nodule [facility] Work Phone: evaluation note* Diagnosis Onset Date Resolution Status Borderline type 2 diabetes mellitus chronic Hyperlipidemia chronic Hypertension chronic Metabolic syndrome chronic Obstructive sleep apnea produce runner venessa Thyroid nodule [facility] Work Phone: Evaluation note* Diagnosis Sinus bradycardia- Primary Other specified cardiac dysrhythmias Prediabetes Other abnormal glucose Pure hypercholesterolemia Overweight (BMI 25.0-29.9) Overweight Coronary artery calcification Coronary atherosclerosis of unspecified type of vessel, [place] or graft [facility]* Diagnosis Sinus bradycardia- Primary Other specified cardiac dysrhythmias documented in this encounter [facility]* Diagnosis Sinus bradycardia- Primary Other specified cardiac dysrhythmias documented in this encounter [facility]* Diagnosis Primary hypertension- Primary Unspecified essential hypertension [facility]* Diagnosis Coronary artery calcification- Primary Coronary atherosclerosis of unspecified type of vessel, [place] or graft Hypercalcemia Class 1 obesity due to excess calories with serious comorbidity and body mass index (BMI) of 30.0 to 30.9 in adult Pure hypercholesterolemia [facility] Name Dates Details Patient Instructions Indication:BMI 39.0-39.9,adult Start:02-Jan-2022 Instruction Type:Provider Instructions for Treatment How to Access [employer] Antibodies Online using Patient Portal and 3rd Green Party Apps Indication:BMI 39.0-39.9,adult Start:02-Jan-2022 Instruction Type:Patient Edu cation [facility] Work Phone: Instructions* Name Dates Details Patient Instructions Indication:BMI 39.0-39.9,adult Start:02-Jan-2022 Instruction Type:Provider Instructions for Treatment How to Access Health Informa tion Online using Patient Portal and 3rd Green Party Apps Indication:BMI 39.0-39.9,adult Start:02-Jan-2022 Instruction Type:Patient Edu cation [facility]; [facility] Work Phone: progress note Author Denise Felix [facility] Note Date/Time January 14, 2025 9:40am [facility] [address] [place] [address] [place] [address] OFFICE VISIT Date of Service: 01/14/25 MR#: [id number] Acct: [id number] Name: SHAVON SCHAEFFER Rep #: [id number] : 1960 Provider: Dr. 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 Operator Helper Required: No Accompanied by: Self Is patient in pain?: No Allergies azithromycin Allergy (Mild, Verified 01/14/25 08:41) Rash chlorhexidine (From ChloraPrep Clear) Allergy (Mild, Verified 01/14/25 08:41) Rash iodine Allergy (Mild, Verified 01/14/25 08:41) Rash nickel (chandra) Allergy (Verified 01/14/25 08:41) Rash oxycodone (From OxyContin) Adverse Reaction (Severe, Verified 01/14/25 08:41) Other Medications ?Medication ?Instructions ?Recorded ?Confirmed ?Type clobetasol 0.05 % topical cream 1 applic topical DAILY PRN 11/05/21 01/14/25 History lactobacillus combination no.9 4 4,000 mmu cells PO DA COSME 11/05/21 01/14/25 History billion cell capsule (Adult 50 Plus Probiotic) psyllium husk 0.4 gram capsule 0.4 g PO DAILY 11/05/21 01/14/25 History (Metamucil) turmeric root extract 1,053 mg 1,076 mg PO DAILY 11/0501/14/25 History tablet magnesium oxide 400 mg PO DAILY PRN 04/12/22 01/14/25 History krill oil 500 mg capsule 500 mg PO DAILY 11/06/22 History hydrocortisone 2.5 % topical 1 applic topical .TWICE W EEKLY 01/17/23 01/14/25 History solution cholecalciferol (vitamin D3) 25 2,000 unit PO DAILY 01/14/25 History mcg (1,000 unit) capsule mecobalamin (vitamin B12) 500 mcg mcg PO 04/12/2412/27 History chewable tablet cholecalciferol (vitamin D3) 1,250 1,250 mcg PO QWEEK #20 caps 04/13/24 01/14/25 Rx mcg (50,000 unit) capsule rosuvastatin 10 mg tablet 10 mg PO DAILY #90 tabs 08/2001/14/25 Rx pen needle, diabetic 29 gauge x #100 ea 01/14/2501/14 Rx 1/2 (Ultra-Thin II Insulin Pen [place]) tirzepatide (weight loss) 12.5 12.5 mg (0.5 mL) subcut QWEEK 3 01/14/25 01/14/25 Rx mg/0.5 mL subcutaneous pen injector months #6.5 mL Have you fallen in the past year?: No Nurse's Note: follow up has blood work [facility] Corneal ulcer (including herpetic) Encounter for screening colonoscopy Health care maintenance Hyperparathyroidism Hypercalcemia Metabolic syndrome Preoperative evaluation to rule out surgical contraindication Need for hepatitis C screening test Urinary frequency Psoriasis Postmenopausal Obesity Dyslipidemia ECG abnormal Palpitations Nonrheumatic tricuspid (valve) insufficiency Arrhythmia Thyroid nodule Borderline type 2 diabetes mellitus Family history of lung cancer Obstructive sleep apnea Hyperlipidemia Hypertension Obesity (BMI 30-39.9) History of blood clots Rooney cyst Chronic knee pain Hyperlipemia HPV (human papilloma virus) anogenital infection Scoliosis Heart murmur Osteoarthritis Arthritis Anemia Seasonal allergies Surgical History History of right knee joint replacement History of removal of cyst History of carpal tunnel release History of bunionectomy Family History Mother Cancer lung Arthritis Sister Arthritis Osteoporosis Brother Arthritis Heart disease Hypertension Hyperlipemia Father Diabetes Heart disease Hypertension Hyperlipemia Kidney disease CVA (cerebral vascular accident) Grandmother Pacemaker Other Family history of lung cancer Social History Smoking Status: Never smoker alcohol intake: current alcohol intake frequency: a few times a week substance use type: does not use caffeine: Yes Type: coffee Number of servings: 2 what type of physical activity do you participate in: weight training and otherdetails: cardio frequency: 1-2 times per week HPI HPI Chief Complaint: Follow-up Details: SHAVON SCHAEFFER, is a 64-year-old female presenting for follow-up of her chronicconditions. Has a few questions/concerns. The patient reported previous laboratory findings from November showing elevated calcium, with levels normalizing in subsequent tests. The PTH level was noted catherine 110 in September and 104 recently, while vitamin D has improved to 64 from 52 after taking 50,000 IU weekly and 2000 IU daily. The patient queried potential effects of Zepbound on vitamin D levels. Chronic history of hyperparathyroidism, follows up with endocrine and general surgery. She also discussed her fight against obesity, mentioning adherence to a program involving Zepbound and plans to increase the dose to aid further weight loss. Insurance issues halted Zepbound coverage in October, but she has enough supply erin additional month. Prevailing weight challenge is related to the last 25- poundgoal, influenced by prior lifestyle changes and personal training efforts. Lipid panel reviews depicted concerns about LDL, measured at 86, where her preventative co supervisor grounds and landscape recommended a target of less than 70 to improve cardiovascular health. Previous statin dosage adjustments were required due to medication intolerance at higher doses. Other chronic medical conditions are generally stable. Attestation: Documentation on this patient encounter was supported using ambient scribe technology/ voice AI technology. The patient consented to recording for the purpose of documenting the encounter. Provider reviewed content of the generatednote prior to signature. ROS Const Constitutional: No body ache, excessive sweating, fatigue, fever(s), frequent falls, headache(s), snoring, weakness, weight change, sleep problems or change in appetite Eyes Eyes: No blurry vision, change in vision, eye pain or Light sensitivity ENT ENT: No abnormal hearing, ear or mastoid pain, tinnitus, nasal congestion, headache(s), neck pain or sore throat Resp Respiratory: No cough, shortness of breath, snoring or wheezing Cardio Cardiology: No chest pain at rest, chest pain with exertion, excessive sweating,shortness of breath, dyspnea on exertion, lightheadedness, orthopnea or palpitations Gastro GI: No abdominal pain, change in bowel habits, constipation, cramping, diarrhea,nausea/dyspepsia or vomiting Genitourinary-Female: No burning urination, painful urination, urinary incontinence, urinary frequency, blood in urine, abnormal periods or pelvic pain Musc Musculoskeletal: No abnormal gait, joint pain, back pain, limited range of motion, neck pain, numbness, stiffness, tingling or Arthritis Skin Skin: No dry skin, redness, lesions, itchy eyes, rash or wounds Neuro Neurology: No abnormal gait, abnormal hearing, abnormal speech, dizziness, weakness, frequent falls, headache(s), memory loss, numbness or tingling Psych Psychiatric: No anxiety, No change in appetite, No depression, No memory loss and No Thoughts of harming yourself/Others Endo Endocrine: No cold intolerance, excessive sweating, fatigue, flushing, heat intolerance, increased thirst/drinking, increased hunger or weight change Aller/Imm Allergy/Immunologic: No itchy eyes, seasonal allergy symptoms, hives or wheezing Dave/Lymp Hematologic/Lymphatic: No easy bleeding, easy bruising or enlarged lymph nodes Exam Const General: cooperative, comfortable and no acute distress Orientation: alert, awake and oriented x3 HENMT Head: normal to inspection, normocephalic and atraumatic Ears: hearing grossly normal bilaterally Eyes General: appearance normal, both eyes and all related structures Neck Neck: normal visual inspection, full ROM, no lymphadenopathy and supple Neck mass: No Thyroid: thyroid normal Resp Effort & Inspection: normal respiratory effort and able to speak in complete sentences Auscultation: Bilateral: Clear to Auscultation Cardio Rate: regular rate Rhythm: regular rhythm Heart Sounds: S1 normal and S2 normal GI Palpation: soft (Nontender, no palpable organomegaly) Neuro General: patient alert, patient awake, patient oriented x3, moves all extremities and CN's II-XI intact bilaterally Extrem General: no clubbing, cyanosis or edema Psych Appearance: grossly normal Mental Status: mental status grossly normal Mood: congruent mood Affect: normal affect Coding Level of Care Code Off vis,est,level 4 Diagnoses Hyperparathyroidism E21.3 Metabolic syndrome E88.810 Dyslipidemia E78.5 Borderline type 2 diabetes mellitus R73.03 Primary hypertension I10 Hypertension type: primary hypertension Thyroid nodule E04.1 Obstructive sleep apnea G47.33 Health care maintenance Z00.00 Assessment and Plan Assessment and Plan (1) Hyperparathyroidism: Status: Chronic Plan: Continue monitoring PTH levels as it shows a decreasing trend with improved vitamin D levels. Discussed maintaining vitamin D supplements (50,000 IU weekly and 2,000 IU daily). Assess need for further imaging if PTH levels do not stabilize. (2) Metabolic syndrome: Status: Chronic Plan: Continue weight management with Zepbound; dose increased from 10 mg weekly to 12.5 mg weekly, prescription sent. Lifestyles changes like exercise with a personal banker are encouraged. Patient education about balancing diet and caloric intake was reiterated. (3) Dyslipidemia: Status: Chronic Plan: She established with a preventative co supervisor grounds and landscape at the [facility] and haddiscussions about adding on Zetia due to poor tolerance of rosuvastatin at higher dose. Plan is to repeat lipid profile in a few months if still not at target recent dose of rosuvastatin to see if well-tolerated/muscle pain persist. (4) Borderline type 2 diabetes mellitus: Status: Chronic Plan: Stable. Continue Zepbound as above, dietary and lifestyle modifications. (5) Hypertension: Status: Chronic Qualifiers: Hypertension type: primary hypertension Qualified Code(s): I10 - Essential (primary) hypertension Plan: Blood pressure is at 122/64 today. Continue lifestyle and dietary modifications. (6) Thyroid nodule: Status: Chronic Plan: No acute symptoms reported; malignancy ruled out in prior biopsies. Surveillanceapproach with potential for future scan per manager nc's recommendations. The patient remains asymptomatic. (7) Obstructive sleep apnea: Status: Chronic Plan: Continues to use and benefit from her BiPAP. Continue current management. (8) Health care maintenance: Status: Acute Plan: As above, recently established with a preventative co supervisor grounds and landscape. Plans to get her flu and RSV vaccines. Shingles vaccine updated. Wellness form signed. Medications: New pen needle, diabetic (Ultra-Thin II Insulin Pen [place]) As directed 100 ea 3RF Changed From tirzepatide (weight loss) (Zepbound) 10 mg (0.5 mL) subcut QWEEK 2 mL 3RF To tirzepatide (weight loss) 12.5 mg (0.5 mL) subcut QWEEK 6.5 mL 3RF 3 months Clinical Quality Measures Falls Risk Screening/Assistive Devices Have you fallen in the past year?: No 01/17/25 1608 <Electronically signed by Denise rey MD> Date _ Denise Felix MD Cosigner Signature: Date (if applicable) CC: ~ [facility] Work Phone: Reason for referral (narrative)* Outpatient Procedure (Routine) - Authorized Specialty Diagnoses / Procedures Referred By Contac t [facility] Diagnoses Aortic valve disease Procedures ECHO ECHO TTHRC R-T 2D W/WOM-MODE COMPL SPEC&COLR D García Stephens MD [address] [place] [address] [facility] [address] [place] [address] Referral ID Status Reason Start Date Expiration Date Visits Requested Visits Authorized [id number] Authorized Auto-Generat ed Referral 06/25/2023 06/24/2024 1 1 * Outpatient Procedure (Routine) - Authorized Specialty Diagnoses / Procedures Referred By Contac t Referred To Contact [facility] Diagnoses Aortic valve disease Procedures ECG COMPLETE ECG ROUTINE ECG W/LEAST 12 LDS W/I&R García Stephens MD [address] [address] [place] [address] Referral ID Status Reason Start Date Expiration Date Visits Requested Visits Authorized [id number] Authorized Auto-Generat ed Referral 06/25/2023 06/24/2024 1 1 [facility] for referral (narrative)* Outpatient Procedure (Routine) - Authorized Specialty Diagnoses / Procedures [facility] Diagnoses Undiagnosed cardiac murmurs Essential hypertension Non-rheumatic tricuspid valve insufficiency Syncope, unspecified syncope type Sinus bradycardia Procedures ECG COMPLETE ECG ROUTINE ECG W/LEAST 12 LDS W/I&R Gato Barrios MD [address] [place] [address] [place] [address] Referral ID Status Reason Start Date Expiration Date Visits Requested Visits Authorized [id number] Authorized Auto-Generat ed Referral 08/08/2023 08/07/2024 1 1 [facility] for referral (narrative)No reason for referral information [facility] Work Phone: Summary Purpose Family History No [...] Lung Cancer Comments:Mother. Maternal Gr andmother. Status:Active Relationship Condition Age at Onset Recorded Date/[place] mother Malignant neoplasm Unknown Arthritis Unknown sister Arthritis Unknown Osteoporosis Unknown brother Arthritis Unknown Cardiac disease Unknown Hypertension Unknown Hyperlipidemia Unknown father Diabetes mellitus Unknown Kidney disorder Unknown Cerebrovascular accident (CVA) Unknown Relationship Condition Age at Onset Recorded Date/T [place] Not Specified Family history of lung cancer Unknown mother Malignant neoplasm Unknown Arthritis Unknown sister Arthritis Unknown Osteoporosis Unknown brother Arthritis Unknown Cardiac disease Unknown Hypertension Unknown Hyperlipidemia Unknown father Diabetes mellitus Unknown Kidney disorder Unknown Cerebrovascular accident (CVA) Unknown grandmother Presence of cardiac pacemaker Unknown Advance Directives No Advanced Directives Records Found Advance Directive Response Recorded Date/ Time Name of Medical Power of Planner Scheduler February 03, 2023 9:21am Living Will Yes February 03 9:21am Power of Planner Scheduler Yes February 03 023 9:21am Advance Directive Response Recorded Date/ Time Name of Medical Power of Planner Scheduler February 03, 2023 8:21am Living Will Yes February 03 8:21am Power of Planner Scheduler Yes February 03 023 8:21am Advance Directive Response Recorded Date/ Time Living Will Yes February 03 9:21am Power of Planner Scheduler Yes February 03 9:21am Advance Directive Response Recorded Date/ Time Living Will Yes February 03 9:21am Do you have a Healthcare Power of Planner Scheduler? Yes February 03, 2023 9:21am Living Will Yes March 28 1:45am Do you have a Healthcare Power of Planner Scheduler? Yes March 28, 2024 1:45am Living Will Yes April 28 1:24am Do you have a Healthcare Power of Planner Scheduler? Yes April 28, 2024 1:24am Living Will Yes June 26, 2024 1:20am Do you have a Healthcare Power of Planner Scheduler? Yes June 26, 2024 1:20am Advance Directive Response Recorded Date/ Time Living Will Yes April 28 1:24am Do you have a Healthcare Power of Planner Scheduler? Yes April 28, 2024 1:24am Living Will Yes June 26, 2024 1:20am Do you have a Healthcare Power of Planner Scheduler? Yes June 26, 2024 1:20am Living Will Yes July 27, 2024 12:11am Do you have a Healthcare Power of Planner Scheduler? Yes July 27, 2024 12:11am Advance Directive Response Recorded Date/ Time Living Will Yes June 26, 2024 1:20am Do you have a Healthcare Power of Planner Scheduler? Yes June 26, 2024 1:20am Living Will Yes July 27, 2024 12:11am Do you have a Healthcare Power of Planner Scheduler? Yes July 27, 2024 12:11am Advance Directive Response Recorded Date/ Time Living Will Yes July 27, 2024 12:11am Do you have a Healthcare Power of Planner Scheduler? Yes July 27, 2024 12:11am Living Will Yes August 26, 2024 12 :07am Do you have a Healthcare Power of Planner Scheduler? Yes August 26, 2024 12:07am Advance Directive Response Recorded Date/ Time Living Will Yes August 26, 2024 12 :07am Do you have a Healthcare Power of Planner Scheduler? 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 CARE, PT KIM S NPP REVIEW BLOODWORK Reason for Visit Family history of xavi ng cancer Hyperlipidemia Hypertension Obesity (BMI 30-39.9) Obstructive sleep apnea Chief Complaint REVIEW BLOODWORK SHOW HOW TO USE INJECTION 6 M FU Reason for Visit Borderline type 2 di abetes mellitus Hyperlipidemia Hypertension Obesity (BMI 30-39.9) Borderline type 2 diabetes mellitus Obesity (BMI 30-39.9) Borderline type 2 diabetes mellitus Chronic knee pain Obesity (BMI 30-39.9) Chief Complaint 6 M FU REFERRED SELF/TIFFANY 3 M FU THYROID NODULE Reason for Visit Borderline type 2 di abetes mellitus Chronic knee pain Obesity (BMI 30-39.9) Thyroid nodule Arrhythmia Borderline type 2 diabetes mellitus Hyperlipidemia Obesity (BMI 30-39.9) Obstructive sleep apnea Chief Complaint ABN HOLTER (ELVIRA) KOURTNEYROXYLEIA AMADOULEIA Amb Documentation EKG RESULTS Amb Documentation SURGERY CLEARANCE syncope HOLTER MONITOR OA RT KN/RX HERE Reason for Visit Borderline type 2 di abetes mellitus Dyslipidemia Hypertension Obesity Preoperative cardiovascular examination Postmenopausal Arrhythmia Borderline type 2 diabetes mellitus Obesity Preoperative evaluation to rule out surgical contraindication Urinary frequency Borderline type 2 diabetes mellitus Hyperlipidemia Hypertension Chief Complaint SURGERY CLEARANCE syncope HOLTER MONITOR Thyroid Nodule 3 M FU OA RT KN/RX HERE Reason for Visit Preoperative evaluat ion to rule out surgical contraindication Urinary frequency Borderline type 2 diabetes mellitus Hyperlipidemia Hypertension Borderline type 2 diabetes mellitus Obesity Thyroid nodule Borderline type 2 diabetes mellitus Hyperlipidemia Metabolic syndrome Osteoarthritis Thyroid nodule Chief Complaint 3 M FU OA RT KN/RX HERE 4 M FU Reason for Visit Borderline type 2 di abetes mellitus Hyperlipidemia Metabolic syndrome Osteoarthritis Thyroid nodule Borderline type 2 diabetes mellitus Hyperlipidemia Hypertension Metabolic syndrome Obstructive sleep apnea Thyroid nodule Chief Complaint 4 M FU THYROID NODULE Reason for Visit Borderline type 2 di abetes mellitus Hyperlipidemia Hypertension Metabolic syndrome Obstructive sleep apnea Thyroid nodule Chief Complaint Admit Date 3 M FU April 12, 2024 3:01pm OBESITY April 14, 2024 1:43pm OBESITY June 16, 2024 2:38pm 3 M FU July 09, 2024 8:2 3am BODY COMP July 20, 2024 3:2 5pm OBESITY July 21, 2024 2:2 3pm Reason for Visit Admit Date Borderline type 2 diabetes mellitus [facility] 2023 3:01pm Hyperlipidemia April 12, 2024 3:01pm Hyperparathyroidism April 12, 2024 3:01pm Hypertension April 12, 2024 3:01pm Metabolic syndrome April 12, 2024 3:01pm Obesity April 12, 2024 3:01pm Obstructive sleep apnea April 12, 2 024 3:01pm Health care maintenance July 09, 2024 8:23am Borderline type 2 diabetes mellitus Spike 2024 8:23am Hyperlipidemia July 09, 2024 8:2 3am Hyperparathyroidism July 09, 2024 8:2 3am Hypertension July 09, 2024 8:2 3am Metabolic syndrome July 09, 2024 8:2 3am Obesity (BMI 30-39.9) July 09, 2024 8 :23am Chief Complaint Admit Date OBESITY June 16, 2024 2:38pm 3 M FU July 09, 2024 8:2 3am BODY COMP July 20, 2024 3:2 5pm OBESITY July 21, 2024 2:2 3pm OBESITY August 25, 2024 2:2 0pm Reason for Visit Admit Date Health care maintenance July 09, 2024 8:23am Borderline type 2 diabetes mellitus Spike 2024 8:23am Hyperlipidemia July 09, 2024 8:2 3am Hyperparathyroidism July 09, 2024 8:2 3am Hypertension July 09, 2024 8:2 3am Metabolic syndrome July 09, 2024 8:2 3am Obesity (BMI 30-39.9) July 09, 2024 8 :23am Chief Complaint Admit Date 3 M FU July 09, 2024 8:2 3am BODY COMP July 20, 2024 3:2 5pm OBESITY July 21, 2024 2:2 3pm OBESITY August 25, 2024 2:2 0pm 3 M FU October 15, 2024 9:25 am Chief Complaint Admit Date OBESITY August 25, 2024 2:2 0pm 3 M FU October 15, 2024 9:25 am OBESITY November 03, 2024 8:37a m Chief Complaint Admit Date 3 M FU October 15, 2024 9:25 am OBESITY November 03, 2024 8:37a m OBESITY December 22, 2024 8: 25am 3 M FU January 14, 2025 8:41am Reason for Visit Admit Date Corneal ulcer (including herpetic) October 15, 2024 9:25am Borderline type 2 diabetes mellitus October 15, 2024 9:25am Hyperlipidemia October 15, 2024 9:25 am Hyperparathyroidism October 15, 2024 9:25 am Hypertension October 15, 2024 9:25 am Metabolic syndrome October 15, 2024 9:25 am Obstructive sleep apnea October 15, 2024 9:25am Health care maintenance January 14, 2025 8:41am Borderline type 2 diabetes mellitus Sept ember 2024 8:41am Dyslipidemia January 14, 2025 8:41am Hyperparathyroidism January 14, 2025 8:41am Hypertension January 14, 2025 8:41am Metabolic syndrome January 14, 2025 8:41am Obstructive sleep apnea January 14, 2025 8:41am Thyroid nodule January 14, 2025 8:41am Reason for Referral Specialty Diagnoses / Procedures Referred By Julio César stroud Referred To Contact [facility] Procedures CARDIOVASCULAR MEDICINE OP FOLLOW UP APPT ORDER Gato Barrios MD [address] [place] [address] [place] [address] Referral ID Status Reason Start Date Expiration Date Visits Requested Visits Authorized [id number] Ref Not Required PCP Requested Referral 09/09/2024 12/08/2024 1 1 Specialty Diagnoses / Procedures Referred By Julio César stroud Referred To Contact [facility] Diagnoses Sinus bradycardia Procedures ECHO ECHO TTHRC R-T 2D W/WOM-MODE COMPL SPEC&COLR D Gato Barrios MD [address] [place] [address] [address] Referral ID Status Reason Start Date Expiration Date Visits Requested Visits Authorized [id number] Authorized Auto-Generat ed Referral 12/09/2023 12/08/2024 1 1 Additional Source Comments INFORMATION SOURCE (unrecogn ized section and content) DATE CREATED AUTHOR 07/23/2020 [facility] DATE CREATED AUTHOR AUTHOR'S ORGANIZ ATION 11/07/2020 [facility] DATE CREATED AUTHOR AUTHOR'S ORGANIZ ATION 06/23/2024 [facility] DATE CREATED AUTHOR AUTHOR'S ORGANIZ ATION 01/13/2025 [facility] DATE CREATED AUTHOR AUTHOR'S ORGANIZ ATION [facility] Goals (unrecognized section and content) Goals may be documented in a n alternate sectionGoals may be documented in an alternate sectionGoals may be documented in an alternate sectionGoals may be documented in an alternate sectionGoals may be documented in an alternate sectionGoals may be documented in an alternate sectionGoals may be documented in an alternate sectionGoals may be documented in an alternate sectionGoals may be documented in an alternate sectionGoals may be documented in an alternate sectionGoals may be documented in an alternate sectionGoals may be documented in an alternate sectionGoals may be documented in an alternate sectionGoals may be documented in an alternate sectionGoals may be documented in an alternate section Source Comments (unrecognize d section and content) In the event this informatio n is protected by the Federal Confidentiality of Alcohol and Drug Abuse Patient Records regulations: The Federal rules restrict any use of the information to criminally investigate or prosecute any alcohol or drug abuse patient.[facility] the event this information is protected by the Federal Confidentiality of Alcohol and Drug Abuse Patient Records regulations: The Federal rules restrict any use of the information to criminally investigate or prosecute any alcohol or drug abuse patient.[facility] System[facility] the event this information is protected by the Federal Confidentiality of Alcohol and Drug Abuse Patient Records regulations: The Federal rules restrict any use of the information to criminally investigate or prosecute any alcohol or drug abuse patient.[facility] System[facility] the event this information is protected by the Federal Confidentiality of Alcohol and Drug Abuse Patient Records regulations: The Federal rules restrict any use of the information to criminally investigate or prosecute any alcohol or drug abuse patient.[facility] System[facility] the event this information is protected by the Federal Confidentiality of Alcohol and Drug Abuse Patient Records regulations: The Federal rules restrict any use of the information to criminally investigate or prosecute any alcohol or drug abuse patient.[facility] System[facility] the event this information is protected by the Federal Confidentiality of Alcohol and Drug Abuse Patient Records regulations: The Federal rules restrict any use of the information to criminally investigate or prosecute any alcohol or drug abuse patient.[facility] System[facility] the event this information is protected by the Federal Confidentiality of Alcohol and Drug Abuse Patient Records regulations: The Federal rules restrict any use of the information to criminally investigate or prosecute any alcohol or drug abuse patient.[facility] System[facility] the event this information is protected by the Federal Confidentiality of Alcohol and Drug Abuse Patient Records regulations: The Federal rules restrict any use of the information to criminally investigate or prosecute any alcohol or drug abuse patient.[facility] System[facility] the event this information is protected by the Federal Confidentiality of Alcohol and Drug Abuse Patient Records regulations: The Federal rules restrict any use of the information to criminally investigate or prosecute any alcohol or drug abuse patient.[facility] SystemIn the event this information is protected by the Federal Confidentiality of Alcohol and Drug Abuse Patient Records regulations: The Federal rules restrict any use of the information to criminally investigate or prosecute any alcohol or drug abuse patient.[facility] SystemIn the event this information is protected by the Federal Confidentiality of Alcohol and Drug Abuse Patient Records regulations: The Federal rules restrict any use of the information to criminally investigate or prosecute any alcohol or drug abuse patient.[facility] SystemIn the event this information is protected by the Federal Confidentiality of Alcohol and Drug Abuse Patient Records regulations: The Federal rules restrict any use of the information to criminally investigate or prosecute any alcohol or drug abuse patient.[facility] SystemIn the event this information is protected by the Federal Confidentiality of Alcohol and Drug Abuse Patient Records regulations: The Federal rules restrict any use of the information to criminally investigate or prosecute any alcohol or drug abuse patient.[facility] SystemIn the event this information is protected by the Federal Confidentiality of Alcohol and Drug Abuse Patient Records regulations: The Federal rules restrict any use of the information to criminally investigate or prosecute any alcohol or drug abuse patient.[facility] Reason for Visit (unrecogniz ed section and content) Reason Comments Radiology Mammogram Reason Comments Mass Lump on right nasal. Reason Comments Hyperlipidemia CARD New Patient Consult High blood pressure Metabolic syndrome Reason Comments Event Zio patch Reason Comments Follow Up Care Teams (unrecognized sec tion and content) Team Status: Active Member Role Status Dates Dr. Denise Felix MD Primary Care Provider Active Team Status: Inactive Member Role Status Dates Dr. Denise Felix MD Primary Care Barney todd, Attending Provider, Referring Provider Active Team Status: Active Member Role Status Dates Dr. Denise Felix MD Primary Care Provider Active Dr. Ez Belcher MD Attending Provider Active Team Status: Active Member Role Status Dates Dr. Denise Felix MD Primary Care Provider Active Self Referred Attending Provider, Referring Provider A ctive Team Status: Inactive Member Role Status Dates Dr. Denise Felix MD Primary Care Provider, Atten ding Provider Active Team Status: Inactive Member Role Status Dates Dr. Denise Felix MD Primary Care Provider, Refer ring Provider Active Dr. Rasheed Putnam MD Attending Provider Active Team Status: Active Member Role Status Dates Dr. Denise Felix MD Primary Care Provider Active Dr. Rasheed Putnam MD Referring Provider, Other Provid er Active Dr. Luis Thurman MD Attending Provider Active Team Status: Active Member Role Status Dates Dr. Denise Felix MD Primary Care Provider Active Mateo Hinkle AVIONICS MANAGER, AVIONICS MANAGER-C Attending Provider Active Team Status: Active Member Role Status Dates Dr. Denise Felix MD Primary Care Provider Active Dr. Rasheed Putnam MD Attending Provider Active Team Status: Inactive Member Role Status Dates Dr. Denise Felix MD Primary Care Provider Active Dr. Sabas Mcclure MD Attending Provider Active Team Status: Inactive Member Role Status Dates Dr. Denise Felix MD Primary Care Provider Active Dr. Rasheed Putnam MD Attending Provider, Referring Pr ovider Active Team Status: Active Member Role Status Dates Dr. Denise Felix MD Primary Care Provider Active COURTNEY GRIJALVA Attending Provider, Referring Provider Ac tive Team Status: Inactive Member Role Status Dates Dr. Denise Felix MD Primary Care Provider Active Dr. Sabas Mcclure MD Attending Provider, Emergency Pr ovider Active Delivery Director Relationship Specialty Start Date End Date Denise Felix MD [address] [facility] [address] PCP - General Internal Medicine 03/13/23 Team Status: Inactive Member Role Status Dates Dr. Denise Felix MD Primary Care Provider, Refer ring Provider Active Dr. Julian Leonard MD Attending Provider Active Team Status: Active Member Role Status Dates Dr. Denise Felix MD Primary Care P [place], Attending Provider, Referring Provider Active Team Status: Inactive Member Role Status Dates Dr. Denise Felix MD Primary Care Provider Active COURTNEY GRIJALVA Attending Provider, Referring Provider Ac karlie Delivery Director Relationship Specialty Start Date End Date Denise Felix MD [address] [place] [address] PCP - General Internal Medicine 03/13/23 Delivery Director Relationship Specialty Start Date End Date Denise Felix MD [address] [place] [address] PCP - General Internal Medicine 03/13/23 Delivery Director Relationship Specialty Start Date End Date Denise Felix MD [address] [place] [address] PCP - General Internal Medicine 03/13/23 Delivery Director Relationship Specialty Start Date End Date Denise Felix MD [address] [place] [address] PCP - General Internal Medicine 03/13/23 Delivery Director Relationship Specialty Start Date End Date Denise Felix MD [address] [place] [address] PCP - General Internal Medicine 03/13/23 Delivery Director Relationship Specialty Start Date End Date Denise Felix MD [address] [place] [address] PCP - General Internal Medicine 03/13/23 Delivery Director Relationship Specialty Start Date End Date Denise Felix MD [address] [place] [address] PCP - General Internal Medicine 03/13/23 Team Status: Inactive Member Role Status Dates Dr. Denise Felix MD Primary Care Provider Active Start: April 12, 2024 End: April 12, 2024 Dr. Denise Felix MD Attending Provider Active Start: April 12, 2024 End: April 12, 2024 Dr. Denise Felix MD Referring Provider Active Start: April 12, 2024 End: April 12, 2024 Team Status: Inactive Member Role Status Dates Dr. Denise Felix MD Primary Care Provider Active Start: April 14, 2024 End: April 27, 2024 Dr. Denise Felix MD Attending Provider Active Start: April 14, 2024 End: April 27, 2024 Dr. Denise Felix MD Referring Provider Active Start: April 14, 2024 End: April 27, 2024 Team Status: Inactive Member Role Status Dates Dr. Denise Felix MD Primary Care Provider Active Start: June 14, 2024 End: June 14, 2024 Dr. Denise Felix MD Attending Provider Active Start: June 14, 2024 End: June 14, 2024 Dr. Denise Felix MD Referring Provider Active Start: June 14, 2024 End: June 14, 2024 Team Status: Inactive Member Role Status Dates Dr. Denise Felix MD Primary Care Provider Active Start: June 16, 2024 End: June 25, 2024 Dr. Denise Felix MD Attending Provider Active Start: June 16, 2024 End: June 25, 2024 Dr. Denise Felix MD Referring Provider Active Start: June 16, 2024 End: June 25, 2024 Team Status: Inactive Member Role Status Dates Dr. Denise Felix MD Primary Care Provider Active Start: July 09, 2024 End: July 09, 2024 Dr. Denise Felix MD Attending Provider Active Start: July 09, 2024 End: July 09, 2024 Dr. Denise Felix MD Referring Provider Active Start: July 09, 2024 End: July 09, 2024 Team Status: Inactive Member Role Status Dates Dr. Denise Felix MD Primary Care Provider Active Start: July 20, 2024 End: July 20, 2024 Dr. Denise Felix MD Attending Provider Active Start: July 20, 2024 End: July 20, 2024 Dr. Denise Felix MD Referring Provider Active Start: July 20, 2024 End: July 20, 2024 Team Status: Active Member Role Status Dates Dr. Denise Felix MD Primary Care Provider Active Start: July 21, 2024 Dr. Denise Felix MD Attending Provider Active Start: July 21, 2024 Dr. Denise Felix MD Referring Provider Active Start: July 21, 2024 Team Status: Inactive Member Role Status Dates Dr. Denise Felix MD Primary Care Provider Active Start: July 21, 2024 End: July 26, 2024 Dr. Denise Felix MD Attending Provider Active Start: July 21, 2024 End: July 26, 2024 Dr. Denise Felix MD Referring Provider Active Start: July 21, 2024 End: July 26, 2024 Team Status: Inactive Member Role Status Dates Dr. Denise Felix MD Primary Care Provider Active Start: August 25, 2024 End: August 25, 2024 Dr. Denise Felix MD Attending Provider Active Start: August 25, 2024 End: August 25, 2024 Dr. Denise Felix MD Referring Provider Active Start: August 25, 2024 End: August 25, 2024 Team Status: Inactive Member Role Status Dates Dr. Denise Felix MD Primary Care Provider Active Start: October 11, 2024 End: October 11, 2024 Dr. Denise Felix MD Attending Provider Active Start: October 11, 2024 End: October 11, 2024 Dr. Denise Felix MD Referring Provider Active Start: October 11, 2024 End: October 11, 2024 Team Status: Inactive Member Role Status Dates Dr. Denise Felix MD Primary Care Provider Active Start: October 15, 2024 End: October 15, 2024 Dr. Denise Felix MD Attending Provider Active Start: October 15, 2024 End: October 15, 2024 Dr. Denise Felix MD Referring Provider Active Start: October 15, 2024 End: October 15, 2024 Team Status: Active Member Role/Relationship Status Dates Dr. Denise Felix MD Primary Care Provider Active Team Status: Inactive Member Role/Relationship Status Dates Dr. Denise Felix MD Primary Care Provider Active Start: August 25, 2024 End: August 25, 2024 Dr. Denise Felix MD Attending Provider Active Start: August 25, 2024 End: August 25, 2024 Dr. Denise Felix MD Referring Provider Active Start: August 25, 2024 End: August 25, 2024 Team Status: Inactive Member Role/Relationship Status Dates Dr. Denise Felix MD Primary Care Provider Active Start: October 11, 2024 End: October 11, 2024 Dr. Denise Felix MD Attending Provider Active Start: October 11, 2024 End: October 11, 2024 Dr. Denise Felix MD Referring Provider Active Start: October 11, 2024 End: October 11, 2024 Team Status: Inactive Member Role/Relationship Status Dates Dr. Denise Felix MD Primary Care Provider Active Start: October 15, 2024 End: October 15, 2024 Dr. Denise Felix MD Attending Provider Active Start: October 15, 2024 End: October 15, 2024 Dr. Denise Felix MD Referring Provider Active Start: October 15, 2024 End: October 15, 2024 Team Status: Inactive Member Role/Relationship Status Dates Dr. Denise Felix MD Primary Care Provider Active Start: November 03, 2024 End: November 25, 2024 Dr. Denise Felix MD Attending Provider Active Start: November 03, 2024 End: November 25, 2024 Dr. Denise Felix MD Referring Provider Active Start: November 03, 2024 End: November 25, 2024 Team Status: Inactive Member Role/Relationship Status Dates Dr. Denise Felix MD Primary Care Provider Active Start: October 11, 2024 End: October 11, 2024 Dr. Denise Felix MD Attending Provider Active Start: October 11, 2024 End: October 11, 2024 Dr. Denise Felix MD Referring Provider Active Start: October 11, 2024 End: October 11, 2024 Team Status: Inactive Member Role/Relationship Status Dates Dr. Denise Felix MD Primary Care Provider Active Start: October 15, 2024 End: October 15, 2024 Dr. Denise Felix MD Attending Provider Active Start: October 15, 2024 End: October 15, 2024 Dr. Denise Felix MD Referring Provider Active Start: October 15, 2024 End: October 15, 2024 Team Status: Inactive Member Role/Relationship Status Dates Dr. Denise Felix MD Primary Care Provider Active Start: November 03, 2024 End: November 25, 2024 Dr. Denise Felix MD Attending Provider Active Start: November 03, 2024 End: November 25, 2024 Dr. Denise Felix MD Referring Provider Active Start: November 03, 2024 End: November 25, 2024 Team Status: Inactive Member Role/Relationship Status Dates Dr. Denise Felix MD Primary Care Provider Active Start: December 22, 2024 End: December 26, 2024 Dr. Denise Felix MD Attending Provider Active Start: December 22, 2024 End: December 26, 2024 Dr. Denise Felix MD Referring Provider Active Start: December 22, 2024 End: December 26, 2024 Delivery Director Relationship Specialty Start Date End Date Denise Felix MD [address] [facility] [place] [address] PCP - General Internal Medicine 03/13/23 Team Status: Active Member Role/Relationship Status Dates Dr. Denise Felix MD Primary care physician Activ e Team Status: Inactive Member Role/Relationship Status Dates Dr. Denise Felix MD Primary care physician Activ e Start: October 11, 2024 End: October 11, 2024 Dr. Denise Felix MD Attending physician Active Start: October 11, 2024 End: October 11, 2024 Dr. Denise Felix MD Referring Provider Active Start: October 11, 2024 End: October 11, 2024 Team Status: Inactive Member Role/Relationship Status Dates Dr. Denise Felix MD Primary care physician Activ e Start: October 15, 2024 End: October 15, 2024 Dr. Denise Felix MD Attending physician Active Start: October 15, 2024 End: October 15, 2024 Dr. Denise Felix MD Referring Provider Active Start: October 15, 2024 End: October 15, 2024 Team Status: Inactive Member Role/Relationship Status Dates Dr. Denise Felix MD Primary care physician Activ e Start: November 03, 2024 End: November 25, 2024 Dr. Denise Felix MD Attending physician Active Start: November 03, 2024 End: November 25, 2024 Dr. Denise Felix MD Referring Provider Active Start: November 03, 2024 End: November 25, 2024 Team Status: Inactive Member Role/Relationship Status Dates Dr. Denise Felix MD Primary care physician Activ e Start: December 22, 2024 End: December 26, 2024 Dr. Denise Felix MD Attending physician Active Start: December 22, 2024 End: December 26, 2024 Dr. Denise Felix MD Referring Provider Active Start: December 22, 2024 End: December 26, 2024 Team Status: Inactive Member Role/Relationship Status Dates Dr. Denise Felix MD Primary care physician Activ e Start: January 14, 2025 End: January 14, 2025 Dr. Denise Felix MD Attending physician Active Start: January 14, 2025 End: January 14, 2025 Dr. Denise Felix MD Referring Provider Active Start: January 14, 2025 End: January 14, 2025 FOR RECORDS PERTAINING TO PATIENTS WHO ARE [...] BE BASED ON THE PRIMARY CLINICAL RECORDS. [facility] [employer] [facility]. provides no warranty or guarantee of the accuracy or completeness of information in this document.
[2025-02-11 08:10] LABS: Mucous, Urine 0 SEEN /hpf (<or=2+); Red Blood Cells-Urine 0 SEEN /hpf (0-5)
--- NOTE | 2025-02-11 08:12 | EX.ED.DYSGE1 ---
HPI History of Present Illness Chief Complaint: Flank Pain Informant: patient Narrative Narrative: Patient is a 64-year-old female with past medical history of hyperlipidemia and hyperparathyroidism. She states she does workout multiple days a week. She states she worked out the other day and afterwards noticed some pain in the left flank/low back region. She states that there was no excessive activity during her workout session and she denies any direct trauma. She states symptoms did improve with Aleve. However after doing some errands the back pain returned. She states that with a heating pad the symptoms would improve but not resolved. However they have persisted and made it difficult to sleep throughout the night. She states there has been no dysuria or hematuria and she denies any loss of bowel or bladder control or IV drug use. She states has been no recent back surgeries or injections however with her history of vitamin D use as well as hyperparathyroidism she is concerned she may have a kidney stone and therefore comes in for evaluation. [facility] Medical History Corneal ulcer (including herpetic) Encounter for screening colonoscopy Health care maintenance Hyperparathyroidism Hypercalcemia Metabolic syndrome Preoperative evaluation to rule out surgical contraindication Need for hepatitis C screening test Urinary frequency Psoriasis Postmenopausal Obesity Dyslipidemia ECG abnormal Palpitations Nonrheumatic tricuspid (valve) insufficiency Arrhythmia Thyroid nodule Borderline type 2 diabetes mellitus Family history of lung cancer Obstructive sleep apnea Hyperlipidemia Hypertension Obesity (BMI 30-39.9) History of blood clots Rooney cyst Chronic knee pain Hyperlipemia HPV (human papilloma virus) anogenital infection Scoliosis Heart murmur Osteoarthritis Arthritis Anemia Seasonal allergies Home Medications ?Medication ?Instructions ?Recorded ?Last Taken ?Type clobetasol 0.05 % topical cream 1 applic topical DAILY PRN 11/05/21 Unknown History lactobacillus combination no.9 4 4,000 mmu cells PO DAILY 11/05/21 Unknown History billion cell capsule (Adult 50 Plus Probiotic) psyllium husk 0.4 gram capsule 0.4 g PO DAILY 11/05/21 Unknown History (Metamucil) turmeric root extract 1,053 mg 1,076 mg PO DAILY 11/05/21 Unknown History tablet magnesium oxide 400 mg PO DAILY PRN 04/12/22 Unknown History krill oil 500 mg capsule 500 mg PO DAILY 11/06/22 Unknown History hydrocortisone 2.5 % topical 1 applic topical .TWICE WEEKLY 01/17/23 Unknown History solution cholecalciferol (vitamin D3) 25 2,000 unit PO DAILY 12/31/23 Unknown History mcg (1,000 unit) capsule mecobalamin (vitamin B12) 500 mcg mcg PO 04/12/24 Unknown History chewable tablet cholecalciferol (vitamin D3) 1,250 1,250 mcg PO QWEEK #20 caps 04/13/24 Unknown Rx mcg (50,000 unit) capsule rosuvastatin 10 mg tablet 10 mg PO DAILY #90 tabs 09/29/24 Unknown Rx pen needle, diabetic 29 gauge x #100 ea 01/14/25 Unknown Rx 1/2 (Ultra-Thin II Insulin Pen [place]) tirzepatide (weight loss) 12.5 12.5 mg (0.5 mL) subcut QWEEK #2 mL 01/19/25 Unknown Rx mg/0.5 mL subcutaneous solution methocarbamol 500 mg tablet 500 mg PO 4X/DAY PRN Muscle 02/11/25 Unknown Rx pain/spasm #40 tabs Allergy/AdvReac Type Severity Reaction Status Date / Time azithromycin Allergy Mild Rash Verified 02/11/25 06:57 chlorhexidine (From Allergy Mild Rash Verified 02/11/25 06:57 ChloraPrep Clear) iodine Allergy Mild Rash Verified 02/11/25 06:57 nickel (chandra) Allergy Rash Verified 02/11/25 06:57 oxycodone (From OxyContin) AdvReac Severe Other Verified 02/11/25 06:57 Family History Mother Cancer lung Arthritis Sister Arthritis Osteoporosis Brother Arthritis Heart disease Hypertension Hyperlipemia Father Diabetes Heart disease Hypertension Hyperlipemia Kidney disease CVA (cerebral vascular accident) Grandmother Pacemaker Other Family history of lung cancer Surgical History History of right knee joint replacement History of removal of cyst History of carpal tunnel release History of bunionectomy Social History Smoking Status: Never smoker alcohol intake: current alcohol intake frequency: a few times a week substance use type: does not use caffeine: Yes Type: coffee Number of servings: 2 what type of physical activity do you participate in: weight training and other details: cardio frequency: 1-2 times per week ROS ROS ED Constitutional Constitutional ED: Denies chills or fever(s) Cardiovascular Cardiovascular: Denies chest pain Respiratory/Chest Respiratory/Chest: Denies cough or dyspnea Gastrointestinal Gastrointestinal: Denies abdominal pain, diarrhea, nausea or vomiting Genitourinary Genitourinary ED: Denies dysuria, hematuria or urinary frequency Musculoskeletal Musculoskeletal: Reports back pain Integumentary Denies rash Neurologic Neurologic: Denies headache(s) or paresthesias EXAM Physical Exam Const Vital Signs: 02/11/25 06:54 02/11/25 06:54 02/11/25 09:01 Temperature 97.7 F L 98.6 F Temperature Source Oral Pulse Rate 65 58 L Respiratory Rate 16 12 Blood Pressure 144/66 H 142/80 H Blood Pressure Mean 92 100 Pulse Ox 100 100 Oxygen Delivery Method Room Air Positive well nourished and well developed General Appearance ED: well developed; Negative for pallor HEENT HEENT Narrative: Normocephalic atraumatic Eyes PERRL and EOMs intact bilaterally General Eye ED: Negative for scleral icterus Neck supple Resp normal respiratory effort and clear to auscultation bilaterally Cardio regular rate and regular rhythm GI normal to inspection, nondistended, normoactive bowel sounds, non-tender, non-distended and no masses Auscultation: normoactive bowel sounds Palpation: soft Back/Spine Back/Spine Narrative: No bony deformity or step-off of the thoracic or lumbar spine no midline tenderness to palpation There is mild left sided paralumbar tension and spasm noted that worsens with rotation. Faint left CVA pain is noted as well No overlying soft tissue changes to suggest trauma or infection No saddle anesthesia. Negative straight leg raise. No clonus or Babinski. Patellar reflexes are +2-4 bilaterally Extremity normal to inspection Neuro oriented x3, CN's II-XII intact bilaterally and no sensory deficits noted Sensorium / Orientation: alert Motor Exam: strength 5/5 throughout Psych mental status grossly normal Skin no rashes or lesions noted and no wounds General Skin Exam: Negative for jaundice or pallor MDM MDM MDM Narrative Medical decision making narrative: Patient arrived to the ER mildly hypertensive but overall stable vitals. She does workout frequently but states there was no excessive activity or trauma leading to her left-sided back pain. Without midline tenderness I do not feel the need for an x-ray as I have low concern for compression fracture or spondylolisthesis. Urine sample be obtained to check for potential UTI. Basic labs to rule out acute kidney injury or electrolyte abnormality. As she does have higher risk for kidney stone with vitamin D use and hyperparathyroidism a noncontrast CT will be obtained. The CT revealed no sign of kidney stone or hydronephrosis or signs of intestinal infection such as diverticulitis. Lab work revealed no signs of acute kidney injury or UTI/pyelonephritis. Electrolytes were within normal range. Therefore I feel patient has a muscle spasm and lumbosacral strain which can be treated symptomatically and she is otherwise safe for discharge. History & Record Review Discussion w/independent historian: Patient Lab Data Attestation: I reviewed the patient's lab results. Labs: Laboratory Results - last 24 hr 02/11/25 02/11/25 07:28 08:04 WBC 6.1 RBC 4.52 Hgb 13.6 Hct 40.8 MCV 90.3 MCH 30.1 MCHC 33.3 RDW Std Deviation 38.1 RDW Coeff of Alissa 11.6 Plt Count 205 MPV 9.9 Immature Gran % (Auto) 0.200 Neut % (Auto) 48.2 Lymph % (Auto) 38.5 [place] % (Auto) 10.1 H Eos % (Auto) 2.3 Baso % (Auto) 0.7 Absolute Neuts (auto) 3.0 Absolute Lymphs (auto) 2.35 Nucleated RBC % 0 Sodium 134 Potassium 4.0 Chloride 102 Carbon Dioxide 23.0 Anion Gap 9 BUN 15 Creatinine 0.72 Estim Creat Clear Calc 76.01 Est GFR (MDRD) Non-Af 93 BUN/Creatinine Ratio 21.4 H Glucose 103 H Calcium 9.9 Urine Color Yellow Urine Clarity Clear Urine pH 6.5 Ur Specific [place] 1.005 Urine Protein Negative Urine Glucose (UA) Normal Urine Ketones Negative Urine Occult Blood Negative Urine Nitrite Negative Urine Bilirubin Negative Urine Urobilinogen Normal Ur Leukocyte Esterase 25 H Urine RBC 0 SEEN Urine WBC 0-5 SEEN Ur Squamous Epith Cells 0-5 SEEN Urine Bacteria 0 SEEN Urine Mucus 0 SEEN Radiography Diagnostic Testing: Clinical Impression(s) from Imaging Studies Abdomen/Pelvis CT 02/11/25 07:23 IMPRESSION: 1. No renal calculus or collecting system dilation. 2. Diverticulosis without evidence of diverticulitis. 3. Normal appendix Reading Location: [facility] Discharge Plan Triage Chief Complaint: Flank Pain ED Provider: Wil Munroe Dx/Rx/DC Orders Clinical Impression: Acute lumbosacral myofascial strain, Spasm of muscle of lower back, Hyperlipidemia, Hyperparathyroidism Instructions: ED Back Spasm, No Trauma, ED Back Sprain/Strain Prescriptions: New methocarbamol 500 mg tablet 500 mg PO 4X/DAY PRN (Reason: Muscle pain/spasm) Qty: 40 0RF No Action psyllium husk [Metamucil] 0.4 gram capsule 0.4 g PO DAILY turmeric root extract 1,053 mg tablet 1,076 mg PO DAILY Adult 50 Plus Probiotic 4 billion cell capsule 4,000 mmu cells PO DAILY Rx Instructions: administer with a meal clobetasol 0.05 % cream 1 applic topical DAILY PRN magnesium oxide 400 mg magnesium capsule 400 mg PO DAILY PRN krill oil 500 mg capsule 500 mg PO DAILY cholecalciferol (vitamin D3) 25 mcg (1,000 unit) capsule 2,000 unit PO DAILY hydrocortisone 2.5 % solution 1 applic topical .TWICE WEEKLY mecobalamin (vitamin B12) 500 mcg tablet,chewable PO (DME) pen needle, diabetic [Ultra-Thin II Ins Pen [place]] 29 gauge x 1/2 needle See Rx Instructions .Route Qty: 100 3RF Rx Instructions: As directed cholecalciferol (vitamin D3) 1,250 mcg (50,000 unit) capsule 1,250 mcg PO QWEEK Qty: 20 2RF rosuvastatin 10 mg tablet 10 mg PO DAILY Qty: 90 2RF tirzepatide (weight loss) 12.5 mg/0.5 mL solution 12.5 mg subcut QWEEK Qty: 2 3RF Primary Care Provider: Isaac Felix Referrals: Isaac Felix MD [Primary Care Provider, Internal Medicine] Activity Restrictions/Additional Instructions: Please continue to stretch and heat your back to reduce pain and speed healing. Continue with Tylenol and or Motrin for pain control and add a muscle relaxer for symptom improvement. It would typically take 5 to 7 days for symptoms to resolve. Return to the ER should you have any further concerns or worsening of symptoms Print Language: Pashto Disposition Disposition: Home, Self Care Discharge Date/Time: 02/11/25 09:26
[2025-02-11 08:16] LABS: Color, Urine Yellow (Yellow); Glucose, Dipstick Normal (Normal); Ketone-Dipstick Negative (Negative); Leukocyte Esterase-Dipstick 25 /ul (Negative); Nitrite-Dipstick Negative (Negative); Occult Blood-Urine Negative /ul (Negative); Protein-Dipstick Negative (Negative); Specific Gravity, Urine 1.005 (1.002-1.030); Urine Bilirubin Dipstick Negative (Negative)
[2025-02-11 08:22] LABS: Squamous Epithelial Cells - UA 0-5 SEEN /hpf (5-10)
[2025-02-11 09:01] VITALS: BP 142/80; PULSE 58; RESP 12; TEMP 37; O2SAT 100
== END 2025-02-11 09:26 | disposition home or self-care (01) ==
PROVIDERS: Emergency Provider Emergency Medicine; PCP Internal Medicine; Visit Provider Emergency Medicine
DX: R10.A0 Flank pain, unspecified side (principal); S39.012A Strain of muscle, fascia and tendon of lower back, initial encounter; E78.5 Hyperlipidemia, unspecified; E21.3 Hyperparathyroidism, unspecified; I10 Essential (primary) hypertension; M62.838 Other muscle spasm; Z79.899 Other long term (current) drug therapy; Z96.651 Presence of right artificial knee joint
CPT/HCPCS: 74176; 80048; 81001; 85025; 96361; 96374; 99283; A4216

== ENCOUNTER 2025-03-09 09:52 | Outpatient (RCR) | payer OTHER, SELFPAY | END 2025-03-27 23:59 | LOC: NS 09:52 | PROVIDERS: PCP Internal Medicine; Referring Provider Internal Medicine; Visit Provider Internal Medicine | DX: Z71.3 Dietary counseling and surveillance (principal); E66.09 Other obesity due to excess calories; Z68.34 Body mass index [BMI] 34.0-34.9, adult | CPT/HCPCS: 97803 ==